=== PATIENT | male | born 1965 | race Two or more races ===

== ENCOUNTER 2016-10-15 10:09 | Inpatient (IN) | payer OTHER ==
[2016-10-15 10:44] VITALS: BMI 21.4
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
[2016-10-15] MEDS ORDERED: MENTHOL/PHENOL 1 EACH UD MM PRN (12:30)
[2016-10-15] MEDS ORDERED: chlordiazePOXIDE HCL 25 MG CAPSULE PO PRN (12:30)
[2016-10-15] MEDS ORDERED: guaiFENesin/D-METHORPHAN HB 10 ML UNIT-DOSE CUPS PO PRN (12:30)
[2016-10-15] MEDS ORDERED: IBUPROFEN 400 MG TABLET (FP) PO PRN (12:30)
[2016-10-15] MEDS ORDERED: hydrOXYzine PAMOATE 25 MG CAPSULE (FP) PO PRN (12:30)
[2016-10-15] MEDS ORDERED: NICOTINE POLACRILEX 2 MG GUM BUC PRN (12:30)
[2016-10-15] MEDS ORDERED: diphenhydrAMINE HCL 50 MG CAPSULE PO PRN (12:30)
[2016-10-15] MEDS ORDERED: ACETAMINOPHEN 325 MG TABLET (FP) PO PRN (12:30)
[2016-10-15] MEDS ORDERED: LOPERAMIDE HCL 2 MG CAPSULE PO PRN (12:30)
[2016-10-15] MEDS ORDERED: P-EPHED 60MG/TRIPROLIDI 2.5MG TABLET PO PRN (12:30)
[2016-10-15] MEDS ORDERED: MAG HYDROX/AL HYDROX/SIMETH 30 ML UNIT-DOSE CUP PO PRN (12:30)
[2016-10-15] MEDS ORDERED: MAGNESIUM HYDROX 2400MG/30ML ORAL SUSPENSION 30 ML CUP PO PRN (12:30)
[2016-10-15] MEDS ORDERED: MAGNESIUM CITRATE 300 ML BOTTLE PO PRN (12:30)
[2016-10-15] MEDS ORDERED: ALBUTEROL SO4 6.7 GM HFA INHALER IH PRN (12:32)
[2016-10-15] MEDS ORDERED: ONDANSETRON *ODT* 4 MG TABLET SL PRN (12:35)
[2016-10-15] MEDS ORDERED: ACLIDINIUM BROMIDE 400 MCG/INH AERO.POWD IH SCH (12:45)
[2016-10-15] MEDS ORDERED: ALBUTEROL SO4 2.5/IPRATROPIUM 0.5 INH SOL 3 ML VIAL.NEB. NEB SCH (14:00)
[2016-10-15] MEDS ORDERED: chlordiazePOXIDE HCL 25 MG CAPSULE PO ONE (14:07)
[2016-10-15] MEDS: BACITRACIN 0.9 GM PACKET TP SCH ×2 (14:22→22:28)
[2016-10-15] MEDS: PHENYTOIN NA EXTENDED 100 MG CAPSULE (FP) PO SCH ×2 (14:22→22:29)
[2016-10-15] MEDS: NICOTINE 14 MG/24 HOURS TOPICAL PATCH TD SCH (14:23)
[2016-10-15] MEDS ORDERED: METHADONE HCL 40 MG DISPERSABLE TABLET PO ONE (15:08)
[2016-10-15] MEDS: chlordiazePOXIDE HCL 25 MG CAPSULE PO SCH ×2 (17:51→22:29)
[2016-10-15] MEDS: ALBUTEROL SO4 0.083% IH SOL 2.5 MG/3 ML VIAL.NEB. NEB SCH ×2 (18:32→22:32)
[2016-10-15 20:20] LABS: URINE APPEARANCE CLEAR; URINE BILIRUBIN NEGATIVE (NEGATIVE); URINE BLOOD NEGATIVE (NEGATIVE); URINE COLOR AMBER; URINE GLUCOSE (UA) NEGATIVE (NEGATIVE); URINE KETONE TRACE (NEGATIVE); URINE LEUK ESTERASE NEGATIVE (NEGATIVE); URINE NITRITE NEGATIVE (NEGATIVE); URINE UROBILINOGEN NEGATIVE E.U./dl (0.2-1.0)
[2016-10-15 20:23] LABS: URINE PROTEIN 1+ (NEGATIVE)
[2016-10-15 20:24] LABS: URINE BACTERIA RARE /hpf (NONE SEEN); URINE MUCUS MANY; URINE RBC 1 /hpf (0-3); URINE WBC 1 /hpf (3-5)
[2016-10-15] MEDS: THIAMINE HCL 100 MG TABLET (FP) PO SCH (22:28)
[2016-10-15] MEDS: ACLIDINIUM BROMIDE 400 MCG/INH AERO.POWD IH SCH (22:32)
[2016-10-16] MEDS: chlordiazePOXIDE HCL 25 MG CAPSULE PO SCH ×4 (05:48→22:08)
[2016-10-16] MEDS: METHADONE HCL 40 MG DISPERSABLE TABLET PO SCH (05:48)
[2016-10-16 10:37] LABS: ALBUMIN 3.8 g/dl (3.4-5.0); ANION GAP 9 (8-16); CALCIUM 8.8 mg/dL (8.5-10.1); CO2 30 mmol/L (21-32); CREATININE 0.8 mg/dL (0.7-1.3); GLUCOSE,RANDOM 101 mg/dL (74-106); SGOT/AST 25 U/L (15-37); SGPT/ALT 18 U/L (12-78)
[2016-10-16 10:39] LABS: ALK PHOS 132 U/L (45-117); BILIRUBIN,TOTAL 1.2 mg/dL (0.2-1.0); TOT PROT 7.5 g/dl (6.4-8.2)
[2016-10-16 10:40] LABS: MCH 35.2 pg (25.7-33.7); MCHC 33.1 g/dl (32.0-35.9); MEAN CELL VOLUME 106.5 fl (80-96); MEAN PLT VOLUME 8.1 fl (7.5-11.1); PLATELET COUNT 222 K/MM3 (134-434); RDW 15.1 % (11.9-15.9); WHITE BLOOD COUNT 13.2 K/mm3 (4.0-10.0)
[2016-10-16] MEDS: PHENYTOIN NA EXTENDED 100 MG CAPSULE (FP) PO SCH ×2 (10:48→22:06)
[2016-10-16] MEDS: NICOTINE 14 MG/24 HOURS TOPICAL PATCH TD SCH (10:48)
[2016-10-16] MEDS: BACITRACIN 0.9 GM PACKET TP SCH ×2 (10:48→22:06)
[2016-10-16] MEDS: PRENATAL VITAMINS W/ FOLIC ACID TABLET (FP) PO SCH (10:48)
[2016-10-16] MEDS: ACLIDINIUM BROMIDE 400 MCG/INH AERO.POWD IH SCH ×2 (10:50→22:08)
[2016-10-16] MEDS: ALBUTEROL SO4 0.083% IH SOL 2.5 MG/3 ML VIAL.NEB. NEB SCH ×3 (10:50→18:20)
--- NOTE | 2016-10-16 12:31 | EKG ---
Test Reason : Blood Pressure : / mmHG Vent. Rate : 071 BPM Atrial Rate : 071 BPM P-R Int : 122 ms QRS Dur : 074 ms QT Int : 448 ms P-R-T Axes : 076 029 -18 degrees QTc Int : 486 ms NORMAL SINUS RHYTHM NONSPECIFIC ST ABNORMALITY PROLONGED QT ABNORMAL ECG NO PREVIOUS ECGS AVAILABLE Confirmed by ALINE DOE MD ([id number]) on 10/16/2016 12:30:42 PM Referred By: Confirmed By:ALINE DOE MD
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
--- NOTE | 2016-10-16 15:21 | PN ---
BHS COWS - Scale Resting Pulse: 1= [place] 81-100 Sweatin= Chills/Flushing Restless Observation: 1= Difficult to Sit Still Pupil Size: 1= Pupils >than Normal Bone or Joint Aches: 1= Mild Discomfort Runny Nose/ Eye Tearin= Nasal Congestion GI Upset > 30mins: 1= Stomach Cramp Tremor Observation of Outstretched Hands: 0= None Yawning Observation: 4= Several Times/Minute Anxiety or Irritability: 1=Feels Anxious/Irritable Goose Flesh Skin: 0=Smooth Skin COWS Score: 12 S Progress Note (SOAP) Subjective: interrupted sleep, now sedated Objective: 10/16/16 15:19 Vital Signs Temperature 96.3 F L 10/16/16 14:09 Pulse Rate 82 10/16/16 14:09 Respiratory Rate 16 10/16/16 14:09 Blood Pressure 110/67 10/16/16 14:09 O2 Sat by Pulse Oximetry (%) Laboratory Tests 10/15/16 10/16/16 10/16/16 14:00 06:00 06:00 WBC 13.2 H D RBC 3.56 L Hgb 12.5 D Hct 37.9 MCV 106.5 H MCHC 33.1 RDW 15.1 Plt Count 222 MPV 8.1 Macrocytosis 2+ Sodium 138 Potassium 4.0 Chloride 99 Carbon Dioxide 30 Anion Gap 9 BUN 8 D Creatinine 0.8 Creat Clearance w eGFR > 60 Random Glucose 101 D Calcium 8.8 Total Bilirubin 1.2 H D AST 25 ALT 18 D Alkaline Phosphatase 132 H Total Protein 7.5 Albumin 3.8 Urine Color Dorie Urine Appearance Clear Urine pH 6.0 Ur Specific [place] 1.031 Urine Protein 1+ H Urine Glucose (UA) Negative Urine Ketones Trace H Urine Blood Negative Urine Nitrite Negative Urine Bilirubin Negative Urine Urobilinogen Negative Ur Leukocyte Esterase Negative Urine RBC 1 Urine WBC 1 Ur Epithelial Cells Rare Urine Bacteria Rare Urine Mucus Many Phenytoin RPR Titer 10/16/16 10/16/16 06:00 09:10 WBC RBC Hgb Hct MCV MCHC RDW Plt Count MPV Macrocytosis Sodium Potassium Chloride Carbon Dioxide Anion Gap BUN Creatinine Creat Clearance w eGFR Random Glucose Calcium Total Bilirubin AST ALT Alkaline Phosphatase Total Protein Albumin Urine Color Urine Appearance Urine pH Ur Specific [place] Urine Protein Urine Glucose (UA) Urine Ketones Urine Blood Urine Nitrite Urine Bilirubin Urine Urobilinogen Ur Leukocyte Esterase Urine RBC Urine WBC Ur Epithelial Cells Urine Bacteria Urine Mucus Phenytoin < 2.5 L D RPR Titer Nonreactive pt ambulating but when he stops walking he becomess sedated Assessment: 10/16/16 15:20 withdrawql sx' sedation 2nd to ?etiology Plan: cnt. detox hold meds if sedated fluids repat cbc
[2016-10-16] MEDS: THIAMINE HCL 100 MG TABLET (FP) PO SCH (22:06)
[2016-10-17] MEDS: METHADONE HCL 40 MG DISPERSABLE TABLET PO SCH (05:47)
[2016-10-17] MEDS: chlordiazePOXIDE HCL 25 MG CAPSULE PO SCH ×2 (05:47→10:30)
[2016-10-17 10:00] LABS: MCH 36.2 pg (25.7-33.7); MCHC 33.9 g/dl (32.0-35.9); MEAN CELL VOLUME 106.5 fl (80-96); MEAN PLT VOLUME 8.1 fl (7.5-11.1); PLATELET COUNT 222 K/MM3 (134-434); RDW 14.6 % (11.9-15.9); WHITE BLOOD COUNT 10.7 K/mm3 (4.0-10.0)
[2016-10-17] MEDS: CITALOPRAM HYDROBROMIDE 20 MG TABLET (FP) PO SCH (10:30)
[2016-10-17] MEDS: PHENYTOIN NA EXTENDED 100 MG CAPSULE (FP) PO SCH ×2 (10:30→22:19)
[2016-10-17] MEDS: PRENATAL VITAMINS W/ FOLIC ACID TABLET (FP) PO SCH (10:30)
[2016-10-17] MEDS: BACITRACIN 0.9 GM PACKET TP SCH ×2 (10:30→22:18)
[2016-10-17] MEDS: ACLIDINIUM BROMIDE 400 MCG/INH AERO.POWD IH SCH ×2 (10:33→22:19)
[2016-10-17] MEDS: NICOTINE 14 MG/24 HOURS TOPICAL PATCH TD SCH (10:33)
--- NOTE | 2016-10-17 12:29 | PN ---
BHS COWS - Scale Resting Pulse: 1= [place] 81-100 Sweatin=Flushed/Facial Moisture Restless Observation: 1= Difficult to Sit Still Pupil Size: 0= Normal to Room Light Bone or Joint Aches: 2= Severe Diffuse Aches Runny Nose/ Eye Tearin= None GI Upset > 30mins: 0= None Tremor Observation of Outstretched Hands: 2= Slight Tremor Visible Yawning Observation: 2= >3x During Session Anxiety or Irritability: 2=Irritable/Anxious Goose Flesh Skin: 0=Smooth Skin COWS Score: 12 S Progress Note (SOAP) Subjective: agitation little shakes sweats interrupted sleep Objective: 10/17/16 12:28 Vital Signs Temperature 97.2 F L 10/17/16 09:48 Pulse Rate 85 10/17/16 09:48 Respiratory Rate 16 10/17/16 09:48 Blood Pressure 122/76 10/17/16 09:48 O2 Sat by Pulse Oximetry (%) Laboratory Tests 10/15/16 10/16/16 10/16/16 14:00 06:00 06:00 WBC 13.2 H D RBC 3.56 L Hgb 12.5 D Hct 37.9 MCV 106.5 H MCHC 33.1 RDW 15.1 Plt Count 222 MPV 8.1 Macrocytosis 2+ Sodium 138 Potassium 4.0 Chloride 99 Carbon Dioxide 30 Anion Gap 9 BUN 8 D Creatinine 0.8 Creat Clearance w eGFR > 60 Random Glucose 101 D Calcium 8.8 Total Bilirubin 1.2 H D AST 25 ALT 18 D Alkaline Phosphatase 132 H Total Protein 7.5 Albumin 3.8 Urine Color Dorie Urine Appearance Clear Urine pH 6.0 Ur Specific [place] 1.031 Urine Protein 1+ H Urine Glucose (UA) Negative Urine Ketones Trace H Urine Blood Negative Urine Nitrite Negative Urine Bilirubin Negative Urine Urobilinogen Negative Ur Leukocyte Esterase Negative Urine RBC 1 Urine WBC 1 Ur Epithelial Cells Rare Urine Bacteria Rare Urine Mucus Many Phenytoin RPR Titer 10/16/16 10/16/16 10/17/16 06:00 09:10 07:00 WBC 10.7 H RBC 3.41 L Hgb 12.3 Hct 36.3 MCV 106.5 H MCHC 33.9 RDW 14.6 Plt Count 222 MPV 8.1 Macrocytosis Sodium Potassium Chloride Carbon Dioxide Anion Gap BUN Creatinine Creat Clearance w eGFR Random Glucose Calcium Total Bilirubin AST ALT Alkaline Phosphatase Total Protein Albumin Urine Color Urine Appearance Urine pH Ur Specific [place] Urine Protein Urine Glucose (UA) Urine Ketones Urine Blood Urine Nitrite Urine Bilirubin Urine Urobilinogen Ur Leukocyte Esterase Urine RBC Urine WBC Ur Epithelial Cells Urine Bacteria Urine Mucus Phenytoin < 2.5 L D RPR Titer Nonreactive awake/alert ambulating no acute distress Assessment: 10/17/16 12:28 withdrawal sx Plan: continue detox increase fluids
[2016-10-17] MEDS: chlordiazePOXIDE 5 MG CAPSULE PO SCH ×2 (18:06→22:19)
[2016-10-17] MEDS: THIAMINE HCL 100 MG TABLET (FP) PO SCH (22:19)
[2016-10-17] MEDS: ALBUTEROL SO4 0.083% IH SOL 2.5 MG/3 ML VIAL.NEB. NEB SCH (22:20)
[2016-10-18] MEDS: chlordiazePOXIDE 5 MG CAPSULE PO SCH ×2 (06:10→10:42)
[2016-10-18] MEDS: METHADONE HCL 40 MG DISPERSABLE TABLET PO SCH (06:10)
[2016-10-18] MEDS: PRENATAL VITAMINS W/ FOLIC ACID TABLET (FP) PO SCH (10:41)
[2016-10-18] MEDS: BACITRACIN 0.9 GM PACKET TP SCH ×2 (10:41→22:26)
[2016-10-18] MEDS: PHENYTOIN NA EXTENDED 100 MG CAPSULE (FP) PO SCH ×2 (10:41→22:27)
[2016-10-18] MEDS: CITALOPRAM HYDROBROMIDE 20 MG TABLET (FP) PO SCH (10:41)
[2016-10-18] MEDS: ALBUTEROL SO4 0.083% IH SOL 2.5 MG/3 ML VIAL.NEB. NEB SCH ×3 (10:42→22:27)
[2016-10-18] MEDS: ACLIDINIUM BROMIDE 400 MCG/INH AERO.POWD IH SCH ×2 (10:42→22:27)
[2016-10-18] MEDS: NICOTINE 14 MG/24 HOURS TOPICAL PATCH TD SCH (10:42)
--- NOTE | 2016-10-18 10:49 | PN ---
BHS Progress Note (SOAP) Subjective: poor sleep, shaky, anxious, diarrhea Objective: 10/18/16 10:48 Vital Signs - 24 hr 10/17/16 10/17/16 10/17/16 15:03 17:55 22:19 Temperature 96.3 F L 97.7 F 97.5 F L Pulse Rate 70 78 83 Respiratory 16 18 18 Rate Blood Pressure 118/71 119/78 123/88 10/18/16 10/18/16 10/18/16 00:30 03:30 06:48 Temperature 96.6 F L Pulse Rate 83 Respiratory 18 18 18 Rate Blood Pressure 151/80 10/18/16 09:46 Temperature 97.5 F L Pulse Rate 84 Respiratory 18 Rate Blood Pressure 115/56 Laboratory Tests 10/15/16 10/16/16 10/16/16 14:00 06:00 06:00 WBC 13.2 H D RBC 3.56 L Hgb 12.5 D Hct 37.9 MCV 106.5 H MCHC 33.1 RDW 15.1 Plt Count 222 MPV 8.1 Macrocytosis 2+ Sodium 138 Potassium 4.0 Chloride 99 Carbon Dioxide 30 Anion Gap 9 BUN 8 D Creatinine 0.8 Creat Clearance w eGFR > 60 Random Glucose 101 D Calcium 8.8 Total Bilirubin 1.2 H D AST 25 ALT 18 D Alkaline Phosphatase 132 H Total Protein 7.5 Albumin 3.8 Urine Color Dorie Urine Appearance Clear Urine pH 6.0 Ur Specific [place] 1.031 Urine Protein 1+ H Urine Glucose (UA) Negative Urine Ketones Trace H Urine Blood Negative Urine Nitrite Negative Urine Bilirubin Negative Urine Urobilinogen Negative Ur Leukocyte Esterase Negative Urine RBC 1 Urine WBC 1 Ur Epithelial Cells Rare Urine Bacteria Rare Urine Mucus Many Phenytoin RPR Titer 10/16/16 10/16/16 10/17/16 06:00 09:10 07:00 WBC 10.7 H RBC 3.41 L Hgb 12.3 Hct 36.3 MCV 106.5 H MCHC 33.9 RDW 14.6 Plt Count 222 MPV 8.1 Macrocytosis Sodium Potassium Chloride Carbon Dioxide Anion Gap BUN Creatinine Creat Clearance w eGFR Random Glucose Calcium Total Bilirubin AST ALT Alkaline Phosphatase Total Protein Albumin Urine Color Urine Appearance Urine pH Ur Specific [place] Urine Protein Urine Glucose (UA) Urine Ketones Urine Blood Urine Nitrite Urine Bilirubin Urine Urobilinogen Ur Leukocyte Esterase Urine RBC Urine WBC Ur Epithelial Cells Urine Bacteria Urine Mucus Phenytoin < 2.5 L D RPR Titer Nonreactive Assessment: 10/18/16 10:49 ongoing withdrawal Plan: continue detox protocol
[2016-10-18] MEDS: chlordiazePOXIDE HCL 10 MG CAPSULE PO SCH ×2 (17:42→22:27)
[2016-10-18] MEDS: THIAMINE HCL 100 MG TABLET (FP) PO SCH (22:26)
[2016-10-19] MEDS: METHADONE HCL 40 MG DISPERSABLE TABLET PO SCH (05:35)
[2016-10-19] MEDS: chlordiazePOXIDE HCL 10 MG CAPSULE PO SCH (05:35)
--- NOTE | 2016-10-19 09:19 | PN ---
BHS Progress Note (SOAP) Subjective: no complaints Objective: 10/19/16 09:16 Vital Signs 10/19/16 10/19/16 03:28 06:00 Temperature 97.5 F L Pulse Rate 87 Respiratory 18 16 Rate Blood Pressure 138/87 Laboratory Tests 10/15/16 10/16/16 10/16/16 14:00 06:00 06:00 WBC 13.2 H D RBC 3.56 L Hgb 12.5 D Hct 37.9 MCV 106.5 H MCHC 33.1 RDW 15.1 Plt Count 222 MPV 8.1 Macrocytosis 2+ Sodium 138 Potassium 4.0 Chloride 99 Carbon Dioxide 30 Anion Gap 9 BUN 8 D Creatinine 0.8 Creat Clearance w eGFR > 60 Random Glucose 101 D Calcium 8.8 Total Bilirubin 1.2 H D AST 25 ALT 18 D Alkaline Phosphatase 132 H Total Protein 7.5 Albumin 3.8 Urine Color Dorie Urine Appearance Clear Urine pH 6.0 Ur Specific [place] 1.031 Urine Protein 1+ H Urine Glucose (UA) Negative Urine Ketones Trace H Urine Blood Negative Urine Nitrite Negative Urine Bilirubin Negative Urine Urobilinogen Negative Ur Leukocyte Esterase Negative Urine RBC 1 Urine WBC 1 Ur Epithelial Cells Rare Urine Bacteria Rare Urine Mucus Many Phenytoin RPR Titer 10/16/16 10/16/16 10/17/16 06:00 09:10 07:00 WBC 10.7 H RBC 3.41 L Hgb 12.3 Hct 36.3 MCV 106.5 H MCHC 33.9 RDW 14.6 Plt Count 222 MPV 8.1 Macrocytosis Sodium Potassium Chloride Carbon Dioxide Anion Gap BUN Creatinine Creat Clearance w eGFR Random Glucose Calcium Total Bilirubin AST ALT Alkaline Phosphatase Total Protein Albumin Urine Color Urine Appearance Urine pH Ur Specific [place] Urine Protein Urine Glucose (UA) Urine Ketones Urine Blood Urine Nitrite Urine Bilirubin Urine Urobilinogen Ur Leukocyte Esterase Urine RBC Urine WBC Ur Epithelial Cells Urine Bacteria Urine Mucus Phenytoin < 2.5 L D RPR Titer Nonreactive subtherapeuic phenytoin level Assessment: 10/19/16 09:18 completed detox, medically stable, seizure most likely on admission 2/2 subtherapeutic phenytoin level w h/o sieuzres, unlikely to be overdose Plan: d/c today, f/u PCP for uncontrolled seizure do
--- NOTE | 2016-10-19 09:21 | DS ---
[facility] Detox Discharge Summary Admission Date: 10/15/16 Discharge Date: 10/19/16 - History Present History: Alcohol Dependence, Opioid Dependence Pertinent Past History: PTSD, anxiety, depression and insomnia, asthma, seizure disorder, COPD, nicotien dependence with withdrwal sx - Physical Exam Results Vital Signs: Vital Signs Temperature 97.5 F L 10/19/16 06:00 Pulse Rate 87 10/19/16 06:00 Respiratory Rate 16 10/19/16 06:00 Blood Pressure 138/87 10/19/16 06:00 O2 Sat by Pulse Oximetry (%) Pertinent Admission Physical Exam Findings: withdrawal syndrome, seizure of OD in admitting on admission , sent to ED where he was cleared for detox, - Medication Discharge Medications: Ambulatory Orders Citalopram Hydrobromide [Celexa -] 40 mg PO DAILY #30 tablet 05/02/16 Albuterol Sulfate Inhaler - [Ventolin HFA Inhaler -] 2 puff IH Q6H PRN #1 inhaler 09/17/16 Phenytoin Na Extended [Dilantin -] 200 mg PO BID #60 capsule 09/17/16 Aclidinium [place] [Tudorza Pressair] 1 mcg IH DAILY 10/15/16 Quetiapine Fumarate [Seroquel -] 100 mg PO HS 10/15/16 Citalopram Hydrobromide [Celexa -] 40 mg PO DAILY #30 tablet 10/16/16 - Diagnosis (1) Alcohol dependence with uncomplicated withdrawal Current Visit: Yes Status: Acute (2) Opioid dependence on agonist therapy Current Visit: Yes Status: Acute (3) PTSD (post-traumatic stress disorder) Current Visit: Yes Status: Acute (4) Asthma Current Visit: Yes Status: Chronic Qualifiers: Asthma severity: mild persistent Asthma complication type: uncomplicated Qualified Code(s): J45.30 - Mild persistent asthma, uncomplicated (5) COPD (chronic obstructive pulmonary disease) Current Visit: Yes Status: Chronic Qualifiers: COPD type: emphysema Emphysema type: panlobular Qualified Code(s ): J43.1 - Panlobular emphysema (6) Methadone maintenance therapy patient Current Visit: Yes Status: Chronic (7) Nicotine dependence Current Visit: Yes Status: Chronic Qualifiers: Nicotine product type: cigarettes Substance use status: uncomplicated Qualified Code(s): F17.210 - Nicotine dependence, cigarettes, uncomplicated (8) Seizure disorder Current Visit: Yes Status: Chronic (9) Cannabis abuse Current Visit: No Status: Acute (10) MDD (major depressive disorder), recurrent severe, without psychosis Current Visit: No Status: Acute (11) Otitis externa Current Visit: No Status: Acute Qualifiers: Otitis externa type: other infective Laterality: bilateral Chronicity: acute Qualified Code(s): H60.393 - Other infective otitis externa, bilateral (12) Alcohol dependence Current Visit: No Status: Chronic (13) Depression (emotion) Current Visit: No Status: Chronic Qualifiers: Depression Type: dysthymia Qualified Code(s): F34.1 - Dysthymic disorder (14) MDD (major depressive disorder), recurrent episode Current Visit: No Status: Chronic Qualifiers: Major depression episode severity: moderate Qualified Code(s): F33.1 - Major depressive disorder, recurrent, moderate - AMA Did Patient Leave Against Medical Advice: No
[2016-10-19] MEDS: ACLIDINIUM BROMIDE 400 MCG/INH AERO.POWD IH SCH (09:27)
[2016-10-19] MEDS: CITALOPRAM HYDROBROMIDE 20 MG TABLET (FP) PO SCH (09:29)
[2016-10-19] MEDS: PHENYTOIN NA EXTENDED 100 MG CAPSULE (FP) PO SCH (09:29)
[2016-10-19] MEDS: BACITRACIN 0.9 GM PACKET TP SCH (09:29)
[2016-10-19] MEDS: PRENATAL VITAMINS W/ FOLIC ACID TABLET (FP) PO SCH (09:30)
[2016-10-19 10:19] VITALS: BP 144/97; PULSE 82; TEMP 98.5
== END 2016-10-19 09:33 | disposition home or self-care (01) | DRG 773 ==
LOC: YASAS 10:09 → Y6N 13:11
PROVIDERS: ADMIT Internal Medicine Addiction Medicine; ATTEND Internal Medicine Addiction Medicine
PROC: HZ2ZZZZ Detoxification Services for Substance Abuse Treatment (ICD-10-PCS; principal; 2016-10-15)
DX: F10.230 Alcohol dependence with withdrawal, uncomplicated (principal); F11.20 Opioid dependence, uncomplicated; F12.10 Cannabis abuse, uncomplicated; F17.210 Nicotine dependence, cigarettes, uncomplicated; F33.2 Major depressive disorder, recurrent severe without psychotic features; F43.10 Post-traumatic stress disorder, unspecified; H60.393 Other infective otitis externa, bilateral; J43.1 Panlobular emphysema; G40.909 Epilepsy, unspecified, not intractable, without status epilepticus; T50.905A Adverse effect of unspecified drugs, medicaments and biological substances, initial encounter; Z91.5 Personal history of self-harm
CPT/HCPCS: 36415; 71020-TC; 80053; 80185; 81003; 81015; 85027; 86593; 93005; 93010

== ENCOUNTER 2016-11-11 19:38 | Inpatient (IN) | payer OTHER ==
--- NOTE | 2016-11-11 21:20 | HP ---
CIWA Score - CIWA Score Nausea/Vomitin Muscle Tremors: 3 Anxiety: 3 Agitation: 3 Paroxysmal Sweats: 1-Minimal Palms Moist Orientation: 0-Oriented Tacttile Disturbances: 2-Mild Itch/Numbness/Burn Auditory Disturbances: 2-Mild Harshness/Frighten Visual Disturbances: 2-Mild Sensitivity Headache: 2-Mild CIWA-Ar Total Score: 21 Admission ROS [facility] - HPI Chief Complaint: I NEED HELP TO STOP DRINKING ALCOHOL Allergies/Adverse Reactions: Allergies Allergy/AdvReac Type Severity Reaction Status Date / Time No Known Allergies Allergy Verified 11/11/16 21:38 History of Present Illness: THIS 51 YEARS OLD MALE WITH ALCOHOL AND CANNABIS DEPENDENCE,WITHDRAWAL SYMPTOM, LAST DETOX [facility] 10/15/16 TO 10/19/16 SYNCOPE ALCOHOL RELATED SEIZURE LAST 09/06 ANXIETY AND DEPRESSION NICOTINE DEPENDENCE MMTP 120 MGS/DAY,LAST MEDICATED 11/10/16? HISTORY OF SURGERY OF BACK MULTIPLE ADMISSIONS IN DETOX NO SIGNIFICANT PERIOD OF SOBRIETY Exam Limitations: No Limitations - Ebola screening Have you traveled outside of the country in the last 21 days: No (N) Have you had contact with anyone from an Ebola affected area: No Do you have a fever: No - Review of Systems Constitutional: Loss of Appetite, Malaise, Night Sweats, Changes in sleep, Weakness, Unintentional Wgt. Loss EENT: reports: Nose Congestion Respiratory: reports: Other (ASTHMA HISTORY) Cardiac: reports: Palpitations GI: reports: Nausea, Vomiting, Abdominal cramping : reports: No Symptoms Reported, Burning Musculoskeletal: reports: Back Pain, Muscle Pain Integumentary: reports: Dryness Neuro: reports: Tremors Endocrine: reports: No Symptoms Reported Hematology: reports: No Symptoms Reported Psychiatric: reports: Anxious, Depressed Patient History - Patient Medical History Hx Anemia: No Hx Asthma: Yes (ON MDI) Hx Chronic Obstructive Pulmonary Disease (COPD): No Hx Cancer: No Hx Cardiac Disorders: No Hx Congestive Heart Failure: No Hx Hypertension: No Hx Hypercholesterolemia: No Hx Pacemaker: No HX Cerebrovascular Accident: No Hx Seizures: Yes (seizure disorder on dilantin last seizure 1 yr ago) Hx Dementia: No Hx Diabetes: No Hx Gastrointestinal Disorders: No Hx Liver Disease: No Hx Genitourinary Disorders: No Hx Sexually Transmitted Disorders: No Hx Renal Disease (ESRD): No Hx Thyroid Disease: No Hx Human Immunodeficiency Virus (HIV): No (NEGATIVE HX) Hx Hepatitis C: No Hx Depression: Yes Hx Suicide Attempt: Yes (Tried to hang himself in retirement more than 20 yrs ago; DENIES TODAY.) Hx Bipolar Disorder: No Hx Schizophrenia: No Other Medical History: NO SUICIDAL,NO HOMICIDAL - Patient Surgical History Past Surgical History: No Hx Neurologic Surgery: No Hx Cataract Extraction: No Hx Cardiac Surgery: No Hx Lung Surgery: No Hx Breast Surgery: No Hx Breast Biopsy: No Hx Abdominal Surgery: No Hx Appendectomy: No Hx Cholecystectomy: No Hx Genitourinary Surgery: No Hx Section: No (NA) Hx Orthopedic Surgery: No Anesthesia Reaction: No - PPD History Previous Implant?: Yes Documented Results: Negative w/proof Date: 05/03/16 Results: 0 mm PPD to be Administered?: No - Smoking Cessation Smoking history: Current every day smoker Have you smoked in the past 12 months: Yes Aproximately how many cigarettes per day: 12 Cigars Per Day: 0 Hx Chewing Tobacco Use: No Initiated information on smoking cessation: Yes 'Breaking Loose' booklet given: 11/11/16 - Substance & Tx. History Hx Alcohol Use: Yes Hx Substance Use: Yes Substance Use Type: Marijuana Hx Substance Use Treatment: Yes ([facility] 10/15/16 TO 10/19/16) - Substances Abused Alcohol Route: Oral Frequency: Daily Amount used: 4PINTS OF LIQUOR/ Age of first use: 34 Date of Last Use: 11/11/16 Family Disease History - Family Disease History Family Disease History: Other: Father (), Mother () Admission Physical Exam S - Vital Signs Vital Signs: Vital Signs Temperature 96.3 F L 11/11/16 21:27 Pulse Rate 83 11/11/16 21:27 Respiratory Rate 20 11/11/16 21:27 Blood Pressure 96/59 11/11/16 21:27 O2 Sat by Pulse Oximetry (%) - Physical General Appearance: Yes: Moderate Distress, Tremorous, Irritable, Sweating, Anxious HEENTM: Yes: Nasal Congestion Respiratory: Yes: Lungs Clear Neck: Yes: Within Normal Limits, Other (LIPOMA OF RIGHT NECK POSTERIOR 1X1 CM) Breast: Yes: Within Normal Limits Cardiology: Yes: Within Normal Limits, Regular Rhythm, Regular Rate, S1, S2 Abdominal: Yes: Normal Bowel Sounds, Non Tender, Flat, Soft Genitourinary: Yes: Within Normal Limits Back: Yes: Muscle Spasm Musculoskeletal: Yes: Back pain, Muscle Pain Extremities: Yes: Tremors Neurological: Yes: injection specialist II-XII NML intact, Fully Oriented, Alert, Motor Strength 5/5 Integumentary: Yes: Dry Lymphatic: Yes: Within Normal Limits - Diagnostic (1) Alcohol dependence with uncomplicated withdrawal Current Visit: No Status: Acute (2) Cannabis abuse Current Visit: No Status: Acute (3) MDD (major depressive disorder), recurrent severe, without psychosis Current Visit: No Status: Acute (4) Opioid dependence on agonist therapy Current Visit: No Status: Acute (5) PTSD (post-traumatic stress disorder) Current Visit: No Status: Acute (6) Asthma Current Visit: No Status: Chronic Qualifiers: Asthma severity: mild persistent Asthma complication type: uncomplicated Qualified Code(s): J45.30 - Mild persistent asthma, uncomplicated (7) Nicotine dependence Current Visit: No Status: Chronic Qualifiers: Nicotine product type: cigarettes Substance use status: uncomplicated Qualified Code(s): F17.210 - Nicotine dependence, cigarettes, uncomplicated (8) Seizure disorder Current Visit: No Status: Chronic Comment: On dilantin (9) Low back pain Current Visit: Yes Status: Acute (10) Weight loss Current Visit: Yes Status: Acute Cleared for Admission [facility] - Detox or Rehab S Level of Care: Medically Managed Detox Regimen/Protocol: Librium S Breath Alcohol Content Breath Alcohol Content: 0
[2016-11-11 21:35] VITALS: BMI 21.6
[2016-11-11] MEDS ORDERED: MAGNESIUM CITRATE 300 ML BOTTLE PO PRN (22:06)
[2016-11-11] MEDS ORDERED: chlordiazePOXIDE HCL 25 MG CAPSULE PO ONE (22:06)
[2016-11-11] MEDS ORDERED: P-EPHED 60MG/TRIPROLIDI 2.5MG TABLET PO PRN (22:06)
[2016-11-11] MEDS ORDERED: MAG HYDROX/AL HYDROX/SIMETH 30 ML UNIT-DOSE CUP PO PRN (22:06)
[2016-11-11] MEDS ORDERED: diphenhydrAMINE HCL 50 MG CAPSULE PO PRN (22:06)
[2016-11-11] MEDS ORDERED: MAGNESIUM HYDROX 2400MG/30ML ORAL SUSPENSION 30 ML CUP PO PRN (22:06)
[2016-11-11] MEDS ORDERED: MENTHOL/PHENOL 1 EACH UD MM PRN (22:06)
[2016-11-11] MEDS ORDERED: IBUPROFEN 400 MG TABLET (FP) PO PRN (22:06)
[2016-11-11] MEDS ORDERED: chlordiazePOXIDE HCL 25 MG CAPSULE PO PRN (22:06)
[2016-11-11] MEDS ORDERED: guaiFENesin/D-METHORPHAN HB 10 ML UNIT-DOSE CUPS PO PRN (22:06)
[2016-11-11] MEDS ORDERED: hydrOXYzine PAMOATE 25 MG CAPSULE (FP) PO PRN (22:06)
[2016-11-11] MEDS ORDERED: ACETAMINOPHEN 325 MG TABLET (FP) PO PRN (22:06)
[2016-11-11] MEDS ORDERED: LOPERAMIDE HCL 2 MG CAPSULE PO PRN (22:06)
[2016-11-11] MEDS ORDERED: ALBUTEROL SO4 6.7 GM HFA INHALER IH PRN (22:08)
[2016-11-11] MEDS: chlordiazePOXIDE HCL 25 MG CAPSULE PO SCH (23:51)
[2016-11-12] MEDS: chlordiazePOXIDE HCL 25 MG CAPSULE PO SCH ×4 (05:41→22:08)
[2016-11-12] MEDS ORDERED: METHADONE HCL 40 MG DISPERSABLE TABLET PO ONE (07:41)
[2016-11-12] MEDS: PRENATAL VITAMINS W/ FOLIC ACID TABLET (FP) PO SCH (10:07)
[2016-11-12] MEDS: PHENYTOIN NA EXTENDED 100 MG CAPSULE (FP) PO SCH ×2 (10:07→22:08)
[2016-11-12 10:20] LABS: MCH 36.5 pg (25.7-33.7); MEAN CELL VOLUME 107.6 fl (80-96); MEAN PLT VOLUME 7.7 fl (7.5-11.1); PLATELET COUNT 253 K/MM3 (134-434); RDW 15.9 % (11.9-15.9); WHITE BLOOD COUNT 6.3 K/mm3 (4.0-10.0)
[2016-11-12 10:37] LABS: ALBUMIN 2.9 g/dl (3.4-5.0); ALK PHOS 116 U/L (45-117); ANION GAP 11 (8-16); BILIRUBIN,TOTAL 0.2 mg/dL (0.2-1.0); CALCIUM 8.3 mg/dL (8.5-10.1); CO2 30 mmol/L (21-32); CREATININE 0.9 mg/dL (0.7-1.3); GLUCOSE,RANDOM 80 mg/dL (74-106); SGOT/AST 14 U/L (15-37); SGPT/ALT 12 U/L (12-78); TOT PROT 6.3 g/dl (6.4-8.2)
[2016-11-12] MEDS: ACLIDINIUM BROMIDE 400 MCG/INH AERO.POWD IH SCH (11:09)
--- NOTE | 2016-11-12 12:26 | CONSULT ---
[facility] Psychiatric Consult - Data Date of interview: 11/12/16 Admission source: [facility] Identifying data: Readmission to [facility] for this 51 y/o male seeking detox treatment on for alcohol and cannabis dependence.Patient is ,a father of two,homeless,unemployed and supported on food stamps. Substance Abuse History: - Smoking Cessation. Smoking history: Current every day smoker. Have you smoked in the past 12 months: Yes. Aproximately how many cigarettes per day: 12. Cigars Per Day: 0. Hx Chewing Tobacco Use: No. Initiated information on smoking cessation: Yes. 'Breaking Loose' booklet given : 11/11/16. - Substance & Tx. History. Hx Alcohol Use: Yes. Hx Substance Use : Yes. Substance Use Type: Marijuana. Hx Substance Use Treatment: Yes ([facility] TO 10/19/16). - Substances Abused. Alcohol. Route: Oral. Frequency : Daily. Amount used: 4PINTS OF LIQUOR/. Age of first use: 34. Date of Last Use: 11/11/16. Confirmed by patient in this interview. Medical History: Bronchial asthma,low back pain,COPD and seizure disorder. Psychiatric History: No reported history of psychiatric hospitalizations.Patient states that he sees a psychiatrist,on a monthly basis at a clinic in the [place].Except for seroquel,he has no recollection of his regimen of medications." This is something for depression." Mr López is a vague, unreliable and indifferent historian.Review of records shows scripts for seroquel 100 mg/hs + celexa 40 mg/day (10/18/16) from Dr Khan,a clinician at [facility].Patient has a history of suicide attempt via hanging during one of his incarcerations. Physical/Sexual Abuse/Trauma History: Patient declines to discuss this topic. Mental Status Exam - Mental Status Exam Alert and Oriented to: Time, Place, Person Cognitive Function: Grossly Intact Patient Appearance: Unkempt, Disheveled Mood: Withdrawn, Anxious, Irritable Affect: Mood Congruent Patient Behavior: Passive, Fatigued, Appropriate, Cooperative Speech Pattern: Clear Voice Loudness: Normal Thought Process: Goal Oriented Thought Disorder: Not Present Hallucinations: Denies Suicidal Ideation: Denies Homicidal Ideation: Denies Insight/Judgement: Poor Sleep: Poorly, Difficulty falling asleep Appetite: Good Muscle strength/Tone: Normal Gait/Station: Normal Psychiatric Findings - Problem List ([place] 1, 2,3) (1) Alcohol dependence with uncomplicated withdrawal Current Visit: Yes Status: Acute (2) Cannabis abuse Current Visit: Yes Status: Acute (3) Opioid dependence on agonist therapy Current Visit: Yes Status: Acute (4) Nicotine dependence Current Visit: Yes Status: Acute Qualifiers: Nicotine product type: cigarettes Substance use status: uncomplicated Qualified Code(s): F17.210 - Nicotine dependence, cigarettes, uncomplicated (5) PTSD (post-traumatic stress disorder) Current Visit: Yes Status: Chronic (6) Substance induced mood disorder Current Visit: Yes Status: Acute (7) Low back pain Current Visit: Yes Status: Chronic (8) Otitis externa Current Visit: Yes Status: Chronic Qualifiers: Otitis externa type: other infective Laterality: bilateral Chronicity: acute Qualified Code(s): H60.393 - Other infective otitis externa, bilateral (9) Asthma Current Visit: Yes Status: Chronic Qualifiers: Asthma severity: mild persistent Asthma complication type: uncomplicated Qualified Code(s): J45.30 - Mild persistent asthma, uncomplicated (10) COPD (chronic obstructive pulmonary disease) Current Visit: Yes Status: Chronic Qualifiers: COPD type: emphysema Emphysema type: panlobular Qualified Code(s ): J43.1 - Panlobular emphysema (11) Seizure disorder Current Visit: Yes Status: Chronic Comment: On dilantin - Initial Treatment Plan Initial Treatment Plan: Psychoeducation.Detoxification.Medications : seroquel 50 mg po hs + citalopram 20 mg po daily.Side effects/benefits discussed with the patient.He agrees this plan of care.Observation.
--- NOTE | 2016-11-12 15:19 | PN ---
[facility] CIWA - CIWA Score Nausea/Vomitin-Mild Nausea/No Vomiting Muscle Tremors: 4-Moderate,w/Arms Extend Anxiety: 4-Mod. Anxious/Guarded Agitation: 4-Moderately Restless Paroxysmal Sweats: 3 Orientation: 0-Oriented Tacttile Disturbances: 0-None Auditory Disturbances: 0-None Visual Disturbances: 0-None Headache: 0-None Present CIWA-Ar Total Score: 16 BHS Progress Note (SOAP) Subjective: Sweating,anxiety,tremors,interrupted sleep,restless Objective: 11/12/16 15:18 Vital Signs - 8 hr 11/12/16 10:09 Temperature 97.3 F L Pulse Rate 79 Respiratory 18 Rate Blood Pressure 126/86 Laboratory Last Values WBC 6.3 K/mm3 (4.0-10.0) D 11/12/16 08:00 RBC 3.44 M/mm3 (4.00-5.60) L 11/12/16 08:00 Hgb 12.6 GM/dL (11.7-16.9) 11/12/16 08:00 Hct 37.0 % (35.4-49) 11/12/16 08:00 MCV 107.6 fl (80-96) H 11/12/16 08:00 MCHC 34.0 g/dl (32.0-35.9) 11/12/16 08:00 RDW 15.9 % (11.9-15.9) 11/12/16 08:00 Plt Count 253 K/MM3 (134-434) 11/12/16 08:00 MPV 7.7 fl (7.5-11.1) 11/12/16 08:00 Sodium 146 mmol/L (136-145) H 11/12/16 08:00 Potassium 3.4 mmol/L (3.5-5.1) L 11/12/16 08:00 Chloride 105 mmol/L (98-107) 11/12/16 08:00 Carbon Dioxide 30 mmol/L (21-32) 11/12/16 08:00 Anion Gap 11 (8-16) 11/12/16 08:00 BUN 11 mg/dL (7-18) D 11/12/16 08:00 Creatinine 0.9 mg/dL (0.7-1.3) 11/12/16 08:00 Creat Clearance w eGFR > 60 (>60) 11/12/16 08:00 Random Glucose 80 mg/dL (74-106) D 11/12/16 08:00 Calcium 8.3 mg/dL (8.5-10.1) L 11/12/16 08:00 Total Bilirubin 0.2 mg/dL (0.2-1.0) D 11/12/16 08:00 AST 14 U/L (15-37) L D 11/12/16 08:00 ALT 12 U/L (12-78) D 11/12/16 08:00 Alkaline Phosphatase 116 U/L (45-117) 11/12/16 08:00 Total Protein 6.3 g/dl (6.4-8.2) L 11/12/16 08:00 Albumin 2.9 g/dl (3.4-5.0) L D 11/12/16 08:00 Phenytoin < 2.5 ug/ml (10.0-20.0) L 11/12/16 08:00 RPR Titer Nonreactive (NONREACTIVE) 11/12/16 08:00 labs noted Assessment: 11/12/16 15:18 withdrawal sx. Plan: continue detox
[2016-11-12 16:52] LABS: URINE APPEARANCE CLEAR; URINE BILIRUBIN NEGATIVE (NEGATIVE); URINE BLOOD NEGATIVE (NEGATIVE); URINE COLOR AMBER; URINE GLUCOSE (UA) NEGATIVE (NEGATIVE); URINE KETONE TRACE (NEGATIVE); URINE LEUK ESTERASE NEGATIVE (NEGATIVE); URINE NITRITE NEGATIVE (NEGATIVE); URINE PROTEIN NEGATIVE (NEGATIVE); URINE UROBILINOGEN 2.0 E.U/dl E.U./dl (0.2-1.0)
--- NOTE | 2016-11-12 20:56 | PN ---
[facility] Progress Note Note: RECEIVED NURSE CALL k+ 3.4 K-DUO 20 MEQ X 2 DOSES REPEAT CMP 11/14/16 CONTINUE DETOX
--- NOTE | 2016-11-12 21:34 | EKG ---
Test Reason : Blood Pressure : / mmHG Vent. Rate : 057 BPM Atrial Rate : 057 BPM P-R Int : 126 ms QRS Dur : 088 ms QT Int : 488 ms P-R-T Axes : 079 056 037 degrees QTc Int : 474 ms SINUS BRADYCARDIA OTHERWISE NORMAL ECG WHEN COMPARED WITH ECG OF 15-OCT-2016 13:55, VENT. RATE HAS DECREASED Confirmed by DIAZ CUENCA MD ([id number]) on 11/12/2016 9:34:29 PM Referred By: Confirmed By:DIAZ CUENCA MD
[2016-11-12] MEDS: THIAMINE HCL 100 MG TABLET (FP) PO SCH (22:08)
[2016-11-12] MEDS: POTASSIUM CHLORIDE TABS 20 MEQ TABLET.ER (FP) PO SCH (22:09)
[2016-11-12] MEDS: QUEtiapine FUMARATE 50 MG TABLET PO SCH (22:09)
[2016-11-13] MEDS: chlordiazePOXIDE HCL 25 MG CAPSULE PO SCH ×3 (05:50→17:16)
[2016-11-13] MEDS: METHADONE HCL 40 MG DISPERSABLE TABLET PO SCH (07:33)
[2016-11-13] MEDS: ACLIDINIUM BROMIDE 400 MCG/INH AERO.POWD IH SCH (10:41)
[2016-11-13] MEDS: PHENYTOIN NA EXTENDED 100 MG CAPSULE (FP) PO SCH ×2 (10:41→22:13)
[2016-11-13] MEDS: POTASSIUM CHLORIDE TABS 20 MEQ TABLET.ER (FP) PO SCH (10:42)
[2016-11-13] MEDS: CITALOPRAM HYDROBROMIDE 20 MG TABLET (FP) PO SCH (10:42)
[2016-11-13] MEDS: PRENATAL VITAMINS W/ FOLIC ACID TABLET (FP) PO SCH (10:42)
--- NOTE | 2016-11-13 17:22 | PN ---
S CIWA - CIWA Score Nausea/Vomitin-No Nausea/No Vomiting Muscle Tremors: 3 Anxiety: 4-Mod. Anxious/Guarded Agitation: 3 Paroxysmal Sweats: 3 Orientation: 0-Oriented Tacttile Disturbances: 0-None Auditory Disturbances: 0-None Visual Disturbances: 0-None Headache: 0-None Present CIWA-Ar Total Score: 13 BHS Progress Note (SOAP) Subjective: Sweating,interrupted sleep,restless,tremors,anxiety Objective: 11/13/16 17:20 Vital Signs - 8 hr 11/13/16 11/13/16 13:28 16:59 Temperature 96.8 F L 96.1 F L Pulse Rate 57 L 60 Respiratory 18 16 Rate Blood Pressure 129/84 134/81 Laboratory Tests 11/12/16 11/12/16 11/12/16 08:00 08:00 08:00 WBC 6.3 D RBC 3.44 L Hgb 12.6 Hct 37.0 MCV 107.6 H MCHC 34.0 RDW 15.9 Plt Count 253 MPV 7.7 Sodium 146 H Potassium 3.4 L Chloride 105 Carbon Dioxide 30 Anion Gap 11 BUN 11 D Creatinine 0.9 Creat Clearance w eGFR > 60 Random Glucose 80 D Calcium 8.3 L Total Bilirubin 0.2 D AST 14 L D ALT 12 D Alkaline Phosphatase 116 Total Protein 6.3 L Albumin 2.9 L D Urine Color Urine Appearance Urine pH Ur Specific [place] Urine Protein Urine Glucose (UA) Urine Ketones Urine Blood Urine Nitrite Urine Bilirubin Urine Urobilinogen Ur Leukocyte Esterase Phenytoin RPR Titer Nonreactive 11/12/16 11/12/16 08:00 13:00 WBC RBC Hgb Hct MCV MCHC RDW Plt Count MPV Sodium Potassium Chloride Carbon Dioxide Anion Gap BUN Creatinine Creat Clearance w eGFR Random Glucose Calcium Total Bilirubin AST ALT Alkaline Phosphatase Total Protein Albumin Urine Color Dorie Urine Appearance Clear Urine pH 5.0 Ur Specific [place] 1.032 Urine Protein Negative Urine Glucose (UA) Negative Urine Ketones Trace H Urine Blood Negative Urine Nitrite Negative Urine Bilirubin Negative Urine Urobilinogen 2.0 e.u/dl Ur Leukocyte Esterase Negative Phenytoin < 2.5 L RPR Titer labs noted, on k-dur Assessment: 11/13/16 17:22 Withdrawal sx. Plan: Continue detox
[2016-11-13] MEDS ORDERED: POTASSIUM CHLORIDE TABS 10 MEQ TABLET.ER (FP) PO SCH (17:45)
[2016-11-13] MEDS: chlordiazePOXIDE 5 MG CAPSULE PO SCH (22:12)
[2016-11-13] MEDS: THIAMINE HCL 100 MG TABLET (FP) PO SCH (22:13)
[2016-11-13] MEDS: QUEtiapine FUMARATE 50 MG TABLET PO SCH (22:13)
[2016-11-14] MEDS: METHADONE HCL 40 MG DISPERSABLE TABLET PO SCH (05:52)
[2016-11-14] MEDS: chlordiazePOXIDE 5 MG CAPSULE PO SCH ×3 (06:06→17:14)
[2016-11-14] MEDS: POTASSIUM CHLORIDE ORAL LIQUID 20 MEQ/15 ML PO SCH (10:07)
[2016-11-14] MEDS: ACLIDINIUM BROMIDE 400 MCG/INH AERO.POWD IH SCH (10:08)
[2016-11-14] MEDS: PRENATAL VITAMINS W/ FOLIC ACID TABLET (FP) PO SCH (10:08)
[2016-11-14] MEDS: CITALOPRAM HYDROBROMIDE 20 MG TABLET (FP) PO SCH (10:09)
[2016-11-14] MEDS: PHENYTOIN NA EXTENDED 100 MG CAPSULE (FP) PO SCH ×2 (10:09→22:08)
--- NOTE | 2016-11-14 10:10 | PN ---
[facility] Progress Note (SOAP) Subjective: Sweating,interrupted sleep,restless Objective: 11/14/16 10:08 Vital Signs - 8 hr 11/14/16 11/14/16 11/14/16 03:44 06:38 09:37 Temperature 97.4 F L 96.4 F L Pulse Rate 66 66 Respiratory 18 18 18 Rate Blood Pressure 123/90 145/96 Laboratory Last Values WBC 6.3 K/mm3 (4.0-10.0) D 11/12/16 08:00 RBC 3.44 M/mm3 (4.00-5.60) L 11/12/16 08:00 Hgb 12.6 GM/dL (11.7-16.9) 11/12/16 08:00 Hct 37.0 % (35.4-49) 11/12/16 08:00 MCV 107.6 fl (80-96) H 11/12/16 08:00 MCHC 34.0 g/dl (32.0-35.9) 11/12/16 08:00 RDW 15.9 % (11.9-15.9) 11/12/16 08:00 Plt Count 253 K/MM3 (134-434) 11/12/16 08:00 MPV 7.7 fl (7.5-11.1) 11/12/16 08:00 Sodium 146 mmol/L (136-145) H 11/12/16 08:00 Potassium 3.4 mmol/L (3.5-5.1) L 11/12/16 08:00 Chloride 105 mmol/L (98-107) 11/12/16 08:00 Carbon Dioxide 30 mmol/L (21-32) 11/12/16 08:00 Anion Gap 11 (8-16) 11/12/16 08:00 BUN 11 mg/dL (7-18) D 11/12/16 08:00 Creatinine 0.9 mg/dL (0.7-1.3) 11/12/16 08:00 Creat Clearance w eGFR > 60 (>60) 11/12/16 08:00 Random Glucose 80 mg/dL (74-106) D 11/12/16 08:00 Calcium 8.3 mg/dL (8.5-10.1) L 11/12/16 08:00 Total Bilirubin 0.2 mg/dL (0.2-1.0) D 11/12/16 08:00 AST 14 U/L (15-37) L D 11/12/16 08:00 ALT 12 U/L (12-78) D 11/12/16 08:00 Alkaline Phosphatase 116 U/L (45-117) 11/12/16 08:00 Total Protein 6.3 g/dl (6.4-8.2) L 11/12/16 08:00 Albumin 2.9 g/dl (3.4-5.0) L D 11/12/16 08:00 Urine Color Dorie 11/12/16 13:00 Urine Appearance Clear 11/12/16 13:00 Urine pH 5.0 (5.0-8.0) 11/12/16 13:00 Ur Specific [place] 1.032 (1.001-1.035) 11/12/16 13:00 Urine Protein Negative (NEGATIVE) 11/12/16 13:00 Urine Glucose (UA) Negative (NEGATIVE) 11/12/16 13:00 Urine Ketones Trace (NEGATIVE) H 11/12/16 13:00 Urine Blood Negative (NEGATIVE) 11/12/16 13:00 Urine Nitrite Negative (NEGATIVE) 11/12/16 13:00 Urine Bilirubin Negative (NEGATIVE) 11/12/16 13:00 Urine Urobilinogen 2.0 e.u/dl E.U./dl (0.2-1.0) 11/12/16 13:00 Ur Leukocyte Esterase Negative (NEGATIVE) 11/12/16 13:00 Phenytoin < 2.5 ug/ml (10.0-20.0) L 11/12/16 08:00 RPR Titer Nonreactive (NONREACTIVE) 11/12/16 08:00 labs noted K+ replacement given Assessment: 11/14/16 10:09 Withdrawal sx. Plan: Continue detox
[2016-11-14 10:34] LABS: ALBUMIN 2.8 g/dl (3.4-5.0); ALK PHOS 102 U/L (45-117); ANION GAP 9 (8-16); BILIRUBIN,TOTAL 0.2 mg/dL (0.2-1.0); CALCIUM 8.7 mg/dL (8.5-10.1); CO2 30 mmol/L (21-32); CREATININE 0.8 mg/dL (0.7-1.3); GLUCOSE,RANDOM 93 mg/dL (74-106); SGOT/AST 13 U/L (15-37); SGPT/ALT 10 U/L (12-78); TOT PROT 6.1 g/dl (6.4-8.2)
[2016-11-14] MEDS: chlordiazePOXIDE HCL 10 MG CAPSULE PO SCH (22:08)
[2016-11-14] MEDS: QUEtiapine FUMARATE 50 MG TABLET PO SCH (22:08)
[2016-11-14] MEDS: THIAMINE HCL 100 MG TABLET (FP) PO SCH (22:08)
[2016-11-15] MEDS: chlordiazePOXIDE HCL 10 MG CAPSULE PO SCH (05:30)
[2016-11-15] MEDS: METHADONE HCL 40 MG DISPERSABLE TABLET PO SCH (05:30)
[2016-11-15] MEDS: POTASSIUM CHLORIDE ORAL LIQUID 20 MEQ/15 ML PO SCH (09:52)
[2016-11-15] MEDS: PRENATAL VITAMINS W/ FOLIC ACID TABLET (FP) PO SCH (09:52)
[2016-11-15] MEDS: CITALOPRAM HYDROBROMIDE 20 MG TABLET (FP) PO SCH (09:52)
[2016-11-15] MEDS: ACLIDINIUM BROMIDE 400 MCG/INH AERO.POWD IH SCH (09:52)
[2016-11-15] MEDS: PHENYTOIN NA EXTENDED 100 MG CAPSULE (FP) PO SCH (09:52)
--- NOTE | 2016-11-15 10:16 | DS ---
[facility] Detox Discharge Summary Admission Date: 11/11/16 Discharge Date: 11/15/16 - History Present History: Alcohol Dependence, Cannabis Dependence, MMTP Pertinent Past History: Asthma - Physical Exam Results Vital Signs: Vital Signs Temperature 98 F 11/15/16 06:27 Pulse Rate 94 H 11/15/16 06:27 Respiratory Rate 18 11/15/16 06:27 Blood Pressure 136/98 11/15/16 06:27 O2 Sat by Pulse Oximetry (%) Pertinent Admission Physical Exam Findings: Withdrawal sx. Laboratory Last Values WBC 6.3 K/mm3 (4.0-10.0) D 11/12/16 08:00 RBC 3.44 M/mm3 (4.00-5.60) L 11/12/16 08:00 Hgb 12.6 GM/dL (11.7-16.9) 11/12/16 08:00 Hct 37.0 % (35.4-49) 11/12/16 08:00 MCV 107.6 fl (80-96) H 11/12/16 08:00 MCHC 34.0 g/dl (32.0-35.9) 11/12/16 08:00 RDW 15.9 % (11.9-15.9) 11/12/16 08:00 Plt Count 253 K/MM3 (134-434) 11/12/16 08:00 MPV 7.7 fl (7.5-11.1) 11/12/16 08:00 Sodium 141 mmol/L (136-145) 11/14/16 07:20 Potassium 4.6 mmol/L (3.5-5.1) D 11/14/16 07:20 Chloride 102 mmol/L (98-107) 11/14/16 07:20 Carbon Dioxide 30 mmol/L (21-32) 11/14/16 07:20 Anion Gap 9 (8-16) 11/14/16 07:20 BUN 9 mg/dL (7-18) 11/14/16 07:20 Creatinine 0.8 mg/dL (0.7-1.3) 11/14/16 07:20 Creat Clearance w eGFR > 60 (>60) 11/14/16 07:20 Random Glucose 93 mg/dL (74-106) 11/14/16 07:20 Calcium 8.7 mg/dL (8.5-10.1) 11/14/16 07:20 Total Bilirubin 0.2 mg/dL (0.2-1.0) 11/14/16 07:20 AST 13 U/L (15-37) L 11/14/16 07:20 ALT 10 U/L (12-78) L 11/14/16 07:20 Alkaline Phosphatase 102 U/L (45-117) 11/14/16 07:20 Total Protein 6.1 g/dl (6.4-8.2) L 11/14/16 07:20 Albumin 2.8 g/dl (3.4-5.0) L 11/14/16 07:20 Urine Color Dorie 11/12/16 13:00 Urine Appearance Clear 11/12/16 13:00 Urine pH 5.0 (5.0-8.0) 11/12/16 13:00 Ur Specific [place] 1.032 (1.001-1.035) 11/12/16 13:00 Urine Protein Negative (NEGATIVE) 11/12/16 13:00 Urine Glucose (UA) Negative (NEGATIVE) 11/12/16 13:00 Urine Ketones Trace (NEGATIVE) H 11/12/16 13:00 Urine Blood Negative (NEGATIVE) 11/12/16 13:00 Urine Nitrite Negative (NEGATIVE) 11/12/16 13:00 Urine Bilirubin Negative (NEGATIVE) 11/12/16 13:00 Urine Urobilinogen 2.0 e.u/dl E.U./dl (0.2-1.0) 11/12/16 13:00 Ur Leukocyte Esterase Negative (NEGATIVE) 11/12/16 13:00 Phenytoin < 2.5 ug/ml (10.0-20.0) L 11/12/16 08:00 RPR Titer Nonreactive (NONREACTIVE) 11/12/16 08:00 labs noted - Treatment Hospital Course: Detox Protocol Followed, Detoxed Safely, Responded well, Discharged Condition Good, Rehab Referral Accepted - Medication Discharge Medications: Ambulatory Orders Citalopram Hydrobromide [Celexa -] 40 mg PO DAILY #30 tablet 05/02/16 Albuterol Sulfate Inhaler - [Ventolin HFA Inhaler -] 2 puff IH Q6H PRN #1 inhaler 09/17/16 Phenytoin Na Extended [Dilantin -] 200 mg PO BID #60 capsule 09/17/16 Aclidinium Josephine [Tudorza Pressair] 1 mcg IH DAILY 10/15/16 Quetiapine Fumarate [Seroquel -] 100 mg PO HS 10/15/16 Citalopram Hydrobromide [Celexa -] 20 mg PO DAILY #30 tablet 11/13/16 Quetiapine Fumarate [Seroquel -] 50 mg PO HS #30 tablet 11/13/16 - Diagnosis (1) Alcohol dependence with uncomplicated withdrawal Current Visit: Yes Status: Acute (2) Cannabis abuse Current Visit: Yes Status: Acute (3) Nicotine dependence Current Visit: Yes Status: Acute Qualifiers: Nicotine product type: cigarettes Substance use status: uncomplicated Qualified Code(s): F17.210 - Nicotine dependence, cigarettes, uncomplicated (4) Opioid dependence on agonist therapy Current Visit: Yes Status: Acute (5) Asthma Current Visit: Yes Status: Chronic Qualifiers: Asthma severity: mild persistent Asthma complication type: uncomplicated Qualified Code(s): J45.30 - Mild persistent asthma, uncomplicated (6) COPD (chronic obstructive pulmonary disease) Current Visit: Yes Status: Chronic Qualifiers: COPD type: emphysema Emphysema type: panlobular Qualified Code(s ): J43.1 - Panlobular emphysema (7) PTSD (post-traumatic stress disorder) Current Visit: Yes Status: Chronic (8) Seizure disorder Current Visit: Yes Status: Chronic (9) Substance induced mood disorder Current Visit: Yes Status: Acute - AMA Did Patient Leave Against Medical Advice: No
[2016-11-15 10:29] VITALS: BP 128/91; PULSE 82; TEMP 98.1
== END 2016-11-15 10:11 | disposition home or self-care (01) | DRG 773 ==
LOC: YASAS 19:38 → Y3N 22:06
PROVIDERS: ADMIT Internal Medicine; ATTEND Internal Medicine
PROC: HZ2ZZZZ Detoxification Services for Substance Abuse Treatment (ICD-10-PCS; principal; 2016-11-15)
DX: F11.20 Opioid dependence, uncomplicated (principal); F10.230 Alcohol dependence with withdrawal, uncomplicated; F17.210 Nicotine dependence, cigarettes, uncomplicated; F12.10 Cannabis abuse, uncomplicated; F19.24 Other psychoactive substance dependence with psychoactive substance-induced mood disorder; F43.10 Post-traumatic stress disorder, unspecified; J43.1 Panlobular emphysema; J45.30 Mild persistent asthma, uncomplicated; G40.909 Epilepsy, unspecified, not intractable, without status epilepticus; H60.393 Other infective otitis externa, bilateral; M54.5 Low back pain
CPT/HCPCS: 36415; 71020-TC; 80053; 80185; 81003; 85027; 86593; 93005; 93010

== ENCOUNTER 2017-08-14 08:34 | Inpatient (IN) | payer OTHER ==
[2017-08-14 09:01] VITALS: BMI 21.7
--- NOTE | 2017-08-14 10:53 | HP ---
CIWA Score - CIWA Score Nausea/Vomitin Muscle Tremors: 3 Anxiety: 3 Agitation: 3 Paroxysmal Sweats: 2 Orientation: 0-Oriented Tacttile Disturbances: 2-Mild Itch/Numbness/Burn Auditory Disturbances: 2-Mild Harshness/Frighten Visual Disturbances: 2-Mild Sensitivity Headache: 2-Mild CIWA-Ar Total Score: 22 Admission ROS BHS - HPI Chief Complaint: I NEED HELP TO STOP DRINKING ALCOHOL Allergies/Adverse Reactions: Allergies Allergy/AdvReac Type Severity Reaction Status Date / Time No Known Allergies Allergy Verified 11/11/16 21:38 History of Present Illness: THIS 51 YEARS OLD MALE WITH ALCOHOL DEPENDENCE,SEEKING DETOX,LAST TREATMENT [facility] 05[place]08 LAST SEIZURE 2 MONTHS ADMITTED IN [place] LAST SEEN IN [place] LAST NIGHT ASTHMA NICOTINE DEPENDENCE MMTP 80 MGS/DAY,HAS BOTTLE TO TAKE HOME FOR 08/04/17 AND TOMORROW LONGEST PERIOD OF SOBRIETY 2 MONTHS - Ebola screening Have you traveled outside of the country in the last 21 days: No (N) Have you had contact with anyone from an Ebola affected area: No Have you been sick,other than usual withdrawal symptoms: No Do you have a fever: No - Review of Systems Constitutional: Chills, Loss of Appetite, Malaise, Night Sweats, Changes in sleep, Unintentional Wgt. Loss EENT: reports: Tearing, Nose Congestion Respiratory: reports: No Symptoms reported, Other (ASTHMA) Cardiac: reports: No Symptoms Reported GI: reports: Diarrhea, Nausea, Abdominal cramping : reports: No Symptoms Reported Musculoskeletal: reports: Back Pain, Muscle Pain Integumentary: reports: Dryness Neuro: reports: Headache, Tremors Endocrine: reports: No Symptoms Reported Hematology: reports: No Symptoms Reported Psychiatric: reports: No Sypmtoms Reported, Judgement Intact, Mood/Affect Appropiate, Anxious, Depressed, other (INSOMNIA) Other Systems: Reviewed and Negative Patient History - Patient Medical History Hx Anemia: No Hx Asthma: Yes Hx Chronic Obstructive Pulmonary Disease (COPD): No Hx Cancer: No Hx Cardiac Disorders: No Hx Congestive Heart Failure: No Hx Hypertension: No Hx Hypercholesterolemia: No Hx Pacemaker: No HX Cerebrovascular Accident: No Hx Seizures: Yes (2 MONTHS AGO)) Hx Dementia: No Hx Diabetes: No Hx Gastrointestinal Disorders: No Hx Liver Disease: No Hx Genitourinary Disorders: No Hx Sexually Transmitted Disorders: No Hx Renal Disease (ESRD): No Hx Thyroid Disease: No Hx Human Immunodeficiency Virus (HIV): No (NEGATIVE HX LAST 07/08 NEGATIVE) Hx Hepatitis C: No Hx Depression: Yes Hx Suicide Attempt: Yes (ATTEMPTING TO HANG HIMSELF AT AGE 21) Hx Bipolar Disorder: No Hx Schizophrenia: No Other Medical History: NO SUICIDAL,NO HOMICIDAL - Patient Surgical History Past Surgical History: No Hx Neurologic Surgery: No Hx Cataract Extraction: No Hx Cardiac Surgery: No Hx Lung Surgery: No Hx Breast Surgery: No Hx Breast Biopsy: No Hx Abdominal Surgery: No Hx Appendectomy: No Hx Cholecystectomy: No Hx Genitourinary Surgery: No Hx Section: No (NA) Hx Orthopedic Surgery: No Anesthesia Reaction: No - PPD History Previous Implant?: Yes Documented Results: Negative w/proof Implanted On Prior [facility] Admission?: Yes Date: 05/03/16 Results: 0 mm PPD to be Administered?: Yes - Smoking Cessation Smoking history: Current every day smoker Have you smoked in the past 12 months: Yes Aproximately how many cigarettes per day: 10 Cigars Per Day: 0 Hx Chewing Tobacco Use: No Initiated information on smoking cessation: Yes 'Breaking Loose' booklet given: 08/14/17 - Substance & Tx. History Hx Alcohol Use: Yes Hx Substance Use: No Substance Use Type: Alcohol Hx Substance Use Treatment: Yes ([facility] 05/08) - Substances Abused Alcohol Route: Oral Frequency: Daily Amount used: 99 bananas(1-2 pints) Age of first use: 34 Date of Last Use: 08/14/17 Family Disease History - Family Disease History Family Disease History: Other: Father (), Mother () Admission Physical Exam S - Vital Signs Vital Signs: Vital Signs - 24 hr 08/14/17 08:58 Temperature 96.1 F L Pulse Rate 94 H Respiratory 18 Rate Blood Pressure 107/77 - Physical General Appearance: Yes: Moderate Distress, Tremorous, Irritable, Sweating, Anxious HEENTM: Yes: Normal ENT Inspection, ROBERTO, Pharynx Normal Respiratory: Yes: Lungs Clear, Normal Breath Sounds, No Respiratory Distress, Wheezing Neck: Yes: Within Normal Limits, Supple, Trachea in good position Breast: Yes: Within Normal Limits Cardiology: Yes: Within Normal Limits, Regular Rhythm, Regular Rate, S1, S2 Abdominal: Yes: Within Normal Limits, Normal Bowel Sounds, Flat, Soft Genitourinary: Yes: Within Normal Limits Back: Yes: Muscle Spasm Extremities: Yes: Within Normal Limits, Normal Range of Motion, Tremors Neurological: Yes: medical library assistant II-XII NML intact, Alert, Motor Strength 5/5 Integumentary: Yes: Dry Lymphatic: Yes: Within Normal Limits - Diagnostic (1) Alcohol dependence with uncomplicated withdrawal Current Visit: No Status: Acute (2) Opioid dependence on agonist therapy Current Visit: No Status: Acute (3) Nicotine dependence Current Visit: No Status: Acute Qualifiers: Nicotine product type: cigarettes Substance use status: uncomplicated Qualified Code(s): F17.210 - Nicotine dependence, cigarettes, uncomplicated (4) Weight loss Current Visit: No Status: Acute (5) Low back pain Current Visit: No Status: Chronic (6) PTSD (post-traumatic stress disorder) Current Visit: No Status: Chronic (7) Seizure disorder Current Visit: No Status: Chronic Comment: On dilantin (8) Anxiety and depression Current Visit: Yes Status: Acute (9) Seizure Current Visit: Yes Status: Acute Cleared for Admission [facility] - Detox or Rehab [facility] Level of Care: Medically Managed Detox Regimen/Protocol: Librium [facility] Breath Alcohol Content Breath Alcohol Content: 0.250 Urine Drug Screen - Results Drug Screen Negative: No Urine Drug Screen Results: MTD-Methadone
[2017-08-14] MEDS ORDERED: IBUPROFEN 400 MG TABLET (FP) PO PRN (11:04)
[2017-08-14] MEDS ORDERED: ACETAMINOPHEN 325 MG TABLET (FP) PO PRN (11:04)
[2017-08-14] MEDS ORDERED: NICOTINE POLACRILEX 2 MG GUM BUC PRN (11:04)
[2017-08-14] MEDS ORDERED: MAGNESIUM HYDROX 2400MG/30ML ORAL SUSPENSION 30 ML CUP PO PRN (11:04)
[2017-08-14] MEDS ORDERED: LOPERAMIDE HCL 2 MG CAPSULE PO PRN (11:04)
[2017-08-14] MEDS ORDERED: P-EPHED 60MG/TRIPROLIDI 2.5MG TABLET PO PRN (11:04)
[2017-08-14] MEDS ORDERED: guaiFENesin/D-METHORPHAN HB 10 ML UNIT-DOSE CUPS PO PRN (11:04)
[2017-08-14] MEDS ORDERED: MENTHOL/PHENOL 1 EACH UD MM PRN (11:04)
[2017-08-14] MEDS ORDERED: hydrOXYzine PAMOATE 25 MG CAPSULE (FP) PO PRN (11:04)
[2017-08-14] MEDS ORDERED: MAG HYDROX/AL HYDROX/SIMETH 30 ML UNIT-DOSE CUP PO PRN (11:04)
[2017-08-14] MEDS ORDERED: chlordiazePOXIDE HCL 25 MG CAPSULE PO PRN (11:04)
[2017-08-14] MEDS ORDERED: MAGNESIUM CITRATE 300 ML BOTTLE PO PRN (11:04)
[2017-08-14] MEDS ORDERED: ALBUTEROL SO4 18 GM HFA INHALER IH PRN (11:09)
[2017-08-14] MEDS ORDERED: ALBUTEROL SO4 2.5/IPRATROPIUM 0.5 INH SOL 3 ML VIAL.NEB. NEB PRN (11:14)
[2017-08-14] MEDS: predniSONE 20 MG TABLET (UD) PO SCH ×2 (12:06→22:16)
[2017-08-14] MEDS: NICOTINE 21 MG/24 HOURS TOPICAL PATCH TD SCH (12:07)
[2017-08-14] MEDS: DOXYCYCLINE HYCLATE 100 MG CAPSULE PO SCH ×2 (14:37→17:40)
[2017-08-14 17:10] LABS: URINE APPEARANCE CLEAR; URINE BILIRUBIN NEGATIVE (NEGATIVE); URINE BLOOD NEGATIVE (NEGATIVE); URINE COLOR YELLOW; URINE GLUCOSE (UA) 1+ (NEGATIVE); URINE KETONE TRACE (NEGATIVE); URINE NITRITE NEGATIVE (NEGATIVE); URINE UROBILINOGEN NEGATIVE mg/dL (0.2-1.0)
[2017-08-14 17:19] LABS: URINE PROTEIN 1+ (NEGATIVE)
[2017-08-14] MEDS: chlordiazePOXIDE HCL 25 MG CAPSULE PO SCH ×2 (17:40→22:15)
[2017-08-14 17:43] LABS: URINE MUCUS RARE; URINE WBC <1 /hpf (3-5)
[2017-08-14 22:03] LABS: URINE LEUK ESTERASE Negative (NEGATIVE)
[2017-08-14] MEDS: PHENYTOIN NA EXTENDED 100 MG CAPSULE (FP) PO SCH (22:15)
[2017-08-14] MEDS: THIAMINE HCL 100 MG TABLET (FP) PO SCH (22:15)
[2017-08-14] MEDS: QUEtiapine FUMARATE 50 MG TABLET PO SCH (22:16)
--- NOTE | 2017-08-14 22:40 | EKG ---
Test Reason : Blood Pressure : / mmHG Vent. Rate : 076 BPM Atrial Rate : 076 BPM P-R Int : 138 ms QRS Dur : 088 ms QT Int : 432 ms P-R-T Axes : 084 039 045 degrees QTc Int : 486 ms NORMAL SINUS RHYTHM BORDERLINE PROLONGED QT ABNORMAL ECG WHEN COMPARED WITH ECG OF 11-NOV-2016 23:54, NO SIGNIFICANT CHANGE WAS FOUND Confirmed by NOEL OWEN MD ([id number]) on 08/14/2017 10:39:33 PM Referred By: Confirmed By:NOEL OWEN MD
[2017-08-15] MEDS: chlordiazePOXIDE HCL 25 MG CAPSULE PO SCH ×4 (05:10→22:02)
[2017-08-15] MEDS ORDERED: METHADONE HCL 10 MG TABLET PO ONE (06:00)
--- NOTE | 2017-08-15 09:37 | PN ---
S CIWA - CIWA Score Nausea/Vomitin-No Nausea/No Vomiting Muscle Tremors: 4-Moderate,w/Arms Extend Anxiety: 3 Agitation: 3 Paroxysmal Sweats: 3 Orientation: 0-Oriented Tacttile Disturbances: 0-None Auditory Disturbances: 0-None Visual Disturbances: 0-None Headache: 0-None Present CIWA-Ar Total Score: 13 S Progress Note (SOAP) Subjective: sweats shakes interrupted sleep agitation productive cough irritable Objective: 08/15/17 09:35 Vital Signs Temperature 96.8 F L 08/15/17 06:18 Pulse Rate 57 L 08/15/17 06:18 Respiratory Rate 18 08/15/17 06:18 Blood Pressure 150/90 08/15/17 06:18 O2 Sat by Pulse Oximetry (%) Laboratory Tests 08/14/17 12:00 Urine Color Yellow Urine Appearance Clear Urine pH 5.0 Ur Specific Jones 1.032 Urine Protein 1+ H Urine Glucose (UA) 1+ H Urine Ketones Trace H Urine Blood Negative Urine Nitrite Negative Urine Bilirubin Negative Urine Urobilinogen Negative Ur Leukocyte Esterase Negative Ur Epithelial Cells Rare Urine Mucus Rare labs pending [id number] ambulating no acute distress Assessment: 08/15/17 09:36 withdrawal sx Plan: continue detox increase fluids continue abx as ordered neb tx prn labs pending
[2017-08-15] MEDS ORDERED: CITALOPRAM HYDROBROMIDE 20 MG TABLET (FP) PO SCH (10:00)
[2017-08-15 10:20] LABS: MCH 33.4 pg (25.7-33.7); MCHC 32.8 g/dl (32.0-35.9); MEAN CELL VOLUME 101.8 fl (80-96); MEAN PLT VOLUME 7.7 fl (7.5-11.1); PLATELET COUNT 196 K/MM3 (134-434); RDW 13.4 % (11.9-15.9); WHITE BLOOD COUNT 11.8 K/mm3 (4.0-10.0)
[2017-08-15] MEDS: PRENATAL VITAMINS W/ FOLIC ACID TABLET (FP) PO SCH (10:22)
[2017-08-15] MEDS: DOXYCYCLINE HYCLATE 100 MG CAPSULE PO SCH (10:23)
[2017-08-15] MEDS: predniSONE 20 MG TABLET (UD) PO SCH ×2 (10:23→22:02)
[2017-08-15] MEDS: NICOTINE 21 MG/24 HOURS TOPICAL PATCH TD SCH (10:23)
[2017-08-15] MEDS: PHENYTOIN NA EXTENDED 100 MG CAPSULE (FP) PO SCH ×2 (10:23→22:02)
[2017-08-15 10:32] LABS: ALBUMIN 3.1 g/dl (3.4-5.0); ANION GAP 5 (8-16); CALCIUM 8.7 mg/dL (8.5-10.1); CO2 29 mmol/L (21-32); GLUCOSE,RANDOM 119 mg/dL (74-106)
[2017-08-15 10:35] LABS: ALK PHOS 120 U/L (45-117); BILIRUBIN,TOTAL 0.6 mg/dL (0.2-1.0); CREATININE 0.8 mg/dL (0.7-1.3); SGOT/AST 54 U/L (15-37); SGPT/ALT 21 U/L (12-78)
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
[2017-08-15 12:07] LABS: HIV 1 & 2 AB NEGATIVE; HIV 1 AGp24 NEGATIVE
[2017-08-15] MEDS: DOXYCYCLINE HYCLATE 100 MG TABLET PO SCH (17:29)
[2017-08-15] MEDS ORDERED: QUEtiapine FUMARATE 50 MG TABLET PO SCH (22:00)
[2017-08-15] MEDS: QUEtiapine FUMARATE 50 MG TABLET PO SCH (22:03)
[2017-08-15] MEDS: THIAMINE HCL 100 MG TABLET (FP) PO SCH (22:03)
[2017-08-16] MEDS: chlordiazePOXIDE HCL 25 MG CAPSULE PO SCH ×2 (05:12→10:13)
[2017-08-16] MEDS: PHENYTOIN NA EXTENDED 100 MG CAPSULE (FP) PO SCH ×2 (10:13→22:03)
[2017-08-16] MEDS: DOXYCYCLINE HYCLATE 100 MG TABLET PO SCH ×2 (10:13→17:21)
[2017-08-16] MEDS: CITALOPRAM HYDROBROMIDE 10 MG TABLET (FP) PO SCH (10:13)
[2017-08-16] MEDS: predniSONE 20 MG TABLET (UD) PO SCH ×2 (10:13→22:03)
[2017-08-16] MEDS: PRENATAL VITAMINS W/ FOLIC ACID TABLET (FP) PO SCH (10:13)
[2017-08-16] MEDS: NICOTINE 21 MG/24 HOURS TOPICAL PATCH TD SCH (10:15)
[2017-08-16] MEDS ORDERED: METHADONE HCL 10 MG TABLET (FOR DETOX USE ONLY) PO ONE (12:21)
--- NOTE | 2017-08-16 12:31 | PN ---
S CIWA - CIWA Score Nausea/Vomitin Muscle Tremors: 3 Anxiety: 3 Agitation: 3 Paroxysmal Sweats: No Perspiration Orientation: 0-Oriented Tacttile Disturbances: 1-Very Mild Itch/Numbness Auditory Disturbances: 1-Very Mild Visual Disturbances: 0-None Headache: 2-Mild CIWA-Ar Total Score: 16 S Progress Note (SOAP) Subjective: alert,irritable,anxious,interrupted sleep,tremor,pain in the body Objective: 08/16/17 12:27 Vital Signs Temperature 97.2 F L 08/16/17 11:23 Pulse Rate 79 08/16/17 11:23 Respiratory Rate 16 08/16/17 11:23 Blood Pressure 137/103 08/16/17 11:23 O2 Sat by Pulse Oximetry (%) ekg nsr,porlong qt no chest pain,no sob,no dizziness Laboratory Last Values WBC 11.8 K/mm3 (4.0-10.0) H D 08/15/17 07:30 RBC 4.13 M/mm3 (4.00-5.60) D 08/15/17 07:30 Hgb 13.8 GM/dL (11.7-16.9) 08/15/17 07:30 Hct 42.1 % (35.4-49) 08/15/17 07:30 MCV 101.8 fl (80-96) H 08/15/17 07:30 MCH 33.4 pg (25.7-33.7) 08/15/17 07:30 MCHC 32.8 g/dl (32.0-35.9) 08/15/17 07:30 RDW 13.4 % (11.9-15.9) D 08/15/17 07:30 Plt Count 196 K/MM3 (134-434) D 08/15/17 07:30 MPV 7.7 fl (7.5-11.1) 08/15/17 07:30 Sodium 139 mmol/L (136-145) 08/15/17 07:30 Potassium 4.6 mmol/L (3.5-5.1) 08/15/17 07:30 Chloride 105 mmol/L (98-107) 08/15/17 07:30 Carbon Dioxide 29 mmol/L (21-32) 08/15/17 07:30 Anion Gap 5 (8-16) L 08/15/17 07:30 BUN 14 mg/dL (7-18) D 08/15/17 07:30 Creatinine 0.8 mg/dL (0.7-1.3) 08/15/17 07:30 Creat Clearance w eGFR > 60 (>60) 08/15/17 07:30 Random Glucose 119 mg/dL (74-106) H D 08/15/17 07:30 Calcium 8.7 mg/dL (8.5-10.1) 08/15/17 07:30 Total Bilirubin 0.6 mg/dL (0.2-1.0) D 08/15/17 07:30 AST 54 U/L (15-37) H D 08/15/17 07:30 ALT 21 U/L (12-78) D 08/15/17 07:30 Alkaline Phosphatase 120 U/L (45-117) H 08/15/17 07:30 Total Protein 7.0 g/dl (6.4-8.2) 08/15/17 07:30 Albumin 3.1 g/dl (3.4-5.0) L 08/15/17 07:30 Urine Color Yellow 08/14/17 12:00 Urine Appearance Clear 08/14/17 12:00 Urine pH 5.0 (5.0-8.0) 08/14/17 12:00 Ur Specific [place] 1.032 (1.001-1.035) 08/14/17 12:00 Urine Protein 1+ (NEGATIVE) H 08/14/17 12:00 Urine Glucose (UA) 1+ (NEGATIVE) H 08/14/17 12:00 Urine Ketones Trace (NEGATIVE) H 08/14/17 12:00 Urine Blood Negative (NEGATIVE) 08/14/17 12:00 Urine Nitrite Negative (NEGATIVE) 08/14/17 12:00 Urine Bilirubin Negative (NEGATIVE) 08/14/17 12:00 Urine Urobilinogen Negative mg/dL (0.2-1.0) 08/14/17 12:00 Ur Leukocyte Esterase Negative (NEGATIVE) 08/14/17 12:00 Ur Epithelial Cells Rare /HPF (FEW) 08/14/17 12:00 Urine Mucus Rare 08/14/17 12:00 Phenytoin 2.9 ug/ml (10.0-20.0) L D 08/15/17 07:30 RPR Titer Nonreactive (NONREACTIVE) 08/15/17 07:30 HIV 1&2 Antibody Screen Negative 08/15/17 07:30 HIV P24 Antigen Negative 08/15/17 07:30 Assessment: 08/16/17 12:29 withdrawal symptom Plan: continue detox,wbc 11,800,glucose 119.dilantin level 2.9,dilantin 300 mgs po now ,then 200 mgs po bid repeat dilantin level in am,bgm monitoring
[2017-08-16] MEDS ORDERED: METHADONE HCL 40 MG DISPERSABLE TABLET PO ONE (14:00)
[2017-08-16] MEDS ORDERED: PHENYTOIN NA EXTENDED 100 MG CAPSULE (FP) PO ONE (14:00)
[2017-08-16] MEDS: chlordiazePOXIDE 5 MG CAPSULE PO SCH ×2 (17:20→22:03)
[2017-08-16] MEDS: THIAMINE HCL 100 MG TABLET (FP) PO SCH (22:03)
[2017-08-16] MEDS: QUEtiapine FUMARATE 50 MG TABLET PO SCH (22:04)
[2017-08-17] MEDS: chlordiazePOXIDE 5 MG CAPSULE PO SCH ×2 (05:21→10:13)
[2017-08-17] MEDS ORDERED: METHADONE HCL 10 MG TABLET (FOR DETOX USE ONLY) PO SCH (10:00)
[2017-08-17] MEDS: DOXYCYCLINE HYCLATE 100 MG TABLET PO SCH ×2 (10:12→17:46)
[2017-08-17] MEDS: predniSONE 20 MG TABLET (UD) PO SCH ×2 (10:13→22:08)
[2017-08-17] MEDS: PRENATAL VITAMINS W/ FOLIC ACID TABLET (FP) PO SCH (10:13)
[2017-08-17] MEDS: CITALOPRAM HYDROBROMIDE 10 MG TABLET (FP) PO SCH (10:13)
[2017-08-17] MEDS: PHENYTOIN NA EXTENDED 100 MG CAPSULE (FP) PO SCH ×2 (10:13→22:07)
[2017-08-17] MEDS: METHADONE HCL 40 MG DISPERSABLE TABLET PO SCH (10:13)
[2017-08-17] MEDS: NICOTINE 21 MG/24 HOURS TOPICAL PATCH TD SCH (10:19)
--- NOTE | 2017-08-17 10:26 | PN ---
S Progress Note (SOAP) Subjective: alert,irritable,interrupted sleep Objective: 08/17/17 10:22 Vital Signs Temperature 97 F L 08/17/17 09:41 Pulse Rate 91 H 08/17/17 09:41 Respiratory Rate 18 08/17/17 09:41 Blood Pressure 129/95 08/17/17 09:41 O2 Sat by Pulse Oximetry (%) Assessment: 08/17/17 10:23 withdrawal symptom Plan: continue detox,dilantin level pending,discharge in am
[2017-08-17] MEDS: chlordiazePOXIDE HCL 10 MG CAPSULE PO SCH ×2 (17:46→22:08)
[2017-08-17] MEDS: THIAMINE HCL 100 MG TABLET (FP) PO SCH (22:07)
[2017-08-17] MEDS: QUEtiapine FUMARATE 50 MG TABLET PO SCH (22:08)
[2017-08-18] MEDS: chlordiazePOXIDE HCL 10 MG CAPSULE PO SCH (05:24)
--- NOTE | 2017-08-18 08:27 | DS ---
[facility] Detox Discharge Summary Admission Date: 08/14/17 Discharge Date: 08/18/17 - History Present History: Alcohol Dependence, MMTP - Physical Exam Results Vital Signs: Vital Signs Temperature 97.1 F L 08/18/17 06:13 Pulse Rate 77 08/18/17 06:13 Respiratory Rate 18 08/18/17 06:13 Blood Pressure 142/70 08/18/17 06:13 O2 Sat by Pulse Oximetry (%) - Treatment Hospital Course: Detox Protocol Followed, Detoxed Safely, Responded well, Discharged Condition Good, Rehab Referral Accepted - Medication Discharge Medications: Ambulatory Orders Albuterol Sulfate Inhaler - [Ventolin HFA Inhaler -] 2 puff IH Q6H PRN #1 inhaler 09/17/16 Phenytoin Na Extended [Dilantin -] 200 mg PO BID #60 capsule 09/17/16 Aclidinium [place] [Tudorza Pressair] 1 mcg IH DAILY 10/15/16 Citalopram Hydrobromide [Celexa -] 20 mg PO DAILY #30 tablet 11/13/16 Quetiapine Fumarate [Seroquel -] 50 mg PO HS #30 tablet 11/13/16 - Diagnosis (1) Anxiety and depression Current Visit: Yes Status: Acute (2) Seizure Current Visit: Yes Status: Chronic (3) Alcohol dependence with uncomplicated withdrawal Current Visit: Yes Status: Chronic (4) Cannabis abuse Current Visit: Yes Status: Chronic (5) MDD (major depressive disorder), recurrent severe, without psychosis Current Visit: No Status: Acute (6) Nicotine dependence Current Visit: Yes Status: Acute Qualifiers: Nicotine product type: cigarettes Substance use status: uncomplicated Qualified Code(s): F17.210 - Nicotine dependence, cigarettes, uncomplicated (7) Opioid dependence on agonist therapy Current Visit: Yes Status: Acute (8) Substance induced mood disorder Current Visit: Yes Status: Acute (9) Weight loss Current Visit: No Status: Acute (10) Asthma Current Visit: No Status: Chronic Qualifiers: Asthma severity: mild persistent Asthma complication type: uncomplicated Qualified Code(s): J45.30 - Mild persistent asthma, uncomplicated (11) COPD (chronic obstructive pulmonary disease) Current Visit: No Status: Chronic Qualifiers: COPD type: emphysema Emphysema type: panlobular Qualified Code(s): J43.1 - Panlobular emphysema (12) Depression (emotion) Current Visit: No Status: Chronic Qualifiers: Depression Type: dysthymia Qualified Code(s): F34.1 - Dysthymic disorder (13) Low back pain Current Visit: No Status: Chronic (14) MDD (major depressive disorder), recurrent episode Current Visit: No Status: Chronic Qualifiers: Major depression episode severity: moderate Qualified Code(s): F33.1 - Major depressive disorder, recurrent, moderate (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
[2017-08-18] MEDS: METHADONE HCL 40 MG DISPERSABLE TABLET PO SCH (09:30)
[2017-08-18] MEDS: PHENYTOIN NA EXTENDED 100 MG CAPSULE (FP) PO SCH (09:31)
[2017-08-18] MEDS: predniSONE 20 MG TABLET (UD) PO SCH (09:31)
[2017-08-18] MEDS: CITALOPRAM HYDROBROMIDE 10 MG TABLET (FP) PO SCH (09:31)
[2017-08-18] MEDS: DOXYCYCLINE HYCLATE 100 MG TABLET PO SCH (09:31)
[2017-08-18] MEDS: NICOTINE 21 MG/24 HOURS TOPICAL PATCH TD SCH (09:32)
[2017-08-18] MEDS: PRENATAL VITAMINS W/ FOLIC ACID TABLET (FP) PO SCH (09:32)
[2017-08-18 09:34] VITALS: BP 127/98; PULSE 106; TEMP 95.2
== END 2017-08-18 09:38 | disposition home or self-care (01) | DRG 773 ==
LOC: YASAS 08:34 → Y6N 11:05
PROVIDERS: ADMIT Internal Medicine; ATTEND Internal Medicine
PROC: HZ2ZZZZ Detoxification Services for Substance Abuse Treatment (ICD-10-PCS; principal; 2017-08-14)
DX: F10.230 Alcohol dependence with withdrawal, uncomplicated (principal); F11.20 Opioid dependence, uncomplicated; F12.10 Cannabis abuse, uncomplicated; F17.210 Nicotine dependence, cigarettes, uncomplicated; F43.10 Post-traumatic stress disorder, unspecified; F41.8 Other specified anxiety disorders; F33.2 Major depressive disorder, recurrent severe without psychotic features; F19.24 Other psychoactive substance dependence with psychoactive substance-induced mood disorder; J45.30 Mild persistent asthma, uncomplicated; J43.1 Panlobular emphysema; M54.5 Low back pain; G89.29 Other chronic pain; H60.393 Other infective otitis externa, bilateral; G40.909 Epilepsy, unspecified, not intractable, without status epilepticus; Z87.898 Personal history of other specified conditions; Z91.5 Personal history of self-harm
CPT/HCPCS: 36415; 80053; 80185; 81003; 81015; 85027; 86593; 87389; 93005; 93010

== ENCOUNTER 2017-10-27 14:26 | Inpatient (IN) | payer OTHER ==
[2017-10-27 16:25] VITALS: BMI 22.2
--- NOTE | 2017-10-27 17:00 | HP ---
CIWA Score - CIWA Score Nausea/Vomitin-No Nausea/No Vomiting Muscle Tremors: 4-Moderate,w/Arms Extend Anxiety: 4-Mod. Anxious/Guarded Agitation: 4-Moderately Restless Paroxysmal Sweats: 1-Minimal Palms Moist Orientation: 0-Oriented Tacttile Disturbances: 3-Moderate Itch/Numb/Burn Auditory Disturbances: 0-None Visual Disturbances: 0-None Headache: 0-None Present CIWA-Ar Total Score: 16 Admission ROS S - HPI Chief Complaint: WITHDRAWAL SX FROM ALCOHOL. "MY BIRTHDAY IS IN TWO DAYS, I DON'T WANNA KEEP DRINKING". Allergies/Adverse Reactions: Allergies Allergy/AdvReac Type Severity Reaction Status Date / Time No Known Allergies Allergy Verified 10/27/17 16:42 History of Present Illness: 51 Y/O H/MALE WITH A HX OF ALCOHOL AND MARIJUANA DEPENDENCE SEEKING DETOX TX. PT IS IN [facility]. Exam Limitations: No Limitations - Ebola screening Have you traveled outside of the country in the last 21 days: No Have you had contact with anyone from an Ebola affected area: No Have you been sick,other than usual withdrawal symptoms: No Do you have a fever: No - Review of Systems Constitutional: Chills, Loss of Appetite, Night Sweats, Changes in sleep EENT: reports: Blurred Vision, Tearing, Tinnitus (SOMETIMES), Nose Congestion, Dental Problems (MISSING TOP TEETH) Respiratory: reports: Shortness of Breath (HX ASTHMA-ALBUTEROL INHALER), Wheezing GI: reports: Constipated, Diarrhea, Nausea, Poor Appetite, Poor Fluid Intake, Vomiting : reports: No Symptoms Reported Musculoskeletal: reports: Back Pain, Joint Pain, Muscle Pain Integumentary: reports: No Symptoms Reported Neuro: reports: Headache, Numbness, Seizure, Tingling, Tremors, Unsteady Gait, Dizziness Endocrine: reports: No Symptoms Reported Hematology: reports: No Symptoms Reported Psychiatric: reports: Orientated x3, Anxious, Depressed Other Systems: Reviewed and Negative Patient History - Patient Medical History Hx Anemia: No Hx Asthma: Yes (MDI) Hx Chronic Obstructive Pulmonary Disease (COPD): Yes (MDI) Hx Cancer: No Hx Cardiac Disorders: No Hx Congestive Heart Failure: No Hx Hypertension: No (BP 150/89 TODAY) Hx Hypercholesterolemia: No Hx Pacemaker: No HX Cerebrovascular Accident: No Hx Seizures: Yes ((2 MONTHS AGO-JULY 2017)) Hx Dementia: No Hx Diabetes: No Hx Gastrointestinal Disorders: No Hx Liver Disease: No Hx Genitourinary Disorders: No Hx Sexually Transmitted Disorders: No Hx Renal Disease (ESRD): No Hx Thyroid Disease: No Hx Human Immunodeficiency Virus (HIV): No (NEGATIVE HX ) Hx Hepatitis C: No Hx Depression: Yes Hx Suicide Attempt: Yes (ATTEMPTING TO HANG HIMSELF AT AGE 21;DENIES CURENT S/H/ I) Hx Bipolar Disorder: No Hx Schizophrenia: No - Patient Surgical History Past Surgical History: No Hx Neurologic Surgery: No Hx Cataract Extraction: No Hx Cardiac Surgery: No Hx Lung Surgery: No Hx Breast Surgery: No Hx Breast Biopsy: No Hx Abdominal Surgery: No Hx Appendectomy: No Hx Cholecystectomy: No Hx Genitourinary Surgery: No Hx Orthopedic Surgery: No Anesthesia Reaction: No - PPD History Previous Implant?: Yes Documented Results: Negative w/proof Date: 08/16/17 Results: 0 mm PPD to be Administered?: No - Reproductive History Patient is a Female of Child Bearing Age (11 -55 yrs old): No (MALE) - Smoking Cessation Smoking history: Current every day smoker Have you smoked in the past 12 months: Yes Aproximately how many cigarettes per day: 10 Cigars Per Day: 0 Hx Chewing Tobacco Use: No Initiated information on smoking cessation: Yes 'Breaking Loose' booklet given: 10/27/17 - Substance & Tx. History Hx Alcohol Use: Yes (LIQOUR) Hx Substance Use: Yes (MARIJUANA) Substance Use Type: Alcohol, Marijuana Hx Substance Use Treatment: Yes (CURRENTLY IN [facility]. LAST DETOX AT [facility]) - Substances Abused Alcohol Route: Oral Frequency: Daily Amount used: LIQUOR- 4 PINTS Age of first use: 33 Date of Last Use: 10/27/17 Marijuana/Hashish Route: Smoking Frequency: 1-2 times per week Amount used: 1 BLUNT Age of first use: 33 Date of Last Use: 10/26/17 Family Disease History - Family Disease History Family Disease History: Other: Father (), Mother () Admission Physical Exam BHS - Vital Signs Vital Signs: Vital Signs - 24 hr 10/27/17 16:23 Temperature 97.1 F L Pulse Rate 79 Respiratory 18 Rate Blood Pressure 150/89 - Physical General Appearance: Yes: Moderate Distress, Alcohol on Breath, Intoxicated, Irritable, Anxious HEENTM: Yes: EOMI, Normocephalic, ROBERTO, Pharynx Normal Respiratory: Yes: Chest Non-Tender, Lungs Clear, Normal Breath Sounds, No Respiratory Distress Neck: Yes: No masses,lesions,Nodules, Supple, Trachea in good position Breast: Yes: Breast Exam Deferred Cardiology: Yes: Regular Rhythm, Regular Rate, S1, S2 Abdominal: Yes: Normal Bowel Sounds, Non Tender, Flat, Soft Genitourinary: Yes: Other (N/C) Back: Yes: Within Normal Limits Musculoskeletal: Yes: full range of Motion, Gait Steady Extremities: Yes: Normal Range of Motion, Non-Tender Neurological: Yes: service attendant II-XII NML intact, Fully Oriented, Alert, Motor Strength 5/5 Integumentary: Yes: Dry, Warm Lymphatic: Yes: Within Normal Limits - Diagnostic (1) Methadone maintenance therapy patient Current Visit: Yes Status: Chronic Comment: last dose 10/13/16 120mg pending verification (2) Nicotine dependence Current Visit: Yes Status: Acute Qualifiers: Nicotine product type: cigarettes Substance use status: in withdrawal Qualified Code(s): F17.213 - Nicotine dependence, cigarettes, with withdrawal (3) Asthma Current Visit: Yes Status: Chronic Qualifiers: Asthma severity: mild Asthma complication type: uncomplicated (4) Alcohol dependence with uncomplicated withdrawal Current Visit: Yes Status: Chronic (5) COPD (chronic obstructive pulmonary disease) Current Visit: Yes Status: Chronic Qualifiers: COPD type: emphysema Emphysema type: panlobular Qualified Code(s): J43.1 - Panlobular emphysema (6) Low back pain Current Visit: Yes Status: Chronic Qualifiers: Chronicity: unspecified (7) Weight loss Current Visit: Yes Status: Acute (8) Seizure Current Visit: Yes Status: Chronic Cleared for Admission [facility] - Detox or Rehab [facility] Level of Care: Medically Managed Detox Regimen/Protocol: Librium [facility] Breath Alcohol Content Breath Alcohol Content: 0.253 Urine Drug Screen - Results Drug Screen Negative: No Urine Drug Screen Results: THC-Marijuana, BZO-Benzodiazepines, MTD-Methadone
[2017-10-27] MEDS ORDERED: P-EPHED 60MG/TRIPROLIDI 2.5MG TABLET PO PRN (17:28)
[2017-10-27] MEDS ORDERED: LOPERAMIDE HCL 2 MG CAPSULE PO PRN (17:28)
[2017-10-27] MEDS ORDERED: guaiFENesin/D-METHORPHAN HB 10 ML UNIT-DOSE CUPS PO PRN (17:28)
[2017-10-27] MEDS ORDERED: IBUPROFEN 400 MG TABLET (FP) PO PRN (17:28)
[2017-10-27] MEDS ORDERED: chlordiazePOXIDE HCL 25 MG CAPSULE PO PRN (17:28)
[2017-10-27] MEDS ORDERED: MAGNESIUM CITRATE 300 ML BOTTLE PO PRN (17:28)
[2017-10-27] MEDS ORDERED: MAGNESIUM HYDROX 2400MG/30ML ORAL SUSPENSION 30 ML CUP PO PRN (17:28)
[2017-10-27] MEDS ORDERED: MAG HYDROX/AL HYDROX/SIMETH 30 ML UNIT-DOSE CUP PO PRN (17:28)
[2017-10-27] MEDS ORDERED: MENTHOL/PHENOL 1 EACH UD MM PRN (17:28)
[2017-10-27] MEDS ORDERED: ACETAMINOPHEN 325 MG TABLET (FP) PO PRN (17:28)
[2017-10-27] MEDS ORDERED: NICOTINE POLACRILEX 2 MG GUM BUC PRN (17:28)
[2017-10-27] MEDS ORDERED: chlordiazePOXIDE HCL 25 MG CAPSULE PO ONE (18:45)
[2017-10-27] MEDS: NICOTINE 14 MG/24 HOURS TOPICAL PATCH TD SCH (19:28)
[2017-10-27] MEDS: chlordiazePOXIDE HCL 25 MG CAPSULE PO SCH (22:43)
[2017-10-27] MEDS: THIAMINE HCL 100 MG TABLET (FP) PO SCH (22:45)
[2017-10-27 23:28] LABS: URINE APPEARANCE TURBID; URINE BILIRUBIN NEGATIVE (NEGATIVE); URINE BLOOD NEGATIVE (NEGATIVE); URINE COLOR YELLOW; URINE GLUCOSE (UA) NEGATIVE (NEGATIVE); URINE KETONE NEGATIVE (NEGATIVE); URINE LEUK ESTERASE NEGATIVE (NEGATIVE); URINE NITRITE NEGATIVE (NEGATIVE)
[2017-10-27 23:35] LABS: URINE PROTEIN 1+ (NEGATIVE)
[2017-10-27 23:38] LABS: URINE BACTERIA FEW /hpf (NONE SEEN); URINE MUCUS RARE
[2017-10-28] MEDS: chlordiazePOXIDE HCL 25 MG CAPSULE PO SCH ×4 (06:15→22:08)
[2017-10-28] MEDS: METHADONE HCL 40 MG DISPERSABLE TABLET PO SCH (09:08)
[2017-10-28 10:22] LABS: HEMATOCRIT 42.4 % (35.4-49); HEMOGLOBIN 13.7 GM/dL (11.7-16.9); MCH 34.4 pg (25.7-33.7); MCHC 32.4 g/dl (32.0-35.9); MEAN CELL VOLUME 106.2 fl (80-96); MEAN PLT VOLUME 7.9 fl (7.5-11.1); PLATELET COUNT 188 K/MM3 (134-434); RBC 3.99 M/mm3 (4.00-5.60); RDW 17.2 % (11.9-15.9); WHITE BLOOD COUNT 5.5 K/mm3 (4.0-10.0)
[2017-10-28 10:26] LABS: CHLORIDE 100 mmol/L (98-107); POTASSIUM 3.8 mmol/L (3.5-5.1); SODIUM 140 mmol/L (136-145)
[2017-10-28 10:35] LABS: ALBUMIN 3.3 g/dl (3.4-5.0); ALK PHOS 124 U/L (45-117); ANION GAP 6 (8-16); BILIRUBIN,TOTAL 0.7 mg/dL (0.2-1.0); BLOOD UREA NITROGEN 7 mg/dL (7-18); CALCIUM 8.1 mg/dL (8.5-10.1); CO2 34 mmol/L (21-32); CREATININE 0.9 mg/dL (0.7-1.3); GLUCOSE,RANDOM 111 mg/dL (74-106); SGOT/AST 36 U/L (15-37); SGPT/ALT 17 U/L (12-78); TOT PROT 6.6 g/dl (6.4-8.2)
[2017-10-28] MEDS: PRENATAL VITAMINS W/ FOLIC ACID TABLET (FP) PO SCH (10:41)
[2017-10-28] MEDS: NICOTINE 14 MG/24 HOURS TOPICAL PATCH TD SCH (10:41)
--- NOTE | 2017-10-28 10:48 | EKG ---
Test Reason : Blood Pressure : / mmHG Vent. Rate : 060 BPM Atrial Rate : 060 BPM P-R Int : 128 ms QRS Dur : 094 ms QT Int : 506 ms P-R-T Axes : 078 047 001 degrees QTc Int : 506 ms NORMAL SINUS RHYTHM PROLONGED QT ABNORMAL ECG WHEN COMPARED WITH ECG OF 27-OCT-2017 19:37, NONSPECIFIC T WAVE ABNORMALITY NOW EVIDENT IN INFERIOR LEADS Confirmed by Cuauhtemoc Tejeda ([id number]) on 10/28/2017 10:47:46 AM Referred By: Confirmed By:Cuauhtemoc Tejeda
--- NOTE | 2017-10-28 13:08 | PN ---
[facility] CIWA - CIWA Score Nausea/Vomitin-No Nausea/No Vomiting Muscle Tremors: 3 Anxiety: 4-Mod. Anxious/Guarded Agitation: 2 Paroxysmal Sweats: 3 Orientation: 0-Oriented Tacttile Disturbances: 0-None Auditory Disturbances: 2-Mild Harshness/Frighten Visual Disturbances: 2-Mild Sensitivity Headache: 0-None Present CIWA-Ar Total Score: 16 S Progress Note (SOAP) Subjective: Stomach Cramping, Fatigue, Sweating, Interrupted Sleep, Tremors. Objective: PT. A & O X 3, OBSERVED AMBULATING ON UNIT. NO ACUTE DISTRESS. 10/28/17 13:06 Vital Signs Temperature 96.3 F L 10/28/17 09:14 Pulse Rate 62 10/28/17 09:14 Respiratory Rate 18 10/28/17 09:14 Blood Pressure 154/93 10/28/17 09:14 O2 Sat by Pulse Oximetry (%) Laboratory Tests 10/27/17 10/28/17 10/28/17 23:05 07:00 07:00 WBC 5.5 D RBC 3.99 L Hgb 13.7 Hct 42.4 MCV 106.2 H MCH 34.4 H MCHC 32.4 RDW 17.2 H D Plt Count 188 MPV 7.9 Sodium 140 Potassium 3.8 Chloride 100 Carbon Dioxide 34 H Anion Gap 6 L BUN 7 D Creatinine 0.9 Creat Clearance w eGFR > 60 Random Glucose 111 H Calcium 8.1 L Total Bilirubin 0.7 AST 36 D ALT 17 Alkaline Phosphatase 124 H Total Protein 6.6 Albumin 3.3 L Urine Color Yellow Urine Appearance Turbid Urine pH 6.0 Ur Specific [place] 1.026 Urine Protein 1+ H Urine Glucose (UA) Negative Urine Ketones Negative Urine Blood Negative Urine Nitrite Negative Urine Bilirubin Negative Urine Urobilinogen 2.0 Ur Leukocyte Esterase Negative Urine WBC (Auto) 49 Urine RBC (Auto) 6 Urine Bacteria Few Urine Mucus Rare RPR Titer 10/28/17 07:00 WBC RBC Hgb Hct MCV MCH MCHC RDW Plt Count MPV Sodium Potassium Chloride Carbon Dioxide Anion Gap BUN Creatinine Creat Clearance w eGFR Random Glucose Calcium Total Bilirubin AST ALT Alkaline Phosphatase Total Protein Albumin Urine Color Urine Appearance Urine pH Ur Specific [place] Urine Protein Urine Glucose (UA) Urine Ketones Urine Blood Urine Nitrite Urine Bilirubin Urine Urobilinogen Ur Leukocyte Esterase Urine WBC (Auto) Urine RBC (Auto) Urine Bacteria Urine Mucus RPR Titer Nonreactive LABS NOTED. Assessment: 10/28/17 13:06 WITHDRAWAL SYMPTOMS. Plan: CONTINUE DETOX. INCREASE DAILY PO FLUID INTAKE.
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
[2017-10-28] MEDS: QUEtiapine FUMARATE 50 MG TABLET PO SCH (22:08)
[2017-10-28] MEDS: THIAMINE HCL 100 MG TABLET (FP) PO SCH (22:08)
[2017-10-29] MEDS: METHADONE HCL 40 MG DISPERSABLE TABLET PO SCH (05:20)
[2017-10-29] MEDS: chlordiazePOXIDE HCL 25 MG CAPSULE PO SCH ×3 (05:20→17:21)
[2017-10-29] MEDS: PRENATAL VITAMINS W/ FOLIC ACID TABLET (FP) PO SCH (10:45)
[2017-10-29] MEDS: CITALOPRAM HYDROBROMIDE 10 MG TABLET (FP) PO SCH (10:45)
[2017-10-29] MEDS: NICOTINE 14 MG/24 HOURS TOPICAL PATCH TD SCH (10:45)
[2017-10-29] MEDS ORDERED: cloNIDine HCL 0.1 MG TABLET PO ONE (10:50)
--- NOTE | 2017-10-29 10:54 | EKG ---
Test Reason : Blood Pressure : / mmHG Vent. Rate : 065 BPM Atrial Rate : 065 BPM P-R Int : 132 ms QRS Dur : 084 ms QT Int : 468 ms P-R-T Axes : 075 055 041 degrees QTc Int : 486 ms NORMAL SINUS RHYTHM PROLONGED QT ABNORMAL ECG WHEN COMPARED WITH ECG OF 14-AUG-2017 11:58, NO SIGNIFICANT CHANGE WAS FOUND Confirmed by ALINE DOE MD ([id number]) on 10/29/2017 10:54:20 AM Referred By: Confirmed By:ALINE DOE MD
--- NOTE | 2017-10-29 10:56 | PN ---
[facility] CIWA - CIWA Score Nausea/Vomitin-No Nausea/No Vomiting Muscle Tremors: 3 Anxiety: 5 Agitation: 4-Moderately Restless Paroxysmal Sweats: No Perspiration Orientation: 0-Oriented Tacttile Disturbances: 2-Mild Itch/Numbness/Burn Auditory Disturbances: 0-None Visual Disturbances: 2-Mild Sensitivity Headache: 0-None Present CIWA-Ar Total Score: 16 BHS Progress Note (SOAP) Subjective: Body Aches, Tremors, Stomach Cramping, Fatigue, Diarrhea. Objective: PT. A & O X 3, OBSERVED AMBULATING ON UNIT. NO ACUTE DISTRESS. 10/29/17 10:52 Vital Signs Temperature 95.7 F L 10/29/17 09:00 Pulse Rate 58 L 10/29/17 09:00 Respiratory Rate 18 10/29/17 09:00 Blood Pressure 158/100 10/29/17 09:00 O2 Sat by Pulse Oximetry (%) Laboratory Tests 10/27/17 10/28/17 10/28/17 23:05 07:00 07:00 WBC 5.5 D RBC 3.99 L Hgb 13.7 Hct 42.4 MCV 106.2 H MCH 34.4 H MCHC 32.4 RDW 17.2 H D Plt Count 188 MPV 7.9 Sodium 140 Potassium 3.8 Chloride 100 Carbon Dioxide 34 H Anion Gap 6 L BUN 7 D Creatinine 0.9 Creat Clearance w eGFR > 60 Random Glucose 111 H Calcium 8.1 L Total Bilirubin 0.7 AST 36 D ALT 17 Alkaline Phosphatase 124 H Total Protein 6.6 Albumin 3.3 L Urine Color Yellow Urine Appearance Turbid Urine pH 6.0 Ur Specific [place] 1.026 Urine Protein 1+ H Urine Glucose (UA) Negative Urine Ketones Negative Urine Blood Negative Urine Nitrite Negative Urine Bilirubin Negative Urine Urobilinogen 2.0 Ur Leukocyte Esterase Negative Urine WBC (Auto) 49 Urine RBC (Auto) 6 Urine Bacteria Few Urine Mucus Rare RPR Titer 10/28/17 07:00 WBC RBC Hgb Hct MCV MCH MCHC RDW Plt Count MPV Sodium Potassium Chloride Carbon Dioxide Anion Gap BUN Creatinine Creat Clearance w eGFR Random Glucose Calcium Total Bilirubin AST ALT Alkaline Phosphatase Total Protein Albumin Urine Color Urine Appearance Urine pH Ur Specific [place] Urine Protein Urine Glucose (UA) Urine Ketones Urine Blood Urine Nitrite Urine Bilirubin Urine Urobilinogen Ur Leukocyte Esterase Urine WBC (Auto) Urine RBC (Auto) Urine Bacteria Urine Mucus RPR Titer Nonreactive LABS NOTED. Assessment: 10/29/17 10:53 WITHDRAWAL SYMPTOMS. Plan: CONTINUE DETOX. REPEAT UA FOR ADMISSION ELEVATED URINE ABC LEVEL. CLONIDINE, 0.2 MG PO X 1 FOR ELEVATED BP AND FOR DETO0X SYMPTOMS. INCREASE DAILY PO FLUID INTAKE.
[2017-10-29] MEDS ORDERED: ALBUTEROL SO4 18 GM HFA INHALER IH PRN (13:33)
[2017-10-29] MEDS ORDERED: PHENYTOIN NA EXTENDED 100 MG CAPSULE (FP) PO ONE (13:42)
[2017-10-29] MEDS ORDERED: PHENYTOIN NA EXTENDED 100 MG CAPSULE (FP) PO SCH ×2 (13:45→22:00)
[2017-10-29] MEDS: THIAMINE HCL 100 MG TABLET (FP) PO SCH (22:06)
[2017-10-29] MEDS: chlordiazePOXIDE 5 MG CAPSULE PO SCH (22:06)
[2017-10-29] MEDS: PHENYTOIN NA EXTENDED 100 MG CAPSULE (FP) PO SCH (22:06)
[2017-10-29] MEDS: QUEtiapine FUMARATE 50 MG TABLET PO SCH (22:06)
[2017-10-30] MEDS: chlordiazePOXIDE 5 MG CAPSULE PO SCH ×3 (05:13→17:48)
[2017-10-30] MEDS: METHADONE HCL 40 MG DISPERSABLE TABLET PO SCH (05:13)
[2017-10-30] MEDS: PHENYTOIN NA EXTENDED 100 MG CAPSULE (FP) PO SCH ×2 (10:57→22:11)
[2017-10-30] MEDS: PRENATAL VITAMINS W/ FOLIC ACID TABLET (FP) PO SCH (10:57)
[2017-10-30] MEDS: NICOTINE 14 MG/24 HOURS TOPICAL PATCH TD SCH (10:57)
[2017-10-30] MEDS: CITALOPRAM HYDROBROMIDE 10 MG TABLET (FP) PO SCH (10:58)
--- NOTE | 2017-10-30 15:12 | PN ---
BHS Progress Note (SOAP) Subjective: Stomach Cramping, Anxious, Tremors, Fatigue, Diarrhea. Objective: PT. A & O X 2 (UNCERTAIN ABOUT CURRENT DAY / DATE). PT. OBSERVED AMBULATING ON UNIT. NO ACUTE DISTRESS. 10/30/17 15:10 Vital Signs Temperature 96.2 F L 10/30/17 13:53 Pulse Rate 63 10/30/17 13:53 Respiratory Rate 18 10/30/17 13:53 Blood Pressure 113/74 10/30/17 13:53 O2 Sat by Pulse Oximetry (%) Laboratory Tests 10/27/17 10/28/17 10/28/17 23:05 07:00 07:00 WBC 5.5 D RBC 3.99 L Hgb 13.7 Hct 42.4 MCV 106.2 H MCH 34.4 H MCHC 32.4 RDW 17.2 H D Plt Count 188 MPV 7.9 Sodium 140 Potassium 3.8 Chloride 100 Carbon Dioxide 34 H Anion Gap 6 L BUN 7 D Creatinine 0.9 Creat Clearance w eGFR > 60 Random Glucose 111 H Calcium 8.1 L Total Bilirubin 0.7 AST 36 D ALT 17 Alkaline Phosphatase 124 H Total Protein 6.6 Albumin 3.3 L Urine Color Yellow Urine Appearance Turbid Urine pH 6.0 Ur Specific [place] 1.026 Urine Protein 1+ H Urine Glucose (UA) Negative Urine Ketones Negative Urine Blood Negative Urine Nitrite Negative Urine Bilirubin Negative Urine Urobilinogen 2.0 Ur Leukocyte Esterase Negative Urine WBC (Auto) 49 Urine RBC (Auto) 6 Urine Bacteria Few Urine Mucus Rare RPR Titer 10/28/17 07:00 WBC RBC Hgb Hct MCV MCH MCHC RDW Plt Count MPV Sodium Potassium Chloride Carbon Dioxide Anion Gap BUN Creatinine Creat Clearance w eGFR Random Glucose Calcium Total Bilirubin AST ALT Alkaline Phosphatase Total Protein Albumin Urine Color Urine Appearance Urine pH Ur Specific [place] Urine Protein Urine Glucose (UA) Urine Ketones Urine Blood Urine Nitrite Urine Bilirubin Urine Urobilinogen Ur Leukocyte Esterase Urine WBC (Auto) Urine RBC (Auto) Urine Bacteria Urine Mucus RPR Titer Nonreactive LABS NOTED. Assessment: 10/30/17 15:10 WITHDRAWAL SYMPTOMS. Plan: CONTINUE DETOX.
[2017-10-30] MEDS: THIAMINE HCL 100 MG TABLET (FP) PO SCH (22:11)
[2017-10-30] MEDS: QUEtiapine FUMARATE 50 MG TABLET PO SCH (22:12)
[2017-10-30] MEDS: chlordiazePOXIDE HCL 10 MG CAPSULE PO SCH (23:18)
[2017-10-31] MEDS: chlordiazePOXIDE HCL 10 MG CAPSULE PO SCH (05:32)
[2017-10-31] MEDS: METHADONE HCL 40 MG DISPERSABLE TABLET PO SCH (05:32)
[2017-10-31 06:18] VITALS: BP 125/82; PULSE 60; TEMP 97.6
[2017-10-31] MEDS: PHENYTOIN NA EXTENDED 100 MG CAPSULE (FP) PO SCH (09:35)
[2017-10-31] MEDS: NICOTINE 14 MG/24 HOURS TOPICAL PATCH TD SCH (09:35)
[2017-10-31] MEDS: PRENATAL VITAMINS W/ FOLIC ACID TABLET (FP) PO SCH (09:36)
[2017-10-31] MEDS: CITALOPRAM HYDROBROMIDE 10 MG TABLET (FP) PO SCH (09:36)
--- NOTE | 2017-10-31 13:27 | DS ---
[facility] Detox Discharge Summary Admission Date: 10/27/17 Discharge Date: 10/31/17 - History Present History: Alcohol Dependence, Opioid Dependence, MMTP Additional Comments: PATIENT GOING HOME, WILL RETURN TO [facility] FOR AFTERCARE. PATIENT WAS DISCHARGED FROM DETOX UNIT IN STABLE MEDICAL CONDITION. Pertinent Past History: Asthma, COPD, History of Seizures, MMTP, Nicotine Dependence, Insomnia, PTSD, Low Back Pain. - Physical Exam Results Vital Signs: Vital Signs Temperature 97.6 F 10/31/17 06:16 Pulse Rate 60 10/31/17 06:16 Respiratory Rate 16 10/31/17 06:16 Blood Pressure 125/82 10/31/17 06:16 O2 Sat by Pulse Oximetry (%) Pertinent Admission Physical Exam Findings: WITHDRAWAL SYMPTOMS. Laboratory Tests 10/27/17 10/28/17 10/28/17 23:05 07:00 07:00 WBC 5.5 D RBC 3.99 L Hgb 13.7 Hct 42.4 MCV 106.2 H MCH 34.4 H MCHC 32.4 RDW 17.2 H D Plt Count 188 MPV 7.9 Sodium 140 Potassium 3.8 Chloride 100 Carbon Dioxide 34 H Anion Gap 6 L BUN 7 D Creatinine 0.9 Creat Clearance w eGFR > 60 Random Glucose 111 H Calcium 8.1 L Total Bilirubin 0.7 AST 36 D ALT 17 Alkaline Phosphatase 124 H Total Protein 6.6 Albumin 3.3 L Urine Color Yellow Urine Appearance Turbid Urine pH 6.0 Ur Specific [place] 1.026 Urine Protein 1+ H Urine Glucose (UA) Negative Urine Ketones Negative Urine Blood Negative Urine Nitrite Negative Urine Bilirubin Negative Urine Urobilinogen 2.0 Ur Leukocyte Esterase Negative Urine WBC (Auto) 49 Urine RBC (Auto) 6 Urine Bacteria Few Urine Mucus Rare RPR Titer 10/28/17 07:00 WBC RBC Hgb Hct MCV MCH MCHC RDW Plt Count MPV Sodium Potassium Chloride Carbon Dioxide Anion Gap BUN Creatinine Creat Clearance w eGFR Random Glucose Calcium Total Bilirubin AST ALT Alkaline Phosphatase Total Protein Albumin Urine Color Urine Appearance Urine pH Ur Specific [place] Urine Protein Urine Glucose (UA) Urine Ketones Urine Blood Urine Nitrite Urine Bilirubin Urine Urobilinogen Ur Leukocyte Esterase Urine WBC (Auto) Urine RBC (Auto) Urine Bacteria Urine Mucus RPR Titer Nonreactive LABS NOTED. - Treatment Hospital Course: Detox Protocol Followed, Detoxed Safely, Responded well, Discharged Condition Good Patient has Accepted a Rehab Referral to: PT. RETURNING TO [facility] FOR AFTERCARE. - Medication Discharge Medications: Ambulatory Orders Albuterol Sulfate Inhaler - [Ventolin HFA Inhaler -] 2 puff IH Q6H PRN #1 inhaler 09/17/16 Aclidinium [place] [Tudorza Pressair] 1 mcg IH DAILY 10/15/16 Citalopram Hydrobromide [Celexa -] 20 mg PO DAILY #30 tablet 11/13/16 Quetiapine Fumarate [Seroquel -] 50 mg PO HS #30 tablet 11/13/16 Phenytoin Na Extended [Dilantin -] 200 mg PO BID #60 capsule 10/31/17 - Diagnosis (1) Nicotine dependence Status: Acute Qualifiers: Nicotine product type: cigarettes Substance use status: in withdrawal Qualified Code(s): F17.213 - Nicotine dependence, cigarettes, with withdrawal (2) Weight loss Status: Acute (3) Alcohol dependence with uncomplicated withdrawal Status: Acute (4) Asthma Status: Chronic Qualifiers: Asthma severity: mild Asthma persistence: unspecified Asthma complication type: uncomplicated Qualified Code(s): J45.909 - Unspecified asthma, uncomplicated (5) Methadone maintenance therapy patient Status: Chronic (6) Seizure Status: Chronic (7) COPD (chronic obstructive pulmonary disease) Status: Chronic Qualifiers: COPD type: emphysema Emphysema type: panlobular Qualified Code(s): J43.1 - Panlobular emphysema (8) Low back pain Status: Chronic Qualifiers: Chronicity: unspecified Back pain laterality: unspecified Sciatica presence: unspecified whether sciatica present Qualified Code(s): M54.5 - Low back pain (9) Insomnia Status: Acute Qualifiers: Insomnia type: unspecified Qualified Code(s): G47.00 - Insomnia, unspecified (10) Substance induced mood disorder Status: Acute (11) PTSD (post-traumatic stress disorder) Status: Chronic - AMA Did Patient Leave Against Medical Advice: No
== END 2017-10-31 09:37 | disposition home or self-care (01) | DRG 773 ==
LOC: YASAS 14:26 → Y3N 18:42
PROVIDERS: ADMIT Internal Medicine; ATTEND Internal Medicine
PROC: HZ2ZZZZ Detoxification Services for Substance Abuse Treatment (ICD-10-PCS; principal; 2017-10-27)
DX: F10.230 Alcohol dependence with withdrawal, uncomplicated (principal); F11.20 Opioid dependence, uncomplicated; F12.20 Cannabis dependence, uncomplicated; F17.213 Nicotine dependence, cigarettes, with withdrawal; F19.24 Other psychoactive substance dependence with psychoactive substance-induced mood disorder; F43.10 Post-traumatic stress disorder, unspecified; J45.909 Unspecified asthma, uncomplicated; G47.00 Insomnia, unspecified; G40.909 Epilepsy, unspecified, not intractable, without status epilepticus; J43.1 Panlobular emphysema; M54.5 Low back pain; Z87.898 Personal history of other specified conditions; Z91.5 Personal history of self-harm
CPT/HCPCS: 36415; 80053; 81003; 81015; 85027; 86593; 93005; 93010; J0735

== ENCOUNTER 2018-01-01 12:03 | Inpatient (IN) | payer OTHER ==
[2018-01-01 14:37] VITALS: BMI 22.3
--- NOTE | 2018-01-01 18:13 | HP ---
CIWA Score - CIWA Score Nausea/Vomitin-No Nausea/No Vomiting Muscle Tremors: 4-Moderate,w/Arms Extend Anxiety: 4-Mod. Anxious/Guarded Agitation: 4-Moderately Restless Paroxysmal Sweats: 3 Orientation: 0-Oriented Tacttile Disturbances: 0-None Auditory Disturbances: 0-None Visual Disturbances: 0-None Headache: 1-Very Mild CIWA-Ar Total Score: 16 Admission ROS BHS - HPI Chief Complaint: I need to stop drinking alcohol and an here for detox. Allergies/Adverse Reactions: Allergies Allergy/AdvReac Type Severity Reaction Status Date / Time No Known Allergies Allergy Verified 01/01/18 16:34 History of Present Illness: Pt is a 52yr old male with a history of alcohol dependence seeking detox for treatment. pt is on [facility] program last dose of 80mg received today. Exam Limitations: No Limitations - Ebola screening Have you traveled outside of the country in the last 21 days: No (N) Have you had contact with anyone from an Ebola affected area: No Have you been sick,other than usual withdrawal symptoms: No Do you have a fever: No - Review of Systems Constitutional: Chills, Diaphoresis, Loss of Appetite EENT: reports: No Symptoms Reported Respiratory: reports: No Symptoms reported Cardiac: reports: Syncope GI: reports: Constipated, Diarrhea, Poor Appetite, Poor Fluid Intake : reports: No Symptoms Reported Musculoskeletal: reports: Back Pain Integumentary: reports: Flushing, Sweating Neuro: reports: Headache, Seizure, Tingling, Tremors Endocrine: reports: Excessive Sweating, Flushing, Intolerance to Cold, Intolerance to Heat Hematology: reports: No Symptoms Reported Psychiatric: reports: Judgement Intact, Mood/Affect Appropiate, Orientated x3, Agitated, Anxious Other Systems: Reviewed and Negative Patient History - Patient Medical History Hx Anemia: No Hx Asthma: Yes (MDI) Hx Chronic Obstructive Pulmonary Disease (COPD): Yes (MDI) Hx Cancer: No Hx Cardiac Disorders: No Hx Congestive Heart Failure: No Hx Hypertension: No (BP 150/89 TODAY) Hx Hypercholesterolemia: No Hx Pacemaker: No HX Cerebrovascular Accident: No Hx Seizures: Yes ((2 MONTHS AGO-JULY 2017)) Hx Dementia: No Hx Diabetes: No Hx Gastrointestinal Disorders: No Hx Liver Disease: No Hx Genitourinary Disorders: No Hx Sexually Transmitted Disorders: No Hx Renal Disease (ESRD): No Hx Thyroid Disease: No Hx Human Immunodeficiency Virus (HIV): No (NEGATIVE HX ) Hx Hepatitis C: No Hx Depression: Yes Hx Suicide Attempt: Yes (ATTEMPTING TO HANG HIMSELF AT AGE 21;DENIES CURENT S/H/ I) Hx Bipolar Disorder: No Hx Schizophrenia: No - Patient Surgical History Past Surgical History: No Hx Neurologic Surgery: No Hx Cataract Extraction: No Hx Cardiac Surgery: No Hx Lung Surgery: No Hx Breast Surgery: No Hx Breast Biopsy: No Hx Abdominal Surgery: No Hx Appendectomy: No Hx Cholecystectomy: No Hx Genitourinary Surgery: No Hx Section: No (NA) Hx Orthopedic Surgery: No Anesthesia Reaction: No - PPD History Previous Implant?: Yes Documented Results: Negative w/proof Date: 08/16/17 Results: 0 mm PPD to be Administered?: No - Reproductive History Patient is a Female of Child Bearing Age (11 -55 yrs old): No - Smoking Cessation Smoking history: Current every day smoker Have you smoked in the past 12 months: Yes Aproximately how many cigarettes per day: 10 Cigars Per Day: 0 Hx Chewing Tobacco Use: No Initiated information on smoking cessation: Yes 'Breaking Loose' booklet given: 01/01/18 - Substance & Tx. History Hx Alcohol Use: Yes Hx Substance Use: Yes Substance Use Type: Alcohol Hx Substance Use Treatment: Yes (last detox [facility] [place] 2 months ago) - Substances Abused Alcohol Route: Oral Frequency: Daily Amount used: LIQUOR- 3 PINTS Age of first use: 33 Date of Last Use: 01/01/18 Family Disease History - Family Disease History Family Disease History: Other: Father (), Mother () Admission Physical Exam [facility] - Vital Signs Vital Signs: Vital Signs - 24 hr 01/01/18 14:26 Temperature 97.3 F L Pulse Rate 96 H Respiratory 20 Rate Blood Pressure 142/99 - Physical General Appearance: Yes: Appropriately Dressed, Moderate Distress, Thin, Tremorous, Irritable, Sweating, Anxious HEENTM: Yes: Hearing grossly Normal, Normal Voice, Nasal Congestion, Rhinorrhea Respiratory: Yes: Lungs Clear, Normal Breath Sounds, No Respiratory Distress Neck: Yes: No masses,lesions,Nodules Breast: Yes: Within Normal Limits Cardiology: Yes: Regular Rhythm, Regular Rate, S1, S2 Abdominal: Yes: Normal Bowel Sounds, Non Tender, Soft Genitourinary: Yes: Within Normal Limits Back: Yes: Normal Inspection Musculoskeletal: Yes: full range of Motion, Back pain Extremities: Yes: Normal Capillary Refill, Normal Inspection, Non-Tender, Tremors Neurological: Yes: Fully Oriented, Alert, Normal Response Integumentary: Yes: Normal Color, Diaphoresis Lymphatic: Yes: Within Normal Limits - Diagnostic (1) Alcohol dependence with uncomplicated withdrawal Current Visit: Yes Status: Chronic (2) Marijuana dependence Current Visit: Yes Status: Chronic (3) Nicotine dependence Current Visit: Yes Status: Chronic Qualifiers: Nicotine product type: cigarettes Substance use status: uncomplicated Qualified Code(s): F17.210 - Nicotine dependence, cigarettes, uncomplicated (4) Asthma Current Visit: Yes Status: Chronic Qualifiers: Asthma severity: mild (5) COPD (chronic obstructive pulmonary disease) Current Visit: Yes Status: Chronic Qualifiers: (6) Methadone maintenance therapy patient Current Visit: Yes Status: Chronic Comment: last dose 10/13/16 120mg pending verification Cleared for Admission [facility] - Detox or Rehab [facility] Level of Care: Medically Managed Detox Regimen/Protocol: Librium [facility] Breath Alcohol Content Breath Alcohol Content: 0.267 Urine Drug Screen - Results Drug Screen Negative: No Urine Drug Screen Results: PCP-Phencyclidine, MTD-Methadone
[2018-01-01] MEDS ORDERED: hydrOXYzine PAMOATE 50 MG CAPSULE (FP) PO PRN (18:15)
[2018-01-01] MEDS ORDERED: LOPERAMIDE HCL 2 MG CAPSULE PO PRN (18:15)
[2018-01-01] MEDS ORDERED: ACETAMINOPHEN 325 MG TABLET (FP) PO PRN (18:15)
[2018-01-01] MEDS ORDERED: MAGNESIUM HYDROX 2400MG/30ML ORAL SUSPENSION 30 ML CUP PO PRN (18:15)
[2018-01-01] MEDS ORDERED: P-EPHED 60MG/TRIPROLIDI 2.5MG TABLET PO PRN (18:15)
[2018-01-01] MEDS ORDERED: MENTHOL/PHENOL 1 EACH UD MM PRN (18:15)
[2018-01-01] MEDS ORDERED: MAG HYDROX/AL HYDROX/SIMETH 30 ML UNIT-DOSE CUP PO PRN (18:15)
[2018-01-01] MEDS ORDERED: NICOTINE POLACRILEX 4 MG GUM BC PRN (18:15)
[2018-01-01] MEDS ORDERED: chlordiazePOXIDE HCL 25 MG CAPSULE PO ONE (18:15)
[2018-01-01] MEDS ORDERED: chlordiazePOXIDE HCL 25 MG CAPSULE PO PRN (18:15)
[2018-01-01] MEDS ORDERED: MAGNESIUM CITRATE 300 ML BOTTLE PO PRN (18:15)
[2018-01-01] MEDS ORDERED: guaiFENesin/D-METHORPHAN HB 10 ML UNIT-DOSE CUPS PO PRN (18:15)
[2018-01-01] MEDS ORDERED: IBUPROFEN 400 MG TABLET (FP) PO PRN (18:15)
[2018-01-01] MEDS ORDERED: diphenhydrAMINE HCL 25 MG CAPSULE (FP) PO PRN (18:22)
[2018-01-01] MEDS ORDERED: MELATONIN 5 MG TABLETS PO PRN (22:00)
[2018-01-01] MEDS: chlordiazePOXIDE HCL 25 MG CAPSULE PO SCH (22:09)
[2018-01-01] MEDS: PHENYTOIN NA EXTENDED 100 MG CAPSULE (FP) PO SCH (22:09)
[2018-01-01] MEDS: THIAMINE HCL 100 MG TABLET (FP) PO SCH (22:10)
[2018-01-02 02:17] LABS: URINE APPEARANCE TURBID; URINE BILIRUBIN NEGATIVE (<2.0 mg/dL); URINE BLOOD NEGATIVE (NEGATIVE); URINE COLOR YELLOW; URINE GLUCOSE (UA) NEGATIVE (NEGATIVE); URINE KETONE NEGATIVE (NEGATIVE); URINE LEUK ESTERASE NEGATIVE (NEGATIVE); URINE NITRITE NEGATIVE (NEGATIVE); URINE UROBILINOGEN NEGATIVE mg/dL (0.2-1.0)
[2018-01-02 02:23] LABS: URINE PROTEIN 1+ (NEGATIVE)
[2018-01-02 02:35] LABS: URINE BACTERIA MODERATE /hpf (NONE SEEN); URINE MUCUS RARE; YEAST FEW
[2018-01-02] MEDS: chlordiazePOXIDE HCL 25 MG CAPSULE PO SCH ×4 (05:39→22:24)
[2018-01-02] MEDS ORDERED: ALBUTEROL SO4 18 GM HFA INHALER IH PRN (08:48)
--- NOTE | 2018-01-02 09:33 | PN ---
S CIWA - CIWA Score Nausea/Vomitin Muscle Tremors: 3 Anxiety: 3 Agitation: 3 Paroxysmal Sweats: 3 Orientation: 0-Oriented Tacttile Disturbances: 0-None Auditory Disturbances: 0-None Visual Disturbances: 0-None Headache: 0-None Present CIWA-Ar Total Score: 15 BHS Progress Note (SOAP) Subjective: nausea, swetas, interrutped sleep, anxiety, trmeors Objective: 01/02/18 09:32 Vital Signs - 24 hr 01/01/18 01/01/18 01/01/18 14:26 18:33 18:37 Temperature 97.3 F L 97.9 F Pulse Rate 96 H 88 88 Respiratory 20 18 18 Rate Blood Pressure 142/99 135/85 01/01/18 01/01/18 01/01/18 19:00 19:30 20:00 Temperature Pulse Rate 86 86 85 Respiratory 18 18 18 Rate Blood Pressure 01/01/18 01/01/18 01/01/18 20:30 21:00 21:30 Temperature Pulse Rate 89 91 H 87 Respiratory 18 18 18 Rate Blood Pressure 01/01/18 01/01/18 01/01/18 21:55 22:00 23:00 Temperature 97.5 F L Pulse Rate 89 85 93 H Respiratory 18 18 18 Rate Blood Pressure 122/77 01/01/18 01/02/18 01/02/18 23:30 00:30 01:00 Temperature Pulse Rate 92 H 79 76 Respiratory 18 18 18 Rate Blood Pressure 01/02/18 01/02/18 01/02/18 01:30 01:50 02:00 Temperature 98.1 F Pulse Rate 74 74 74 Respiratory 18 18 18 Rate Blood Pressure 146/94 01/02/18 01/02/18 01/02/18 02:30 03:00 03:30 Temperature Pulse Rate 76 74 72 Respiratory 18 18 18 Rate Blood Pressure 01/02/18 01/02/18 01/02/18 04:00 04:30 05:00 Temperature Pulse Rate 70 73 74 Respiratory 18 18 18 Rate Blood Pressure 01/02/18 01/02/18 01/02/18 05:30 06:00 06:30 Temperature 97.7 F Pulse Rate 72 72 75 Respiratory 18 18 18 Rate Blood Pressure 145/93 01/02/18 01/02/18 01/02/18 07:00 07:30 08:00 Temperature Pulse Rate 73 74 73 Respiratory 18 18 18 Rate Blood Pressure 01/02/18 08:30 Temperature Pulse Rate 90 Respiratory 18 Rate Blood Pressure Laboratory Tests 01/02/18 00:05 Urine Color Yellow Urine Appearance Turbid Urine pH 5.0 Ur Specific [place] 1.030 Urine Protein 1+ H Urine Glucose (UA) Negative Urine Ketones Negative Urine Blood Negative Urine Nitrite Negative Urine Bilirubin Negative Urine Urobilinogen Negative Ur Leukocyte Esterase Negative Urine WBC (Auto) 37 Urine RBC (Auto) 3 Urine Bacteria Moderate Urine Mucus Rare Urine Yeast Few labs still pending Assessment: 01/02/18 09:32 withdrawal sx, cont detox, fluids, encourage ambualtion
--- NOTE | 2018-01-02 09:36 | EKG ---
Test Reason : Blood Pressure : / mmHG Vent. Rate : 085 BPM Atrial Rate : 085 BPM P-R Int : 130 ms QRS Dur : 086 ms QT Int : 406 ms P-R-T Axes : 078 043 060 degrees QTc Int : 483 ms NORMAL SINUS RHYTHM PROLONGED QT ABNORMAL ECG WHEN COMPARED WITH ECG OF 28-OCT-2017 09:54, NONSPECIFIC T WAVE ABNORMALITY NO LONGER EVIDENT IN INFERIOR LEADS Confirmed by DOC ARAUJO MD ([id number]) on 01/02/2018 9:36:13 AM Referred By: Confirmed By:DOC ARAUJO MD
[2018-01-02 10:02] LABS: HEMATOCRIT 42.9 % (35.4-49); HEMOGLOBIN 14.5 GM/dL (11.7-16.9); MCH 35.1 pg (25.7-33.7); MCHC 33.7 g/dl (32.0-35.9); MEAN PLT VOLUME 8.6 fl (7.5-11.1); PLATELET COUNT 201 K/MM3 (134-434); RBC 4.12 M/mm3 (4.00-5.60); RDW 14.5 % (11.9-15.9); WHITE BLOOD COUNT 5.9 K/mm3 (4.0-10.0)
[2018-01-02 10:03] LABS: CHLORIDE 101 mmol/L (98-107); POTASSIUM 4.2 mmol/L (3.5-5.1); SODIUM 139 mmol/L (136-145)
--- NOTE | 2018-01-02 10:27 | CONSULT ---
[facility] Psychiatric Consult - Data Date of interview: 01/02/18 Admission source: [facility] Identifying data: Pt. is a 52 year old male, , father of two, unemployed , receiving food stamps and currently stays at his neice's home. This is one of multiple admissions for patient. Pt. admitted to for alcohol dependence. Substance Abuse History: Following information confirmed with Mr. López: Smoking Cessation. Smoking history: Current every day smoker. Have you smoked in the past 12 months: Yes. Aproximately how many cigarettes per day: 10. Cigars Per Day: 0. Hx Chewing Tobacco Use: No. Initiated information on smoking cessation: Yes. 'Breaking Loose' booklet given: 01/01/18. - Substance & Tx. History. Hx Alcohol Use: Yes. Hx Substance Use: Yes. Substance Use Type : Alcohol. Hx Substance Use Treatment: Yes ([facility] - Substances Abused. Alcohol. Route: Oral. Frequency: Daily. Amount used: LIQUOR- 3 PINTS. Age of first use: 33. Date of Last Use: 12/21 Medical History: Asthma, COPD, Hypertension, Seziures (most recently in 2016) Psychiatric History: Pt. reports one psychiatric hospitalization at the age of 7 after witnessing the of his brother ( accidentally fell out of a window) . Patient has a diagnosis of MDD and depression. Pt. with a history of accepting Celexa 20mg and Seroquel 50mg qhs. Pt. is nonadherent to medications and outpatient treatment. Pt. reports one suicide attempt via hanging while incarcerated from . Pt. denies h/o suicide attempt. Pt currently denies suicidal and homicidal ideation. Physical/Sexual Abuse/Trauma History: Denies. Mental Status Exam - Mental Status Exam Alert and Oriented to: Time, Place, Person Cognitive Function: Good Patient Appearance: Well Groomed Mood: Euthymic Affect: Appropriate, Mood Congruent Patient Behavior: Cooperative Speech Pattern: Appropriate Voice Loudness: Normal Thought Process: Goal Oriented Thought Disorder: Not Present Hallucinations: Denies Suicidal Ideation: Denies Homicidal Ideation: Denies Insight/Judgement: Poor Sleep: Poorly Appetite: Fair Muscle strength/Tone: Normal Gait/Station: Normal Psychiatric Findings - Problem List (Lee 1, 2,3) (1) Alcohol dependence with uncomplicated withdrawal Current Visit: Yes Status: Acute (2) Methadone maintenance therapy patient Current Visit: Yes Status: Chronic Comment: last dose 10/13/16 120mg pending verification (3) Nicotine dependence Current Visit: Yes Status: Chronic Qualifiers: Nicotine product type: cigarettes Substance use status: uncomplicated Qualified Code(s): F17.210 - Nicotine dependence, cigarettes, uncomplicated (4) PCP dependence Current Visit: Yes Status: Acute (5) Substance induced mood disorder Current Visit: Yes Status: Acute (6) Insomnia Current Visit: Yes Status: Acute Qualifiers: Insomnia type: unspecified Qualified Code(s): G47.00 - Insomnia, unspecified - Initial Treatment Plan Initial Treatment Plan: Psychoeducation provided. Detoxification observation. Seroquel 50mg qhs ordered. Benefits and side effects discussed. Verbal consent give. Will continue to monitor.
[2018-01-02 10:29] LABS: ALBUMIN 3.8 g/dl (3.4-5.0); ALK PHOS 110 U/L (45-117); ANION GAP 8 (8-16); BLOOD UREA NITROGEN 12 mg/dL (7-18); CO2 30 mmol/L (21-32); CREATININE 0.8 mg/dL (0.7-1.3); GLUCOSE,RANDOM 83 mg/dL (74-106); SGOT/AST 81 U/L (15-37); SGPT/ALT 32 U/L (12-78); TOT PROT 7.2 g/dl (6.4-8.2)
[2018-01-02] MEDS: METHADONE HCL 40 MG DISPERSABLE TABLET PO SCH (10:39)
[2018-01-02] MEDS: PHENYTOIN NA EXTENDED 100 MG CAPSULE (FP) PO SCH ×2 (10:40→22:24)
[2018-01-02] MEDS: PRENATAL VITAMINS W/ FOLIC ACID TABLET (FP) PO SCH (10:40)
[2018-01-02] MEDS: NICOTINE 21 MG/24 HOURS TOPICAL PATCH TD SCH (10:42)
[2018-01-02] MEDS ORDERED: chlordiazePOXIDE HCL 25 MG CAPSULE PO ONE (12:06)
--- NOTE | 2018-01-02 12:08 | PN ---
S Progress Note Note: paeint with persistenetly elevated bp after recieving methadone and libirium for alcoho withdrawwl sx. will give libirum 50mg x1 dose now and start him on chrlorthalidone 25mg daiy for essential htn
[2018-01-02] MEDS: TIOTROPIUM BROMIDE 18 MCG CAPSULES IH SCH (12:17)
[2018-01-02] MEDS: LIDOCAINE 5% TOPICAL PATCH TP SCH (12:20)
[2018-01-02] MEDS: CHLORTHALIDONE 25 MG TABLET PO SCH (15:30)
[2018-01-02] MEDS: THIAMINE HCL 100 MG TABLET (FP) PO SCH (22:24)
[2018-01-02] MEDS: QUEtiapine FUMARATE 50 MG TABLET PO SCH (22:24)
[2018-01-02] MEDS: LIDOCAINE PATCH REMOVAL MC SCH (22:57)
[2018-01-03] MEDS: chlordiazePOXIDE HCL 25 MG CAPSULE PO SCH ×3 (06:05→18:03)
[2018-01-03] MEDS: TIOTROPIUM BROMIDE 18 MCG CAPSULES IH SCH (10:18)
[2018-01-03] MEDS: METHADONE HCL 40 MG DISPERSABLE TABLET PO SCH (10:19)
[2018-01-03] MEDS: CHLORTHALIDONE 25 MG TABLET PO SCH (10:19)
[2018-01-03] MEDS: PRENATAL VITAMINS W/ FOLIC ACID TABLET (FP) PO SCH (10:19)
[2018-01-03] MEDS: LIDOCAINE 5% TOPICAL PATCH TP SCH (10:19)
[2018-01-03] MEDS: PHENYTOIN NA EXTENDED 100 MG CAPSULE (FP) PO SCH ×2 (10:19→22:28)
[2018-01-03] MEDS: NICOTINE 21 MG/24 HOURS TOPICAL PATCH TD SCH (10:20)
--- NOTE | 2018-01-03 14:45 | PN ---
S CIWA - CIWA Score Nausea/Vomitin Muscle Tremors: 3 Anxiety: 3 Agitation: 2 Paroxysmal Sweats: 1-Minimal Palms Moist Orientation: 0-Oriented Tacttile Disturbances: 1-Very Mild Itch/Numbness Auditory Disturbances: 1-Very Mild Visual Disturbances: 0-None Headache: 2-Mild CIWA-Ar Total Score: 16 BHS Progress Note (SOAP) Subjective: ALERT,IRRITABLE,CONFUSED AT TIME,INTERRUPTED SLEEP,PAIN IN THE BODY Objective: 01/03/18 14:42 Vital Signs Temperature 97.9 F 01/03/18 10:53 Pulse Rate 102 H 01/03/18 10:53 Respiratory Rate 18 01/03/18 10:53 Blood Pressure 141/95 01/03/18 10:53 O2 Sat by Pulse Oximetry (%) 01/03/18 14:43 Laboratory Last Values WBC 5.9 K/mm3 (4.0-10.0) 01/02/18 08:00 RBC 4.12 M/mm3 (4.00-5.60) 01/02/18 08:00 Hgb 14.5 GM/dL (11.7-16.9) 01/02/18 08:00 Hct 42.9 % (35.4-49) 01/02/18 08:00 MCV 104.0 fl (80-96) H 01/02/18 08:00 MCH 35.1 pg (25.7-33.7) H 01/02/18 08:00 MCHC 33.7 g/dl (32.0-35.9) 01/02/18 08:00 RDW 14.5 % (11.9-15.9) D 01/02/18 08:00 Plt Count 201 K/MM3 (134-434) 01/02/18 08:00 MPV 8.6 fl (7.5-11.1) 01/02/18 08:00 Sodium 139 mmol/L (136-145) 01/02/18 08:00 Potassium 4.2 mmol/L (3.5-5.1) 01/02/18 08:00 Chloride 101 mmol/L (98-107) 01/02/18 08:00 Carbon Dioxide 30 mmol/L (21-32) 01/02/18 08:00 Anion Gap 8 (8-16) 01/02/18 08:00 BUN 12 mg/dL (7-18) D 01/02/18 08:00 Creatinine 0.8 mg/dL (0.7-1.3) 01/02/18 08:00 Creat Clearance w eGFR > 60 (>60) 01/02/18 08:00 Random Glucose 83 mg/dL (74-106) D 01/02/18 08:00 Calcium 9.0 mg/dL (8.5-10.1) 01/02/18 08:00 Total Bilirubin 1.0 mg/dL (0.2-1.0) D 01/02/18 08:00 AST 81 U/L (15-37) H D 01/02/18 08:00 ALT 32 U/L (12-78) D 01/02/18 08:00 Alkaline Phosphatase 110 U/L (45-117) 01/02/18 08:00 Ammonia 44.72 umol/L (11-32) H 01/03/18 09:30 Total Protein 7.2 g/dl (6.4-8.2) 01/02/18 08:00 Albumin 3.8 g/dl (3.4-5.0) 01/02/18 08:00 Urine Color Yellow 01/02/18 00:05 Urine Appearance Turbid 01/02/18 00:05 Urine pH 5.0 (5.0-8.0) 01/02/18 00:05 Ur Specific [place] 1.030 (1.001-1.035) 01/02/18 00:05 Urine Protein 1+ (NEGATIVE) H 01/02/18 00:05 Urine Glucose (UA) Negative (NEGATIVE) 01/02/18 00:05 Urine Ketones Negative (NEGATIVE) 01/02/18 00:05 Urine Blood Negative (NEGATIVE) 01/02/18 00:05 Urine Nitrite Negative (NEGATIVE) 01/02/18 00:05 Urine Bilirubin Negative (<2.0 mg/dL) 01/02/18 00:05 Urine Urobilinogen Negative mg/dL (0.2-1.0) 01/02/18 00:05 Ur Leukocyte Esterase Negative (NEGATIVE) 01/02/18 00:05 Urine WBC (Auto) 37 /hpf (3-5) 01/02/18 00:05 Urine RBC (Auto) 3 /hpf (0-3) 01/02/18 00:05 Urine Bacteria Moderate /hpf (NONE SEEN) 01/02/18 00:05 Urine Mucus Rare 01/02/18 00:05 Urine Yeast Few 01/02/18 00:05 RPR Titer Nonreactive (NONREACTIVE) 01/02/18 08:00 Assessment: 01/03/18 14:44 WITHDRAWAL SYMPTOM Plan: CONTINUE DETOX,REPEAT UA,LACTULOSE 20 GRAM PO TID FOR HIGH AMMONIA LEVEL
[2018-01-03] MEDS: LACTULOSE 20 GM/30 ML UDC (FOR ORAL USE ONLY) PO SCH ×2 (15:14→22:25)
[2018-01-03] MEDS: QUEtiapine FUMARATE 50 MG TABLET PO SCH (22:25)
[2018-01-03] MEDS: chlordiazePOXIDE 5 MG CAPSULE PO SCH (22:25)
[2018-01-03] MEDS: THIAMINE HCL 100 MG TABLET (FP) PO SCH (22:26)
[2018-01-03] MEDS: LIDOCAINE PATCH REMOVAL MC SCH (22:26)
[2018-01-04] MEDS: LACTULOSE 20 GM/30 ML UDC (FOR ORAL USE ONLY) PO SCH ×3 (07:00→22:10)
[2018-01-04] MEDS: chlordiazePOXIDE 5 MG CAPSULE PO SCH ×3 (07:25→17:44)
[2018-01-04] MEDS: METHADONE HCL 40 MG DISPERSABLE TABLET PO SCH (08:46)
[2018-01-04] MEDS: PRENATAL VITAMINS W/ FOLIC ACID TABLET (FP) PO SCH (10:19)
[2018-01-04] MEDS: PHENYTOIN NA EXTENDED 100 MG CAPSULE (FP) PO SCH ×2 (10:19→22:10)
[2018-01-04] MEDS: TIOTROPIUM BROMIDE 18 MCG CAPSULES IH SCH (10:20)
[2018-01-04] MEDS: CHLORTHALIDONE 25 MG TABLET PO SCH (10:21)
[2018-01-04] MEDS: LIDOCAINE 5% TOPICAL PATCH TP SCH (10:26)
[2018-01-04] MEDS: NICOTINE 21 MG/24 HOURS TOPICAL PATCH TD SCH (10:26)
--- NOTE | 2018-01-04 14:21 | PN ---
BHS Progress Note (SOAP) Subjective: felling better less sweat no tremor Objective: 01/04/18 14:22 Vital Signs Temperature 97.3 F L 01/04/18 12:08 Pulse Rate 108 H 01/04/18 12:08 Respiratory Rate 20 01/04/18 12:08 Blood Pressure 128/96 01/04/18 12:08 O2 Sat by Pulse Oximetry (%) Laboratory Last Values WBC 5.9 K/mm3 (4.0-10.0) 01/02/18 08:00 RBC 4.12 M/mm3 (4.00-5.60) 01/02/18 08:00 Hgb 14.5 GM/dL (11.7-16.9) 01/02/18 08:00 Hct 42.9 % (35.4-49) 01/02/18 08:00 MCV 104.0 fl (80-96) H 01/02/18 08:00 MCH 35.1 pg (25.7-33.7) H 01/02/18 08:00 MCHC 33.7 g/dl (32.0-35.9) 01/02/18 08:00 RDW 14.5 % (11.9-15.9) D 01/02/18 08:00 Plt Count 201 K/MM3 (134-434) 01/02/18 08:00 MPV 8.6 fl (7.5-11.1) 01/02/18 08:00 Sodium 139 mmol/L (136-145) 01/02/18 08:00 Potassium 4.2 mmol/L (3.5-5.1) 01/02/18 08:00 Chloride 101 mmol/L (98-107) 01/02/18 08:00 Carbon Dioxide 30 mmol/L (21-32) 01/02/18 08:00 Anion Gap 8 (8-16) 01/02/18 08:00 BUN 12 mg/dL (7-18) D 01/02/18 08:00 Creatinine 0.8 mg/dL (0.7-1.3) 01/02/18 08:00 Creat Clearance w eGFR > 60 (>60) 01/02/18 08:00 Random Glucose 83 mg/dL (74-106) D 01/02/18 08:00 Calcium 9.0 mg/dL (8.5-10.1) 01/02/18 08:00 Total Bilirubin 1.0 mg/dL (0.2-1.0) D 01/02/18 08:00 AST 81 U/L (15-37) H D 01/02/18 08:00 ALT 32 U/L (12-78) D 01/02/18 08:00 Alkaline Phosphatase 110 U/L (45-117) 01/02/18 08:00 Ammonia 44.72 umol/L (11-32) H 01/03/18 09:30 Total Protein 7.2 g/dl (6.4-8.2) 01/02/18 08:00 Albumin 3.8 g/dl (3.4-5.0) 01/02/18 08:00 Urine Color Yellow 01/02/18 00:05 Urine Appearance Turbid 01/02/18 00:05 Urine pH 5.0 (5.0-8.0) 01/02/18 00:05 Ur Specific [place] 1.030 (1.001-1.035) 01/02/18 00:05 Urine Protein 1+ (NEGATIVE) H 01/02/18 00:05 Urine Glucose (UA) Negative (NEGATIVE) 01/02/18 00:05 Urine Ketones Negative (NEGATIVE) 01/02/18 00:05 Urine Blood Negative (NEGATIVE) 01/02/18 00:05 Urine Nitrite Negative (NEGATIVE) 01/02/18 00:05 Urine Bilirubin Negative (<2.0 mg/dL) 01/02/18 00:05 Urine Urobilinogen Negative mg/dL (0.2-1.0) 01/02/18 00:05 Ur Leukocyte Esterase Negative (NEGATIVE) 01/02/18 00:05 Urine WBC (Auto) 37 /hpf (3-5) 01/02/18 00:05 Urine RBC (Auto) 3 /hpf (0-3) 01/02/18 00:05 Urine Bacteria Moderate /hpf (NONE SEEN) 01/02/18 00:05 Urine Mucus Rare 01/02/18 00:05 Urine Yeast Few 01/02/18 00:05 RPR Titer Nonreactive (NONREACTIVE) 01/02/18 08:00 lab noted Assessment: 01/04/18 14:23 mild withdrawal sx Plan: medically supervised detox
[2018-01-04] MEDS: chlordiazePOXIDE HCL 10 MG CAPSULE PO SCH (22:10)
[2018-01-04] MEDS: THIAMINE HCL 100 MG TABLET (FP) PO SCH (22:10)
[2018-01-04] MEDS: QUEtiapine FUMARATE 50 MG TABLET PO SCH (22:10)
[2018-01-04] MEDS: LIDOCAINE PATCH REMOVAL MC SCH (22:45)
[2018-01-05] MEDS: METHADONE HCL 40 MG DISPERSABLE TABLET PO SCH (05:07)
[2018-01-05] MEDS: chlordiazePOXIDE HCL 10 MG CAPSULE PO SCH ×2 (05:07→10:07)
[2018-01-05] MEDS: LACTULOSE 20 GM/30 ML UDC (FOR ORAL USE ONLY) PO SCH (07:09)
[2018-01-05] MEDS: TIOTROPIUM BROMIDE 18 MCG CAPSULES IH SCH (10:07)
[2018-01-05] MEDS: PRENATAL VITAMINS W/ FOLIC ACID TABLET (FP) PO SCH (10:07)
[2018-01-05] MEDS: NICOTINE 21 MG/24 HOURS TOPICAL PATCH TD SCH (10:08)
[2018-01-05] MEDS: PHENYTOIN NA EXTENDED 100 MG CAPSULE (FP) PO SCH (10:08)
[2018-01-05] MEDS: LIDOCAINE 5% TOPICAL PATCH TP SCH (10:08)
[2018-01-05] MEDS: CHLORTHALIDONE 25 MG TABLET PO SCH (10:08)
[2018-01-05 10:16] VITALS: BP 120/83; PULSE 94; TEMP 98.2
--- NOTE | 2018-01-05 10:24 | PN ---
S Progress Note (SOAP) Subjective: denies any complaints Objective: 01/05/18 10:22 A & O x 3 Gait steady, well appearing Vital Signs Temperature 98.2 F 01/05/18 10:16 Pulse Rate 94 H 01/05/18 10:16 Respiratory Rate 18 01/05/18 10:16 Blood Pressure 120/83 01/05/18 10:16 O2 Sat by Pulse Oximetry (%) Assessment: 01/05/18 10:23 detox successfully completed Plan: for d/c
--- NOTE | 2018-01-05 10:47 | DS ---
[facility] Detox Discharge Summary Admission Date: 01/01/18 Discharge Date: 01/05/18 - History Additional Comments: Pt A & O x 3, in no distress, up and doing on unit and well appearing Pt stated he will go back to his program at [facility] where he will do AA meetings. Prescription lactulose given, to be picked up at hospital for behavioral medicine pharmacy which had been confirmed with Pharmacist there. Verbalized understanding Ventolin inhaler given to pt on d/c - Physical Exam Results Vital Signs: Vital Signs Temperature 98.2 F 01/05/18 10:16 Pulse Rate 94 H 01/05/18 10:16 Respiratory Rate 18 01/05/18 10:16 Blood Pressure 120/83 01/05/18 10:16 O2 Sat by Pulse Oximetry (%) Pertinent Admission Physical Exam Findings: withdrawal sx - Treatment Hospital Course: Detox Protocol Followed, Detoxed Safely, Responded well, Discharged Condition Good, Rehab Referral Accepted Patient has Accepted a Rehab Referral to: O/P at [facility] - Medication Discharge Medications: Ambulatory Orders Aclidinium [place] [Tudorza Pressair] 1 mcg IH DAILY 10/15/16 Citalopram Hydrobromide [Celexa -] 20 mg PO DAILY #30 tablet 11/13/16 Quetiapine Fumarate [Seroquel -] 50 mg PO HS #30 tablet 11/13/16 Albuterol Sulfate Inhaler - [Ventolin HFA Inhaler -] 2 puff IH Q6H PRN #1 inhaler 01/04/18 Phenytoin Na Extended [Dilantin -] 200 mg PO BID #60 capsule 01/04/18 Lactulose (Oral Use) [Cephulac -] 20 gm PO TID 5 Days #1 bottle 01/05/18 - Diagnosis (1) Alcohol dependence with uncomplicated withdrawal Current Visit: Yes Status: Acute (2) Cannabis dependence Current Visit: Yes Status: Acute (3) Increased ammonia level Current Visit: Yes Status: Acute (4) Insomnia Current Visit: Yes Status: Acute Qualifiers: Insomnia type: unspecified Qualified Code(s): G47.00 - Insomnia, unspecified (5) PCP dependence Current Visit: Yes Status: Acute (6) Substance induced mood disorder Current Visit: Yes Status: Acute (7) Asthma Current Visit: Yes Status: Chronic Qualifiers: Asthma severity: mild (8) COPD (chronic obstructive pulmonary disease) Current Visit: Yes Status: Chronic Qualifiers: (9) Marijuana dependence Current Visit: Yes Status: Chronic (10) Methadone maintenance therapy patient Current Visit: Yes Status: Chronic (11) Nicotine dependence Current Visit: Yes Status: Chronic Qualifiers: Nicotine product type: cigarettes Substance use status: uncomplicated Qualified Code(s): F17.210 - Nicotine dependence, cigarettes, uncomplicated (12) Anxiety and depression Current Visit: No Status: Acute - AMA Did Patient Leave Against Medical Advice: No
--- NOTE | 2018-01-05 12:45 | EKG ---
Test Reason : Blood Pressure : / mmHG Vent. Rate : 065 BPM Atrial Rate : 065 BPM P-R Int : 128 ms QRS Dur : 086 ms QT Int : 458 ms P-R-T Axes : 083 022 010 degrees QTc Int : 476 ms NORMAL SINUS RHYTHM NORMAL ECG WHEN COMPARED WITH ECG OF 01-JAN-2018 19:09, NO SIGNIFICANT CHANGE WAS FOUND Confirmed by ANITA WHITE MD ([id number]) on 01/05/2018 12:45:22 PM Referred By: Confirmed By:ANITA WHITE MD
== END 2018-01-05 10:42 | disposition home or self-care (01) | DRG 773 ==
LOC: YASAS 12:03 → Y6N 17:21
PROVIDERS: ADMIT Internal Medicine; ATTEND Internal Medicine
PROC: HZ2ZZZZ Detoxification Services for Substance Abuse Treatment (ICD-10-PCS; principal; 2018-01-01)
DX: F11.20 Opioid dependence, uncomplicated (principal); F10.230 Alcohol dependence with withdrawal, uncomplicated; F12.20 Cannabis dependence, uncomplicated; F16.20 Hallucinogen dependence, uncomplicated; F17.210 Nicotine dependence, cigarettes, uncomplicated; F41.9 Anxiety disorder, unspecified; F32.9 Major depressive disorder, single episode, unspecified; F19.24 Other psychoactive substance dependence with psychoactive substance-induced mood disorder; J44.9 Chronic obstructive pulmonary disease, unspecified; G47.00 Insomnia, unspecified; R79.89 Other specified abnormal findings of blood chemistry
CPT/HCPCS: 36415; 80053; 81003; 81015; 82140; 85027; 86593; 93005; 93010

== ENCOUNTER 2018-03-24 19:16 | Inpatient (IN) | payer OTHER ==
[2018-03-24] MEDS ORDERED: MELATONIN 5 MG TABLETS PO PRN (22:00)
[2018-03-24 23:08] VITALS: BMI 21.6
--- NOTE | 2018-03-24 23:31 | HP ---
CIWA Score - CIWA Score Nausea/Vomitin Muscle Tremors: 2 Anxiety: 3 Agitation: 3 Paroxysmal Sweats: 2 Orientation: 0-Oriented Tacttile Disturbances: 2-Mild Itch/Numbness/Burn (both arms and and legs) Auditory Disturbances: 0-None Visual Disturbances: 0-None Headache: 2-Mild CIWA-Ar Total Score: 17 Admission ROS S - [facility] Chief Complaint: alcohol withdrawal sx Allergies/Adverse Reactions: Allergies Allergy/AdvReac Type Severity Reaction Status Date / Time No Known Allergies Allergy Verified 01/01/18 16:34 History of Present Illness: 52 yo male nicotine and alcohol dependence is here seeking detox. [facility] on 80 mg, last medicated today, dose pending verification. PMHX: asthma, seizures ( last episode ) on week ago, depression, anxiety, insomnia. Denies suicidal / homicidal ideation, but reports has suicidal thoughts in the past reports of brother one week ago. No significant period of sobriety. Exam Limitations: No Limitations - Ebola screening Have you traveled outside of the country in the last 21 days: No (N) Have you had contact with anyone from an Ebola affected area: No Have you been sick,other than usual withdrawal symptoms: No Do you have a fever: No - Review of Systems Constitutional: Chills, Diaphoresis, Loss of Appetite, Changes in sleep, Unintentional Wgt. Loss EENT: reports: Dental Problems (missing teeth) Respiratory: reports: No Symptoms reported Cardiac: reports: No Symptoms Reported GI: reports: Diarrhea, Nausea, Poor Appetite, Poor Fluid Intake, Abdominal cramping : reports: No Symptoms Reported Musculoskeletal: reports: Back Pain Integumentary: reports: No Symptoms Reported Neuro: reports: Numbness (hands and feet) Endocrine: reports: Increased Thirst Hematology: reports: No Symptoms Reported Psychiatric: reports: Orientated x3, Anxious Other Systems: Reviewed and Negative Patient History - Patient Medical History Hx Anemia: No Hx Asthma: Yes (MDI) Hx Chronic Obstructive Pulmonary Disease (COPD): Yes (MDI) Hx Cancer: No Hx Cardiac Disorders: No Hx Congestive Heart Failure: No Hx Hypertension: No (BP 150/89 TODAY) Hx Hypercholesterolemia: No Hx Pacemaker: No HX Cerebrovascular Accident: No Hx Seizures: Yes ((2 MONTHS AGO-JULY 2017)) Hx Dementia: No Hx Diabetes: No Hx Gastrointestinal Disorders: No Hx Liver Disease: No Hx Genitourinary Disorders: No Hx Sexually Transmitted Disorders: No Hx Renal Disease (ESRD): No Hx Thyroid Disease: No Hx Human Immunodeficiency Virus (HIV): No (NEGATIVE HX ) Hx Hepatitis C: No Hx Depression: Yes Hx Suicide Attempt: Yes (ATTEMPTING TO HANG HIMSELF AT AGE 21;DENIES CURENT S/H/ I) Hx Bipolar Disorder: No Hx Schizophrenia: No - Patient Surgical History Past Surgical History: No Hx Neurologic Surgery: No Hx Cataract Extraction: No Hx Cardiac Surgery: No Hx Lung Surgery: No Hx Breast Surgery: No Hx Breast Biopsy: No Hx Abdominal Surgery: No Hx Appendectomy: No Hx Cholecystectomy: No Hx Genitourinary Surgery: No Hx Section: No (NA) Hx Orthopedic Surgery: No Anesthesia Reaction: No - PPD History Documented Results: Negative w/proof Date: 01/03/18 Results: 0 mm PPD to be Administered?: No - Smoking Cessation Smoking history: Current every day smoker Have you smoked in the past 12 months: Yes Aproximately how many cigarettes per day: 10 Cigars Per Day: 0 Hx Chewing Tobacco Use: No Initiated information on smoking cessation: Yes 'Breaking Loose' booklet given: 03/24/18 - Substance & Tx. History Hx Alcohol Use: Yes Hx Substance Use: Yes Substance Use Type: Alcohol Hx Substance Use Treatment: Yes - Substances Abused Alcohol Route: Oral Frequency: Daily Amount used: 3 pints of 99 bananas Age of first use: 33 Date of Last Use: 03/24/18 Family Disease History - Family Disease History Family Disease History: Other: Father (), Mother () Admission Physical Exam [facility] - Vital Signs Vital Signs: Vital Signs - 24 hr 03/24/18 23:04 Temperature 97.9 F Pulse Rate 84 Respiratory 18 Rate Blood Pressure 104/68 - Physical General Appearance: Yes: Disheveled, Mild Distress, Irritable, Anxious HEENTM: Yes: EOMI, Hearing grossly Normal, Normal ENT Inspection, Normocephalic , Normal Voice, ROBERTO, Pharynx Normal, Tm's normal, Other (poor dentition) Respiratory: Yes: Chest Non-Tender, Lungs Clear, Normal Breath Sounds, No Respiratory Distress, No Accessory Muscle Use Neck: Yes: No masses,lesions,Nodules, Trachea in good position Breast: Yes: Breast Exam Deferred Cardiology: Yes: Regular Rhythm, Regular Rate Abdominal: Yes: Normal Bowel Sounds, Non Tender, Flat, Soft Genitourinary: Yes: Within Normal Limits Back: Yes: Normal Inspection Musculoskeletal: Yes: full range of Motion, Gait Steady, Pelvis Stable Extremities: Yes: Normal Capillary Refill, Normal Inspection, Normal Range of Motion, Non-Tender Neurological: Yes: surveillance system monitor II-XII NML intact, Fully Oriented, Alert, Motor Strength 5/5, Depressed Affect Integumentary: Yes: Normal Color, Warm, Diaphoresis Lymphatic: Yes: Within Normal Limits - Diagnostic (1) Alcohol dependence with uncomplicated withdrawal Current Visit: Yes Status: Acute (2) Opioid dependence on agonist therapy Current Visit: Yes Status: Acute Comment: Dustin Tarango MMTP on 80 mg , dose pending verification (3) Weight loss Current Visit: No Status: Acute (4) Asthma Current Visit: Yes Status: Chronic Qualifiers: Asthma severity: mild (5) Depression (emotion) Current Visit: Yes Status: Chronic Qualifiers: Depression Type: dysthymia Qualified Code(s): F34.1 - Dysthymic disorder (6) Low back pain Current Visit: Yes Status: Chronic Qualifiers: Chronicity: unspecified Back pain laterality: unspecified Sciatica presence: unspecified whether sciatica present Qualified Code(s): M54.5 - Low back pain (7) Nicotine dependence Current Visit: Yes Status: Chronic Qualifiers: Nicotine product type: cigarettes Substance use status: uncomplicated Qualified Code(s): F17.210 - Nicotine dependence, cigarettes, uncomplicated (8) Seizure Current Visit: Yes Status: Chronic Cleared for Admission [facility] - Detox or Rehab [facility] Level of Care: Medically Managed Detox Regimen/Protocol: Librium [facility] Breath Alcohol Content Breath Alcohol Content: 0.112 Urine Drug Screen - Results Drug Screen Negative: No Urine Drug Screen Results: DALTON-Cocaine, BZO-Benzodiazepines, MTD-Methadone
[2018-03-24] MEDS ORDERED: ALBUTEROL SO4 8 GM HFA INHALER IH PRN (23:36)
[2018-03-24] MEDS ORDERED: ACETAMINOPHEN 325 MG TABLET (FP) PO PRN (23:42)
[2018-03-24] MEDS ORDERED: P-EPHED 60MG/TRIPROLIDI 2.5MG TABLET PO PRN (23:42)
[2018-03-24] MEDS ORDERED: MAGNESIUM CITRATE 300 ML BOTTLE PO PRN (23:42)
[2018-03-24] MEDS ORDERED: NICOTINE POLACRILEX 2 MG GUM BC PRN (23:42)
[2018-03-24] MEDS ORDERED: chlordiazePOXIDE HCL 25 MG CAPSULE PO ONE (23:42)
[2018-03-24] MEDS ORDERED: MAG HYDROX/AL HYDROX/SIMETH 30 ML UNIT-DOSE CUP PO PRN (23:42)
[2018-03-24] MEDS ORDERED: guaiFENesin/D-METHORPHAN HB 10 ML UNIT-DOSE CUPS PO PRN (23:42)
[2018-03-24] MEDS ORDERED: IBUPROFEN 400 MG TABLET (FP) PO PRN (23:42)
[2018-03-24] MEDS ORDERED: chlordiazePOXIDE HCL 25 MG CAPSULE PO PRN (23:42)
[2018-03-24] MEDS ORDERED: LOPERAMIDE HCL 2 MG CAPSULE PO PRN (23:42)
[2018-03-24] MEDS ORDERED: MENTHOL/PHENOL 1 EACH UD MM PRN (23:42)
[2018-03-24] MEDS ORDERED: hydrOXYzine PAMOATE 50 MG CAPSULE (FP) PO PRN (23:42)
[2018-03-24] MEDS ORDERED: MAGNESIUM HYDROX 2400MG/30ML ORAL SUSPENSION 30 ML CUP PO PRN (23:42)
[2018-03-25] MEDS ORDERED: chlordiazePOXIDE HCL 25 MG CAPSULE PO ONE (04:08)
[2018-03-25] MEDS ORDERED: chlordiazePOXIDE HCL 25 MG CAPSULE PO PRN (04:08)
[2018-03-25] MEDS ORDERED: chlordiazePOXIDE HCL 25 MG CAPSULE PO SCH (05:00)
[2018-03-25] MEDS: chlordiazePOXIDE HCL 25 MG CAPSULE PO SCH ×6 (05:30→22:14)
[2018-03-25 09:34] LABS: HEMATOCRIT 40.4 % (35.4-49); HEMOGLOBIN 13.5 GM/dL (11.7-16.9); MCH 35.2 pg (25.7-33.7); MCHC 33.5 g/dl (32.0-35.9); MEAN CELL VOLUME 105.2 fl (80-96); MEAN PLT VOLUME 8.5 fl (7.5-11.1); PLATELET COUNT 133 K/MM3 (134-434); RBC 3.84 M/mm3 (4.00-5.60); RDW 15.4 % (11.9-15.9); WHITE BLOOD COUNT 4.6 K/mm3 (4.0-10.0)
[2018-03-25] MEDS ORDERED: PT OWN MED DRAWER 7, Y5N ONE ×2 (09:38→11:15)
[2018-03-25 09:54] LABS: CHLORIDE 95 mmol/L (98-107); POTASSIUM 3.4 mmol/L (3.5-5.1); SODIUM 138 mmol/L (136-145)
[2018-03-25] MEDS ORDERED: POTASSIUM CHLORIDE TABS 20 MEQ TABLET.ER (FP) PO ONE (10:04)
[2018-03-25] MEDS ORDERED: METHADONE HCL 10 MG TABLET PO ONE (10:05)
[2018-03-25 10:21] LABS: ALBUMIN 3.6 g/dl (3.4-5.0); ALK PHOS 104 U/L (45-117); ANION GAP 13 (8-16); BILIRUBIN,TOTAL 0.5 mg/dL (0.2-1.0); BLOOD UREA NITROGEN 42 mg/dL (7-18); CALCIUM 8.7 mg/dL (8.5-10.1); CO2 30 mmol/L (21-32); CREATININE 4.4 mg/dL (0.7-1.3); GLUCOSE,RANDOM 84 mg/dL (74-106); SGOT/AST 69 U/L (15-37); SGPT/ALT 40 U/L (12-78); TOT PROT 7.2 g/dl (6.4-8.2)
[2018-03-25] MEDS: NICOTINE 14 MG/24 HOURS TOPICAL PATCH TD SCH (10:37)
[2018-03-25] MEDS: PRENATAL VITAMINS W/ FOLIC ACID TABLET (FP) PO SCH (10:38)
[2018-03-25 12:40] LABS: URINE APPEARANCE CLEAR; URINE BILIRUBIN NEGATIVE (<2.0 mg/dL); URINE COLOR YELLOW; URINE GLUCOSE (UA) NEGATIVE (NEGATIVE); URINE KETONE NEGATIVE (NEGATIVE); URINE LEUK ESTERASE NEGATIVE (NEGATIVE); URINE NITRITE NEGATIVE (NEGATIVE)
[2018-03-25 12:43] LABS: URINE PROTEIN 1+ (NEGATIVE)
[2018-03-25 12:44] LABS: EPI CELLS RARE /HPF (FEW); URINE HYALINE CAST 10 /lpf; URINE MUCUS RARE
--- NOTE | 2018-03-25 13:22 | CONSULT ---
[facility] Psychiatric Consult - Data Date of interview: 03/25/18 Admission source: [facility] Identifying data: Patient is a 52 year old male, , domiciled and currently unemployed. This is one of multiple admissions for patient. Patient admitted to for alcohol, cocaine, and benzodiazepine dependence. Substance Abuse History: Smoking Cessation. Smoking history: Current every day smoker. Have you smoked in the past 12 months: Yes. Aproximately how many cigarettes per day: 10. Cigars Per Day: 0. Hx Chewing Tobacco Use: No. Initiated information on smoking cessation: Yes. 'Breaking Loose' booklet given : 03/24/18. - Substance & Tx. History. Hx Alcohol Use: Yes. Hx Substance Use : Yes. Substance Use Type: Alcohol. Hx Substance Use Treatment: Yes. - Substances Abused. Alcohol. Route: Oral. Frequency: Daily. Amount used: 3 pints of 99 bananas. Age of first use: 33. Date of Last Use: 03/24/18 Medical History: Asthma, Seizures ( 2 months ago) Psychiatric History: Pt. reports one psychiatric hospitalization at the age of 7 after witnessing the of his brother ( accidentally fell out of a window) . Patient has a diagnosis of MDD and depression. Pt. with a history of accepting Celexa 20mg and Seroquel 50mg qhs. Pt. is nonadherent to medications and outpatient treatment. Most recent OPD was provided last year in the [place]. Pt. reports one suicide attempt via hanging while incarcerated from 1987-. Pt. denies h/o suicide attempt. Pt currently denies suicidal and homicidal ideation. Pt. requesting to restart celexa and seroquel. Physical/Sexual Abuse/Trauma History: Denies. Mental Status Exam - Mental Status Exam Alert and Oriented to: Time, Place, Person Cognitive Function: Good Patient Appearance: Well Groomed Mood: Euthymic Affect: Mood Congruent Patient Behavior: Cooperative Speech Pattern: Appropriate Voice Loudness: Normal Thought Process: Intact, Goal Oriented Thought Disorder: Not Present Hallucinations: Denies Suicidal Ideation: Denies Homicidal Ideation: Denies Insight/Judgement: Poor Sleep: Fair Appetite: Fair Muscle strength/Tone: Normal Gait/Station: Normal Psychiatric Findings - Problem List ([place] 1, 2,3) (1) Cocaine dependence Current Visit: Yes Status: Acute (2) Sedative hypnotic or anxiolytic dependence Current Visit: Yes Status: Acute (3) Alcohol dependence with uncomplicated withdrawal Current Visit: Yes Status: Acute (4) Substance induced mood disorder Current Visit: Yes Status: Acute (5) Opioid dependence on agonist therapy Current Visit: Yes Status: Acute Comment: Dustin Tarango MMTP on 80 mg , dose pending verification (6) Nicotine dependence Current Visit: Yes Status: Chronic Qualifiers: Nicotine product type: cigarettes Substance use status: uncomplicated Qualified Code(s): F17.210 - Nicotine dependence, cigarettes, uncomplicated - Initial Treatment Plan Initial Treatment Plan: Psychoeducation provided. Detoxification in progress. Celexa 20mg daily + Seroquel 50mg qhs. Benefits and side effects discussed. Verbal consent given.
[2018-03-25] MEDS: POTASSIUM CHLORIDE TABS 20 MEQ TABLET.ER (FP) PO SCH (17:49)
--- NOTE | 2018-03-25 17:49 | PN ---
[facility] CIWA - CIWA Score Nausea/Vomitin-No Nausea/No Vomiting Muscle Tremors: 4-Moderate,w/Arms Extend Anxiety: 4-Mod. Anxious/Guarded Agitation: 0-Normal Activity Paroxysmal Sweats: No Perspiration Orientation: 0-Oriented Tacttile Disturbances: 3-Moderate Itch/Numb/Burn Auditory Disturbances: 0-None Visual Disturbances: 3-Moderate Sensitivity Headache: 0-None Present CIWA-Ar Total Score: 14 S Progress Note (SOAP) Subjective: Stomach Cramping, Fatigue, Body Aches, Tremors. Objective: PATIENT A & O X 3. NO ACUTE DISTRESS. 03/25/18 17:47 Vital Signs Temperature 97.4 F L 03/25/18 13:20 Pulse Rate 66 03/25/18 13:20 Respiratory Rate 18 03/25/18 13:20 Blood Pressure 104/69 03/25/18 13:20 O2 Sat by Pulse Oximetry (%) Laboratory Tests 03/25/18 03/25/18 03/25/18 08:00 08:00 08:00 WBC 4.6 RBC 3.84 L Hgb 13.5 Hct 40.4 MCV 105.2 H MCH 35.2 H MCHC 33.5 RDW 15.4 Plt Count 133 L MPV 8.5 Sodium 138 Potassium 3.4 L Chloride 95 L Carbon Dioxide 30 Anion Gap 13 BUN 42 H D Creatinine 4.4 H Creat Clearance w eGFR 14.09 Random Glucose 84 D Calcium 8.7 Total Bilirubin 0.5 AST 69 H ALT 40 Alkaline Phosphatase 104 D Total Protein 7.2 Albumin 3.6 Urine Color Urine Appearance Urine pH Ur Specific [place] Urine Protein Urine Glucose (UA) Urine Ketones Urine Blood Urine Nitrite Urine Bilirubin Urine Urobilinogen Ur Leukocyte Esterase Urine WBC (Auto) Urine RBC (Auto) Ur Epithelial Cells Hyaline Casts Urine Mucus Phenytoin < 2.5 L D RPR Titer 03/25/18 03/25/18 08:00 10:30 WBC RBC Hgb Hct MCV MCH MCHC RDW Plt Count MPV Sodium Potassium Chloride Carbon Dioxide Anion Gap BUN Creatinine Creat Clearance w eGFR Random Glucose Calcium Total Bilirubin AST ALT Alkaline Phosphatase Total Protein Albumin Urine Color Yellow Urine Appearance Clear Urine pH 5.0 Ur Specific [place] 1.021 Urine Protein 1+ H Urine Glucose (UA) Negative Urine Ketones Negative Urine Blood Negative Urine Nitrite Negative Urine Bilirubin Negative Urine Urobilinogen 2.0 Ur Leukocyte Esterase Negative Urine WBC (Auto) 5 Urine RBC (Auto) 2 Ur Epithelial Cells Rare Hyaline Casts 10 Urine Mucus Rare Phenytoin RPR Titer Nonreactive LABS NOTED. Assessment: 03/25/18 17:47 WITHDRAWAL SYMPTOMS. HYPOKALEMIA. 03/25/18 18:04 Plan: CONTINUE DETOX. K-DUR, 20 MEQ PO BID. START PHENYTOIN, 200 MG PO BID; STAT DOSE OF 100 MG X 1 ORDERED NOW (ADMISSION PHENYTOIN LEVEL LOW). D/C IBUPROFEN AND MAGNESIUM-CONTAINING MEDS. BASIC METABOLIC PANEL ORDERED FOR 03/27/2018. PATIENT HAS HISTORY OF MMTP. HOWEVER, PATIENT MMTP CLINIC UNALBE TO BE CONTACTED [facility] TELEPHONE TODAY FOR VERIFICATION AND PATIENT DID NOT BRING BOTTLE FROM CLINIC GIVEN TO HIM YESTERDAY WITH HIM AT TIME OF ADMISSION. X1 DOSE OF METHADONE 20 MG ORDERED. VERIFICATION WITH MMTP CLINIC WILL BE ATTEMPTED AGAIN TOMORROW AM.
[2018-03-25] MEDS: PHENYTOIN NA EXTENDED 100 MG CAPSULE (FP) PO ONE ×2 (18:30→22:13)
[2018-03-25] MEDS: THIAMINE HCL 100 MG TABLET (FP) PO SCH (22:13)
[2018-03-25] MEDS: QUEtiapine FUMARATE 50 MG TABLET PO SCH (22:13)
[2018-03-25] MEDS: PHENYTOIN NA EXTENDED 100 MG CAPSULE (FP) PO SCH (22:13)
[2018-03-26] MEDS ORDERED: chlordiazePOXIDE 5 MG CAPSULE PO SCH (05:00)
[2018-03-26] MEDS: chlordiazePOXIDE HCL 25 MG CAPSULE PO SCH ×4 (05:49→22:25)
[2018-03-26] MEDS ORDERED: METHADONE HCL 40 MG DISPERSABLE TABLET PO ONE (09:45)
[2018-03-26] MEDS: CITALOPRAM HYDROBROMIDE 20 MG TABLET (FP) PO SCH (10:36)
[2018-03-26] MEDS: PHENYTOIN NA EXTENDED 100 MG CAPSULE (FP) PO SCH ×2 (10:36→22:26)
[2018-03-26] MEDS: POTASSIUM CHLORIDE TABS 20 MEQ TABLET.ER (FP) PO SCH ×2 (10:36→17:17)
[2018-03-26] MEDS: PRENATAL VITAMINS W/ FOLIC ACID TABLET (FP) PO SCH (10:36)
[2018-03-26] MEDS: NICOTINE 14 MG/24 HOURS TOPICAL PATCH TD SCH (10:40)
--- NOTE | 2018-03-26 11:12 | PN ---
[facility] CIWA - CIWA Score Nausea/Vomitin-No Nausea/No Vomiting (WATERY STOOL/STOMACH CRAMPS) Muscle Tremors: 4-Moderate,w/Arms Extend Anxiety: 4-Mod. Anxious/Guarded Agitation: 4-Moderately Restless Paroxysmal Sweats: 1-Minimal Palms Moist Orientation: 0-Oriented Tacttile Disturbances: 0-None Auditory Disturbances: 0-None Visual Disturbances: 0-None Headache: 0-None Present CIWA-Ar Total Score: 13 S Progress Note (SOAP) Subjective: PT C/O ANXIETY,HOT/COLD CHILLS, WATERY STOOL, STOMACH CRAMPS. Objective: 03/26/18 11:09 Vital Signs 03/26/18 03/26/18 03/26/18 03:30 06:16 09:16 Temperature 97 F L 96.5 F L Pulse Rate 55 L 61 Respiratory 18 16 18 Rate Blood Pressure 111/68 132/81 Laboratory Last Values WBC 4.6 K/mm3 (4.0-10.0) 03/25/18 08:00 RBC 3.84 M/mm3 (4.00-5.60) L 03/25/18 08:00 Hgb 13.5 GM/dL (11.7-16.9) 03/25/18 08:00 Hct 40.4 % (35.4-49) 03/25/18 08:00 MCV 105.2 fl (80-96) H 03/25/18 08:00 MCH 35.2 pg (25.7-33.7) H 03/25/18 08:00 MCHC 33.5 g/dl (32.0-35.9) 03/25/18 08:00 RDW 15.4 % (11.9-15.9) 03/25/18 08:00 Plt Count 133 K/MM3 (134-434) L 03/25/18 08:00 MPV 8.5 fl (7.5-11.1) 03/25/18 08:00 Sodium 138 mmol/L (136-145) 03/25/18 08:00 Potassium 3.4 mmol/L (3.5-5.1) L 03/25/18 08:00 Chloride 95 mmol/L (98-107) L 03/25/18 08:00 Carbon Dioxide 30 mmol/L (21-32) 03/25/18 08:00 Anion Gap 13 (8-16) 03/25/18 08:00 BUN 42 mg/dL (7-18) H D 03/25/18 08:00 Creatinine 4.4 mg/dL (0.7-1.3) H 03/25/18 08:00 Creat Clearance w eGFR 14.09 (>60) 03/25/18 08:00 Random Glucose 84 mg/dL (74-106) D 03/25/18 08:00 Calcium 8.7 mg/dL (8.5-10.1) 03/25/18 08:00 Total Bilirubin 0.5 mg/dL (0.2-1.0) 03/25/18 08:00 AST 69 U/L (15-37) H 03/25/18 08:00 ALT 40 U/L (12-78) 03/25/18 08:00 Alkaline Phosphatase 104 U/L (45-117) D 03/25/18 08:00 Total Protein 7.2 g/dl (6.4-8.2) 03/25/18 08:00 Albumin 3.6 g/dl (3.4-5.0) 03/25/18 08:00 Urine Color Yellow 03/25/18 10:30 Urine Appearance Clear 03/25/18 10:30 Urine pH 5.0 (5.0-8.0) 03/25/18 10:30 Ur Specific [place] 1.021 (1.001-1.035) 03/25/18 10:30 Urine Protein 1+ (NEGATIVE) H 03/25/18 10:30 Urine Glucose (UA) Negative (NEGATIVE) 03/25/18 10:30 Urine Ketones Negative (NEGATIVE) 03/25/18 10:30 Urine Blood Negative (NEGATIVE) 03/25/18 10:30 Urine Nitrite Negative (NEGATIVE) 03/25/18 10:30 Urine Bilirubin Negative (<2.0 mg/dL) 03/25/18 10:30 Urine Urobilinogen 2.0 mg/dL (0.2-1.0) 03/25/18 10:30 Ur Leukocyte Esterase Negative (NEGATIVE) 03/25/18 10:30 Urine WBC (Auto) 5 /hpf (3-5) 03/25/18 10:30 Urine RBC (Auto) 2 /hpf (0-3) 03/25/18 10:30 Ur Epithelial Cells Rare /HPF (FEW) 03/25/18 10:30 Hyaline Casts 10 /lpf 03/25/18 10:30 Urine Mucus Rare 03/25/18 10:30 Phenytoin < 2.5 ug/ml (10.0-20.0) L D 03/25/18 08:00 RPR Titer Nonreactive (NONREACTIVE) 03/25/18 08:00 K+=3.4 ELEVATED BUN/CR Assessment: 03/26/18 11:09 WITHDRAWAL SX Plan: CONTINUE DETOX REPEAT CMP AND CBC IN AM
--- NOTE | 2018-03-26 18:59 | PN ---
[facility] Progress Note Note: Pt with increased ammonia levels: will give lactulose stat and TID Pt with h/o COPD, added symbicort 160mg, 2puffs BID
[2018-03-26] MEDS ORDERED: LACTULOSE 20 GM/30 ML UDC (FOR ORAL USE ONLY) PO ONE (19:15)
[2018-03-26] MEDS ORDERED: LACTULOSE 20 GM/30 ML UDC (FOR ORAL USE ONLY) PO PRN (20:00)
[2018-03-26] MEDS: QUEtiapine FUMARATE 50 MG TABLET PO SCH (22:25)
[2018-03-26] MEDS: LACTULOSE 20 GM/30 ML UDC (FOR ORAL USE ONLY) PO SCH (22:25)
[2018-03-26] MEDS: THIAMINE HCL 100 MG TABLET (FP) PO SCH (22:25)
[2018-03-26] MEDS: BUDESONIDE/FORMETEROL FUMARATE 160/4.5 mcg INHALER IH SCH (23:10)
[2018-03-27] MEDS ORDERED: chlordiazePOXIDE HCL 10 MG CAPSULE PO SCH (05:00)
[2018-03-27] MEDS: chlordiazePOXIDE 5 MG CAPSULE PO SCH ×4 (05:39→22:02)
[2018-03-27] MEDS: METHADONE HCL 40 MG DISPERSABLE TABLET PO SCH (05:39)
[2018-03-27] MEDS: LACTULOSE 20 GM/30 ML UDC (FOR ORAL USE ONLY) PO SCH ×3 (05:42→22:02)
[2018-03-27] MEDS: POTASSIUM CHLORIDE TABS 20 MEQ TABLET.ER (FP) PO SCH ×2 (10:18→17:02)
[2018-03-27] MEDS: PHENYTOIN NA EXTENDED 100 MG CAPSULE (FP) PO SCH ×2 (10:18→22:02)
[2018-03-27] MEDS: PRENATAL VITAMINS W/ FOLIC ACID TABLET (FP) PO SCH (10:18)
[2018-03-27] MEDS: CITALOPRAM HYDROBROMIDE 20 MG TABLET (FP) PO SCH (10:18)
[2018-03-27] MEDS: BUDESONIDE/FORMETEROL FUMARATE 160/4.5 mcg INHALER IH SCH ×2 (10:19→22:02)
[2018-03-27] MEDS: NICOTINE 14 MG/24 HOURS TOPICAL PATCH TD SCH (10:19)
[2018-03-27 10:56] LABS: HEMATOCRIT 41.5 % (35.4-49); HEMOGLOBIN 13.9 GM/dL (11.7-16.9); MCH 35.6 pg (25.7-33.7); MCHC 33.4 g/dl (32.0-35.9); MEAN CELL VOLUME 106.3 fl (80-96); MEAN PLT VOLUME 8.9 fl (7.5-11.1); PLATELET COUNT 152 K/MM3 (134-434); RDW 15.2 % (11.9-15.9)
[2018-03-27 11:24] LABS: CHLORIDE 104 mmol/L (98-107); POTASSIUM 4.7 mmol/L (3.5-5.1); SODIUM 140 mmol/L (136-145)
[2018-03-27 12:03] LABS: ALBUMIN 3.2 g/dl (3.4-5.0); ALK PHOS 85 U/L (45-117); ANION GAP 7 (8-16); BILIRUBIN,TOTAL 0.2 mg/dL (0.2-1.0); BLOOD UREA NITROGEN 26 mg/dL (7-18); CALCIUM 8.9 mg/dL (8.5-10.1); CO2 29 mmol/L (21-32); GLUCOSE,RANDOM 96 mg/dL (74-106); SGOT/AST 27 U/L (15-37); SGPT/ALT 26 U/L (12-78); TOT PROT 6.1 g/dl (6.4-8.2)
--- NOTE | 2018-03-27 12:07 | PN ---
[facility] Progress Note (SOAP) Subjective: ANXIETY, SWEATS, LOOSE STOOL- PT ON LACTULOSE DUE TO ELEVATED AMMONIA LEVEL. Objective: 03/27/18 12:06 Vital Signs 03/27/18 03/27/18 06:39 09:19 Temperature 97.9 F 96.7 F L Pulse Rate 65 55 L Respiratory 18 18 Rate Blood Pressure 101/65 150/87 Laboratory Tests 03/25/18 03/25/18 03/25/18 08:00 08:00 08:00 WBC 4.6 RBC 3.84 L Hgb 13.5 Hct 40.4 MCV 105.2 H MCH 35.2 H MCHC 33.5 RDW 15.4 Plt Count 133 L MPV 8.5 Sodium 138 Potassium 3.4 L Chloride 95 L Carbon Dioxide 30 Anion Gap 13 BUN 42 H D Creatinine 4.4 H Creat Clearance w eGFR 14.09 Random Glucose 84 D Calcium 8.7 Total Bilirubin 0.5 AST 69 H ALT 40 Alkaline Phosphatase 104 D Ammonia Total Protein 7.2 Albumin 3.6 Urine Color Urine Appearance Urine pH Ur Specific [place] Urine Protein Urine Glucose (UA) Urine Ketones Urine Blood Urine Nitrite Urine Bilirubin Urine Urobilinogen Ur Leukocyte Esterase Urine WBC (Auto) Urine RBC (Auto) Ur Epithelial Cells Hyaline Casts Urine Mucus Phenytoin < 2.5 L D RPR Titer 03/25/18 03/25/18 03/26/18 08:00 10:30 08:00 WBC RBC Hgb Hct MCV MCH MCHC RDW Plt Count MPV Sodium Potassium Chloride Carbon Dioxide Anion Gap BUN Creatinine Creat Clearance w eGFR Random Glucose Calcium Total Bilirubin AST ALT Alkaline Phosphatase Ammonia 134.29 H Total Protein Albumin Urine Color Yellow Urine Appearance Clear Urine pH 5.0 Ur Specific [place] 1.021 Urine Protein 1+ H Urine Glucose (UA) Negative Urine Ketones Negative Urine Blood Negative Urine Nitrite Negative Urine Bilirubin Negative Urine Urobilinogen 2.0 Ur Leukocyte Esterase Negative Urine WBC (Auto) 5 Urine RBC (Auto) 2 Ur Epithelial Cells Rare Hyaline Casts 10 Urine Mucus Rare Phenytoin RPR Titer Nonreactive 03/27/18 03/27/18 07:40 07:40 WBC 4.0 RBC 3.90 L Hgb 13.9 Hct 41.5 MCV 106.3 H MCH 35.6 H MCHC 33.4 RDW 15.2 Plt Count 152 MPV 8.9 Sodium 140 Potassium 4.7 D Chloride 104 Carbon Dioxide 29 Anion Gap 7 L BUN 26 H Creatinine 1.0 Creat Clearance w eGFR > 60 Random Glucose 96 Calcium 8.9 Total Bilirubin 0.2 AST 27 D ALT 26 D Alkaline Phosphatase 85 D Ammonia Total Protein 6.1 L Albumin 3.2 L Urine Color Urine Appearance Urine pH Ur Specific [place] Urine Protein Urine Glucose (UA) Urine Ketones Urine Blood Urine Nitrite Urine Bilirubin Urine Urobilinogen Ur Leukocyte Esterase Urine WBC (Auto) Urine RBC (Auto) Ur Epithelial Cells Hyaline Casts Urine Mucus Phenytoin RPR Titer Assessment: 03/27/18 12:06 WITHDRAWAL SX Plan: CONTINUE DETOX REPEAT AMONIA LEVEL IN AM FOLLOW UP WITH PMD FOR MEDICAL MANAGEMENT OF COMORBID CONDITIONS.
[2018-03-27] MEDS: THIAMINE HCL 100 MG TABLET (FP) PO SCH (22:01)
[2018-03-27] MEDS: QUEtiapine FUMARATE 50 MG TABLET PO SCH (22:02)
[2018-03-27 22:28] VITALS: PULSE 66
[2018-03-28] MEDS ORDERED: chlordiazePOXIDE HCL 10 MG CAPSULE PO SCH (05:00)
[2018-03-28] MEDS: LACTULOSE 20 GM/30 ML UDC (FOR ORAL USE ONLY) PO SCH (05:50)
[2018-03-28] MEDS: METHADONE HCL 40 MG DISPERSABLE TABLET PO SCH (05:50)
[2018-03-28 06:25] VITALS: BP 143/83; TEMP 97
--- NOTE | 2018-03-28 18:07 | PN ---
[facility] Progress Note (SOAP) Subjective: Patient denies current Detox symptoms and reports that he feels well overall. Objective: PATIENT A & O X 3, OBSERVED AMBULATING ON UNIT. NO ACUTE DISTRESS. 03/28/18 18:06 Vital Signs Temperature 97 F L 03/28/18 06:25 Pulse Rate 66 03/28/18 06:25 Respiratory Rate 18 03/28/18 06:25 Blood Pressure 143/83 03/28/18 06:25 O2 Sat by Pulse Oximetry (%) Laboratory Tests 03/25/18 03/25/18 03/25/18 08:00 08:00 08:00 WBC 4.6 RBC 3.84 L Hgb 13.5 Hct 40.4 MCV 105.2 H MCH 35.2 H MCHC 33.5 RDW 15.4 Plt Count 133 L MPV 8.5 Sodium 138 Potassium 3.4 L Chloride 95 L Carbon Dioxide 30 Anion Gap 13 BUN 42 H D Creatinine 4.4 H Creat Clearance w eGFR 14.09 Random Glucose 84 D Calcium 8.7 Total Bilirubin 0.5 AST 69 H ALT 40 Alkaline Phosphatase 104 D Ammonia Total Protein 7.2 Albumin 3.6 Urine Color Urine Appearance Urine pH Ur Specific [place] Urine Protein Urine Glucose (UA) Urine Ketones Urine Blood Urine Nitrite Urine Bilirubin Urine Urobilinogen Ur Leukocyte Esterase Urine WBC (Auto) Urine RBC (Auto) Ur Epithelial Cells Hyaline Casts Urine Mucus Phenytoin < 2.5 L D RPR Titer 03/25/18 03/25/18 03/26/18 08:00 10:30 08:00 WBC RBC Hgb Hct MCV MCH MCHC RDW Plt Count MPV Sodium Potassium Chloride Carbon Dioxide Anion Gap BUN Creatinine Creat Clearance w eGFR Random Glucose Calcium Total Bilirubin AST ALT Alkaline Phosphatase Ammonia 134.29 H Total Protein Albumin Urine Color Yellow Urine Appearance Clear Urine pH 5.0 Ur Specific [place] 1.021 Urine Protein 1+ H Urine Glucose (UA) Negative Urine Ketones Negative Urine Blood Negative Urine Nitrite Negative Urine Bilirubin Negative Urine Urobilinogen 2.0 Ur Leukocyte Esterase Negative Urine WBC (Auto) 5 Urine RBC (Auto) 2 Ur Epithelial Cells Rare Hyaline Casts 10 Urine Mucus Rare Phenytoin RPR Titer Nonreactive 03/27/18 03/27/18 03/28/18 07:40 07:40 07:45 WBC 4.0 RBC 3.90 L Hgb 13.9 Hct 41.5 MCV 106.3 H MCH 35.6 H MCHC 33.4 RDW 15.2 Plt Count 152 MPV 8.9 Sodium 140 Potassium 4.7 D Chloride 104 Carbon Dioxide 29 Anion Gap 7 L BUN 26 H Creatinine 1.0 Creat Clearance w eGFR > 60 Random Glucose 96 Calcium 8.9 Total Bilirubin 0.2 AST 27 D ALT 26 D Alkaline Phosphatase 85 D Ammonia 121.70 H Total Protein 6.1 L Albumin 3.2 L Urine Color Urine Appearance Urine pH Ur Specific [place] Urine Protein Urine Glucose (UA) Urine Ketones Urine Blood Urine Nitrite Urine Bilirubin Urine Urobilinogen Ur Leukocyte Esterase Urine WBC (Auto) Urine RBC (Auto) Ur Epithelial Cells Hyaline Casts Urine Mucus Phenytoin RPR Titer LABS NOTED. Assessment: 03/28/18 18:07 COMPLETION OF DETOX REGIMEN. Plan: PATIENT SCHEDULED FOR DISCHARGE FORM DETOX UNIT TODAY.
--- NOTE | 2018-03-28 18:16 | DS ---
[facility] Detox Discharge Summary Admission Date: 03/24/18 Discharge Date: 03/28/18 - History Present History: Alcohol Dependence, Opioid Dependence, Sedative Dependence, MMTP Additional Comments: [facility]. PATIENT ALSO ADVISED TO CONSIDER LOCAL 12-STEP / NA OUTPATIENT SUPPORT GROUPS FOR AFTERCARE. PATIENT ADVISED TO FOLLOW-UP WITH SENIOR LABORATORY TECHNICIAN (PATIENT UNABLE TO RECALL NAME OF SENIOR LABORATORY TECHNICIAN AT THIS TIME ) AT [facility] ([place], [place] AFTER DISCHARGE FROM DETOX FOR MEDICAL ASSESSMENT AND FOR HISTORY OF SEIZURES AND FOR HYPERAMMONEMIA NOTED WHILE ADMITTED FOR DETOX. COPIES OF RESULTS OF ALL LABS DRAWN WHILE ADMITTED FOR DETOX GIVEN TO PATIENT AT TIME OF DISCHARGE. PRESCRIPTIONS FOR DISCHARGE MEDICATIONS FOR FOLLOW-UP CARE SENT TO PATIENT'S PHARMACY ( [facility] [place], [place] PATIENT WAS DISCHARGED FROM DETOX UNIT IN STABLE MEDICAL CONDITION. Pertinent Past History: MMTP, HTN, History of Seizures, Asthma, Low Back Pain, Hypoklaemia, C.O.P.D., Hyperammonemia, Nicotine Dependence, Depression. - Physical Exam Results Vital Signs: Vital Signs Temperature 97 F L 03/28/18 06:25 Pulse Rate 66 03/28/18 06:25 Respiratory Rate 18 03/28/18 06:25 Blood Pressure 143/83 03/28/18 06:25 O2 Sat by Pulse Oximetry (%) Pertinent Admission Physical Exam Findings: WITHDRAWAL SYMPTOMS. Laboratory Tests 03/25/18 03/25/18 03/25/18 08:00 08:00 08:00 WBC 4.6 RBC 3.84 L Hgb 13.5 Hct 40.4 MCV 105.2 H MCH 35.2 H MCHC 33.5 RDW 15.4 Plt Count 133 L MPV 8.5 Sodium 138 Potassium 3.4 L Chloride 95 L Carbon Dioxide 30 Anion Gap 13 BUN 42 H D Creatinine 4.4 H Creat Clearance w eGFR 14.09 Random Glucose 84 D Calcium 8.7 Total Bilirubin 0.5 AST 69 H ALT 40 Alkaline Phosphatase 104 D Ammonia Total Protein 7.2 Albumin 3.6 Urine Color Urine Appearance Urine pH Ur Specific [place] Urine Protein Urine Glucose (UA) Urine Ketones Urine Blood Urine Nitrite Urine Bilirubin Urine Urobilinogen Ur Leukocyte Esterase Urine WBC (Auto) Urine RBC (Auto) Ur Epithelial Cells Hyaline Casts Urine Mucus Phenytoin < 2.5 L D RPR Titer 03/25/18 03/25/18 03/26/18 08:00 10:30 08:00 WBC RBC Hgb Hct MCV MCH MCHC RDW Plt Count MPV Sodium Potassium Chloride Carbon Dioxide Anion Gap BUN Creatinine Creat Clearance w eGFR Random Glucose Calcium Total Bilirubin AST ALT Alkaline Phosphatase Ammonia 134.29 H Total Protein Albumin Urine Color Yellow Urine Appearance Clear Urine pH 5.0 Ur Specific [place] 1.021 Urine Protein 1+ H Urine Glucose (UA) Negative Urine Ketones Negative Urine Blood Negative Urine Nitrite Negative Urine Bilirubin Negative Urine Urobilinogen 2.0 Ur Leukocyte Esterase Negative Urine WBC (Auto) 5 Urine RBC (Auto) 2 Ur Epithelial Cells Rare Hyaline Casts 10 Urine Mucus Rare Phenytoin RPR Titer Nonreactive 03/27/18 03/27/18 03/28/18 07:40 07:40 07:45 WBC 4.0 RBC 3.90 L Hgb 13.9 Hct 41.5 MCV 106.3 H MCH 35.6 H MCHC 33.4 RDW 15.2 Plt Count 152 MPV 8.9 Sodium 140 Potassium 4.7 D Chloride 104 Carbon Dioxide 29 Anion Gap 7 L BUN 26 H Creatinine 1.0 Creat Clearance w eGFR > 60 Random Glucose 96 Calcium 8.9 Total Bilirubin 0.2 AST 27 D ALT 26 D Alkaline Phosphatase 85 D Ammonia 121.70 H Total Protein 6.1 L Albumin 3.2 L Urine Color Urine Appearance Urine pH Ur Specific [place] Urine Protein Urine Glucose (UA) Urine Ketones Urine Blood Urine Nitrite Urine Bilirubin Urine Urobilinogen Ur Leukocyte Esterase Urine WBC (Auto) Urine RBC (Auto) Ur Epithelial Cells Hyaline Casts Urine Mucus Phenytoin RPR Titer LABS NOTED. - Treatment Hospital Course: Detox Protocol Followed, Detoxed Safely, Responded well, Discharged Condition Good Patient has Accepted a Rehab Referral to: PT. ADVISED TO CONSIDER LOCAL 12-STEP/ NA OUTPATIENT SUPPORT GROUPS. - Medication Discharge Medications: Ambulatory Orders Aclidinium Lostant [Tudorza Pressair] 1 mcg IH DAILY 10/15/16 Citalopram Hydrobromide [Celexa -] 20 mg PO DAILY #30 tablet 11/13/16 Quetiapine Fumarate [Seroquel -] 50 mg PO HS #30 tablet 11/13/16 Albuterol Sulfate Inhaler - [Ventolin HFA Inhaler -] 2 puff IH Q6H PRN #1 inhaler 01/04/18 Albuterol 2.5/Ipratropium 0.5 [Duoneb -] 1 amp NEB Q4H PRN amp 03/20/18 Magnesium Oxide [Mag-Ox -] 400 mg PO BID tablet 03/20/18 Magnesium Oxide [Mag-Oxide] 400 mg PO BID #90 tablet 03/20/18 Phenytoin Na Extended [Dilantin -] 200 mg PO BID #60 capsule 03/20/18 Potassium Chloride 40 meq PO DAILY #60 tablet.er 03/20/18 Potassium Chloride [K-Dur -] 40 meq PO DAILY tablet.er 03/20/18 Lactulose (Oral Use) [Cephulac -] 20 gm PO DAILY 7 Days #7 bottle 03/28/18 Phenytoin Na Extended [Dilantin -] 200 mg PO BID 30 Days #60 capsule 03/28/18 - Diagnosis (1) Alcohol dependence with uncomplicated withdrawal Status: Acute (2) Opioid dependence on agonist therapy Status: Chronic (3) Asthma Status: Chronic Qualifiers: Asthma severity: mild Asthma persistence: intermittent Asthma complication type: uncomplicated Qualified Code(s): J45.20 - Mild intermittent asthma, uncomplicated (4) Low back pain Status: Chronic Qualifiers: Chronicity: unspecified Back pain laterality: unspecified Sciatica presence: unspecified whether sciatica present Qualified Code(s): M54.5 - Low back pain (5) Nicotine dependence Status: Acute Qualifiers: Nicotine product type: cigarettes Substance use status: in withdrawal Qualified Code(s): F17.213 - Nicotine dependence, cigarettes, with withdrawal (6) Seizure Status: Chronic (7) Depression (emotion) Status: Chronic Qualifiers: Depression Type: dysthymia Qualified Code(s): F34.1 - Dysthymic disorder (8) Weight loss Status: Acute (9) Hypokalemia Status: Acute (10) Substance induced mood disorder Status: Acute (11) Hyperammonemia Status: Acute - AMA Did Patient Leave Against Medical Advice: No
--- NOTE | 2018-05-08 11:17 | EKG ---
Test Reason : Blood Pressure : / mmHG Vent. Rate : 069 BPM Atrial Rate : 069 BPM P-R Int : 146 ms QRS Dur : 098 ms QT Int : 440 ms P-R-T Axes : 078 059 006 degrees QTc Int : 471 ms NORMAL SINUS RHYTHM NORMAL ECG WHEN COMPARED WITH ECG OF 02-JAN-2018 09:11, NO SIGNIFICANT CHANGE WAS FOUND Confirmed by ALINE DOE MD ([id number]) on 03/25/2018 9:01:24 AM Also confirmed by ALINE DOE MD ([id number]), news copy editor FLY NUNES ([id number]) on 05/08/2018 11:17:42 AM Referred By: Confirmed By:ALINE DOE MD
== END 2018-03-28 09:40 | disposition home or self-care (01) | DRG 773 ==
LOC: YASAS 19:16 → Y3N 23:40
PROVIDERS: ADMIT Surgery; ATTEND Surgery
PROC: HZ2ZZZZ Detoxification Services for Substance Abuse Treatment (ICD-10-PCS; principal; 2018-03-24)
DX: F11.20 Opioid dependence, uncomplicated (principal); F13.230 Sedative, hypnotic or anxiolytic dependence with withdrawal, uncomplicated; F10.230 Alcohol dependence with withdrawal, uncomplicated; F14.20 Cocaine dependence, uncomplicated; F17.213 Nicotine dependence, cigarettes, with withdrawal; F34.1 Dysthymic disorder; F19.24 Other psychoactive substance dependence with psychoactive substance-induced mood disorder; M54.5 Low back pain; J45.20 Mild intermittent asthma, uncomplicated; J44.9 Chronic obstructive pulmonary disease, unspecified; E87.6 Hypokalemia; G40.909 Epilepsy, unspecified, not intractable, without status epilepticus; E72.20 Disorder of urea cycle metabolism, unspecified; R63.4 Abnormal weight loss; Z68.21 Body mass index [BMI] 21.0-21.9, adult; Z91.5 Personal history of self-harm
CPT/HCPCS: 36415; 80048; 80053; 80185; 81003; 81015; 82140; 85027; 86593; 93005; 93010

== ENCOUNTER 2018-05-14 15:53 | Inpatient (IN) | payer OTHER ==
[2018-05-14 16:19] VITALS: BMI 22.3
[2018-05-14] MEDS ORDERED: ACETAMINOPHEN 325 MG TABLET (FP) PO PRN (19:05)
[2018-05-14] MEDS ORDERED: MAG HYDROX/AL HYDROX/SIMETH 30 ML UNIT-DOSE CUP PO PRN (19:05)
[2018-05-14] MEDS ORDERED: MENTHOL/PHENOL 1 EACH UD MM PRN (19:05)
[2018-05-14] MEDS ORDERED: guaiFENesin/D-METHORPHAN HB 10 ML UNIT-DOSE CUPS PO PRN (19:05)
[2018-05-14] MEDS ORDERED: NICOTINE POLACRILEX 4 MG GUM BC PRN (19:05)
[2018-05-14] MEDS ORDERED: LOPERAMIDE HCL 2 MG CAPSULE PO PRN (19:05)
[2018-05-14] MEDS ORDERED: MAGNESIUM CITRATE 300 ML BOTTLE PO PRN (19:05)
[2018-05-14] MEDS ORDERED: P-EPHED 60MG/TRIPROLIDI 2.5MG TABLET PO PRN (19:05)
[2018-05-14] MEDS ORDERED: hydrOXYzine PAMOATE 50 MG CAPSULE (FP) PO PRN (19:05)
[2018-05-14] MEDS ORDERED: IBUPROFEN 400 MG TABLET (FP) PO PRN (19:05)
[2018-05-14] MEDS ORDERED: MAGNESIUM HYDROX 2400MG/30ML ORAL SUSPENSION 30 ML CUP PO PRN (19:05)
[2018-05-14] MEDS ORDERED: chlordiazePOXIDE HCL 25 MG CAPSULE PO PRN (19:05)
--- NOTE | 2018-05-14 19:05 | HP ---
CIWA Score - CIWA Score Nausea/Vomitin-No Nausea/No Vomiting Muscle Tremors: 4-Moderate,w/Arms Extend Anxiety: 4-Mod. Anxious/Guarded Agitation: 4-Moderately Restless Paroxysmal Sweats: 3 Orientation: 0-Oriented Tacttile Disturbances: 0-None Auditory Disturbances: 0-None Visual Disturbances: 0-None Headache: 1-Very Mild CIWA-Ar Total Score: 16 Admission ROS BHS - HPI Chief Complaint: I need help to stop drinking. Allergies/Adverse Reactions: Allergies Allergy/AdvReac Type Severity Reaction Status Date / Time No Known Allergies Allergy Verified 05/14/18 17:07 History of Present Illness: Pt is a 52yr old male with a history of alcohol dependence seeking detox for treatment. Pt is also on MMTP program last medicated today. pending verification. Exam Limitations: No Limitations - Ebola screening Have you traveled outside of the country in the last 21 days: No (N) Have you had contact with anyone from an Ebola affected area: No Have you been sick,other than usual withdrawal symptoms: No Do you have a fever: No - Review of Systems Constitutional: Chills, Loss of Appetite, Changes in sleep, Unintentional Wgt. Loss EENT: reports: Tearing, Nose Congestion Respiratory: reports: No Symptoms reported Cardiac: reports: No Symptoms Reported GI: reports: Poor Appetite, Poor Fluid Intake : reports: No Symptoms Reported Musculoskeletal: reports: Back Pain Integumentary: reports: Flushing, Sweating Neuro: reports: Tingling, Tremors Endocrine: reports: Excessive Sweating, Flushing, Intolerance to Cold, Intolerance to Heat Hematology: reports: No Symptoms Reported Psychiatric: reports: Judgement Intact, Mood/Affect Appropiate, Orientated x3, Agitated, Anxious Other Systems: Reviewed and Negative Patient History - Patient Medical History Hx Anemia: No Hx Asthma: Yes Hx Chronic Obstructive Pulmonary Disease (COPD): No Hx Cancer: No Hx Cardiac Disorders: No Hx Congestive Heart Failure: No Hx Hypertension: Yes (not on meds.) Hx Hypercholesterolemia: No Hx Pacemaker: No HX Cerebrovascular Accident: No Hx Seizures: Yes (etoh related last 3 months ago) Hx Dementia: No Hx Diabetes: No Hx Gastrointestinal Disorders: No Hx Liver Disease: No Hx Genitourinary Disorders: No Hx Sexually Transmitted Disorders: No Hx Renal Disease (ESRD): No Hx Thyroid Disease: No Hx Human Immunodeficiency Virus (HIV): No (NEGATIVE HX ) Hx Hepatitis C: No Hx Depression: Yes Hx Suicide Attempt: No Hx Bipolar Disorder: No Hx Schizophrenia: No - Patient Surgical History Past Surgical History: No Hx Neurologic Surgery: No Hx Cataract Extraction: No Hx Cardiac Surgery: No Hx Lung Surgery: No Hx Breast Surgery: No Hx Breast Biopsy: No Hx Abdominal Surgery: No Hx Appendectomy: No Hx Cholecystectomy: No Hx Genitourinary Surgery: No Hx Section: No (NA) Hx Orthopedic Surgery: No Anesthesia Reaction: No - PPD History Previous Implant?: Yes Documented Results: Negative w/proof Implanted On Prior [facility] Admission?: Yes Date: 01/03/18 Results: 0 mm PPD to be Administered?: No - Reproductive History Patient is a Female of Child Bearing Age (11 -55 yrs old): No - Smoking Cessation Smoking history: Current every day smoker Have you smoked in the past 12 months: Yes Aproximately how many cigarettes per day: 10 Cigars Per Day: 0 Hx Chewing Tobacco Use: No Initiated information on smoking cessation: Yes 'Breaking Loose' booklet given: 05/14/18 - Substance & Tx. History Hx Alcohol Use: Yes Hx Substance Use: No Substance Use Type: Alcohol Hx Substance Use Treatment: Yes ([facility] 2018) - Substances Abused Alcohol Route: Oral Frequency: Daily Amount used: 3 pints banana liquor Age of first use: 33 Date of Last Use: 05/14/18 Family Disease History - Family Disease History Family Disease History: Other: Father (), Mother () Admission Physical Exam BHS - Vital Signs Vital Signs: Vital Signs - 24 hr 05/14/18 16:18 Temperature 97.2 F L Pulse Rate 79 Respiratory 18 Rate Blood Pressure 135/89 - Physical General Appearance: Yes: Appropriately Dressed, Moderate Distress, Irritable, Sweating, Anxious HEENTM: Yes: Normal Voice, Nasal Congestion, Rhinorrhea Respiratory: Yes: Lungs Clear, Normal Breath Sounds, No Respiratory Distress Neck: Yes: No masses,lesions,Nodules Breast: Yes: Within Normal Limits Cardiology: Yes: Regular Rhythm, Regular Rate, S1, S2 Abdominal: Yes: Normal Bowel Sounds, Non Tender, Soft Genitourinary: Yes: Within Normal Limits Back: Yes: Normal Inspection Musculoskeletal: Yes: Back pain Extremities: Yes: Normal Capillary Refill, Normal Inspection, Non-Tender, Tremors Neurological: Yes: Fully Oriented, Alert, Normal Response Integumentary: Yes: Diaphoresis Lymphatic: Yes: Within Normal Limits - Diagnostic (1) Alcohol dependence with uncomplicated withdrawal Current Visit: Yes Status: Chronic (2) Methadone maintenance therapy patient Current Visit: Yes Status: Chronic Comment: last dose 10/13/16 120mg pending verification (3) Asthma Current Visit: No Status: Chronic Qualifiers: Asthma severity: mild Asthma persistence: intermittent Asthma complication type: uncomplicated Qualified Code(s): J45.20 - Mild intermittent asthma, uncomplicated (4) COPD (chronic obstructive pulmonary disease) Current Visit: Yes Status: Chronic Qualifiers: COPD type: unspecified COPD Qualified Code(s): J44.9 - Chronic obstructive pulmonary disease, unspecified (5) Depression (emotion) Current Visit: No Status: Chronic Qualifiers: Depression Type: dysthymia Qualified Code(s): F34.1 - Dysthymic disorder Cleared for Admission [facility] - Detox or Rehab [facility] Level of Care: Medically Managed Detox Regimen/Protocol: Librium [facility] Breath Alcohol Content Breath Alcohol Content: 0.254 Urine Drug Screen - Results Drug Screen Negative: No Urine Drug Screen Results: BZO-Benzodiazepines, MTD-Methadone
[2018-05-14] MEDS ORDERED: ALBUTEROL SO4 8 GM HFA INHALER IH PRN (19:06)
[2018-05-14] MEDS ORDERED: chlordiazePOXIDE HCL 25 MG CAPSULE PO ONE (19:15)
[2018-05-14] MEDS: THIAMINE HCL 100 MG TABLET (FP) PO SCH (22:30)
[2018-05-14] MEDS: PHENYTOIN NA EXTENDED 100 MG CAPSULE (FP) PO SCH (22:31)
[2018-05-14] MEDS: chlordiazePOXIDE HCL 25 MG CAPSULE PO SCH (22:31)
[2018-05-15] MEDS: chlordiazePOXIDE HCL 25 MG CAPSULE PO SCH ×4 (05:19→22:25)
[2018-05-15] MEDS: METHADONE HCL 40 MG DISPERSABLE TABLET PO SCH (08:39)
[2018-05-15 10:12] LABS: HEMOGLOBIN 13.5 GM/dL (11.7-16.9); MCH 35.6 pg (25.7-33.7); MCHC 33.7 g/dl (32.0-35.9); MEAN CELL VOLUME 105.4 fl (80-96); MEAN PLT VOLUME 7.7 fl (7.5-11.1); PLATELET COUNT 186 K/MM3 (134-434); RBC 3.79 M/mm3 (4.00-5.60); RDW 14.8 % (11.9-15.9); WHITE BLOOD COUNT 3.6 K/mm3 (4.0-10.0)
[2018-05-15] MEDS: PRENATAL VITAMINS W/ FOLIC ACID TABLET (FP) PO SCH (10:20)
[2018-05-15] MEDS: NICOTINE 21 MG/24 HOURS TOPICAL PATCH TD SCH (10:21)
[2018-05-15] MEDS: PHENYTOIN NA EXTENDED 100 MG CAPSULE (FP) PO SCH ×2 (10:21→22:25)
[2018-05-15 11:24] LABS: URINE APPEARANCE TURBID; URINE BILIRUBIN NEGATIVE (<2.0 mg/dL); URINE COLOR YELLOW; URINE GLUCOSE (UA) NEGATIVE (NEGATIVE); URINE KETONE NEGATIVE (NEGATIVE); URINE LEUK ESTERASE NEGATIVE (NEGATIVE); URINE NITRITE NEGATIVE (NEGATIVE); URINE PROTEIN NEGATIVE (NEGATIVE); URINE UROBILINOGEN NEGATIVE mg/dL (0.2-1.0)
--- NOTE | 2018-05-15 11:30 | PN ---
[facility] CIWA - CIWA Score Nausea/Vomitin-No Nausea/No Vomiting Muscle Tremors: 4-Moderate,w/Arms Extend Anxiety: 4-Mod. Anxious/Guarded Agitation: 3 Paroxysmal Sweats: 1-Minimal Palms Moist Orientation: 0-Oriented Tacttile Disturbances: 0-None Auditory Disturbances: 0-None Visual Disturbances: 0-None Headache: 0-None Present CIWA-Ar Total Score: 12 S COWS - Scale Resting Pulse: 0= SD 80 or Below Sweatin= Chills/Flushing Restless Observation: 3= Extraneous Movement Pupil Size: 0= Normal to Room Light Bone or Joint Aches: 4=Acute Joint/Muscle Pain Runny Nose/ Eye Tearin= Nasal Congestion GI Upset > 30mins: 1= Stomach Cramp Tremor Observation of Outstretched Hands: 2= Slight Tremor Visible [facility] Progress Note (SOAP) Subjective: ANXIETY,SWEATS,INTERMITTENT SLEEP. Objective: 05/15/18 11:30 Vital Signs 05/15/18 05/15/18 06:16 09:10 Temperature 97.1 F L 96.8 F L Pulse Rate 75 73 Respiratory 18 18 Rate Blood Pressure 128/82 148/100 Laboratory Tests 05/14/18 05/15/18 23:30 07:00 WBC 3.6 L RBC 3.79 L Hgb 13.5 Hct 40.0 MCV 105.4 H MCH 35.6 H MCHC 33.7 RDW 14.8 Plt Count 186 D MPV 7.7 D Urine Color Yellow Urine Appearance Turbid Urine pH 5.0 Ur Specific [place] 1.019 Urine Protein Negative Urine Glucose (UA) Negative Urine Ketones Negative Urine Blood Negative Urine Nitrite Negative Urine Bilirubin Negative Urine Urobilinogen Negative Ur Leukocyte Esterase Negative OTHER LABS PENDING Assessment: 05/15/18 11:32 WITHDRAWAL SX Plan: CONTINUE DETOX
--- NOTE | 2018-05-15 12:09 | EKG ---
Test Reason : Blood Pressure : / mmHG Vent. Rate : 059 BPM Atrial Rate : 059 BPM P-R Int : 138 ms QRS Dur : 096 ms QT Int : 484 ms P-R-T Axes : 088 047 030 degrees QTc Int : 479 ms SINUS BRADYCARDIA LOW VOLTAGE QRS BORDERLINE ECG WHEN COMPARED WITH ECG OF 25-MAR-2018 02:20, NO SIGNIFICANT CHANGE WAS FOUND Confirmed by ANITA WHITE MD ([id number]) on 05/15/2018 12:09:13 PM Referred By: Confirmed By:ANITA WHITE MD
[2018-05-15 12:11] LABS: ALBUMIN 3.2 g/dl (3.4-5.0); ALK PHOS 90 U/L (45-117); ANION GAP 9 MMOL/L (8-16); BILIRUBIN,TOTAL 0.3 mg/dL (0.2-1.0); BLOOD UREA NITROGEN 8 mg/dL (7-18); CALCIUM 8.2 mg/dL (8.5-10.1); CHLORIDE 103 mmol/L (98-107); CO2 34 mmol/L (21-32); CREATININE 0.7 mg/dL (0.7-1.3); GLUCOSE,RANDOM 59 mg/dL (74-106); POTASSIUM 3.6 mmol/L (3.5-5.1); SGOT/AST 38 U/L (15-37); SGPT/ALT 23 U/L (12-78); SODIUM 146 mmol/L (136-145); TOT PROT 6.3 g/dl (6.4-8.2)
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
[2018-05-15] MEDS ORDERED: QUEtiapine FUMARATE 50 MG TABLET PO SCH (22:00)
[2018-05-15] MEDS: THIAMINE HCL 100 MG TABLET (FP) PO SCH (22:25)
[2018-05-15] MEDS: QUEtiapine FUMARATE 50 MG TABLET PO SCH (22:25)
[2018-05-15] MEDS: MELATONIN 5 MG TABLETS PO PRN (22:26)
[2018-05-16] MEDS: chlordiazePOXIDE HCL 25 MG CAPSULE PO SCH ×3 (05:35→17:44)
[2018-05-16] MEDS: METHADONE HCL 40 MG DISPERSABLE TABLET PO SCH (07:34)
[2018-05-16] MEDS: PHENYTOIN NA EXTENDED 100 MG CAPSULE (FP) PO SCH ×2 (10:13→22:14)
[2018-05-16] MEDS: PRENATAL VITAMINS W/ FOLIC ACID TABLET (FP) PO SCH (10:13)
[2018-05-16] MEDS: NICOTINE 21 MG/24 HOURS TOPICAL PATCH TD SCH (10:13)
--- NOTE | 2018-05-16 15:51 | PN ---
[facility] CIWA - CIWA Score Nausea/Vomitin-No Nausea/No Vomiting Muscle Tremors: None Anxiety: 3 Agitation: 2 Paroxysmal Sweats: 3 Orientation: 2-Disoriented Date<2 days Tacttile Disturbances: 0-None Auditory Disturbances: 0-None Visual Disturbances: 2-Mild Sensitivity Headache: 0-None Present CIWA-Ar Total Score: 12 S Progress Note (SOAP) Subjective: Sweating, Body Aches, Interrupted Sleep. Objective: PATIENT A & O X 2 (UNCERTAIN ABOUT CURRENT DAY / DATE). PATIENT OBSERVED AMBULATING ON UNIT. NO ACUTE DISTRESS. 05/16/18 15:48 Vital Signs Temperature 97.2 F L 05/16/18 14:16 Pulse Rate 65 05/16/18 14:16 Respiratory Rate 18 05/16/18 14:16 Blood Pressure 146/96 05/16/18 14:16 O2 Sat by Pulse Oximetry (%) Laboratory Tests 05/14/18 05/15/18 05/15/18 23:30 07:00 07:00 WBC 3.6 L RBC 3.79 L Hgb 13.5 Hct 40.0 MCV 105.4 H MCH 35.6 H MCHC 33.7 RDW 14.8 Plt Count 186 D MPV 7.7 D Sodium 146 H Potassium 3.6 D Chloride 103 Carbon Dioxide 34 H Anion Gap 9 BUN 8 Creatinine 0.7 Creat Clearance w eGFR > 60 Random Glucose 59 L D Calcium 8.2 L Total Bilirubin 0.3 AST 38 H D ALT 23 Alkaline Phosphatase 90 Total Protein 6.3 L Albumin 3.2 L Urine Color Yellow Urine Appearance Turbid Urine pH 5.0 Ur Specific [place] 1.019 Urine Protein Negative Urine Glucose (UA) Negative Urine Ketones Negative Urine Blood Negative Urine Nitrite Negative Urine Bilirubin Negative Urine Urobilinogen Negative Ur Leukocyte Esterase Negative Phenytoin RPR Titer 05/15/18 05/15/18 07:00 07:00 WBC RBC Hgb Hct MCV MCH MCHC RDW Plt Count MPV Sodium Potassium Chloride Carbon Dioxide Anion Gap BUN Creatinine Creat Clearance w eGFR Random Glucose Calcium Total Bilirubin AST ALT Alkaline Phosphatase Total Protein Albumin Urine Color Urine Appearance Urine pH Ur Specific [place] Urine Protein Urine Glucose (UA) Urine Ketones Urine Blood Urine Nitrite Urine Bilirubin Urine Urobilinogen Ur Leukocyte Esterase Phenytoin 2.8 L D RPR Titer Nonreactive LABS NOTED. Assessment: 05/16/18 15:49 WITHDRAWAL SYMPTOMS. Plan: CONTINUE DETOX.
[2018-05-16] MEDS: THIAMINE HCL 100 MG TABLET (FP) PO SCH (22:14)
[2018-05-16] MEDS: MELATONIN 5 MG TABLETS PO PRN (22:14)
[2018-05-16] MEDS: chlordiazePOXIDE 5 MG CAPSULE PO SCH (22:14)
[2018-05-16] MEDS: QUEtiapine FUMARATE 50 MG TABLET PO SCH (22:14)
[2018-05-17] MEDS: METHADONE HCL 40 MG DISPERSABLE TABLET PO SCH (05:41)
[2018-05-17] MEDS: chlordiazePOXIDE 5 MG CAPSULE PO SCH ×3 (05:42→17:34)
[2018-05-17] MEDS: PRENATAL VITAMINS W/ FOLIC ACID TABLET (FP) PO SCH (10:13)
[2018-05-17] MEDS: PHENYTOIN NA EXTENDED 100 MG CAPSULE (FP) PO SCH ×2 (10:13→22:15)
[2018-05-17] MEDS: NICOTINE 21 MG/24 HOURS TOPICAL PATCH TD SCH (10:15)
--- NOTE | 2018-05-17 13:23 | PN ---
BHS Progress Note (SOAP) Subjective: Back pain, stomach ache Objective: 05/17/18 13:22 Last Vital Signs Temp Pulse Resp BP Pulse Ox 96.7 F L 68 18 157/96 05/17/18 09:27 05/17/18 09:27 05/17/18 09:27 05/17/18 09:27 B/P elevated; patient with h/o HTN as per chart Laboratory Tests 05/14/18 05/15/18 05/15/18 23:30 07:00 07:00 WBC 3.6 L RBC 3.79 L Hgb 13.5 Hct 40.0 MCV 105.4 H MCH 35.6 H MCHC 33.7 RDW 14.8 Plt Count 186 D MPV 7.7 D Sodium 146 H Potassium 3.6 D Chloride 103 Carbon Dioxide 34 H Anion Gap 9 BUN 8 Creatinine 0.7 Creat Clearance w eGFR > 60 Random Glucose 59 L D Calcium 8.2 L Total Bilirubin 0.3 AST 38 H D ALT 23 Alkaline Phosphatase 90 Total Protein 6.3 L Albumin 3.2 L Urine Color Yellow Urine Appearance Turbid Urine pH 5.0 Ur Specific [place] 1.019 Urine Protein Negative Urine Glucose (UA) Negative Urine Ketones Negative Urine Blood Negative Urine Nitrite Negative Urine Bilirubin Negative Urine Urobilinogen Negative Ur Leukocyte Esterase Negative Phenytoin RPR Titer 05/15/18 05/15/18 07:00 07:00 WBC RBC Hgb Hct MCV MCH MCHC RDW Plt Count MPV Sodium Potassium Chloride Carbon Dioxide Anion Gap BUN Creatinine Creat Clearance w eGFR Random Glucose Calcium Total Bilirubin AST ALT Alkaline Phosphatase Total Protein Albumin Urine Color Urine Appearance Urine pH Ur Specific [place] Urine Protein Urine Glucose (UA) Urine Ketones Urine Blood Urine Nitrite Urine Bilirubin Urine Urobilinogen Ur Leukocyte Esterase Phenytoin 2.8 L D RPR Titer Nonreactive Labs reviewed 05/17/18 13:26 Assessment: 05/17/18 13:22 Withdrawal symptoms Noted with HTN, uncontrolled (not on medication) Plan: Continue detox Encouraged PO water intake for hydration HTN: start norvasc 5mg PO daily, first dose today
[2018-05-17] MEDS ORDERED: amLODIPine BESYLATE 5 MG TABLET (FP) PO ONE (13:30)
[2018-05-17] MEDS: QUEtiapine FUMARATE 50 MG TABLET PO SCH (22:15)
[2018-05-17] MEDS: THIAMINE HCL 100 MG TABLET (FP) PO SCH (22:15)
[2018-05-17] MEDS: chlordiazePOXIDE HCL 10 MG CAPSULE PO SCH (22:15)
[2018-05-18] MEDS: chlordiazePOXIDE HCL 10 MG CAPSULE PO SCH (05:12)
[2018-05-18] MEDS: METHADONE HCL 40 MG DISPERSABLE TABLET PO SCH (05:12)
[2018-05-18 10:00] VITALS: BP 154/105; PULSE 102; TEMP 96.8
[2018-05-18] MEDS ORDERED: amLODIPine BESYLATE 5 MG TABLET (FP) PO SCH (10:00)
--- NOTE | 2018-05-18 10:52 | PN ---
BHS Progress Note (SOAP) Subjective: Offers no complaints Objective: 05/18/18 10:50 A & O x 3, gait steady, no acute distress Vital Signs 05/18/18 05/18/18 05/18/18 03:30 06:01 09:59 Temperature 98.3 F 96.8 F L Pulse Rate 91 H 102 H Respiratory 18 18 18 Rate Blood Pressure 129/93 154/105 Laboratory Tests 05/14/18 05/15/18 05/15/18 23:30 07:00 07:00 WBC 3.6 L RBC 3.79 L Hgb 13.5 Hct 40.0 MCV 105.4 H MCH 35.6 H MCHC 33.7 RDW 14.8 Plt Count 186 D MPV 7.7 D Sodium 146 H Potassium 3.6 D Chloride 103 Carbon Dioxide 34 H Anion Gap 9 BUN 8 Creatinine 0.7 Creat Clearance w eGFR > 60 Random Glucose 59 L D Calcium 8.2 L Total Bilirubin 0.3 AST 38 H D ALT 23 Alkaline Phosphatase 90 Total Protein 6.3 L Albumin 3.2 L Urine Color Yellow Urine Appearance Turbid Urine pH 5.0 Ur Specific [place] 1.019 Urine Protein Negative Urine Glucose (UA) Negative Urine Ketones Negative Urine Blood Negative Urine Nitrite Negative Urine Bilirubin Negative Urine Urobilinogen Negative Ur Leukocyte Esterase Negative Phenytoin RPR Titer 05/15/18 05/15/18 07:00 07:00 WBC RBC Hgb Hct MCV MCH MCHC RDW Plt Count MPV Sodium Potassium Chloride Carbon Dioxide Anion Gap BUN Creatinine Creat Clearance w eGFR Random Glucose Calcium Total Bilirubin AST ALT Alkaline Phosphatase Total Protein Albumin Urine Color Urine Appearance Urine pH Ur Specific [place] Urine Protein Urine Glucose (UA) Urine Ketones Urine Blood Urine Nitrite Urine Bilirubin Urine Urobilinogen Ur Leukocyte Esterase Phenytoin 2.8 L D RPR Titer Nonreactive Assessment: 05/18/18 11:04 Detox successfully completed Plan: For discharge home To continue phenytoin
--- NOTE | 2018-05-18 11:11 | DS ---
[facility] Detox Discharge Summary Admission Date: 05/14/18 Discharge Date: 05/18/18 - History Additional Comments: Pt being discharged home Pertinent Past History: Asthma Seizure HTN - Physical Exam Results Vital Signs: Vital Signs Temperature 96.8 F L 05/18/18 09:59 Pulse Rate 102 H 05/18/18 09:59 Respiratory Rate 18 05/18/18 09:59 Blood Pressure 154/105 05/18/18 09:59 O2 Sat by Pulse Oximetry (%) Pertinent Admission Physical Exam Findings: withdrawal sx - Treatment Hospital Course: Detox Protocol Followed, Detoxed Safely, Responded well, Discharged Condition Good Patient has Accepted a Rehab Referral to: Outpatient Meetings - Medication Discharge Medications: Ambulatory Orders Citalopram Hydrobromide [Celexa -] 20 mg PO DAILY #30 tablet 11/13/16 Quetiapine Fumarate [Seroquel -] 50 mg PO HS #30 tablet 11/13/16 Phenytoin Na Extended [Dilantin -] 200 mg PO BID 30 Days #60 capsule 03/28/18 Albuterol Sulfate Inhaler - [Ventolin HFA Inhaler -] 2 puff IH Q6H PRN #1 inhaler 05/18/18 Amlodipine Besylate [Norvasc -] 5 mg PO DAILY #30 tablet 05/18/18 Phenytoin Na Extended [Dilantin -] 100 mg PO BID 15 Days #30 capsule 05/18/18 - Diagnosis (1) Alcohol dependence with uncomplicated withdrawal Current Visit: Yes Status: Acute (2) Opioid dependence on agonist therapy Current Visit: Yes Status: Acute (3) Weight loss Current Visit: No Status: Acute (4) Asthma Current Visit: Yes Status: Chronic Qualifiers: Asthma severity: mild Asthma persistence: intermittent Asthma complication type: uncomplicated Qualified Code(s): J45.20 - Mild intermittent asthma, uncomplicated (5) Hypertension Current Visit: Yes Status: Chronic (6) Marijuana dependence Current Visit: Yes Status: Chronic (7) Nicotine dependence Current Visit: Yes Status: Chronic Qualifiers: Nicotine product type: cigarettes Substance use status: in withdrawal Qualified Code(s): F17.213 - Nicotine dependence, cigarettes, with withdrawal (8) Seizure Current Visit: Yes Status: Chronic (9) Depressive disorder Current Visit: No Status: Suspected - AMA Did Patient Leave Against Medical Advice: No
== END 2018-05-18 09:38 | disposition home or self-care (01) | DRG 773 ==
LOC: YASAS 15:53 → Y3N 18:04
PROVIDERS: ADMIT Surgery; ATTEND Surgery
PROC: HZ2ZZZZ Detoxification Services for Substance Abuse Treatment (ICD-10-PCS; principal; 2018-05-14)
DX: F10.230 Alcohol dependence with withdrawal, uncomplicated (principal); F11.20 Opioid dependence, uncomplicated; F12.20 Cannabis dependence, uncomplicated; F17.213 Nicotine dependence, cigarettes, with withdrawal; F34.1 Dysthymic disorder; F39 Unspecified mood [affective] disorder; F19.24 Other psychoactive substance dependence with psychoactive substance-induced mood disorder; G47.00 Insomnia, unspecified; I10 Essential (primary) hypertension; J45.20 Mild intermittent asthma, uncomplicated; J44.9 Chronic obstructive pulmonary disease, unspecified; R63.4 Abnormal weight loss; Z68.22 Body mass index [BMI] 22.0-22.9, adult
CPT/HCPCS: 36415; 80053; 80185; 81003; 85027; 86593; 93005; 93010

== ENCOUNTER 2018-07-27 16:26 | Inpatient (IN) | payer OTHER ==
[2018-07-27 18:43] VITALS: BMI 22.1
--- NOTE | 2018-07-27 19:55 | HP ---
CIWA Score - CIWA Score Nausea/Vomitin-No Nausea/No Vomiting Muscle Tremors: 2 Anxiety: 3 Agitation: 3 Paroxysmal Sweats: 2 Orientation: 0-Oriented Tacttile Disturbances: 2-Mild Itch/Numbness/Burn Auditory Disturbances: 0-None Visual Disturbances: 0-None Headache: 2-Mild CIWA-Ar Total Score: 14 Admission ROS S - HPI Chief Complaint: alcohol withdrawal symptoms Allergies/Adverse Reactions: Allergies Allergy/AdvReac Type Severity Reaction Status Date / Time No Known Allergies Allergy Verified 07/27/18 18:18 History of Present Illness: Patient 52 yo male with hx of nicotine and alcohol dependence is here [facility] , last medicated today, dose pending verification. Last detox [facility] 45 days ago. PMHX: seizure d/o ( last seizure on month) , asthma, HTN, insomnia and depression. Denies suicidal / homicidal ideation. Longest period of sobriety six months. Exam Limitations: No Limitations - Ebola screening Have you traveled outside of the country in the last 21 days: No Have you had contact with anyone from an Ebola affected area: No Do you have a fever: No - Review of Systems Constitutional: Loss of Appetite, Changes in sleep, Unintentional Wgt. Loss (10 lbs), Other (fatigue) EENT: reports: No Symptoms Reported Respiratory: reports: No Symptoms reported Cardiac: reports: No Symptoms Reported GI: reports: Diarrhea, Poor Appetite, Poor Fluid Intake, Abdominal cramping : reports: No Symptoms Reported Musculoskeletal: reports: No Symptoms Reported Integumentary: reports: No Symptoms Reported Neuro: reports: Headache, Numbness (b/l lower extremities) Endocrine: reports: No Symptoms Reported Hematology: reports: No Symptoms Reported Psychiatric: reports: Orientated x3, Anxious Other Systems: Reviewed and Negative Patient History - Patient Medical History Hx Anemia: No Hx Asthma: Yes Hx Chronic Obstructive Pulmonary Disease (COPD): No Hx Cancer: No Hx Cardiac Disorders: No Hx Congestive Heart Failure: No Hx Hypertension: Yes (not on meds.) Hx Hypercholesterolemia: No Hx Pacemaker: No HX Cerebrovascular Accident: No Hx Seizures: Yes (one month ago ) Hx Dementia: No Hx Diabetes: No Hx Gastrointestinal Disorders: No Hx Liver Disease: No Hx Genitourinary Disorders: No Hx Sexually Transmitted Disorders: No Hx Renal Disease (ESRD): No Hx Thyroid Disease: No Hx Human Immunodeficiency Virus (HIV): No (NEGATIVE HX ) Hx Hepatitis C: No Hx Depression: Yes Hx Suicide Attempt: No Hx Bipolar Disorder: No Hx Schizophrenia: No - Patient Surgical History Past Surgical History: No Hx Neurologic Surgery: No Hx Cataract Extraction: No Hx Cardiac Surgery: No Hx Lung Surgery: No Hx Breast Surgery: No Hx Breast Biopsy: No Hx Abdominal Surgery: No Hx Appendectomy: No Hx Cholecystectomy: No Hx Genitourinary Surgery: No Hx Section: No (NA) Hx Orthopedic Surgery: No Anesthesia Reaction: No - PPD History Previous Implant?: Yes Documented Results: Negative w/proof Date: 01/03/18 Results: 0 mm PPD to be Administered?: No - Smoking Cessation Smoking history: Current every day smoker Have you smoked in the past 12 months: Yes Aproximately how many cigarettes per day: 10 Cigars Per Day: 0 Hx Chewing Tobacco Use: No Initiated information on smoking cessation: Yes 'Breaking Loose' booklet given: 07/27/18 - Substance & Tx. History Hx Alcohol Use: Yes Hx Substance Use: Yes Substance Use Type: Alcohol Hx Substance Use Treatment: Yes ([facility] 45 days ago.) - Substances Abused Alcohol Route: Oral Frequency: Daily Amount used: LIQUOR- 3 PINTS Age of first use: 33 Date of Last Use: 07/27/18 Family Disease History - Family Disease History Family Disease History: Other: Father (), Mother () Admission Physical Exam BHS - Vital Signs Vital Signs: Vital Signs - 24 hr 07/27/18 18:23 Temperature 96.7 F L Pulse Rate 82 Respiratory 18 Rate Blood Pressure 138/84 - Physical General Appearance: Yes: Disheveled, Mild Distress, Thin, Anxious HEENTM: Yes: EOMI, Hearing grossly Normal, Normal ENT Inspection, Normocephalic , Normal Voice, Pharynx Normal, Tm's normal Respiratory: Yes: Chest Non-Tender, Lungs Clear, Normal Breath Sounds, No Respiratory Distress, No Accessory Muscle Use Neck: Yes: No masses,lesions,Nodules, Trachea in good position Breast: Yes: Breast Exam Deferred Cardiology: Yes: Regular Rhythm, Regular Rate Abdominal: Yes: Normal Bowel Sounds, Non Tender, Flat, Soft Genitourinary: Yes: Within Normal Limits Back: Yes: Normal Inspection Musculoskeletal: Yes: full range of Motion, Gait Steady, Pelvis Stable Extremities: Yes: Normal Capillary Refill, Normal Range of Motion, Non-Tender Neurological: Yes: test manager II-XII NML intact, Fully Oriented, Alert, Motor Strength 5/5, Depressed Affect Integumentary: Yes: Normal Color, Warm, Diaphoresis Lymphatic: Yes: Within Normal Limits - Diagnostic (1) Alcohol dependence with uncomplicated withdrawal Current Visit: Yes Status: Acute (2) Cocaine dependence Current Visit: Yes Status: Acute Qualifiers: Substance use status: uncomplicated Qualified Code(s): F14.20 - Cocaine dependence, uncomplicated (3) Opioid dependence on agonist therapy Current Visit: Yes Status: Chronic Comment: Dustin Tarango MMTP on 80 mg , dose pending verification (4) Weight loss Current Visit: Yes Status: Acute (5) Asthma Current Visit: Yes Status: Chronic Qualifiers: Asthma severity: mild Asthma persistence: intermittent Asthma complication type: uncomplicated Qualified Code(s): J45.20 - Mild intermittent asthma, uncomplicated (6) Hypertension Current Visit: Yes Status: Chronic Qualifiers: Hypertension type: essential hypertension Qualified Code(s): I10 - Essential (primary) hypertension (7) Nicotine dependence Current Visit: Yes Status: Chronic Qualifiers: Nicotine product type: cigarettes Substance use status: in withdrawal Qualified Code(s): F17.213 - Nicotine dependence, cigarettes, with withdrawal (8) Seizure Current Visit: Yes Status: Chronic Cleared for Admission S - Detox or Rehab [facility] Level of Care: Medically Managed Detox Regimen/Protocol: Librium [facility] Breath Alcohol Content Breath Alcohol Content: 0.254 Urine Drug Screen - Results Drug Screen Negative: No Urine Drug Screen Results: BZO-Benzodiazepines, MTD-Methadone
[2018-07-27] MEDS ORDERED: ALBUTEROL SO4 8 GM HFA INHALER IH PRN (20:01)
[2018-07-27] MEDS ORDERED: hydrOXYzine PAMOATE 50 MG CAPSULE (FP) PO PRN (20:32)
[2018-07-27] MEDS ORDERED: LOPERAMIDE HCL 2 MG CAPSULE PO PRN (20:32)
[2018-07-27] MEDS ORDERED: NICOTINE POLACRILEX 2 MG GUM BC PRN (20:32)
[2018-07-27] MEDS ORDERED: guaiFENesin/D-METHORPHAN HB 10 ML UNIT-DOSE CUPS PO PRN (20:32)
[2018-07-27] MEDS ORDERED: MENTHOL/PHENOL 1 EACH UD MM PRN (20:32)
[2018-07-27] MEDS ORDERED: MAGNESIUM HYDROX 2400MG/30ML ORAL SUSPENSION 30 ML CUP PO PRN (20:32)
[2018-07-27] MEDS ORDERED: MAG HYDROX/AL HYDROX/SIMETH 30 ML UNIT-DOSE CUP PO PRN (20:32)
[2018-07-27] MEDS ORDERED: MAGNESIUM CITRATE 300 ML BOTTLE PO PRN (20:32)
[2018-07-27] MEDS ORDERED: P-EPHED 60MG/TRIPROLIDI 2.5MG TABLET PO PRN (20:32)
[2018-07-27] MEDS ORDERED: chlordiazePOXIDE HCL 25 MG CAPSULE PO PRN (20:32)
[2018-07-27] MEDS ORDERED: ACETAMINOPHEN 325 MG TABLET (FP) PO PRN (20:32)
[2018-07-27] MEDS: PHENYTOIN NA EXTENDED 100 MG CAPSULE (FP) PO SCH (21:03)
[2018-07-27] MEDS: THIAMINE HCL 100 MG TABLET (FP) PO SCH (21:03)
[2018-07-27] MEDS ORDERED: MELATONIN 5 MG TABLETS PO PRN (22:00)
[2018-07-27] MEDS: chlordiazePOXIDE HCL 25 MG CAPSULE PO SCH (22:39)
[2018-07-28 01:45] LABS: URINE APPEARANCE CLEAR; URINE BILIRUBIN NEGATIVE (<2.0 mg/dL); URINE COLOR YELLOW; URINE GLUCOSE (UA) NEGATIVE (NEGATIVE); URINE KETONE NEGATIVE (NEGATIVE); URINE LEUK ESTERASE NEGATIVE (NEGATIVE); URINE NITRITE NEGATIVE (NEGATIVE); URINE PROTEIN NEGATIVE (NEGATIVE); URINE UROBILINOGEN NEGATIVE mg/dL (0.2-1.0)
[2018-07-28] MEDS: chlordiazePOXIDE HCL 25 MG CAPSULE PO SCH ×4 (06:06→22:13)
[2018-07-28] MEDS ORDERED: amLODIPine BESYLATE 5 MG TABLET (FP) PO SCH (10:00)
[2018-07-28] MEDS ORDERED: METHADONE HCL 40 MG DISPERSABLE TABLET PO ONE (10:40)
[2018-07-28] MEDS: NICOTINE 14 MG/24 HOURS TOPICAL PATCH TD SCH (11:02)
[2018-07-28] MEDS: PHENYTOIN NA EXTENDED 100 MG CAPSULE (FP) PO SCH ×2 (11:02→22:13)
[2018-07-28] MEDS: PRENATAL VITAMINS W/ FOLIC ACID TABLET (FP) PO SCH (11:02)
[2018-07-28 11:24] LABS: HEMATOCRIT 40.9 % (35.4-49); HEMOGLOBIN 13.6 GM/dL (11.7-16.9); MCH 35.3 pg (25.7-33.7); MCHC 33.2 g/dl (32.0-35.9); MEAN CELL VOLUME 106.3 fl (80-96); MEAN PLT VOLUME 8.3 fl (7.5-11.1); PLATELET COUNT 186 K/MM3 (134-434); RBC 3.85 M/mm3 (4.00-5.60); RDW 15.2 % (11.9-15.9); WHITE BLOOD COUNT 5.3 K/mm3 (4.0-10.0)
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
[2018-07-28 11:42] LABS: ALBUMIN 3.4 g/dl (3.4-5.0); ALK PHOS 107 U/L (45-117); ANION GAP 8 MMOL/L (8-16); BILIRUBIN,TOTAL 0.8 mg/dL (0.2-1); BLOOD UREA NITROGEN 8 mg/dL (7-18); CALCIUM 8.3 mg/dL (8.5-10.1); CHLORIDE 99 mmol/L (98-107); CO2 33 mmol/L (21-32); CREATININE 0.8 mg/dL (0.55-1.3); GLUCOSE,RANDOM 80 mg/dL (74-106); POTASSIUM 3.1 mmol/L (3.5-5.1); SGOT/AST 28 U/L (15-37); SGPT/ALT 18 U/L (13-61); SODIUM 141 mmol/L (136-145); TOT PROT 6.4 g/dl (6.4-8.2)
--- NOTE | 2018-07-28 12:04 | PN ---
S CIWA - CIWA Score Nausea/Vomitin-Mild Nausea/No Vomiting Muscle Tremors: 3 Anxiety: 3 Agitation: 2 Paroxysmal Sweats: 1-Minimal Palms Moist Orientation: 0-Oriented Tacttile Disturbances: 1-Very Mild Itch/Numbness Auditory Disturbances: 0-None Visual Disturbances: 0-None Headache: 1-Very Mild CIWA-Ar Total Score: 12 BHS Progress Note (SOAP) Subjective: sweat tremor restlessness Objective: 07/28/18 12:18 Vital Signs Temperature 97.9 F 07/28/18 09:42 Pulse Rate 68 07/28/18 09:42 Respiratory Rate 148 H 07/28/18 09:42 Blood Pressure 150/93 07/28/18 09:42 O2 Sat by Pulse Oximetry (%) Laboratory Last Values WBC 5.3 K/mm3 (4.0-10.0) 07/28/18 07:00 RBC 3.85 M/mm3 (4.00-5.60) L 07/28/18 07:00 Hgb 13.6 GM/dL (11.7-16.9) 07/28/18 07:00 Hct 40.9 % (35.4-49) 07/28/18 07:00 MCV 106.3 fl (80-96) H 07/28/18 07:00 MCH 35.3 pg (25.7-33.7) H 07/28/18 07:00 MCHC 33.2 g/dl (32.0-35.9) 07/28/18 07:00 RDW 15.2 % (11.9-15.9) 07/28/18 07:00 Plt Count 186 K/MM3 (134-434) 07/28/18 07:00 MPV 8.3 fl (7.5-11.1) 07/28/18 07:00 Sodium 141 mmol/L (136-145) 07/28/18 07:00 Potassium 3.1 mmol/L (3.5-5.1) L 07/28/18 07:00 Chloride 99 mmol/L (98-107) 07/28/18 07:00 Carbon Dioxide 33 mmol/L (21-32) H 07/28/18 07:00 Anion Gap 8 MMOL/L (8-16) 07/28/18 07:00 BUN 8 mg/dL (7-18) 07/28/18 07:00 Creatinine 0.8 mg/dL (0.55-1.3) 07/28/18 07:00 Creat Clearance w eGFR > 60 (>60) 07/28/18 07:00 Random Glucose 80 mg/dL (74-106) 07/28/18 07:00 Calcium 8.3 mg/dL (8.5-10.1) L 07/28/18 07:00 Total Bilirubin 0.8 mg/dL (0.2-1) 07/28/18 07:00 AST 28 U/L (15-37) 07/28/18 07:00 ALT 18 U/L (13-61) 07/28/18 07:00 Alkaline Phosphatase 107 U/L (45-117) 07/28/18 07:00 Total Protein 6.4 g/dl (6.4-8.2) 07/28/18 07:00 Albumin 3.4 g/dl (3.4-5.0) 07/28/18 07:00 Urine Color Yellow 07/28/18 00:01 Urine Appearance Clear 07/28/18 00:01 Urine pH 6.0 (5.0-8.0) 07/28/18 00:01 Ur Specific [place] 1.012 (1.010-1.035) 07/28/18 00:01 Urine Protein Negative (NEGATIVE) 07/28/18 00:01 Urine Glucose (UA) Negative (NEGATIVE) 07/28/18 00:01 Urine Ketones Negative (NEGATIVE) 07/28/18 00:01 Urine Blood Negative (NEGATIVE) 07/28/18 00:01 Urine Nitrite Negative (NEGATIVE) 07/28/18 00:01 Urine Bilirubin Negative (<2.0 mg/dL) 07/28/18 00:01 Urine Urobilinogen Negative mg/dL (0.2-1.0) 07/28/18 00:01 Ur Leukocyte Esterase Negative (NEGATIVE) 07/28/18 00:01 lab noted low K+ Assessment: 07/28/18 12:21 withdrawal sx Plan: continue detox
[2018-07-28] MEDS ORDERED: ALBUTEROL SO4 0.083% IH SOL 2.5 MG/3 ML VIAL.NEB. NEB PRN (12:20)
[2018-07-28] MEDS: POTASSIUM CHLORIDE TABS 20 MEQ TABLET.ER (FP) PO SCH ×2 (14:55→22:13)
[2018-07-28] MEDS: IBUPROFEN 400 MG TABLET (FP) PO PRN (20:14)
[2018-07-28] MEDS: THIAMINE HCL 100 MG TABLET (FP) PO SCH (22:13)
[2018-07-28] MEDS: amLODIPine BESYLATE 5 MG TABLET (FP) PO SCH (22:13)
[2018-07-28] MEDS: QUEtiapine FUMARATE 50 MG TABLET PO SCH (22:13)
[2018-07-29] MEDS: METHADONE HCL 40 MG DISPERSABLE TABLET PO SCH (05:36)
[2018-07-29] MEDS: chlordiazePOXIDE HCL 25 MG CAPSULE PO SCH ×3 (05:36→17:17)
[2018-07-29] MEDS: PHENYTOIN NA EXTENDED 100 MG CAPSULE (FP) PO SCH ×2 (10:13→22:19)
[2018-07-29] MEDS: amLODIPine BESYLATE 5 MG TABLET (FP) PO SCH ×2 (10:13→22:20)
[2018-07-29] MEDS: POTASSIUM CHLORIDE TABS 20 MEQ TABLET.ER (FP) PO SCH ×2 (10:13→22:19)
[2018-07-29] MEDS: PRENATAL VITAMINS W/ FOLIC ACID TABLET (FP) PO SCH (10:13)
[2018-07-29] MEDS: NICOTINE 14 MG/24 HOURS TOPICAL PATCH TD SCH (10:14)
[2018-07-29] MEDS ORDERED: LACTULOSE 20 GM/30 ML UDC (FOR ORAL USE ONLY) PO PRN (12:43)
--- NOTE | 2018-07-29 12:49 | PN ---
[facility] CIWA - CIWA Score Nausea/Vomitin-No Nausea/No Vomiting Muscle Tremors: 3 Anxiety: 2 Agitation: 1-Slight > Activity Paroxysmal Sweats: 1-Minimal Palms Moist Orientation: 1-Uncertain about Date Tacttile Disturbances: 1-Very Mild Itch/Numbness Auditory Disturbances: 0-None Visual Disturbances: 0-None Headache: 1-Very Mild CIWA-Ar Total Score: 10 S Progress Note (SOAP) Subjective: sweat anxiety restlessness tremor low K+ high ammonia continue K+ supplement continue lactulose Objective: 07/29/18 12:48 Vital Signs Temperature 98.3 F 07/29/18 09:46 Pulse Rate 92 H 07/29/18 09:46 Respiratory Rate 18 07/29/18 09:46 Blood Pressure 113/79 07/29/18 09:46 O2 Sat by Pulse Oximetry (%) Laboratory Last Values WBC 5.3 K/mm3 (4.0-10.0) 07/28/18 07:00 RBC 3.85 M/mm3 (4.00-5.60) L 07/28/18 07:00 Hgb 13.6 GM/dL (11.7-16.9) 07/28/18 07:00 Hct 40.9 % (35.4-49) 07/28/18 07:00 MCV 106.3 fl (80-96) H 07/28/18 07:00 MCH 35.3 pg (25.7-33.7) H 07/28/18 07:00 MCHC 33.2 g/dl (32.0-35.9) 07/28/18 07:00 RDW 15.2 % (11.9-15.9) 07/28/18 07:00 Plt Count 186 K/MM3 (134-434) 07/28/18 07:00 MPV 8.3 fl (7.5-11.1) 07/28/18 07:00 Sodium 141 mmol/L (136-145) 07/28/18 07:00 Potassium 3.1 mmol/L (3.5-5.1) L 07/28/18 07:00 Chloride 99 mmol/L (98-107) 07/28/18 07:00 Carbon Dioxide 33 mmol/L (21-32) H 07/28/18 07:00 Anion Gap 8 MMOL/L (8-16) 07/28/18 07:00 BUN 8 mg/dL (7-18) 07/28/18 07:00 Creatinine 0.8 mg/dL (0.55-1.3) 07/28/18 07:00 Creat Clearance w eGFR > 60 (>60) 07/28/18 07:00 Random Glucose 80 mg/dL (74-106) 07/28/18 07:00 Calcium 8.3 mg/dL (8.5-10.1) L 07/28/18 07:00 Total Bilirubin 0.8 mg/dL (0.2-1) 07/28/18 07:00 AST 28 U/L (15-37) 07/28/18 07:00 ALT 18 U/L (13-61) 07/28/18 07:00 Alkaline Phosphatase 107 U/L (45-117) 07/28/18 07:00 Ammonia 41.30 umol/L (11-32) H 07/28/18 10:00 Total Protein 6.4 g/dl (6.4-8.2) 07/28/18 07:00 Albumin 3.4 g/dl (3.4-5.0) 07/28/18 07:00 Urine Color Yellow 07/28/18 00:01 Urine Appearance Clear 07/28/18 00:01 Urine pH 6.0 (5.0-8.0) 07/28/18 00:01 Ur Specific [place] 1.012 (1.010-1.035) 07/28/18 00:01 Urine Protein Negative (NEGATIVE) 07/28/18 00:01 Urine Glucose (UA) Negative (NEGATIVE) 07/28/18 00:01 Urine Ketones Negative (NEGATIVE) 07/28/18 00:01 Urine Blood Negative (NEGATIVE) 07/28/18 00:01 Urine Nitrite Negative (NEGATIVE) 07/28/18 00:01 Urine Bilirubin Negative (<2.0 mg/dL) 07/28/18 00:01 Urine Urobilinogen Negative mg/dL (0.2-1.0) 07/28/18 00:01 Ur Leukocyte Esterase Negative (NEGATIVE) 07/28/18 00:01 Phenytoin 2.0 ug/ml (10.0-20.0) L 07/28/18 10:00 RPR Titer Nonreactive (NONREACTIVE) 07/28/18 07:00 HIV 1&2 Antibody Screen Negative 07/28/18 07:00 HIV P24 Antigen Negative 07/28/18 07:00 lab noted repat K+ repeat ammonia Assessment: 07/29/18 12:49 withdraal sx Plan: continue detox
[2018-07-29] MEDS: IBUPROFEN 400 MG TABLET (FP) PO PRN (17:17)
[2018-07-29] MEDS: chlordiazePOXIDE 5 MG CAPSULE PO SCH (22:19)
[2018-07-29] MEDS: THIAMINE HCL 100 MG TABLET (FP) PO SCH (22:20)
[2018-07-29] MEDS: QUEtiapine FUMARATE 50 MG TABLET PO SCH (22:20)
[2018-07-30] MEDS: chlordiazePOXIDE 5 MG CAPSULE PO SCH ×3 (05:49→17:19)
[2018-07-30] MEDS: METHADONE HCL 40 MG DISPERSABLE TABLET PO SCH (05:49)
[2018-07-30] MEDS: amLODIPine BESYLATE 5 MG TABLET (FP) PO SCH ×2 (10:40→22:09)
[2018-07-30] MEDS: POTASSIUM CHLORIDE TABS 20 MEQ TABLET.ER (FP) PO SCH (10:40)
[2018-07-30] MEDS: PHENYTOIN NA EXTENDED 100 MG CAPSULE (FP) PO SCH ×2 (10:40→22:09)
[2018-07-30] MEDS: PRENATAL VITAMINS W/ FOLIC ACID TABLET (FP) PO SCH (10:40)
[2018-07-30] MEDS: NICOTINE 14 MG/24 HOURS TOPICAL PATCH TD SCH (10:41)
--- NOTE | 2018-07-30 12:24 | PN ---
[facility] Progress Note (SOAP) Subjective: patient has history of seizure unknown cause low level of dilantin at 2.0 last seizure "month" ago patient admitted none compliance with seizure medication 300 mg loading dose x 1 strong recommend return to neurologist for dilantin monitoring Objective: 07/30/18 13:27 Vital Signs Temperature 97.7 F 07/30/18 09:32 Pulse Rate 61 11 09:32 Respiratory Rate 18 07/30/18 09:32 Blood Pressure 136/85 07/30/18 09:32 O2 Sat by Pulse Oximetry (%) Laboratory Last Values WBC 5.3 K/mm3 (4.0-10.0) 07/28/18 07:00 RBC 3.85 M/mm3 (4.00-5.60) L 07/28/18 07:00 Hgb 13.6 GM/dL (11.7-16.9) 07/28/18 07:00 Hct 40.9 % (35.4-49) 07/28/18 07:00 MCV 106.3 fl (80-96) H 07/28/18 07:00 MCH 35.3 pg (25.7-33.7) H 07/28/18 07:00 MCHC 33.2 g/dl (32.0-35.9) 07/28/18 07:00 RDW 15.2 % (11.9-15.9) 07/28/18 07:00 Plt Count 186 K/MM3 (134-434) 07/28/18 07:00 MPV 8.3 fl (7.5-11.1) 07/28/18 07:00 Sodium 141 mmol/L (136-145) 07/28/18 07:00 Potassium 4.2 mmol/L (3.5-5.1) 07/30/18 07:00 Chloride 99 mmol/L (98-107) 07/28/18 07:00 Carbon Dioxide 33 mmol/L (21-32) H 07/28/18 07:00 Anion Gap 8 MMOL/L (8-16) 07/28/18 07:00 BUN 8 mg/dL (7-18) 07/28/18 07:00 Creatinine 0.8 mg/dL (0.55-1.3) 07/28/18 07:00 Creat Clearance w eGFR > 60 (>60) 07/28/18 07:00 Random Glucose 80 mg/dL (74-106) 07/28/18 07:00 Calcium 8.3 mg/dL (8.5-10.1) L 07/28/18 07:00 Total Bilirubin 0.8 mg/dL (0.2-1) 07/28/18 07:00 AST 28 U/L (15-37) 07/28/18 07:00 ALT 18 U/L (13-61) 07/28/18 07:00 Alkaline Phosphatase 107 U/L (45-117) 07/28/18 07:00 Ammonia 85.94 umol/L (11-32) H 07/30/18 07:00 Total Protein 6.4 g/dl (6.4-8.2) 07/28/18 07:00 Albumin 3.4 g/dl (3.4-5.0) 07/28/18 07:00 Urine Color Yellow 07/28/18 00:01 Urine Appearance Clear 07/28/18 00:01 Urine pH 6.0 (5.0-8.0) 07/28/18 00:01 Ur Specific [place] 1.012 (1.010-1.035) 07/28/18 00:01 Urine Protein Negative (NEGATIVE) 07/28/18 00:01 Urine Glucose (UA) Negative (NEGATIVE) 07/28/18 00:01 Urine Ketones Negative (NEGATIVE) 07/28/18 00:01 Urine Blood Negative (NEGATIVE) 07/28/18 00:01 Urine Nitrite Negative (NEGATIVE) 07/28/18 00:01 Urine Bilirubin Negative (<2.0 mg/dL) 07/28/18 00:01 Urine Urobilinogen Negative mg/dL (0.2-1.0) 07/28/18 00:01 Ur Leukocyte Esterase Negative (NEGATIVE) 07/28/18 00:01 Phenytoin 2.0 ug/ml (10.0-20.0) L 07/28/18 10:00 RPR Titer Nonreactive (NONREACTIVE) 07/28/18 07:00 HIV 1&2 Antibody Screen Negative 07/28/18 07:00 HIV P24 Antigen Negative 07/28/18 07:00 Assessment: 07/30/18 13:27mild withdrawal sx Plan: medically supervised detox continue dilantin level
[2018-07-30] MEDS ORDERED: PHENYTOIN NA EXTENDED 100 MG CAPSULE (FP) PO ONE (12:50)
[2018-07-30] MEDS: chlordiazePOXIDE HCL 10 MG CAPSULE PO SCH (22:09)
[2018-07-30] MEDS: QUEtiapine FUMARATE 50 MG TABLET PO SCH (22:09)
[2018-07-30] MEDS: THIAMINE HCL 100 MG TABLET (FP) PO SCH (22:09)
[2018-07-31] MEDS: chlordiazePOXIDE HCL 10 MG CAPSULE PO SCH (05:29)
[2018-07-31] MEDS: METHADONE HCL 40 MG DISPERSABLE TABLET PO SCH (05:30)
--- NOTE | 2018-07-31 08:44 | DS ---
[facility] Detox Discharge Summary Admission Date: 07/27/18 Discharge Date: 07/31/18 - History Present History: Alcohol Dependence, Cannabis Dependence, Cocaine Dependence, Sedative Dependence, Pcp Dependence, MMTP - Physical Exam Results Vital Signs: Vital Signs Temperature 97.9 F 07/31/18 06:00 Pulse Rate 71 07/31/18 06:00 Respiratory Rate 16 07/31/18 06:00 Blood Pressure 126/90 07/31/18 06:00 O2 Sat by Pulse Oximetry (%) - Treatment Hospital Course: Detox Protocol Followed, Detoxed Safely, Responded well, Discharged Condition Good, Rehab Referral Accepted - Medication Discharge Medications: Ambulatory Orders Citalopram Hydrobromide [Celexa -] 20 mg PO DAILY #30 tablet 11/13/16 Quetiapine Fumarate [Seroquel -] 50 mg PO HS #30 tablet 11/13/16 Albuterol Sulfate Inhaler - [Ventolin HFA Inhaler -] 2 puff IH Q6H PRN #1 inhaler 07/30/18 Amlodipine Besylate [Norvasc -] 5 mg PO DAILY #30 tablet 07/30/18 Phenytoin Na Extended [Dilantin -] 100 mg PO BID 15 Days #30 capsule 07/30/18 - Diagnosis (1) Alcohol dependence with uncomplicated withdrawal Current Visit: Yes Status: Chronic (2) Cannabis dependence Current Visit: Yes Status: Chronic (3) Cocaine dependence Current Visit: Yes Status: Chronic Qualifiers: Substance use status: uncomplicated Qualified Code(s): F14.20 - Cocaine dependence, uncomplicated (4) Substance-induced sleep disorder Current Visit: Yes Status: Acute (5) Weight loss Current Visit: Yes Status: Acute (6) Asthma Current Visit: Yes Status: Chronic Qualifiers: Asthma severity: mild Asthma persistence: intermittent Asthma complication type: uncomplicated Qualified Code(s): J45.20 - Mild intermittent asthma, uncomplicated (7) Hypertension Current Visit: Yes Status: Chronic Qualifiers: Hypertension type: essential hypertension Qualified Code(s): I10 - Essential (primary) hypertension (8) Nicotine dependence Current Visit: Yes Status: Chronic Qualifiers: Nicotine product type: cigarettes Substance use status: in withdrawal Qualified Code(s): F17.213 - Nicotine dependence, cigarettes, with withdrawal (9) Opioid dependence on agonist therapy Current Visit: Yes Status: Chronic (10) Seizure Current Visit: Yes Status: Chronic (11) Acute alcoholic intoxication Current Visit: No Status: Acute Qualifiers: Complication of substance-induced condition: uncomplicated Qualified Code(s ): F10.929 - Alcohol use, unspecified with intoxication, unspecified (12) Alcohol intoxication Current Visit: No Status: Acute Qualifiers: Complication of substance-induced condition: uncomplicated Qualified Code(s ): F10.920 - Alcohol use, unspecified with intoxication, uncomplicated (13) Anxiety and depression Current Visit: No Status: Acute (14) Hyperammonemia Current Visit: No Status: Acute (15) Hypokalemia Current Visit: No Status: Acute (16) Increased ammonia level Current Visit: No Status: Acute (17) Insomnia Current Visit: No Status: Acute Qualifiers: Insomnia type: unspecified Qualified Code(s): G47.00 - Insomnia, unspecified (18) Insomnia Current Visit: No Status: Acute (19) MDD (major depressive disorder), recurrent severe, without psychosis Current Visit: No Status: Acute (20) Opioid dependence on agonist therapy Current Visit: No Status: Acute (21) PCP dependence Current Visit: Yes Status: Acute (22) Sedative hypnotic or anxiolytic dependence Current Visit: No Status: Acute (23) Substance induced mood disorder Current Visit: No Status: Acute (24) Substance induced mood disorder Current Visit: No Status: Acute (25) COPD (chronic obstructive pulmonary disease) Current Visit: No Status: Chronic Qualifiers: COPD type: unspecified COPD Qualified Code(s): J44.9 - Chronic obstructive pulmonary disease, unspecified (26) Cannabis abuse Current Visit: No Status: Chronic (27) Depression (emotion) Current Visit: No Status: Chronic Qualifiers: Depression Type: dysthymia Qualified Code(s): F34.1 - Dysthymic disorder (28) Low back pain Current Visit: No Status: Chronic Qualifiers: Chronicity: unspecified Back pain laterality: unspecified Sciatica presence: unspecified whether sciatica present Qualified Code(s): M54.5 - Low back pain (29) MDD (major depressive disorder), recurrent episode Current Visit: No Status: Chronic Qualifiers: Major depression episode severity: moderate Qualified Code(s): F33.1 - Major depressive disorder, recurrent, moderate (30) Marijuana dependence Current Visit: No Status: Chronic (31) Otitis externa Current Visit: No Status: Chronic Qualifiers: Otitis externa type: other infective Chronicity: acute Laterality: bilateral Qualified Code(s): H60.393 - Other infective otitis externa, bilateral (32) PTSD (post-traumatic stress disorder) Current Visit: No Status: Chronic (33) Depressive disorder Current Visit: No Status: Suspected - AMA Did Patient Leave Against Medical Advice: No (referred back to mmtp program)
[2018-07-31 09:30] VITALS: BP 126/82; PULSE 116; TEMP 98.4
[2018-07-31] MEDS: PRENATAL VITAMINS W/ FOLIC ACID TABLET (FP) PO SCH (09:56)
[2018-07-31] MEDS: PHENYTOIN NA EXTENDED 100 MG CAPSULE (FP) PO SCH (09:56)
[2018-07-31] MEDS: amLODIPine BESYLATE 5 MG TABLET (FP) PO SCH (09:56)
== END 2018-07-31 09:57 | disposition home or self-care (01) | DRG 773 ==
LOC: YASAS 16:26 → Y6N 18:20
PROC: HZ2ZZZZ Detoxification Services for Substance Abuse Treatment (ICD-10-PCS; principal; 2018-07-27)
DX: F10.230 Alcohol dependence with withdrawal, uncomplicated (principal); F13.230 Sedative, hypnotic or anxiolytic dependence with withdrawal, uncomplicated; F14.20 Cocaine dependence, uncomplicated; F16.20 Hallucinogen dependence, uncomplicated; F12.20 Cannabis dependence, uncomplicated; F11.20 Opioid dependence, uncomplicated; F19.24 Other psychoactive substance dependence with psychoactive substance-induced mood disorder; F19.282 Other psychoactive substance dependence with psychoactive substance-induced sleep disorder; F33.1 Major depressive disorder, recurrent, moderate; F43.10 Post-traumatic stress disorder, unspecified; F34.1 Dysthymic disorder; F41.8 Other specified anxiety disorders; G47.00 Insomnia, unspecified; I10 Essential (primary) hypertension; J45.20 Mild intermittent asthma, uncomplicated; E87.6 Hypokalemia; E72.20 Disorder of urea cycle metabolism, unspecified; R56.9 Unspecified convulsions; H60.393 Other infective otitis externa, bilateral; M54.5 Low back pain; Z68.23 Body mass index [BMI] 23.0-23.9, adult
CPT/HCPCS: 36415; 73030-TC-LT-FY; 80053; 80185; 81003; 82140; 84132; 85027; 86593; 87389

== ENCOUNTER 2018-09-17 16:55 | Inpatient (IN) | payer OTHER ==
[2018-09-17 17:17] VITALS: BMI 21.4
--- NOTE | 2018-09-17 19:55 | HP ---
CIWA Score Nausea/Vomitin Muscle Tremors: None Anxiety: 3 Agitation: 4-Moderately Restless Paroxysmal Sweats: 3 Orientation: 2-Disoriented Date<2 days Tacttile Disturbances: 0-None Auditory Disturbances: 0-None Visual Disturbances: 1-Very Mild Sensitivity Headache: 1-Very Mild CIWA-Ar Total Score: 17 - Admission Criteria OASAS Guidelines: Admission for Medically Managed Detox: Requires at least one of the followin. CIWA greater than 12 2. Seizures within the past 24 hours 3. Delirium tremens within the past 24 hours 4. Hallucinations within the past 24 hours 5. Acute intervention needed for co occurring medical disorder 6. Acute intervention needed for co occurring psychiatric disorder 7. Severe withdrawal that cannot be handled at a lower level of care (continued vomiting, continued diarrhea, abnormal vital signs) requiring intravenous medication and/or fluids 8. Patient presents the following: CIWA greater than 12, Acute intervention needed for co-occurring med or psych disorder Admission Criteria Met: Admission criteria met Admission ROS [facility] Chief Complaint: C/O WITHDRAWAL SX'S. SEEKING DETOX TO ASSIST Allergies/Adverse Reactions: Allergies Allergy/AdvReac Type Severity Reaction Status Date / Time No Known Allergies Allergy Verified 09/17/18 17:25 History of Present Illness: 52 Y.O. MALE WITH HX/O OPIOID, CANNABIS AND ALCOHOL DEPENDENCE HERE FOR DETOX. CLIENT IS SELF REFERRED. HERE 1 MONTH AGO. PRESENTS WITH C/O WITHDRAWAL SXS, CIWA 17 WITH REPORTED HX/O WITHDRAWAL SEIZURE. 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 DENIES ANY CLEAN TIME THIS PAST YEAR. REPORTS HX /O SI BUT PRESENTLY DENIES SI/HI, AVH. REPORTS HE IS HOMELESS, PUBLIC ASSISTANCE , , DENIES LEGALS. PMHX- ASTHMA, WITHDRAWAL SEIZURE PSYCH- DEPRESSION Exam Limitations: No Limitations - Ebola screening Have you traveled outside of the country in the last 21 days: No Have you had contact with anyone from an Ebola affected area: No Have you been sick,other than usual withdrawal symptoms: No Do you have a fever: No - Review of Systems Constitutional: Chills, Loss of Appetite, Malaise, Night Sweats, Changes in sleep EENT: reports: Dental Problems (MISSING TEETH/ TOP DENTURES) Respiratory: reports: Shortness of Breath, Productive cough (GREENISH/ WHITE) Cardiac: reports: No Symptoms Reported GI: reports: Diarrhea, Nausea, Poor Appetite, Poor Fluid Intake, Abdominal cramping : reports: Dysuria Musculoskeletal: reports: Back Pain Integumentary: reports: Sweating Neuro: reports: Seizure (R/T WITHDRAWAL SX'S) Endocrine: reports: No Symptoms Reported Hematology: reports: No Symptoms Reported Psychiatric: reports: Agitated, Anxious, Depressed Other Systems: Reviewed and Negative Patient History - Patient Medical History Hx Anemia: No Hx Asthma: Yes Hx Chronic Obstructive Pulmonary Disease (COPD): No Hx Cancer: No Hx Cardiac Disorders: No Hx Congestive Heart Failure: No Hx Hypertension: No Hx Hypercholesterolemia: No Hx Pacemaker: No HX Cerebrovascular Accident: No Hx Seizures: Yes (WITHDRAWAL SZ/ 4 MONTH AGO) Hx Dementia: No Hx Diabetes: No Hx Gastrointestinal Disorders: No Hx Liver Disease: No Hx Genitourinary Disorders: No Hx Sexually Transmitted Disorders: No Hx Renal Disease (ESRD): No Hx Thyroid Disease: No Hx Human Immunodeficiency Virus (HIV): No Hx Hepatitis C: No Hx Depression: Yes Hx Suicide Attempt: No Hx Bipolar Disorder: No Hx Schizophrenia: No Other Medical History: DENIES - Patient Surgical History Past Surgical History: No Hx Neurologic Surgery: No Hx Cataract Extraction: No Hx Cardiac Surgery: No Hx Lung Surgery: No Hx Breast Surgery: No Hx Breast Biopsy: No Hx Abdominal Surgery: No Hx Appendectomy: No Hx Cholecystectomy: No Hx Genitourinary Surgery: No Hx Section: No (NA) Hx Orthopedic Surgery: No Anesthesia Reaction: No - PPD History Previous Implant?: Yes Documented Results: Negative w/proof Implanted On Prior [facility] Admission?: Yes Date: 01/03/18 Results: 0 mm PPD to be Administered?: No - Smoking Cessation Smoking history: Current every day smoker Have you smoked in the past 12 months: Yes Aproximately how many cigarettes per day: 10 Cigars Per Day: 0 Hx Chewing Tobacco Use: No Initiated information on smoking cessation: Yes 'Breaking Loose' booklet given: 09/17/18 - Substance & Tx. History Hx Alcohol Use: Yes Hx Substance Use: Yes Substance Use Type: Alcohol, Marijuana, Prescribed (METHADONE ) Hx Substance Use Treatment: Yes ([facility]) - Substances Abused Alcohol Route: Oral Frequency: Daily Amount used: LIQUOR- 3 PINTS Age of first use: 33 Date of Last Use: 09/17/18 THC Route: Smoking Frequency: 1-3 times last 30 days Amount used: 1 JOINT Age of first use: 13 Date of Last Use: 09/10/18 Family Disease History - Family Disease History Family Disease History: Heart Disease: Mother (/ ASTHMA), Other: Father (/ ALCOHOLISM), Mother Admission Physical Exam [facility] - Vital Signs Vital Signs: Vital Signs - 24 hr 09/17/18 17:14 Temperature 97.7 F Pulse Rate 95 H Respiratory 18 Rate Blood Pressure 139/96 - Physical General Appearance: Yes: Appropriately Dressed, Mild Distress, Irritable, Anxious HEENTM: Yes: EOMI, Normocephalic, Normal Voice, ROBERTO, Pharynx Normal, Other ( POOR DENTITION/TOP DENTURES) Respiratory: Yes: Chest Non-Tender, No Respiratory Distress, No Accessory Muscle Use, Wheezing, Expiration Neck: Yes: Supple, Trachea in good position, Other (SOFT MOVABLE MASS TO BACK OF R SIDE OF NECK) Breast: Yes: Breast Exam Deferred Cardiology: Yes: Regular Rhythm, Regular Rate, S1, S2 Abdominal: Yes: Non Tender, Soft, Increased Bowel Sounds Genitourinary: Yes: Hesitency (C/O) Back: Yes: Normal Inspection Musculoskeletal: Yes: full range of Motion, Gait Steady, Back pain (C/O) Extremities: Yes: Normal Inspection, Normal Range of Motion, Non-Tender Neurological: Yes: Alert, Confused, Depressed Affect Integumentary: Yes: Dry, Warm, Other (FLUSHED) Lymphatic: Yes: Within Normal Limits - Diagnostic (1) At risk for dehydration due to poor fluid intake Current Visit: Yes Status: Acute (2) Opioid dependence on agonist therapy Current Visit: Yes Status: Chronic (3) Weight loss Current Visit: Yes Status: Acute (4) Alcohol dependence with uncomplicated withdrawal Current Visit: Yes Status: Acute (5) Asthma Current Visit: Yes Status: Chronic Qualifiers: Asthma severity: mild Asthma persistence: intermittent Asthma complication type: uncomplicated Qualified Code(s): J45.20 - Mild intermittent asthma, uncomplicated (6) Cannabis dependence Current Visit: Yes Status: Chronic (7) Low back pain Current Visit: Yes Status: Chronic Qualifiers: Chronicity: unspecified Back pain laterality: unspecified Sciatica presence: unspecified whether sciatica present Qualified Code(s): M54.5 - Low back pain (8) Marijuana dependence Current Visit: Yes Status: Chronic (9) Nicotine dependence Current Visit: Yes Status: Chronic Qualifiers: Nicotine product type: cigarettes Substance use status: in withdrawal Qualified Code(s): F17.213 - Nicotine dependence, cigarettes, with withdrawal (10) Opioid dependence on agonist therapy Current Visit: Yes Status: Chronic Cleared for Admission [facility] - Detox or Rehab [facility] Level of Care: Medically Managed Detox Regimen/Protocol: Librium Claeared for Rehab Admission: No S Breath Alcohol Content Breath Alcohol Content: 0 Urine Drug Screen - Results Drug Screen Negative: No Urine Drug Screen Results: THC-Marijuana, BZO-Benzodiazepines, MTD-Methadone
[2018-09-17] MEDS ORDERED: ALBUTEROL SO4 8 GM HFA INHALER IH PRN (20:01)
[2018-09-17] MEDS ORDERED: MAG HYDROX/AL HYDROX/SIMETH 30 ML UNIT-DOSE CUP PO PRN (20:02)
[2018-09-17] MEDS ORDERED: IBUPROFEN 400 MG TABLET (FP) PO PRN (20:02)
[2018-09-17] MEDS ORDERED: LOPERAMIDE HCL 2 MG CAPSULE PO PRN (20:02)
[2018-09-17] MEDS ORDERED: MAGNESIUM HYDROX 2400MG/30ML ORAL SUSPENSION 30 ML CUP PO PRN (20:02)
[2018-09-17] MEDS ORDERED: P-EPHED 60MG/TRIPROLIDI 2.5MG TABLET PO PRN (20:02)
[2018-09-17] MEDS ORDERED: MENTHOL/PHENOL 1 EACH UD MM PRN (20:02)
[2018-09-17] MEDS ORDERED: hydrOXYzine PAMOATE 50 MG CAPSULE (FP) PO PRN (20:02)
[2018-09-17] MEDS ORDERED: ACETAMINOPHEN 325 MG TABLET (FP) PO PRN (20:02)
[2018-09-17] MEDS ORDERED: chlordiazePOXIDE HCL 25 MG CAPSULE PO PRN (20:02)
[2018-09-17] MEDS ORDERED: MAGNESIUM CITRATE 300 ML BOTTLE PO PRN (20:02)
[2018-09-17] MEDS ORDERED: NICOTINE POLACRILEX 2 MG GUM BC PRN (20:02)
[2018-09-17] MEDS ORDERED: guaiFENesin/D-METHORPHAN HB 10 ML UNIT-DOSE CUPS PO PRN (20:02)
[2018-09-17] MEDS: chlordiazePOXIDE HCL 25 MG CAPSULE PO SCH (21:59)
[2018-09-17] MEDS: THIAMINE HCL 100 MG TABLET (FP) PO SCH (21:59)
[2018-09-17] MEDS ORDERED: MELATONIN 5 MG TABLETS PO PRN (22:00)
[2018-09-18] MEDS: chlordiazePOXIDE HCL 25 MG CAPSULE PO SCH ×4 (05:35→22:18)
[2018-09-18] MEDS: PRENATAL VITAMINS W/ FOLIC ACID TABLET (FP) PO SCH (09:25)
[2018-09-18] MEDS: METHADONE HCL 40 MG DISPERSABLE TABLET PO SCH (09:25)
[2018-09-18] MEDS: NICOTINE 14 MG/24 HOURS TOPICAL PATCH TD SCH (09:25)
[2018-09-18 10:49] LABS: ALBUMIN 3.5 g/dl (3.4-5.0); ALK PHOS 116 U/L (45-117); ANION GAP 8 MMOL/L (8-16); BILIRUBIN,TOTAL 0.9 mg/dL (0.2-1); BLOOD UREA NITROGEN 4 mg/dL (7-18); CHLORIDE 98 mmol/L (98-107); CO2 34 mmol/L (21-32); CREATININE 0.7 mg/dL (0.55-1.3); GLUCOSE,RANDOM 89 mg/dL (74-106); SGOT/AST 38 U/L (15-37); SGPT/ALT 18 U/L (13-61); SODIUM 139 mmol/L (136-145); TOT PROT 6.8 g/dl (6.4-8.2)
[2018-09-18 10:50] LABS: HEMATOCRIT 40.1 % (35.4-49); HEMOGLOBIN 13.2 GM/dL (11.7-16.9); MCH 35.3 pg (25.7-33.7); MCHC 32.8 g/dl (32.0-35.9); MEAN CELL VOLUME 107.5 fl (80-96); MEAN PLT VOLUME 9.5 fl (7.5-11.1); PLATELET COUNT 83 K/MM3 (134-434); RBC 3.73 M/mm3 (4.00-5.60); RDW 16.2 % (11.9-15.9); WHITE BLOOD COUNT 7.1 K/mm3 (4.0-10.0)
[2018-09-18 11:04] LABS: POTASSIUM 2.9 mmol/L (3.5-5.1)
--- NOTE | 2018-09-18 12:42 | PN ---
S CIWA - CIWA Score Nausea/Vomitin Muscle Tremors: 1-None Visible, but [place] Anxiety: 3 Agitation: 3 Paroxysmal Sweats: 2 Orientation: 0-Oriented Tacttile Disturbances: 0-None Auditory Disturbances: 0-None Visual Disturbances: 0-None Headache: 0-None Present CIWA-Ar Total Score: 12 [facility]HS Progress Note (SOAP) Subjective: PATIENT C/O SWEATING, NAUSEA AND DIARRHEA, ANXIETY AND CHILLS. Objective: 09/18/18 12:40 Vital Signs Temperature 98.4 F 09/18/18 09:13 Pulse Rate 84 09/18/18 10:30 Respiratory Rate 20 09/18/18 10:30 Blood Pressure 133/85 09/18/18 09:13 O2 Sat by Pulse Oximetry (%) Laboratory Tests 09/18/18 09/18/18 09/18/18 07:00 07:00 07:00 WBC 7.1 RBC 3.73 L Hgb 13.2 Hct 40.1 MCV 107.5 H MCH 35.3 H MCHC 32.8 RDW 16.2 H Plt Count 83 L D MPV 9.5 D Sodium 139 Potassium 2.9 L* Chloride 98 Carbon Dioxide 34 H Anion Gap 8 BUN 4 L Creatinine 0.7 Creat Clearance w eGFR > 60 Random Glucose 89 Calcium 8.0 L Total Bilirubin 0.9 AST 38 H ALT 18 Alkaline Phosphatase 116 Total Protein 6.8 Albumin 3.5 RPR Titer HIV 1&2 Antibody Screen Negative HIV P24 Antigen Negative 09/18/18 07:00 WBC RBC Hgb Hct MCV MCH MCHC RDW Plt Count MPV Sodium Potassium Chloride Carbon Dioxide Anion Gap BUN Creatinine Creat Clearance w eGFR Random Glucose Calcium Total Bilirubin AST ALT Alkaline Phosphatase Total Protein Albumin RPR Titer Nonreactive HIV 1&2 Antibody Screen HIV P24 Antigen PE: ALERT AND ORIENTED X 3 SKIN WARM, +FACIAL MOISTURE EXT FULL ROM, AMB AD STEVEN +ANXIETY/RESTLESSNESS Assessment: 09/18/18 12:42 WITHDRAWAL SX Plan: CONTINUE DETOX ENCOURAGE ORAL FLUIDS CONTINUE TO MONITOR
[2018-09-18] MEDS: POTASSIUM CHLORIDE TABS 20 MEQ TABLET.ER (FP) PO SCH ×2 (13:08→22:18)
[2018-09-18] MEDS: THIAMINE HCL 100 MG TABLET (FP) PO SCH (22:18)
[2018-09-19] MEDS: METHADONE HCL 40 MG DISPERSABLE TABLET PO SCH (05:08)
[2018-09-19] MEDS: chlordiazePOXIDE HCL 25 MG CAPSULE PO SCH ×3 (05:09→17:26)
[2018-09-19] MEDS: PRENATAL VITAMINS W/ FOLIC ACID TABLET (FP) PO SCH (10:02)
[2018-09-19] MEDS: POTASSIUM CHLORIDE TABS 20 MEQ TABLET.ER (FP) PO SCH ×2 (10:02→22:32)
[2018-09-19] MEDS: NICOTINE 14 MG/24 HOURS TOPICAL PATCH TD SCH (10:03)
--- NOTE | 2018-09-19 16:48 | PN ---
S CIWA - CIWA Score Nausea/Vomitin-No Nausea/No Vomiting Muscle Tremors: 3 Anxiety: 3 Agitation: 1-Slight > Activity Paroxysmal Sweats: No Perspiration Orientation: 0-Oriented Tacttile Disturbances: 2-Mild Itch/Numbness/Burn Auditory Disturbances: 0-None Visual Disturbances: 0-None Headache: 3-Moderate CIWA-Ar Total Score: 12 BHS Progress Note (SOAP) Subjective: Diarrhea, Interrupted Sleep, Fatigue, H/A, Body Aches. Objective: PATIENT A & O X 3. IN NO ACUTE DISTRESS. 09/19/18 16:46 Vital Signs Temperature 98.2 F 09/19/18 14:49 Pulse Rate 84 09/19/18 14:49 Respiratory Rate 18 09/19/18 14:49 Blood Pressure 117/78 09/19/18 14:49 O2 Sat by Pulse Oximetry (%) Laboratory Tests 09/18/18 09/18/18 09/18/18 07:00 07:00 07:00 WBC 7.1 RBC 3.73 L Hgb 13.2 Hct 40.1 MCV 107.5 H MCH 35.3 H MCHC 32.8 RDW 16.2 H Plt Count 83 L D MPV 9.5 D Sodium 139 Potassium 2.9 L* Chloride 98 Carbon Dioxide 34 H Anion Gap 8 BUN 4 L Creatinine 0.7 Creat Clearance w eGFR > 60 Random Glucose 89 Calcium 8.0 L Total Bilirubin 0.9 AST 38 H ALT 18 Alkaline Phosphatase 116 Ammonia Total Protein 6.8 Albumin 3.5 RPR Titer HIV 1&2 Antibody Screen Negative HIV P24 Antigen Negative 09/18/18 09/19/18 07:00 07:30 WBC RBC Hgb Hct MCV MCH MCHC RDW Plt Count MPV Sodium Potassium Chloride Carbon Dioxide Anion Gap BUN Creatinine Creat Clearance w eGFR Random Glucose Calcium Total Bilirubin AST ALT Alkaline Phosphatase Ammonia 123.70 H Total Protein Albumin RPR Titer Nonreactive HIV 1&2 Antibody Screen HIV P24 Antigen LABS NOTED. Assessment: 09/19/18 16:47 WITHDRAWAL SYMPTOMS. HYPOKALEMIA. THROMBOCYTOPENIA. HYPERAMMONEMIA. 09/19/18 16:49 Plan: CONTINUE DETOX. LACTULOSE QID. CONTINUE K-DUR.
[2018-09-19] MEDS: LACTULOSE 20 GM/30 ML UDC (FOR ORAL USE ONLY) PO SCH ×2 (17:26→22:32)
[2018-09-19] MEDS: chlordiazePOXIDE 5 MG CAPSULE PO SCH (22:32)
[2018-09-19] MEDS: THIAMINE HCL 100 MG TABLET (FP) PO SCH (22:32)
[2018-09-20] MEDS: chlordiazePOXIDE 5 MG CAPSULE PO SCH ×3 (05:26→17:17)
[2018-09-20] MEDS: METHADONE HCL 40 MG DISPERSABLE TABLET PO SCH (05:26)
[2018-09-20] MEDS: LACTULOSE 20 GM/30 ML UDC (FOR ORAL USE ONLY) PO SCH ×4 (10:15→22:33)
[2018-09-20] MEDS: PRENATAL VITAMINS W/ FOLIC ACID TABLET (FP) PO SCH (10:15)
[2018-09-20] MEDS: NICOTINE 14 MG/24 HOURS TOPICAL PATCH TD SCH (10:15)
[2018-09-20] MEDS: POTASSIUM CHLORIDE TABS 20 MEQ TABLET.ER (FP) PO SCH (10:15)
--- NOTE | 2018-09-20 15:23 | PN ---
BHS Progress Note (SOAP) Subjective: Back pain (x2 weeks), interrupted sleep, diarrhea, dysuria occasional Objective: 09/20/18 15:18 Last Vital Signs Temp Pulse Resp BP Pulse Ox 96.9 F L 84 18 127/85 09/20/18 13:11 09/20/18 13:11 09/20/18 13:11 09/20/18 13:11 PE: Back: right CVAT on palpation Skin: warm to touch, turgor fair Neuro: gait steady Laboratory Tests 09/18/18 09/18/18 09/18/18 07:00 07:00 07:00 WBC 7.1 RBC 3.73 L Hgb 13.2 Hct 40.1 MCV 107.5 H MCH 35.3 H MCHC 32.8 RDW 16.2 H Plt Count 83 L D MPV 9.5 D Sodium 139 Potassium 2.9 L* Chloride 98 Carbon Dioxide 34 H Anion Gap 8 BUN 4 L Creatinine 0.7 Creat Clearance w eGFR > 60 Random Glucose 89 Calcium 8.0 L Total Bilirubin 0.9 AST 38 H ALT 18 Alkaline Phosphatase 116 Ammonia Total Protein 6.8 Albumin 3.5 RPR Titer HIV 1&2 Antibody Screen Negative HIV P24 Antigen Negative 09/18/18 09/19/18 09/20/18 07:00 07:30 07:30 WBC RBC Hgb Hct MCV MCH MCHC RDW Plt Count MPV Sodium Potassium 3.4 L Chloride Carbon Dioxide Anion Gap BUN Creatinine Creat Clearance w eGFR Random Glucose Calcium Total Bilirubin AST ALT Alkaline Phosphatase Ammonia 123.70 H Total Protein Albumin RPR Titer Nonreactive HIV 1&2 Antibody Screen HIV P24 Antigen Labs reviewed: serum K level 3.4, plt 83, ammonia level 123.70 Assessment: 09/20/18 15:22 Withdrawal symptoms Noted with acute right pyelonephritis, mild hypokalemia, thrombocytopenia and hyperammonemia Plan: Continue detox Acute right pyelonephritis: encouraged PO water hydration, send UA, Urine C&S stat (before initiating antibiotic), start levaquin 500mg PO daily x 10 days, follow up with PCP post discharge Hypokalemia: K Dur 40 Meq PO x 1 dose, repeat BMP in AM Thrombocytopenia: most likely due to alcohol dependence, follow up with PCP for monitoring Hyperammonemia: continue lactulose, repeat ammonia level
[2018-09-20] MEDS ORDERED: POTASSIUM CHLORIDE TABS 20 MEQ TABLET.ER (FP) PO ONE ×2 (15:45→21:00)
[2018-09-20 19:35] LABS: URINE APPEARANCE CLEAR; URINE BILIRUBIN NEGATIVE (<2.0 mg/dL); URINE COLOR AMBER; URINE GLUCOSE (UA) NEGATIVE (NEGATIVE); URINE KETONE NEGATIVE (NEGATIVE); URINE LEUK ESTERASE TRACE (NEGATIVE); URINE NITRITE NEGATIVE (NEGATIVE); URINE PROTEIN 1+ (NEGATIVE)
[2018-09-20 19:37] LABS: EPI CELLS RARE /HPF (FEW); URINE MUCUS FEW
[2018-09-20] MEDS: THIAMINE HCL 100 MG TABLET (FP) PO SCH (22:34)
[2018-09-20] MEDS: chlordiazePOXIDE HCL 10 MG CAPSULE PO SCH (22:34)
[2018-09-21] MEDS: METHADONE HCL 40 MG DISPERSABLE TABLET PO SCH (05:19)
[2018-09-21] MEDS: chlordiazePOXIDE HCL 10 MG CAPSULE PO SCH (05:19)
[2018-09-21 06:09] VITALS: BP 119/85; PULSE 84; TEMP 97.1
[2018-09-21] MEDS: PRENATAL VITAMINS W/ FOLIC ACID TABLET (FP) PO SCH (09:40)
[2018-09-21] MEDS: LACTULOSE 20 GM/30 ML UDC (FOR ORAL USE ONLY) PO SCH (09:40)
[2018-09-21] MEDS: NICOTINE 14 MG/24 HOURS TOPICAL PATCH TD SCH (09:40)
[2018-09-21 10:48] LABS: ANION GAP 6 MMOL/L (8-16); BLOOD UREA NITROGEN 13 mg/dL (7-18); CALCIUM 8.7 mg/dL (8.5-10.1); CHLORIDE 103 mmol/L (98-107); CO2 27 mmol/L (21-32); CREATININE 0.8 mg/dL (0.55-1.3); GLUCOSE,RANDOM 104 mg/dL (74-106); POTASSIUM 4.9 mmol/L (3.5-5.1); SODIUM 136 mmol/L (136-145)
--- NOTE | 2018-09-21 15:07 | DS ---
[facility] Detox Discharge Summary Admission Date: 09/17/18 Discharge Date: 09/21/18 - History Present History: Alcohol Dependence Additional Comments: 52 years old male admitted on 09/17/18 for alcohol withdrawal stabilization completed alcohol detox regimen tolerated well [facility] Ex[facility] Results Vital Signs: Vital Signs Temperature 97.1 F L 09/21/18 06:08 Pulse Rate 84 09/21/18 06:08 Respiratory Rate 18 09/21/18 06:08 Blood Pressure 119/85 09/21/18 06:08 O2 Sat by Pulse Oximetry (%) Pertinent Admission Physical Exam Findings: alcohol withdrawal sx Laboratory Last Values WBC 7.1 K/mm3 (4.0-10.0) 09/18/18 07:00 RBC 3.73 M/mm3 (4.00-5.60) L 09/18/18 07:00 Hgb 13.2 GM/dL (11.7-16.9) 09/18/18 07:00 Hct 40.1 % (35.4-49) 09/18/18 07:00 MCV 107.5 fl (80-96) H 09/18/18 07:00 MCH 35.3 pg (25.7-33.7) H 09/18/18 07:00 MCHC 32.8 g/dl (32.0-35.9) 09/18/18 07:00 RDW 16.2 % (11.9-15.9) H 09/18/18 07:00 Plt Count 83 K/MM3 (134-434) L D 09/18/18 07:00 MPV 9.5 fl (7.5-11.1) D 09/18/18 07:00 Sodium 136 mmol/L (136-145) 09/21/18 07:30 Potassium 4.9 mmol/L (3.5-5.1) 09/21/18 07:30 Chloride 103 mmol/L (98-107) 09/21/18 07:30 Carbon Dioxide 27 mmol/L (21-32) 09/21/18 07:30 Anion Gap 6 MMOL/L (8-16) L 09/21/18 07:30 BUN 13 mg/dL (7-18) 09/21/18 07:30 Creatinine 0.8 mg/dL (0.55-1.3) 09/21/18 07:30 Creat Clearance w eGFR > 60 (>60) 09/21/18 07:30 Random Glucose 104 mg/dL (74-106) 09/21/18 07:30 Calcium 8.7 mg/dL (8.5-10.1) 09/21/18 07:30 Total Bilirubin 0.9 mg/dL (0.2-1) 09/18/18 07:00 AST 38 U/L (15-37) H 09/18/18 07:00 ALT 18 U/L (13-61) 09/18/18 07:00 Alkaline Phosphatase 116 U/L (45-117) 09/18/18 07:00 Ammonia 83.60 umol/L (11-32) H 09/21/18 07:30 Total Protein 6.8 g/dl (6.4-8.2) 09/18/18 07:00 Albumin 3.5 g/dl (3.4-5.0) 09/18/18 07:00 Urine Color Dorie 09/20/18 11:44 Urine Appearance Clear 09/20/18 11:44 Urine pH 6.0 (5.0-8.0) 09/20/18 11:44 Ur Specific [place] 1.023 (1.010-1.035) 09/20/18 11:44 Urine Protein 1+ (NEGATIVE) H 09/20/18 11:44 Urine Glucose (UA) Negative (NEGATIVE) 09/20/18 11:44 Urine Ketones Negative (NEGATIVE) 09/20/18 11:44 Urine Blood Negative (NEGATIVE) 09/20/18 11:44 Urine Nitrite Negative (NEGATIVE) 09/20/18 11:44 Urine Bilirubin Negative (<2.0 mg/dL) 09/20/18 11:44 Urine Urobilinogen 2.0 mg/dL (0.2-1.0) 09/20/18 11:44 Ur Leukocyte Esterase Trace (NEGATIVE) 09/20/18 11:44 Urine WBC (Auto) 2 /hpf (3-5) 09/20/18 11:44 Urine RBC (Auto) <1 /hpf (0-3) 09/20/18 11:44 Ur Epithelial Cells Rare /HPF (FEW) 09/20/18 11:44 Urine Mucus Few 09/20/18 11:44 RPR Titer Nonreactive (NONREACTIVE) 09/18/18 07:00 HIV 1&2 Antibody Screen Negative 09/18/18 07:00 HIV P24 Antigen Negative 09/18/18 07:00 lab noted continue lactulose - Treatment Hospital Course: Detox Protocol Followed, Detoxed Safely, Responded well, Discharged Condition Good, Rehab Referral Accepted Patient has Accepted a Rehab Referral to: [facility] - Medication Discharge Medications: Ambulatory Orders Citalopram Hydrobromide [Celexa -] 20 mg PO DAILY #30 tablet 11/13/16 Quetiapine Fumarate [Seroquel -] 50 mg PO HS #30 tablet 11/13/16 Albuterol Sulfate Inhaler - [Ventolin HFA Inhaler -] 2 puff IH Q6H PRN #1 inhaler 09/21/18 Amlodipine Besylate [Norvasc -] 5 mg PO DAILY #30 tablet 09/21/18 Lactulose (Oral Use) [Cephulac -] 20 gm PO QID #1 udc 09/21/18 Phenytoin Na Extended [Dilantin -] 100 mg PO BID 15 Days #30 capsule 09/21/18 levoFLOXacin [Levaquin -] 500 mg PO 1100 #7 tablet 09/21/18 - Diagnosis (1) Alcohol dependence with uncomplicated withdrawal Status: Acute (2) Hyperammonemia Status: Acute (3) Substance induced mood disorder Status: Suspected (4) Weight loss Status: Acute (5) Asthma Status: Chronic Qualifiers: Asthma severity: mild Asthma persistence: intermittent Asthma complication type: uncomplicated Qualified Code(s): J45.20 - Mild intermittent asthma, uncomplicated (6) Hypertension Status: Chronic Qualifiers: Hypertension type: essential hypertension Qualified Code(s): I10 - Essential (primary) hypertension (7) Nicotine dependence Status: Acute Qualifiers: Nicotine product type: cigarettes Substance use status: in withdrawal Qualified Code(s): F17.213 - Nicotine dependence, cigarettes, with withdrawal (8) Seizure Status: Chronic - AMA Did Patient Leave Against Medical Advice: No
== END 2018-09-21 09:09 | disposition home or self-care (01) | DRG 773 ==
LOC: YASAS 16:55 → Y3N 20:47
PROC: HZ2ZZZZ Detoxification Services for Substance Abuse Treatment (ICD-10-PCS; principal; 2018-09-17)
DX: F10.230 Alcohol dependence with withdrawal, uncomplicated (principal); F11.20 Opioid dependence, uncomplicated; F12.20 Cannabis dependence, uncomplicated; F17.213 Nicotine dependence, cigarettes, with withdrawal; F19.24 Other psychoactive substance dependence with psychoactive substance-induced mood disorder; I10 Essential (primary) hypertension; J45.20 Mild intermittent asthma, uncomplicated; E87.6 Hypokalemia; E72.20 Disorder of urea cycle metabolism, unspecified; J02.9 Acute pharyngitis, unspecified; D69.6 Thrombocytopenia, unspecified; M54.5 Low back pain; R63.8 Other symptoms and signs concerning food and fluid intake; Z86.69 Personal history of other diseases of the nervous system and sense organs; Z88.0 Allergy status to penicillin
CPT/HCPCS: 36415; 80048; 80053; 81003; 81015; 82140; 84132; 85027; 86593; 87086; 87389

== ENCOUNTER 2018-11-02 15:41 | Inpatient (IN) | payer OTHER ==
[2018-11-02 16:56] VITALS: BMI 21.6
--- NOTE | 2018-11-02 20:04 | HP ---
CIWA Score Nausea/Vomitin Muscle Tremors: 3 Anxiety: 2 Agitation: 2 Paroxysmal Sweats: 2 Orientation: 0-Oriented Tacttile Disturbances: 1-Very Mild Itch/Numbness Auditory Disturbances: 2-Mild Harshness/Frighten Visual Disturbances: 2-Mild Sensitivity Headache: 2-Mild CIWA-Ar Total Score: 18 - Admission Criteria OASAS Guidelines: Admission for Medically Managed Detox: Requires at least one of the followin. CIWA greater than 12 2. Seizures within the past 24 hours 3. Delirium tremens within the past 24 hours 4. Hallucinations within the past 24 hours 5. Acute intervention needed for co occurring medical disorder 6. Acute intervention needed for co occurring psychiatric disorder 7. Severe withdrawal that cannot be handled at a lower level of care (continued vomiting, continued diarrhea, abnormal vital signs) requiring intravenous medication and/or fluids 8. Admission ROS [facility] - HPI Chief Complaint: DEPENDENT ON ETOH ONLY ON 80 MGS. OF MMTP - LAST DOSE THIS AM Allergies/Adverse Reactions: Allergies Allergy/AdvReac Type Severity Reaction Status Date / Time No Known Allergies Allergy Verified 11/02/18 18:04 History of Present Illness: THE PT. IS REQUESTING ADMISSION TO THE DETOX UNIT AND CAME FOR H AND PE Exam Limitations: No Limitations - Ebola screening Have you traveled outside of the country in the last 21 days: No Have you had contact with anyone from an Ebola affected area: No Have you been sick,other than usual withdrawal symptoms: No Do you have a fever: No - Review of Systems Constitutional: See HPI, Loss of Appetite, Malaise, Weakness, Unintentional Wgt. Loss EENT: reports: See HPI Respiratory: reports: See HPI Cardiac: reports: See HPI GI: reports: See HPI, Nausea, Poor Appetite, Indigestion, Abdominal cramping : reports: See HPI Musculoskeletal: reports: See HPI, Muscle Pain, Muscle Weakness Integumentary: reports: See HPI, Sweating Neuro: reports: See HPI, Headache, Tremors, Weakness Endocrine: reports: See HPI Hematology: reports: See HPI Psychiatric: reports: Judgement Intact, Orientated x3, Anxious, Depressed Patient History - Patient Medical History Hx Anemia: No Hx Asthma: Yes Hx Chronic Obstructive Pulmonary Disease (COPD): No Hx Cancer: No Hx Cardiac Disorders: No Hx Congestive Heart Failure: No Hx Hypertension: No Hx Hypercholesterolemia: No Hx Pacemaker: No HX Cerebrovascular Accident: No Hx Seizures: Yes (WITHDRAWAL SZ/ 4 MONTH AGO) Hx Dementia: No Hx Diabetes: No Hx Gastrointestinal Disorders: No Hx Liver Disease: No Hx Genitourinary Disorders: No Hx Sexually Transmitted Disorders: No Hx Renal Disease (ESRD): No Hx Thyroid Disease: No Hx Human Immunodeficiency Virus (HIV): No Hx Hepatitis C: No Hx Depression: Yes (AND ANXIETY) Hx Suicide Attempt: No Hx Bipolar Disorder: No Hx Schizophrenia: No - Patient Surgical History Past Surgical History: No Hx Neurologic Surgery: No Hx Cataract Extraction: No Hx Cardiac Surgery: No Hx Lung Surgery: No Hx Breast Surgery: No Hx Breast Biopsy: No Hx Abdominal Surgery: No Hx Appendectomy: No Hx Cholecystectomy: No Hx Genitourinary Surgery: No Hx Section: No Hx Orthopedic Surgery: No Anesthesia Reaction: No - PPD History Previous Implant?: Yes Documented Results: Negative w/proof Date: 01/03/18 Results: 0 mm - Smoking Cessation Smoking history: Current every day smoker Have you smoked in the past 12 months: Yes Aproximately how many cigarettes per day: 10 Cigars Per Day: 0 Hx Chewing Tobacco Use: No Initiated information on smoking cessation: Yes 'Breaking Loose' booklet given: 11/02/18 - Substance & Tx. History Hx Alcohol Use: Yes Hx Substance Use: No Substance Use Type: Alcohol - Substances Abused Alcohol Route: Oral Frequency: Daily Amount used: LIQUOR- 3 PINTS Age of first use: 13 Date of Last Use: 11/02/18 Family Disease History - Family Disease History Family Disease History: Heart Disease: Mother (/ ASTHMA), Other: Father (/ ALCOHOLISM), Mother Admission Physical Exam S - Vital Signs Vital Signs: Vital Signs - 24 hr 11/02/18 16:55 Temperature 96.9 F L Pulse Rate 80 Respiratory 18 Rate Blood Pressure 121/73 - Physical General Appearance: Yes: No Apparent Distress, Appropriately Dressed, Thin, Tremorous, Sweating, Anxious HEENTM: Yes: Hearing grossly Normal, Normocephalic, Normal Voice, ROBERTO, Pharynx Normal Respiratory: Yes: Chest Non-Tender, Lungs Clear, Normal Breath Sounds, No Respiratory Distress, No Accessory Muscle Use Neck: Yes: No masses,lesions,Nodules, Supple, Trachea in good position Breast: Yes: Breast Exam Deferred, Axillae without masses Cardiology: Yes: Regular Rhythm, Regular Rate, S1, S2 Abdominal: Yes: Normal Bowel Sounds, Non Tender, Flat, Soft Back: Yes: Normal Inspection Musculoskeletal: Yes: full range of Motion, Gait Steady, Pelvis Stable, Muscle Pain, Muscle weakness Extremities: Yes: Normal Capillary Refill, Normal Range of Motion, Non-Tender, Tremors Neurological: Yes: Fully Oriented, Alert, Motor Strength 5/5, Normal Response, Depressed Affect Integumentary: Yes: Normal Color, Warm, Moist Lymphatic: Yes: Within Normal Limits - Diagnostic (1) Anxiety and depression Current Visit: Yes Status: Chronic (2) Alcohol dependence with uncomplicated withdrawal Current Visit: No Status: Chronic (3) Anxiety and depression Current Visit: No Status: Chronic (4) Nicotine dependence Current Visit: No Status: Acute Qualifiers: Nicotine product type: cigarettes Substance use status: in withdrawal Qualified Code(s): F17.213 - Nicotine dependence, cigarettes, with withdrawal (5) Asthma Current Visit: No Status: Chronic Qualifiers: Asthma severity: mild Asthma persistence: intermittent Asthma complication type: uncomplicated Qualified Code(s): J45.20 - Mild intermittent asthma, uncomplicated Cleared for Admission [facility] - Detox or Rehab [facility] Level of Care: Medically Supervised Detox Regimen/Protocol: Librium [facility] Breath Alcohol Content Breath Alcohol Content: 0.165 Urine Drug Screen - Results Drug Screen Negative: No Urine Drug Screen Results: THC-Marijuana, BZO-Benzodiazepines, MTD-Methadone Inpatient Rehab Admission - Rehab Decision to Admit Inpatient rehab admission?: No
[2018-11-02] MEDS ORDERED: IBUPROFEN 400 MG TABLET (FP) PO PRN (20:10)
[2018-11-02] MEDS ORDERED: chlordiazePOXIDE HCL 25 MG CAPSULE PO PRN (20:10)
[2018-11-02] MEDS ORDERED: LOPERAMIDE HCL 2 MG CAPSULE PO PRN (20:10)
[2018-11-02] MEDS ORDERED: P-EPHED 60MG/TRIPROLIDI 2.5MG TABLET PO PRN (20:10)
[2018-11-02] MEDS ORDERED: chlordiazePOXIDE HCL 25 MG CAPSULE PO ONE (20:10)
[2018-11-02] MEDS ORDERED: MAG HYDROX/AL HYDROX/SIMETH 30 ML UNIT-DOSE CUP PO PRN (20:10)
[2018-11-02] MEDS ORDERED: NICOTINE POLACRILEX 2 MG GUM BC PRN (20:10)
[2018-11-02] MEDS ORDERED: hydrOXYzine PAMOATE 50 MG CAPSULE (FP) PO PRN (20:10)
[2018-11-02] MEDS ORDERED: MAGNESIUM HYDROX 2400MG/30ML ORAL SUSPENSION 30 ML CUP PO PRN (20:10)
[2018-11-02] MEDS ORDERED: MENTHOL/PHENOL 1 EACH UD MM PRN (20:10)
[2018-11-02] MEDS ORDERED: guaiFENesin/D-METHORPHAN HB 10 ML UNIT-DOSE CUPS PO PRN (20:10)
[2018-11-02] MEDS ORDERED: ACETAMINOPHEN 325 MG TABLET (FP) PO PRN (20:10)
[2018-11-02] MEDS ORDERED: MAGNESIUM CITRATE 300 ML BOTTLE PO PRN (20:10)
[2018-11-02] MEDS ORDERED: ALBUTEROL SO4 2.5/IPRATROPIUM 0.5 INH SOL 3 ML VIAL.NEB. NEB PRN (20:14)
[2018-11-02] MEDS: THIAMINE HCL 100 MG TABLET (FP) PO SCH (21:59)
[2018-11-02] MEDS: chlordiazePOXIDE HCL 25 MG CAPSULE PO SCH (21:59)
[2018-11-02] MEDS ORDERED: MELATONIN 5 MG TABLETS PO PRN (22:00)
[2018-11-03] MEDS: chlordiazePOXIDE HCL 25 MG CAPSULE PO SCH ×4 (05:09→22:33)
[2018-11-03] MEDS: NICOTINE 14 MG/24 HOURS TOPICAL PATCH TD SCH (10:26)
[2018-11-03] MEDS: PRENATAL VITAMINS W/ FOLIC ACID TABLET (FP) PO SCH (10:26)
--- NOTE | 2018-11-03 10:44 | PN ---
S CIWA - CIWA Score Nausea/Vomitin-No Nausea/No Vomiting Muscle Tremors: 4-Moderate,w/Arms Extend Anxiety: 4-Mod. Anxious/Guarded Agitation: 4-Moderately Restless Paroxysmal Sweats: 3 Orientation: 0-Oriented Tacttile Disturbances: 0-None Auditory Disturbances: 0-None Visual Disturbances: 0-None Headache: 0-None Present CIWA-Ar Total Score: 15 BHS Progress Note (SOAP) Subjective: body aches sweats shakes interrupted sleep agitation Objective: 11/03/18 10:43 Vital Signs Temperature 98.1 F 11/03/18 09:53 Pulse Rate 58 L 11/03/18 09:53 Respiratory Rate 18 11/03/18 09:53 Blood Pressure 163/63 11/03/18 09:53 O2 Sat by Pulse Oximetry (%) labs pending aaox3 ambulating no acute distress Assessment: 11/03/18 10:44 withdrawal sx Plan: continue detox increase fluids
[2018-11-03 10:54] LABS: HEMATOCRIT 40.2 % (35.4-49); HEMOGLOBIN 13.8 GM/dL (11.7-16.9); MCH 36.5 pg (25.7-33.7); MCHC 34.2 g/dl (32.0-35.9); MEAN CELL VOLUME 106.8 fl (80-96); PLATELET COUNT 223 K/MM3 (134-434); RBC 3.77 M/mm3 (4.00-5.60); RDW 16.2 % (11.9-15.9); WHITE BLOOD COUNT 5.3 K/mm3 (4.0-10.0)
[2018-11-03 10:56] LABS: ALBUMIN 3.3 g/dl (3.4-5.0); ALK PHOS 90 U/L (45-117); ANION GAP 6 MMOL/L (8-16); BILIRUBIN,TOTAL 0.6 mg/dL (0.2-1); BLOOD UREA NITROGEN 10 mg/dL (7-18); CALCIUM 8.5 mg/dL (8.5-10.1); CHLORIDE 104 mmol/L (98-107); CO2 30 mmol/L (21-32); CREATININE 0.9 mg/dL (0.55-1.3); GLUCOSE,RANDOM 83 mg/dL (74-106); POTASSIUM 3.8 mmol/L (3.5-5.1); SGOT/AST 17 U/L (15-37); SGPT/ALT 16 U/L (13-61); SODIUM 140 mmol/L (136-145); TOT PROT 6.4 g/dl (6.4-8.2)
[2018-11-03] MEDS ORDERED: METHADONE HCL 40 MG DISPERSABLE TABLET PO ONE (11:30)
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
[2018-11-03] MEDS: THIAMINE HCL 100 MG TABLET (FP) PO SCH (22:34)
[2018-11-03] MEDS: QUEtiapine FUMARATE 50 MG TABLET PO SCH (22:34)
[2018-11-04] MEDS: chlordiazePOXIDE HCL 25 MG CAPSULE PO SCH ×3 (06:22→18:07)
[2018-11-04] MEDS: METHADONE HCL 40 MG DISPERSABLE TABLET PO SCH (06:22)
[2018-11-04] MEDS: PRENATAL VITAMINS W/ FOLIC ACID TABLET (FP) PO SCH (10:21)
[2018-11-04] MEDS: NICOTINE 14 MG/24 HOURS TOPICAL PATCH TD SCH (10:22)
[2018-11-04] MEDS: chlordiazePOXIDE 5 MG CAPSULE PO SCH (22:20)
[2018-11-04] MEDS: THIAMINE HCL 100 MG TABLET (FP) PO SCH (22:20)
[2018-11-04] MEDS: QUEtiapine FUMARATE 50 MG TABLET PO SCH (22:20)
[2018-11-05] MEDS: METHADONE HCL 40 MG DISPERSABLE TABLET PO SCH (05:39)
[2018-11-05] MEDS: chlordiazePOXIDE 5 MG CAPSULE PO SCH ×3 (05:40→17:02)
--- NOTE | 2018-11-05 09:13 | PN ---
S CIWA - CIWA Score Nausea/Vomitin-No Nausea/No Vomiting Muscle Tremors: 3 Anxiety: 2 Agitation: 2 Paroxysmal Sweats: 2 Orientation: 0-Oriented Tacttile Disturbances: 0-None Auditory Disturbances: 0-None Visual Disturbances: 0-None Headache: 0-None Present CIWA-Ar Total Score: 9 BHS Progress Note (SOAP) Subjective: interrupted sleep agitation Objective: 11/05/18 09:12 Vital Signs Temperature 97.7 F 11/05/18 07:03 Pulse Rate 67 11/05/18 07:03 Respiratory Rate 18 11/05/18 07:03 Blood Pressure 136/87 11/05/18 07:03 O2 Sat by Pulse Oximetry (%) aaox3 ambulating no acute distress Assessment: 11/05/18 09:12 mild withdrawal sx Plan: continue detox increase fluids melatonin/seroquel ordered d/c in am
[2018-11-05] MEDS: PRENATAL VITAMINS W/ FOLIC ACID TABLET (FP) PO SCH (10:54)
[2018-11-05] MEDS: NICOTINE 14 MG/24 HOURS TOPICAL PATCH TD SCH (10:54)
[2018-11-05] MEDS: QUEtiapine FUMARATE 50 MG TABLET PO SCH (22:25)
[2018-11-05] MEDS: THIAMINE HCL 100 MG TABLET (FP) PO SCH (22:25)
[2018-11-05] MEDS: chlordiazePOXIDE HCL 10 MG CAPSULE PO SCH (22:25)
[2018-11-06] MEDS: METHADONE HCL 40 MG DISPERSABLE TABLET PO SCH (05:14)
[2018-11-06] MEDS: chlordiazePOXIDE HCL 10 MG CAPSULE PO SCH ×2 (05:14→10:38)
[2018-11-06 09:22] VITALS: BP 132/97; PULSE 94; TEMP 98.2
--- NOTE | 2018-11-06 09:58 | DS ---
[facility] Detox Discharge Summary Admission Date: 11/02/18 Discharge Date: 11/06/18 - History Present History: Alcohol Dependence, Cannabis Dependence, Sedative Dependence, Pcp Dependence - Physical Exam Results Vital Signs: Vital Signs Temperature 98.2 F 11/06/18 09:21 Pulse Rate 94 H 11/06/18 09:21 Respiratory Rate 18 11/06/18 09:21 Blood Pressure 132/97 11/06/18 09:21 O2 Sat by Pulse Oximetry (%) - Treatment Hospital Course: Detox Protocol Followed, Detoxed Safely, Responded well, Discharged Condition Good, Rehab Referral Accepted - Medication Discharge Medications: Ambulatory Orders Citalopram Hydrobromide [Celexa -] 20 mg PO DAILY #30 tablet 11/13/16 Quetiapine Fumarate [Seroquel -] 50 mg PO HS #30 tablet 11/13/16 Albuterol Sulfate Inhaler - [Ventolin HFA Inhaler -] 2 puff IH Q6H PRN #1 inhaler 09/21/18 Amlodipine Besylate [Norvasc -] 5 mg PO DAILY #30 tablet 09/21/18 Lactulose (Oral Use) [Cephulac -] 20 gm PO QID #1 udc 09/21/18 Phenytoin Na Extended [Dilantin -] 100 mg PO BID 15 Days #30 capsule 09/21/18 Methadone [Dolophine -] 80 mg PO DAILY 11/02/18 - AMA Did Patient Leave Against Medical Advice: No (referred to [facility].)
[2018-11-06] MEDS: NICOTINE 14 MG/24 HOURS TOPICAL PATCH TD SCH (10:38)
[2018-11-06] MEDS: PRENATAL VITAMINS W/ FOLIC ACID TABLET (FP) PO SCH (10:38)
== END 2018-11-06 10:40 | disposition home or self-care (01) | DRG 775 ==
LOC: YASAS 15:41 → Y6N 20:13
PROVIDERS: ADMIT Surgery; ATTEND Surgery
PROC: HZ2ZZZZ Detoxification Services for Substance Abuse Treatment (ICD-10-PCS; principal; 2018-11-02)
DX: F10.230 Alcohol dependence with withdrawal, uncomplicated (principal); F13.230 Sedative, hypnotic or anxiolytic dependence with withdrawal, uncomplicated; F16.20 Hallucinogen dependence, uncomplicated; F17.210 Nicotine dependence, cigarettes, uncomplicated; F19.282 Other psychoactive substance dependence with psychoactive substance-induced sleep disorder; F19.24 Other psychoactive substance dependence with psychoactive substance-induced mood disorder; F41.8 Other specified anxiety disorders; F32.9 Major depressive disorder, single episode, unspecified; J45.20 Mild intermittent asthma, uncomplicated; Z86.69 Personal history of other diseases of the nervous system and sense organs
CPT/HCPCS: 36415; 80053; 85027; 86593

== ENCOUNTER 2018-12-23 16:29 | Inpatient (IN) | payer OTHER ==
--- NOTE | 2018-12-23 19:52 | HP ---
CIWA Score Nausea/Vomitin Muscle Tremors: 3 Anxiety: 2 Agitation: 2 Paroxysmal Sweats: 1-Minimal Palms Moist Orientation: 0-Oriented Tacttile Disturbances: 0-None Auditory Disturbances: 0-None Visual Disturbances: 0-None Headache: 2-Mild CIWA-Ar Total Score: 12 - Admission Criteria OASAS Guidelines: Admission for Medically Managed Detox: Requires at least one of the followin. CIWA greater than 12 2. Seizures within the past 24 hours 3. Delirium tremens within the past 24 hours 4. Hallucinations within the past 24 hours 5. Acute intervention needed for co occurring medical disorder 6. Acute intervention needed for co occurring psychiatric disorder 7. Severe withdrawal that cannot be handled at a lower level of care (continued vomiting, continued diarrhea, abnormal vital signs) requiring intravenous medication and/or fluids 8. Patient presents the following: CIWA greater than 12 Admission Criteria Met: Admission criteria met Admission ROS [facility] Chief Complaint: here for alcohol detox on MAT methadone 80mg Pt states he was hospitalized at [facility]- treated for pneumonia and then was told he had a spot in his lung and missed his f/u yesterday. alcohol- 3 pints/day of 99 bananas, last time used earlier today, no h/o seizures and DT's Utox- BZO- pt denies using, MTD pos Allergies/Adverse Reactions: Allergies Allergy/AdvReac Type Severity Reaction Status Date / Time No Known Allergies Allergy Verified 11/02/18 18:04 - Ebola screening Have you traveled outside of the country in the last 21 days: No (N) Have you had contact with anyone from an Ebola affected area: No Do you have a fever: No - Review of Systems Constitutional: No Symptoms Reported Patient History - Patient Medical History Hx Anemia: No Hx Asthma: Yes Hx Chronic Obstructive Pulmonary Disease (COPD): Yes (h/o pneumonia 10/2018, ? spot in lung) Hx Cancer: No Hx Cardiac Disorders: No Hx Congestive Heart Failure: No Hx Hypertension: No Hx Hypercholesterolemia: No Hx Pacemaker: No HX Cerebrovascular Accident: No Hx Seizures: Yes (WITHDRAWAL SZ/ 4 MONTH AGO) Hx Dementia: No Hx Diabetes: No Hx Gastrointestinal Disorders: No Hx Liver Disease: No Hx Genitourinary Disorders: No Hx Sexually Transmitted Disorders: No Hx Renal Disease (ESRD): No Hx Thyroid Disease: No Hx Human Immunodeficiency Virus (HIV): No Hx Hepatitis C: No Hx Depression: Yes (AND ANXIETY) Hx Suicide Attempt: No Hx Bipolar Disorder: No Hx Schizophrenia: No - Patient Surgical History Past Surgical History: No Hx Neurologic Surgery: No Hx Cataract Extraction: No Hx Cardiac Surgery: No Hx Lung Surgery: No Hx Breast Surgery: No Hx Breast Biopsy: No Hx Abdominal Surgery: No Hx Appendectomy: No Hx Cholecystectomy: No Hx Genitourinary Surgery: No Hx Section: No Hx Orthopedic Surgery: No Anesthesia Reaction: No - PPD History Date: 01/03/18 Results: 0 mm - Smoking Cessation Smoking history: Current every day smoker Have you smoked in the past 12 months: Yes Aproximately how many cigarettes per day: 10 Cigars Per Day: 0 Hx Chewing Tobacco Use: No Initiated information on smoking cessation: Yes 'Breaking Loose' booklet given: 12/23/18 - Substance & Tx. History Hx Alcohol Use: Yes Hx Substance Use: Yes Substance Use Type: Alcohol, Prescribed - Substances abused Alcohol Substance route: Oral Frequency: Daily Amount used: 3 pints Age of first use: 33 Date of last use: 12/23/18 Marijuana/Hashish Substance route: Smoking Frequency: 1-2 times per week Amount used: couple of it Age of first use: 11 Date of last use: 12/20/18 Family Disease History - Family Disease History Family Disease History: Heart Disease: Mother (/ ASTHMA), Other: Father (/ ALCOHOLISM), Mother Admission Physical Exam BHS - Vital Signs Vital Signs: Vital Signs - 24 hr 12/23/18 19:09 Temperature 98.0 F Pulse Rate 125 H Respiratory 16 Rate Blood Pressure 106/63 Breathalyzer - Breathalyzer Breathalyzer: 0.250 Urine Drug Screen - Test Device Lot number: [id number] Expiration date: 12/20/19 - Control Is test valid?: Yes - Results Drug screen NEGATIVE: No Urine drug screen results: MTD-Methadone, BZO-Benzodiazepines Inpatient Rehab Admission - Rehab Decision to Admit Inpatient rehab admission?: No
[2018-12-23] MEDS ORDERED: hydrOXYzine PAMOATE 25 MG CAPSULE (FP) PO PRN (19:53)
[2018-12-23] MEDS ORDERED: MAGNESIUM CITRATE 300 ML BOTTLE PO PRN (19:53)
[2018-12-23] MEDS ORDERED: MENTHOL/PHENOL 1 EACH UD MM PRN (19:53)
[2018-12-23] MEDS ORDERED: BISMUTH SUBSALICYLATE 524 MG/30 ML UD PO PRN (19:53)
[2018-12-23] MEDS ORDERED: MAGNESIUM HYDROX 2400MG/30ML ORAL SUSPENSION 30 ML CUP PO PRN (19:53)
[2018-12-23] MEDS ORDERED: IBUPROFEN 400 MG TABLET (FP) PO PRN (19:53)
[2018-12-23] MEDS ORDERED: METHOCARBAMOL 500 MG TABLET PO PRN (19:53)
[2018-12-23] MEDS ORDERED: MAG HYDROX/AL HYDROX/SIMETH 30 ML UNIT-DOSE CUP PO PRN (19:53)
[2018-12-23] MEDS ORDERED: ACETAMINOPHEN 325 MG TABLET (FP) PO PRN ×2 (19:53)
[2018-12-23] MEDS ORDERED: NICOTINE POLACRILEX 2 MG GUM BUC PRN (19:53)
[2018-12-23] MEDS ORDERED: chlordiazePOXIDE HCL 25 MG CAPSULE PO ONE (19:55)
[2018-12-23] MEDS ORDERED: chlordiazePOXIDE HCL 25 MG CAPSULE PO PRN (19:55)
[2018-12-23] MEDS: MELATONIN 5 MG TABLETS PO PRN (22:34)
[2018-12-23] MEDS: chlordiazePOXIDE HCL 25 MG CAPSULE PO SCH (22:34)
[2018-12-23] MEDS: THIAMINE HCL 100 MG TABLET (FP) PO SCH (22:40)
[2018-12-24 00:43] LABS: URINE APPEARANCE TURBID; URINE BILIRUBIN NEGATIVE (NEGATIVE); URINE COLOR YELLOW; URINE GLUCOSE (UA) NEGATIVE (NEGATIVE); URINE KETONE NEGATIVE (NEGATIVE); URINE LEUK ESTERASE NEGATIVE (NEGATIVE); URINE NITRITE NEGATIVE (NEGATIVE); URINE PROTEIN NEGATIVE (NEGATIVE); URINE UROBILINOGEN 0.2 mg/dL (0.2-1.0)
[2018-12-24] MEDS: chlordiazePOXIDE HCL 25 MG CAPSULE PO SCH ×4 (05:16→22:19)
[2018-12-24 10:19] LABS: HEMATOCRIT 38.7 % (35.4-49); HEMOGLOBIN 12.8 GM/dL (11.7-16.9); MCH 34.8 pg (25.7-33.7); MCHC 33.1 g/dl (32.0-35.9); MEAN CELL VOLUME 105.3 fl (80-96); MEAN PLT VOLUME 7.7 fl (7.5-11.1); PLATELET COUNT 299 K/MM3 (134-434); RBC 3.67 M/mm3 (4.00-5.60); RDW 14.8 % (11.9-15.9); WHITE BLOOD COUNT 4.5 K/mm3 (4.0-10.0)
[2018-12-24] MEDS: PRENATAL VITAMINS W/ FOLIC ACID TABLET (FP) PO SCH (10:19)
[2018-12-24] MEDS: METHADONE HCL 40 MG DISPERSABLE TABLET PO SCH (10:20)
[2018-12-24] MEDS: NICOTINE 21 MG/24 HOURS TOPICAL PATCH TD SCH (10:22)
[2018-12-24 10:30] LABS: ALBUMIN 3.2 g/dl (3.4-5.0); ALK PHOS 84 U/L (45-117); ANION GAP 8 MMOL/L (8-16); BILIRUBIN,TOTAL 0.4 mg/dL (0.2-1); BLOOD UREA NITROGEN 6 mg/dL (7-18); CALCIUM 8.9 mg/dL (8.5-10.1); CHLORIDE 104 mmol/L (98-107); CO2 31 mmol/L (21-32); CREATININE 0.8 mg/dL (0.55-1.3); GLUCOSE,RANDOM 75 mg/dL (74-106); SGOT/AST 23 U/L (15-37); SGPT/ALT 15 U/L (13-61); SODIUM 143 mmol/L (136-145); TOT PROT 6.4 g/dl (6.4-8.2)
[2018-12-24] MEDS ORDERED: ALBUTEROL SO4 8 GM HFA INHALER IH ONE (12:34)
[2018-12-24] MEDS: ALBUTEROL SO4 8 GM HFA INHALER IH PRN ×2 (12:45→18:34)
--- NOTE | 2018-12-24 17:01 | PN ---
[facility] CIWA - CIWA Score Nausea/Vomitin-No Nausea/No Vomiting Muscle Tremors: 3 Anxiety: 3 Agitation: 0-Normal Activity Paroxysmal Sweats: 3 Orientation: 0-Oriented Tacttile Disturbances: 2-Mild Itch/Numbness/Burn Auditory Disturbances: 2-Mild Harshness/Frighten Visual Disturbances: 0-None Headache: 0-None Present CIWA-Ar Total Score: 13 BHS Progress Note (SOAP) Subjective: Tremors, Sweating, Interrupted Sleep. Objective: PATIENT A & O X 3, OBSERVED AMBULATING ON UNIT. IN NO ACUTE DISTRESS. PATIENT REPORTS THAT HIS BP ONLY TENDS TO SOMETIMES BE ELEVATED AT TIMES IN WHICH HE IS IN WITHDRAWAL. 12/24/18 16:59 Vital Signs Temperature 97.6 F 12/24/18 13:49 Pulse Rate 68 12/24/18 13:49 Respiratory Rate 18 12/24/18 13:49 Blood Pressure 155/92 12/24/18 13:49 O2 Sat by Pulse Oximetry (%) Laboratory Tests 12/23/18 12/24/18 12/24/18 22:50 07:00 07:00 WBC 4.5 RBC 3.67 L Hgb 12.8 Hct 38.7 MCV 105.3 H MCH 34.8 H MCHC 33.1 RDW 14.8 Plt Count 299 D MPV 7.7 Sodium 143 Potassium 4.0 Chloride 104 Carbon Dioxide 31 Anion Gap 8 BUN 6 L Creatinine 0.8 Creat Clearance w eGFR 100.36 Random Glucose 75 Calcium 8.9 Total Bilirubin 0.4 AST 23 ALT 15 Alkaline Phosphatase 84 Total Protein 6.4 Albumin 3.2 L Urine Color Yellow Urine Appearance Turbid Urine pH 5.0 Ur Specific [place] 1.016 Urine Protein Negative Urine Glucose (UA) Negative Urine Ketones Negative Urine Blood Negative Urine Nitrite Negative Urine Bilirubin Negative Urine Urobilinogen 0.2 Ur Leukocyte Esterase Negative RPR Titer 12/24/18 07:00 WBC RBC Hgb Hct MCV MCH MCHC RDW Plt Count MPV Sodium Potassium Chloride Carbon Dioxide Anion Gap BUN Creatinine Creat Clearance w eGFR Random Glucose Calcium Total Bilirubin AST ALT Alkaline Phosphatase Total Protein Albumin Urine Color Urine Appearance Urine pH Ur Specific Paul Urine Protein Urine Glucose (UA) Urine Ketones Urine Blood Urine Nitrite Urine Bilirubin Urine Urobilinogen Ur Leukocyte Esterase RPR Titer Nonreactive LABS NOTED. 12/24/18 17:02 Assessment: 12/24/18 16:59 WITHDRAWAL SYMPTOMS. ELEVATED BLOOD PRESSURE. 12/24/18 17:01 Plan: CONTINUE DETOX. AMLODIPINE, 5 MG PO DAILY ORDERED (RECONCILED FROM HOME MEDICATION LIST).
[2018-12-24] MEDS: amLODIPine BESYLATE 5 MG TABLET (FP) PO SCH (18:10)
[2018-12-24] MEDS: THIAMINE HCL 100 MG TABLET (FP) PO SCH (22:19)
[2018-12-24] MEDS: MELATONIN 5 MG TABLETS PO PRN (22:19)
[2018-12-25] MEDS: METHADONE HCL 40 MG DISPERSABLE TABLET PO SCH (05:19)
[2018-12-25] MEDS: chlordiazePOXIDE HCL 25 MG CAPSULE PO SCH ×3 (05:20→17:43)
[2018-12-25] MEDS: amLODIPine BESYLATE 5 MG TABLET (FP) PO SCH (10:31)
[2018-12-25] MEDS: NICOTINE 21 MG/24 HOURS TOPICAL PATCH TD SCH (10:31)
[2018-12-25] MEDS: PRENATAL VITAMINS W/ FOLIC ACID TABLET (FP) PO SCH (10:31)
--- NOTE | 2018-12-25 12:55 | PN ---
S CIWA - CIWA Score Nausea/Vomitin Muscle Tremors: 2 Anxiety: 2 Agitation: 2 Paroxysmal Sweats: 2 Orientation: 0-Oriented Tacttile Disturbances: 1-Very Mild Itch/Numbness Auditory Disturbances: 1-Very Mild Visual Disturbances: 0-None Headache: 2-Mild CIWA-Ar Total Score: 14 S Progress Note (SOAP) Subjective: alert,irritable,anxious,interrupted sleep,pain in the boy,tremor Objective: 12/25/18 12:53 Vital Signs Temperature 97.4 F L 12/25/18 10:18 Pulse Rate 66 12/25/18 10:18 Respiratory Rate 16 12/25/18 10:18 Blood Pressure 137/86 12/25/18 10:18 O2 Sat by Pulse Oximetry (%) Laboratory Last Values WBC 4.5 K/mm3 (4.0-10.0) 12/24/18 07:00 RBC 3.67 M/mm3 (4.00-5.60) L 12/24/18 07:00 Hgb 12.8 GM/dL (11.7-16.9) 12/24/18 07:00 Hct 38.7 % (35.4-49) 12/24/18 07:00 MCV 105.3 fl (80-96) H 12/24/18 07:00 MCH 34.8 pg (25.7-33.7) H 12/24/18 07:00 MCHC 33.1 g/dl (32.0-35.9) 12/24/18 07:00 RDW 14.8 % (11.9-15.9) 12/24/18 07:00 Plt Count 299 K/MM3 (134-434) D 12/24/18 07:00 MPV 7.7 fl (7.5-11.1) 12/24/18 07:00 Sodium 143 mmol/L (136-145) 12/24/18 07:00 Potassium 4.0 mmol/L (3.5-5.1) 12/24/18 07:00 Chloride 104 mmol/L (98-107) 12/24/18 07:00 Carbon Dioxide 31 mmol/L (21-32) 12/24/18 07:00 Anion Gap 8 MMOL/L (8-16) 12/24/18 07:00 BUN 6 mg/dL (7-18) L 12/24/18 07:00 Creatinine 0.8 mg/dL (0.55-1.3) 12/24/18 07:00 Creat Clearance w eGFR 100.36 (>60) 12/24/18 07:00 Random Glucose 75 mg/dL (74-106) 12/24/18 07:00 Calcium 8.9 mg/dL (8.5-10.1) 12/24/18 07:00 Total Bilirubin 0.4 mg/dL (0.2-1) 12/24/18 07:00 AST 23 U/L (15-37) 12/24/18 07:00 ALT 15 U/L (13-61) 12/24/18 07:00 Alkaline Phosphatase 84 U/L (45-117) 12/24/18 07:00 Total Protein 6.4 g/dl (6.4-8.2) 12/24/18 07:00 Albumin 3.2 g/dl (3.4-5.0) L 12/24/18 07:00 Urine Color Yellow 12/23/18 22:50 Urine Appearance Turbid 12/23/18 22:50 Urine pH 5.0 (5.0-8.0) 12/23/18 22:50 Ur Specific [place] 1.016 (1.010-1.035) 12/23/18 22:50 Urine Protein Negative (NEGATIVE) 12/23/18 22:50 Urine Glucose (UA) Negative (NEGATIVE) 12/23/18 22:50 Urine Ketones Negative (NEGATIVE) 12/23/18 22:50 Urine Blood Negative (NEGATIVE) 12/23/18 22:50 Urine Nitrite Negative (NEGATIVE) 12/23/18 22:50 Urine Bilirubin Negative (NEGATIVE) 12/23/18 22:50 Urine Urobilinogen 0.2 mg/dL (0.2-1.0) 12/23/18 22:50 Ur Leukocyte Esterase Negative (NEGATIVE) 12/23/18 22:50 RPR Titer Nonreactive (NONREACTIVE) 12/24/18 07:00 Assessment: 12/25/18 12:54 withdrawal symptom Plan: continue detox
[2018-12-25] MEDS: THIAMINE HCL 100 MG TABLET (FP) PO SCH (22:26)
[2018-12-25] MEDS: chlordiazePOXIDE HCL 10 MG CAPSULE PO SCH (22:26)
[2018-12-25] MEDS ORDERED: chlordiazePOXIDE HCL 10 MG CAPSULE PO PRN (23:00)
[2018-12-26] MEDS: METHADONE HCL 40 MG DISPERSABLE TABLET PO SCH (05:41)
[2018-12-26] MEDS: chlordiazePOXIDE HCL 10 MG CAPSULE PO SCH ×4 (05:42→22:27)
[2018-12-26] MEDS: ALBUTEROL SO4 8 GM HFA INHALER IH PRN (08:54)
[2018-12-26] MEDS: PRENATAL VITAMINS W/ FOLIC ACID TABLET (FP) PO SCH (10:18)
[2018-12-26] MEDS: amLODIPine BESYLATE 5 MG TABLET (FP) PO SCH (10:18)
[2018-12-26] MEDS: NICOTINE 21 MG/24 HOURS TOPICAL PATCH TD SCH (10:19)
[2018-12-26] MEDS: BUDESONIDE/FORMETEROL FUMARATE 160/4.5 mcg INHALER IH SCH ×2 (11:18→22:27)
--- NOTE | 2018-12-26 14:04 | PN ---
BHS Progress Note (SOAP) Subjective: Anxious, Interrupted Sleep, Tremors. Objective: PATIENT A & O X 3, OBSERVED AMBULATING ON UNIT. IN NO ACUTE DISTRESS. 12/26/18 14:04 Vital Signs Temperature 97 F L 12/26/18 13:20 Pulse Rate 77 12/26/18 13:20 Respiratory Rate 18 12/26/18 13:20 Blood Pressure 131/83 12/26/18 13:20 O2 Sat by Pulse Oximetry (%) Laboratory Tests 12/23/18 12/24/18 12/24/18 22:50 07:00 07:00 WBC 4.5 RBC 3.67 L Hgb 12.8 Hct 38.7 MCV 105.3 H MCH 34.8 H MCHC 33.1 RDW 14.8 Plt Count 299 D MPV 7.7 Sodium 143 Potassium 4.0 Chloride 104 Carbon Dioxide 31 Anion Gap 8 BUN 6 L Creatinine 0.8 Creat Clearance w eGFR 100.36 Random Glucose 75 Calcium 8.9 Total Bilirubin 0.4 AST 23 ALT 15 Alkaline Phosphatase 84 Total Protein 6.4 Albumin 3.2 L Urine Color Yellow Urine Appearance Turbid Urine pH 5.0 Ur Specific [place] 1.016 Urine Protein Negative Urine Glucose (UA) Negative Urine Ketones Negative Urine Blood Negative Urine Nitrite Negative Urine Bilirubin Negative Urine Urobilinogen 0.2 Ur Leukocyte Esterase Negative RPR Titer 12/24/18 07:00 WBC RBC Hgb Hct MCV MCH MCHC RDW Plt Count MPV Sodium Potassium Chloride Carbon Dioxide Anion Gap BUN Creatinine Creat Clearance w eGFR Random Glucose Calcium Total Bilirubin AST ALT Alkaline Phosphatase Total Protein Albumin Urine Color Urine Appearance Urine pH Ur Specific [place] Urine Protein Urine Glucose (UA) Urine Ketones Urine Blood Urine Nitrite Urine Bilirubin Urine Urobilinogen Ur Leukocyte Esterase RPR Titer Nonreactive LABS NOTED. Assessment: 12/26/18 14:05 WITHDRAWAL SYMPTOMS. Plan: CONTINUE DETOX.
[2018-12-26] MEDS: THIAMINE HCL 100 MG TABLET (FP) PO SCH (22:27)
[2018-12-26] MEDS: MONTELUKAST NA 10 MG TABLET PO SCH (22:27)
[2018-12-27] MEDS: METHADONE HCL 40 MG DISPERSABLE TABLET PO SCH (05:34)
[2018-12-27] MEDS: amLODIPine BESYLATE 5 MG TABLET (FP) PO SCH (10:05)
[2018-12-27] MEDS: NICOTINE 21 MG/24 HOURS TOPICAL PATCH TD SCH (10:05)
[2018-12-27] MEDS: chlordiazePOXIDE HCL 10 MG CAPSULE PO SCH ×2 (10:05→22:13)
[2018-12-27] MEDS: BUDESONIDE/FORMETEROL FUMARATE 160/4.5 mcg INHALER IH SCH ×2 (10:05→22:15)
[2018-12-27] MEDS: PRENATAL VITAMINS W/ FOLIC ACID TABLET (FP) PO SCH (10:05)
--- NOTE | 2018-12-27 10:07 | DS ---
[facility] Detox Discharge Summary Admission Date: 12/23/18 Discharge Date: 12/27/18 - History Present History: Alcohol Dependence Additional Comments: 53 years old male admitted on 12/23/18 for alcohol withdrawal stabilization completed alcohol detox regimen aftercare return to methadone maintenance program Pertinent Past History: keep medication list in wallet bring in medication list and lab report to follow up appointment medication adherence patient received 30 days medications filled on 12/15/18 - Physical Exam Results Vital Signs: Vital Signs Temperature 96.4 F L 12/27/18 09:42 Pulse Rate 84 12/27/18 09:42 Respiratory Rate 18 12/27/18 09:42 Blood Pressure 108/72 12/27/18 09:42 O2 Sat by Pulse Oximetry (%) Pertinent Admission Physical Exam Findings: alcohol withdrawal sx Laboratory Last Values WBC 4.5 K/mm3 (4.0-10.0) 12/24/18 07:00 RBC 3.67 M/mm3 (4.00-5.60) L 12/24/18 07:00 Hgb 12.8 GM/dL (11.7-16.9) 12/24/18 07:00 Hct 38.7 % (35.4-49) 12/24/18 07:00 MCV 105.3 fl (80-96) H 12/24/18 07:00 MCH 34.8 pg (25.7-33.7) H 12/24/18 07:00 MCHC 33.1 g/dl (32.0-35.9) 12/24/18 07:00 RDW 14.8 % (11.9-15.9) 12/24/18 07:00 Plt Count 299 K/MM3 (134-434) D 12/24/18 07:00 MPV 7.7 fl (7.5-11.1) 12/24/18 07:00 Sodium 143 mmol/L (136-145) 12/24/18 07:00 Potassium 4.0 mmol/L (3.5-5.1) 12/24/18 07:00 Chloride 104 mmol/L (98-107) 12/24/18 07:00 Carbon Dioxide 31 mmol/L (21-32) 12/24/18 07:00 Anion Gap 8 MMOL/L (8-16) 12/24/18 07:00 BUN 6 mg/dL (7-18) L 12/24/18 07:00 Creatinine 0.8 mg/dL (0.55-1.3) 12/24/18 07:00 Creat Clearance w eGFR 100.36 (>60) 12/24/18 07:00 Random Glucose 75 mg/dL (74-106) 12/24/18 07:00 Calcium 8.9 mg/dL (8.5-10.1) 12/24/18 07:00 Total Bilirubin 0.4 mg/dL (0.2-1) 12/24/18 07:00 AST 23 U/L (15-37) 12/24/18 07:00 ALT 15 U/L (13-61) 12/24/18 07:00 Alkaline Phosphatase 84 U/L (45-117) 12/24/18 07:00 Total Protein 6.4 g/dl (6.4-8.2) 12/24/18 07:00 Albumin 3.2 g/dl (3.4-5.0) L 12/24/18 07:00 Urine Color Yellow 12/23/18 22:50 Urine Appearance Turbid 12/23/18 22:50 Urine pH 5.0 (5.0-8.0) 12/23/18 22:50 Ur Specific [place] 1.016 (1.010-1.035) 12/23/18 22:50 Urine Protein Negative (NEGATIVE) 12/23/18 22:50 Urine Glucose (UA) Negative (NEGATIVE) 12/23/18 22:50 Urine Ketones Negative (NEGATIVE) 12/23/18 22:50 Urine Blood Negative (NEGATIVE) 12/23/18 22:50 Urine Nitrite Negative (NEGATIVE) 12/23/18 22:50 Urine Bilirubin Negative (NEGATIVE) 12/23/18 22:50 Urine Urobilinogen 0.2 mg/dL (0.2-1.0) 12/23/18 22:50 Ur Leukocyte Esterase Negative (NEGATIVE) 12/23/18 22:50 RPR Titer Nonreactive (NONREACTIVE) 12/24/18 07:00 lab noted patient had ammonia elevation on 08/2018 treated with lactulose patient agrees to return to his methadone program for follow up - Treatment Hospital Course: Detox Protocol Followed, Detoxed Safely, Responded well, Discharged Condition Good, Rehab Referral Accepted Patient has Accepted a Rehab Referral to: methadone maintenance treatment program - Medication Discharge Medications: Ambulatory Orders Citalopram Hydrobromide [Celexa -] 20 mg PO DAILY #30 tablet 11/13/16 Quetiapine Fumarate [Seroquel -] 50 mg PO HS #30 tablet 11/13/16 Methadone [Dolophine -] 80 mg PO DAILY 11/02/18 Albuterol Sulfate Inhaler - [Ventolin HFA Inhaler -] 2 puff IH Q6H PRN #1 inhaler 12/27/18 Amlodipine Besylate [Norvasc -] 5 mg PO DAILY #30 tablet 12/27/18 Budesonide/Formeterol Fumarate [SYMBICORT 160/4.5mcg -] 2 puff IH BID #1 inhaler 12/27/18 Lactulose (Oral Use) [Cephulac -] 20 gm PO QID #1 udc 12/27/18 Montelukast Sodium [Singulair] 10 mg PO HS #30 tablet 12/27/18 Phenytoin Na Extended [Dilantin -] 100 mg PO BID 15 Days #30 capsule 12/27/18 - Diagnosis (1) Alcohol dependence with uncomplicated withdrawal Current Visit: Yes Status: Acute (2) Hyperammonemia Current Visit: Yes Status: Chronic (3) Nicotine dependence Current Visit: Yes Status: Acute Qualifiers: Nicotine product type: cigarettes Substance use status: in withdrawal Qualified Code(s): F17.213 - Nicotine dependence, cigarettes, with withdrawal (4) Weight loss Current Visit: Yes Status: Acute (5) Asthma Current Visit: Yes Status: Chronic Qualifiers: Asthma severity: mild Asthma persistence: intermittent Asthma complication type: uncomplicated Qualified Code(s): J45.20 - Mild intermittent asthma, uncomplicated (6) COPD (chronic obstructive pulmonary disease) Current Visit: Yes Status: Chronic Qualifiers: COPD type: emphysema (7) Hypertension Current Visit: Yes Status: Chronic Qualifiers: Hypertension type: essential hypertension Qualified Code(s): I10 - Essential (primary) hypertension (8) Seizure Current Visit: Yes Status: Chronic - AMA Did Patient Leave Against Medical Advice: No
[2018-12-27] MEDS: ALBUTEROL SO4 8 GM HFA INHALER IH PRN (21:25)
[2018-12-27] MEDS: THIAMINE HCL 100 MG TABLET (FP) PO SCH (22:13)
[2018-12-27] MEDS: MONTELUKAST NA 10 MG TABLET PO SCH (22:13)
[2018-12-27] MEDS: MELATONIN 5 MG TABLETS PO PRN (22:14)
[2018-12-28] MEDS: METHADONE HCL 40 MG DISPERSABLE TABLET PO SCH (05:36)
[2018-12-28] MEDS: ALBUTEROL SO4 8 GM HFA INHALER IH PRN ×2 (05:37→08:46)
[2018-12-28 06:38] VITALS: BP 119/79; PULSE 82; TEMP 97.1
[2018-12-28] MEDS: amLODIPine BESYLATE 5 MG TABLET (FP) PO SCH (09:36)
[2018-12-28] MEDS: BUDESONIDE/FORMETEROL FUMARATE 160/4.5 mcg INHALER IH SCH (09:36)
[2018-12-28] MEDS: PRENATAL VITAMINS W/ FOLIC ACID TABLET (FP) PO SCH (09:36)
[2018-12-28] MEDS: NICOTINE 21 MG/24 HOURS TOPICAL PATCH TD SCH (09:37)
--- NOTE | 2018-12-28 11:54 | DS ---
[facility] Detox Discharge Summary Admission Date: 12/23/18 Discharge Date: 12/28/18 - History Present History: Alcohol Dependence Additional Comments: discharge date has been change to 12/28/18 at 1800 on 12/27/18 Pertinent Past History: see 12/27/18 discharge summary - Physical Exam Results Vital Signs: Vital Signs Temperature 97.1 F L 12/28/18 06:38 Pulse Rate 82 12/28/18 06:38 Respiratory Rate 16 12/28/18 06:38 Blood Pressure 119/79 12/28/18 06:38 O2 Sat by Pulse Oximetry (%) Pertinent Admission Physical Exam Findings: Laboratory Last Values WBC 4.5 K/mm3 (4.0-10.0) 12/24/18 07:00 RBC 3.67 M/mm3 (4.00-5.60) L 12/24/18 07:00 Hgb 12.8 GM/dL (11.7-16.9) 12/24/18 07:00 Hct 38.7 % (35.4-49) 12/24/18 07:00 MCV 105.3 fl (80-96) H 12/24/18 07:00 MCH 34.8 pg (25.7-33.7) H 12/24/18 07:00 MCHC 33.1 g/dl (32.0-35.9) 12/24/18 07:00 RDW 14.8 % (11.9-15.9) 12/24/18 07:00 Plt Count 299 K/MM3 (134-434) D 12/24/18 07:00 MPV 7.7 fl (7.5-11.1) 12/24/18 07:00 Sodium 143 mmol/L (136-145) 12/24/18 07:00 Potassium 4.0 mmol/L (3.5-5.1) 12/24/18 07:00 Chloride 104 mmol/L (98-107) 12/24/18 07:00 Carbon Dioxide 31 mmol/L (21-32) 12/24/18 07:00 Anion Gap 8 MMOL/L (8-16) 12/24/18 07:00 BUN 6 mg/dL (7-18) L 12/24/18 07:00 Creatinine 0.8 mg/dL (0.55-1.3) 12/24/18 07:00 Creat Clearance w eGFR 100.36 (>60) 12/24/18 07:00 Random Glucose 75 mg/dL (74-106) 12/24/18 07:00 Calcium 8.9 mg/dL (8.5-10.1) 12/24/18 07:00 Total Bilirubin 0.4 mg/dL (0.2-1) 12/24/18 07:00 AST 23 U/L (15-37) 12/24/18 07:00 ALT 15 U/L (13-61) 12/24/18 07:00 Alkaline Phosphatase 84 U/L (45-117) 12/24/18 07:00 Total Protein 6.4 g/dl (6.4-8.2) 12/24/18 07:00 Albumin 3.2 g/dl (3.4-5.0) L 12/24/18 07:00 Urine Color Yellow 12/23/18 22:50 Urine Appearance Turbid 12/23/18 22:50 Urine pH 5.0 (5.0-8.0) 12/23/18 22:50 Ur Specific Burden 1.016 (1.010-1.035) 12/23/18 22:50 Urine Protein Negative (NEGATIVE) 12/23/18 22:50 Urine Glucose (UA) Negative (NEGATIVE) 12/23/18 22:50 Urine Ketones Negative (NEGATIVE) 12/23/18 22:50 Urine Blood Negative (NEGATIVE) 12/23/18 22:50 Urine Nitrite Negative (NEGATIVE) 12/23/18 22:50 Urine Bilirubin Negative (NEGATIVE) 12/23/18 22:50 Urine Urobilinogen 0.2 mg/dL (0.2-1.0) 12/23/18 22:50 Ur Leukocyte Esterase Negative (NEGATIVE) 12/23/18 22:50 RPR Titer Nonreactive (NONREACTIVE) 12/24/18 07:00 - Treatment Hospital Course: Detox Protocol Followed, Detoxed Safely, Responded well, Discharged Condition Good, Rehab Referral Accepted - Medication Discharge Medications: Ambulatory Orders Citalopram Hydrobromide [Celexa -] 20 mg PO DAILY #30 tablet 11/13/16 Quetiapine Fumarate [Seroquel -] 50 mg PO HS #30 tablet 11/13/16 Methadone [Dolophine -] 80 mg PO DAILY 11/02/18 Albuterol Sulfate Inhaler - [Ventolin HFA Inhaler -] 2 puff IH Q6H PRN #1 inhaler 12/27/18 Amlodipine Besylate [Norvasc -] 5 mg PO DAILY #30 tablet 12/27/18 Budesonide/Formeterol Fumarate [SYMBICORT 160/4.5mcg -] 2 puff IH BID #1 inhaler 12/27/18 Lactulose (Oral Use) [Cephulac -] 20 gm PO QID #1 udc 12/27/18 Montelukast Sodium [Singulair] 10 mg PO HS #30 tablet 12/27/18 Phenytoin Na Extended [Dilantin -] 100 mg PO BID 15 Days #30 capsule 12/27/18 - Diagnosis (1) Alcohol dependence with uncomplicated withdrawal Status: Acute (2) Hyperammonemia Status: Chronic (3) Nicotine dependence Status: Acute Qualifiers: Nicotine product type: cigarettes Substance use status: in withdrawal Qualified Code(s): F17.213 - Nicotine dependence, cigarettes, with withdrawal (4) Weight loss Status: Acute (5) Asthma Status: Chronic Qualifiers: Asthma severity: mild Asthma persistence: intermittent Asthma complication type: uncomplicated Qualified Code(s): J45.20 - Mild intermittent asthma, uncomplicated (6) COPD (chronic obstructive pulmonary disease) Status: Chronic Qualifiers: COPD type: emphysema (7) Hypertension Status: Chronic Qualifiers: Hypertension type: essential hypertension Qualified Code(s): I10 - Essential (primary) hypertension (8) Seizure Status: Chronic - AMA Did Patient Leave Against Medical Advice: No
== END 2018-12-28 09:42 | disposition home or self-care (01) | DRG 775 ==
LOC: YASAS 16:29 → Y3N 21:20
PROVIDERS: ADMIT Surgery; ATTEND Surgery
PROC: HZ2ZZZZ Detoxification Services for Substance Abuse Treatment (ICD-10-PCS; principal; 2018-12-23)
DX: F10.230 Alcohol dependence with withdrawal, uncomplicated (principal); F17.213 Nicotine dependence, cigarettes, with withdrawal; J45.20 Mild intermittent asthma, uncomplicated; J43.9 Emphysema, unspecified; E72.20 Disorder of urea cycle metabolism, unspecified; R03.0 Elevated blood-pressure reading, without diagnosis of hypertension; Z86.69 Personal history of other diseases of the nervous system and sense organs
CPT/HCPCS: 36415; 80053; 81003; 85027; 86593

== ENCOUNTER 2019-04-14 20:08 | Inpatient (IN) | payer OTHER | END 2019-04-19 09:30 | disposition home or self-care (01) | LOC: YASAS 20:08 → Y3N 23:40 ==

== ENCOUNTER 2019-06-22 12:36 | Inpatient (IN) | payer OTHER ==
[2019-06-22 14:17] VITALS: BMI 20.5
--- NOTE | 2019-06-22 15:15 | HP ---
CIWA Score Nausea/Vomitin-No Nausea/No Vomiting Muscle Tremors: 2 Anxiety: 0-No Anxiety, at Ease Agitation: 0-Normal Activity Paroxysmal Sweats: No Perspiration Orientation: 0-Oriented Tacttile Disturbances: 0-None Auditory Disturbances: 0-None Visual Disturbances: 0-None Headache: 0-None Present CIWA-Ar Total Score: 2 - Admission Criteria OASAS Guidelines: Admission for Medically Managed Detox: Requires at least one of the followin. CIWA greater than 12 2. Seizures within the past 24 hours 3. Delirium tremens within the past 24 hours 4. Hallucinations within the past 24 hours 5. Acute intervention needed for co occurring medical disorder 6. Acute intervention needed for co occurring psychiatric disorder 7. Severe withdrawal that cannot be handled at a lower level of care (continued vomiting, continued diarrhea, abnormal vital signs) requiring intravenous medication and/or fluids 8. Admitting History and Physical - Smoking History Smoking history: Current every day smoker Have you smoked in the past 12 months: Yes Aproximately how many cigarettes per day: 10 - Alcohol/Substance Use Hx Alcohol Use: Yes Admission ROS [facility] - [facility] Chief Complaint: "I want to get off the alcohol" Allergies/Adverse Reactions: Allergies Allergy/AdvReac Type Severity Reaction Status Date / Time No Known Allergies Allergy Verified 06/22/19 13:51 History of Present Illness: 53 year old male with a history of seizures, asthma, hypertension presents for detox from alcohol. Is in a methadone program for 10 years ago (80mg daily). Last time at detox 2-3 months at [facility]. Denies benzo use. Alcohol: 3 pints of "99 bananas" (100 proof) every day, last drink was this morning at home, started 8 years ago, longest period of no use in 2006 (1 year) ; does report alcohol withdrawal seizures (reports he gets them when he doesn't drink as much as he normally does); last seizure was 2-3 weeks ago, went to [facility]; never blacked out from drinking too much Cigarettes: 10 cigarettes per day (20 years) Methadone: 80mg daily [facility] Surgery: never had surgery Living: lives with niece, from , has 2 healthy kids (not really close to children) Work: used to work in [employer] - Ebola screening Have you traveled outside of the country in the last 21 days: No Have you had contact with anyone from an Ebola affected area: No Do you have a fever: No - Review of Systems Constitutional: Loss of Appetite EENT: reports: No Symptoms Reported Respiratory: reports: Productive cough (mucus) Cardiac: reports: No Symptoms Reported GI: reports: Diarrhea, Poor Appetite : reports: No Symptoms Reported Musculoskeletal: reports: Back Pain Integumentary: reports: No Symptoms Reported Neuro: reports: No Symptoms reported Endocrine: reports: No Symptoms Reported Hematology: reports: No Symptoms Reported Psychiatric: reports: Judgement Intact, Mood/Affect Appropiate, Orientated x3, Depressed Patient History - Patient Medical History Hx Anemia: No Hx Asthma: Yes (albuterol) Hx Chronic Obstructive Pulmonary Disease (COPD): Yes (h/o pneumonia 10/2018, ? spot in lung) Hx Cancer: No Hx Cardiac Disorders: No Hx Congestive Heart Failure: No Hx Hypertension: No Hx Hypercholesterolemia: No Hx Pacemaker: No HX Cerebrovascular Accident: No Hx Seizures: Yes (WITHDRAWAL SZ/ 4 MONTH AGO - parvin) Hx Dementia: No Hx Diabetes: No Hx Gastrointestinal Disorders: No Hx Liver Disease: No Hx Genitourinary Disorders: No Hx Sexually Transmitted Disorders: No Hx Renal Disease (ESRD): No Hx Thyroid Disease: No Hx Human Immunodeficiency Virus (HIV): No Hx Hepatitis C: No Hx Depression: Yes Hx Suicide Attempt: No Hx Bipolar Disorder: No Hx Schizophrenia: No - Patient Surgical History Past Surgical History: No Hx Neurologic Surgery: No Hx Cataract Extraction: No Hx Cardiac Surgery: No Hx Lung Surgery: No Hx Breast Surgery: No Hx Breast Biopsy: No Hx Abdominal Surgery: No Hx Appendectomy: No Hx Cholecystectomy: No Hx Genitourinary Surgery: No Hx Section: No Hx Orthopedic Surgery: No Anesthesia Reaction: No - PPD History Date: 01/03/18 Results: 0 mm - Smoking Cessation Smoking history: Current every day smoker Have you smoked in the past 12 months: Yes Aproximately how many cigarettes per day: 10 Cigars Per Day: 0 Hx Chewing Tobacco Use: No Initiated information on smoking cessation: Yes 'Breaking Loose' booklet given: 06/22/19 - Substances abused Alcohol Substance route: Oral Frequency: Daily Amount used: 3 pints Age of first use: 33 Date of last use: 06/22/19 Marijuana/Hashish Substance route: Smoking Frequency: 1-2 times per week Amount used: couple Age of first use: 11 Date of last use: 12/20/18 Admission Physical Exam [facility] - Vital Signs Vital Signs: Vital Signs - 24 hr 06/22/19 13:54 Temperature 98.0 F Pulse Rate 87 Respiratory 18 Rate Blood Pressure 129/88 - Physical General Appearance: Yes: No Apparent Distress, Nourished HEENTM: Yes: EOMI, Hearing grossly Normal, Normal ENT Inspection, Normocephalic , Normal Voice Respiratory: Yes: Chest Non-Tender, Lungs Clear, Normal Breath Sounds Neck: Yes: No masses,lesions,Nodules Breast: Yes: Within Normal Limits Cardiology: Yes: Regular Rhythm, Regular Rate Abdominal: Yes: Normal Bowel Sounds, Non Tender, Flat, Soft Genitourinary: Yes: Within Normal Limits Back: Yes: Normal Inspection Neurological: Yes: mixing machine tender II-XII NML intact, Fully Oriented, Alert, Motor Strength 5/5, Normal Mood/Affect Integumentary: Yes: Dry, Warm Cleared for Admission [facility] - Detox or Rehab [facility] Level of Care: Medically Managed Breathalyzer - Breathalyzer Breathalyzer: 0.090 Urine Drug Screen - Test Device Lot number: [id number] Expiration date: 02/19/21 - Control Is test valid?: Yes - Results Drug screen NEGATIVE: No Urine drug screen results: MTD-Methadone, BZO-Benzodiazepines Inpatient Rehab Admission - Rehab Decision to Admit Inpatient rehab admission?: No
[2019-06-22] MEDS ORDERED: chlordiazePOXIDE HCL 25 MG CAPSULE PO PRN (15:48)
[2019-06-22] MEDS ORDERED: MENTHOL/PHENOL 1 EACH UD MM PRN (15:48)
[2019-06-22] MEDS ORDERED: IBUPROFEN 400 MG TABLET (FP) PO PRN (15:48)
[2019-06-22] MEDS ORDERED: BISMUTH SUBSALICYLATE 524 MG/30 ML UD PO PRN (15:48)
[2019-06-22] MEDS ORDERED: METHOCARBAMOL 500 MG TABLET PO PRN (15:48)
[2019-06-22] MEDS ORDERED: hydrOXYzine PAMOATE 25 MG CAPSULE (FP) PO PRN (15:48)
[2019-06-22] MEDS ORDERED: MAGNESIUM HYDROX 2400MG/30ML ORAL SUSPENSION 30 ML CUP PO PRN (15:48)
[2019-06-22] MEDS ORDERED: ACETAMINOPHEN 325 MG TABLET (FP) PO PRN ×2 (15:48)
[2019-06-22] MEDS ORDERED: MAG HYDROX/AL HYDROX/SIMETH 30 ML UNIT-DOSE CUP PO PRN (15:48)
[2019-06-22] MEDS ORDERED: MAGNESIUM CITRATE 300 ML BOTTLE PO PRN (15:48)
[2019-06-22] MEDS ORDERED: ALBUTEROL SO4 8 GM HFA INHALER IH PRN (15:50)
[2019-06-22] MEDS ORDERED: chlordiazePOXIDE HCL 25 MG CAPSULE ONE ×2 (17:41→19:48)
[2019-06-22] MEDS: chlordiazePOXIDE HCL 25 MG CAPSULE PO SCH ×2 (17:43→22:10)
--- NOTE | 2019-06-22 17:57 | PN ---
Teaching Attending Note Name of Resident: Ralph Pena ATTENDING PHYSICIAN STATEMENT I saw and evaluated the patient. I reviewed the resident's note and discussed the case with the resident. I agree with the resident's findings and plan as documented. SUBJECTIVE: 53 year old male here requesting alcohol detox , on MMTP 80 mg x 1 years , most recent detox @ [facility] , reports 3 pints liquor /day x 8 years , w/d seizures x 2 years ago , admits top non- compliance w/ Dilaudid rx " I take it once in a while " .Latest use this morning , current HARJINDER 0.090 tobacco : 09/23 ppd PMHX : seizures, asthma, hypertension OBJECTIVE: wnwd Vital Signs - 24 hr 06/22/19 06/22/19 13:54 17:41 Temperature 98.0 F 97.9 F Pulse Rate 87 62 Respiratory 18 18 Rate Blood Pressure 129/88 179/99 H ASSESSMENT AND PLAN: Alcohol dependence w/ intoxication - Librium detox , check Dilantin level.
[2019-06-22] MEDS ORDERED: PHENYTOIN NA EXTENDED 100 MG CAPSULE (FP) ONE (19:48)
[2019-06-22] MEDS ORDERED: MONTELUKAST NA 10 MG TABLET ONE (19:48)
[2019-06-22] MEDS ORDERED: BUDESONIDE/FORMETEROL FUMARATE 160/4.5 mcg INHALER IH ONE (19:48)
[2019-06-22] MEDS: MONTELUKAST NA 10 MG TABLET PO SCH (22:10)
[2019-06-22] MEDS: PHENYTOIN NA EXTENDED 100 MG CAPSULE (FP) PO SCH (22:10)
[2019-06-22] MEDS: THIAMINE HCL 100 MG TABLET (FP) PO SCH (22:10)
[2019-06-22] MEDS: BUDESONIDE/FORMETEROL FUMARATE 160/4.5 mcg INHALER IH SCH (22:11)
[2019-06-23] MEDS: chlordiazePOXIDE HCL 25 MG CAPSULE PO SCH ×4 (05:18→22:17)
[2019-06-23] MEDS ORDERED: METHADONE HCL 40 MG DISPERSABLE TABLET PO ONE (09:40)
[2019-06-23] MEDS: PRENATAL VITAMINS W/ FOLIC ACID TABLET (FP) PO SCH (10:13)
[2019-06-23] MEDS: PHENYTOIN NA EXTENDED 100 MG CAPSULE (FP) PO SCH ×2 (10:13→22:18)
[2019-06-23] MEDS: amLODIPine BESYLATE 5 MG TABLET (FP) PO SCH (10:14)
[2019-06-23] MEDS: BUDESONIDE/FORMETEROL FUMARATE 160/4.5 mcg INHALER IH SCH ×2 (10:33→22:18)
--- NOTE | 2019-06-23 10:49 | PN ---
S CIWA - CIWA Score Nausea/Vomitin-No Nausea/No Vomiting Muscle Tremors: 2 Anxiety: 2 Agitation: 3 Paroxysmal Sweats: 1-Minimal Palms Moist Orientation: 0-Oriented Tacttile Disturbances: 0-None Auditory Disturbances: 0-None Visual Disturbances: 0-None Headache: 0-None Present CIWA-Ar Total Score: 8 BHS Progress Note (SOAP) Subjective: mild shakes sweats irritable interrupted sleep Objective: 06/23/19 10:48 Vital Signs Temperature 98.2 F 06/23/19 09:22 Pulse Rate 69 06/23/19 09:22 Respiratory Rate 18 06/23/19 09:22 Blood Pressure 133/94 06/23/19 09:22 O2 Sat by Pulse Oximetry (%) pending labs aaox3 lying in bed no acute distress Assessment: 06/23/19 10:48 withdrawals Plan: continue detox increase fluids
[2019-06-23 11:01] LABS: HEMATOCRIT 38.6 % (35.4-49); HEMOGLOBIN 13.1 GM/dL (11.7-16.9); MCH 36.8 pg (25.7-33.7); MEAN CELL VOLUME 108.3 fl (80-96); MEAN PLT VOLUME 8.1 fl (7.5-11.1); PLATELET COUNT 177 K/MM3 (134-434); RBC 3.57 M/mm3 (4.00-5.60); RDW 15.4 % (11.9-15.9)
[2019-06-23 11:02] LABS: BLOOD UREA NITROGEN 8.8 mg/dL (7-18); CALCIUM 8.8 mg/dL (8.5-10.1); CREATININE 0.7 mg/dL (0.55-1.3); POTASSIUM 3.4 mmol/L (3.5-5.1); TOT PROT 6.2 g/dl (6.4-8.2)
[2019-06-23] MEDS: MONTELUKAST NA 10 MG TABLET PO SCH (22:18)
[2019-06-23] MEDS: MELATONIN 5 MG TABLETS PO PRN (22:18)
[2019-06-23] MEDS: THIAMINE HCL 100 MG TABLET (FP) PO SCH (22:18)
[2019-06-24] MEDS: chlordiazePOXIDE HCL 25 MG CAPSULE PO SCH ×4 (06:05→22:10)
[2019-06-24] MEDS: METHADONE HCL 40 MG DISPERSABLE TABLET PO SCH (06:06)
[2019-06-24] MEDS ORDERED: POTASSIUM CHLORIDE TABS 20 MEQ TABLET.ER (FP) PO ONE (10:05)
[2019-06-24] MEDS: PRENATAL VITAMINS W/ FOLIC ACID TABLET (FP) PO SCH (10:21)
[2019-06-24] MEDS: PHENYTOIN NA EXTENDED 100 MG CAPSULE (FP) PO SCH ×2 (10:22→22:10)
[2019-06-24] MEDS: amLODIPine BESYLATE 5 MG TABLET (FP) PO SCH (10:22)
[2019-06-24] MEDS: BUDESONIDE/FORMETEROL FUMARATE 160/4.5 mcg INHALER IH SCH ×2 (10:22→22:10)
--- NOTE | 2019-06-24 12:08 | PN ---
[facility] CIWA - CIWA Score Nausea/Vomitin-No Nausea/No Vomiting Muscle Tremors: 3 Anxiety: 3 Agitation: 3 Paroxysmal Sweats: 3 Orientation: 0-Oriented Tacttile Disturbances: 0-None Auditory Disturbances: 0-None Visual Disturbances: 0-None Headache: 0-None Present CIWA-Ar Total Score: 12 BHS COWS - Scale Resting Pulse: 1= MA 81-100 Sweatin= Chills/Flushing Restless Observation: 1= Difficult to Sit Still Pupil Size: 0= Normal to Room Light Bone or Joint Aches: 1= Mild Discomfort Runny Nose/ Eye Tearin= Nasal Congestion GI Upset > 30mins: 0= None Tremor Observation of Outstretched Hands: 1= Tremor [place], Not Seen Yawning Observation: 1= 1-2x During Session Anxiety or Irritability: 1=Feels Anxious/Irritable Goose Flesh Skin: 3=Piloerection COWS Score: 11 S Progress Note (SOAP) Subjective: irritable sweats Objective: 06/24/19 12:04 Vital Signs Temperature 99.5 F 06/24/19 09:45 Pulse Rate 96 H 06/24/19 09:45 Respiratory Rate 16 06/24/19 09:45 Blood Pressure 118/94 06/24/19 09:45 O2 Sat by Pulse Oximetry (%) Laboratory Tests 06/23/19 06/23/19 06/23/19 08:00 08:00 08:00 WBC 5.0 RBC 3.57 L Hgb 13.1 Hct 38.6 MCV 108.3 H MCH 36.8 H MCHC 34.0 RDW 15.4 Plt Count 177 MPV 8.1 Sodium 139 Potassium 3.4 L Chloride 101 Carbon Dioxide 33 H Anion Gap 5 L BUN 8.8 Creatinine 0.7 Est GFR (CKD-EPI)AfAm 123.13 Est GFR (CKD-EPI)NonAf 106.24 Random Glucose 92 Calcium 8.8 Total Bilirubin 1.0 AST 37 ALT 20 Alkaline Phosphatase 119 H Total Protein 6.2 L Albumin 3.0 L Phenytoin 3.4 RPR Titer 06/23/19 08:00 WBC RBC Hgb Hct MCV MCH MCHC RDW Plt Count MPV Sodium Potassium Chloride Carbon Dioxide Anion Gap BUN Creatinine Est GFR (CKD-EPI)AfAm Est GFR (CKD-EPI)NonAf Random Glucose Calcium Total Bilirubin AST ALT Alkaline Phosphatase Total Protein Albumin Phenytoin RPR Titer Nonreactive labs noted aaox3 ambulating no acute distress Assessment: 06/24/19 12:08 withdrawals Plan: continue detox increase fluids
[2019-06-24] MEDS: THIAMINE HCL 100 MG TABLET (FP) PO SCH (22:10)
[2019-06-24] MEDS: MONTELUKAST NA 10 MG TABLET PO SCH (22:10)
[2019-06-24] MEDS: MELATONIN 5 MG TABLETS PO PRN (22:11)
[2019-06-25] MEDS ORDERED: chlordiazePOXIDE HCL 10 MG CAPSULE PO PRN
[2019-06-25] MEDS: chlordiazePOXIDE HCL 10 MG CAPSULE PO SCH ×2 (06:03→10:05)
[2019-06-25] MEDS: METHADONE HCL 40 MG DISPERSABLE TABLET PO SCH (06:03)
--- NOTE | 2019-06-25 09:03 | DS ---
[facility] Detox Discharge Summary Admission Date: 06/22/19 Discharge Date: 06/25/19 - History Present History: Alcohol Dependence, Opioid Dependence - Physical Exam Results Vital Signs: Vital Signs Temperature 97.7 F 06/25/19 07:38 Pulse Rate 70 06/25/19 07:38 Respiratory Rate 18 06/25/19 07:38 Blood Pressure 135/92 06/25/19 07:38 O2 Sat by Pulse Oximetry (%) Pertinent Admission Physical Exam Findings: pt arrived in withdrawal Laboratory Tests 06/23/19 06/23/19 06/23/19 08:00 08:00 08:00 WBC 5.0 RBC 3.57 L Hgb 13.1 Hct 38.6 MCV 108.3 H MCH 36.8 H MCHC 34.0 RDW 15.4 Plt Count 177 MPV 8.1 Sodium 139 Potassium 3.4 L Chloride 101 Carbon Dioxide 33 H Anion Gap 5 L BUN 8.8 Creatinine 0.7 Est GFR (CKD-EPI)AfAm 123.13 Est GFR (CKD-EPI)NonAf 106.24 Random Glucose 92 Calcium 8.8 Total Bilirubin 1.0 AST 37 ALT 20 Alkaline Phosphatase 119 H Total Protein 6.2 L Albumin 3.0 L Phenytoin 3.4 RPR Titer 06/23/19 08:00 WBC RBC Hgb Hct MCV MCH MCHC RDW Plt Count MPV Sodium Potassium Chloride Carbon Dioxide Anion Gap BUN Creatinine Est GFR (CKD-EPI)AfAm Est GFR (CKD-EPI)NonAf Random Glucose Calcium Total Bilirubin AST ALT Alkaline Phosphatase Total Protein Albumin Phenytoin RPR Titer Nonreactive pt is aaox3 ambulating no acute distress no s/s of withdrawals - Treatment Hospital Course: Detox Protocol Followed, Detoxed Safely, Responded well, Discharged Condition Good, Rehab Referral Accepted Patient has Accepted a Rehab Referral to: referred to MMTP - Medication Discharge Medications: Ambulatory Orders Albuterol Sulfate Inhaler - [Ventolin HFA Inhaler -] 2 puff IH Q6H PRN #1 inhaler 04/18/19 Amlodipine Besylate [Norvasc -] 5 mg PO DAILY #30 tablet 04/18/19 Budesonide/Formeterol Fumarate [SYMBICORT 160/4.5mcg -] 2 puff IH BID #1 inhaler 04/18/19 Montelukast Sodium [Singulair] 10 mg PO HS #30 tablet 04/18/19 Phenytoin Na Extended [Dilantin -] 100 mg PO BID 30 Days #60 capsule 04/18/19 - Diagnosis (1) Acute alcoholic intoxication Current Visit: No Status: Acute Qualifiers: Complication of substance-induced condition: uncomplicated Qualified Code(s ): F10.929 - Alcohol use, unspecified with intoxication, unspecified (2) Acute pyelonephritis Current Visit: No Status: Acute (3) At risk for dehydration due to poor fluid intake Current Visit: No Status: Acute (4) Elevated blood pressure reading in office with diagnosis of hypertension Current Visit: No Status: Acute (5) Hypokalemia Current Visit: No Status: Acute (6) Increased ammonia level Current Visit: No Status: Acute (7) Insomnia Current Visit: No Status: Acute (8) MDD (major depressive disorder), recurrent severe, without psychosis Current Visit: No Status: Acute (9) Nicotine dependence Current Visit: Yes Status: Acute Qualifiers: Nicotine product type: cigarettes Substance use status: uncomplicated Qualified Code(s): F17.210 - Nicotine dependence, cigarettes, uncomplicated (10) PCP dependence Current Visit: Yes Status: Chronic (11) Sedative hypnotic or anxiolytic dependence Current Visit: No Status: Acute (12) Substance induced mood disorder Current Visit: No Status: Acute (13) Substance-induced sleep disorder Current Visit: No Status: Acute (14) Thrombocytopenia Current Visit: No Status: Acute (15) Weight loss Current Visit: No Status: Acute (16) Anxiety and depression Current Visit: No Status: Chronic (17) Anxiety and depression Current Visit: No Status: Chronic (18) Asthma Current Visit: No Status: Chronic Qualifiers: Asthma severity: mild Asthma persistence: intermittent Asthma complication type: uncomplicated Qualified Code(s): J45.20 - Mild intermittent asthma, uncomplicated (19) COPD (chronic obstructive pulmonary disease) Current Visit: No Status: Chronic Qualifiers: COPD type: emphysema Emphysema type: unspecified Qualified Code(s): J43.9 - Emphysema, unspecified (20) Cannabis abuse Current Visit: No Status: Chronic (21) Cannabis dependence Current Visit: No Status: Chronic (22) Cocaine dependence Current Visit: No Status: Chronic Qualifiers: Substance use status: uncomplicated Qualified Code(s): F14.20 - Cocaine dependence, uncomplicated (23) Depression (emotion) Current Visit: No Status: Chronic Qualifiers: Depression Type: dysthymia Qualified Code(s): F34.1 - Dysthymic disorder (24) History of posttraumatic stress disorder (PTSD) Current Visit: No Status: Chronic (25) Hypertension Current Visit: No Status: Chronic Qualifiers: Hypertension type: essential hypertension Qualified Code(s): I10 - Essential (primary) hypertension (26) Insomnia Current Visit: No Status: Chronic Qualifiers: Insomnia type: unspecified Qualified Code(s): G47.00 - Insomnia, unspecified (27) Low back pain Current Visit: No Status: Chronic Qualifiers: Chronicity: unspecified Back pain laterality: unspecified Sciatica presence: unspecified whether sciatica present Qualified Code(s): M54.5 - Low back pain (28) MDD (major depressive disorder), recurrent episode Current Visit: No Status: Chronic Qualifiers: Major depression episode severity: moderate Qualified Code(s): F33.1 - Major depressive disorder, recurrent, moderate (29) Marijuana dependence Current Visit: No Status: Chronic (30) Marijuana dependence Current Visit: No Status: Chronic (31) Non-compliance Current Visit: No Status: Chronic (32) Opioid dependence on agonist therapy Current Visit: No Status: Chronic (33) Opioid dependence on agonist therapy Current Visit: No Status: Chronic (34) Otitis externa Current Visit: No Status: Chronic Qualifiers: Otitis externa type: other infective Chronicity: acute Laterality: bilateral Qualified Code(s): H60.393 - Other infective otitis externa, bilateral (35) PTSD (post-traumatic stress disorder) Current Visit: No Status: Chronic (36) Seizure Current Visit: No Status: Chronic (37) Depressive disorder Current Visit: No Status: Suspected (38) Substance induced mood disorder Current Visit: No Status: Suspected (39) Alcohol dependence with withdrawal, uncomplicated Current Visit: Yes Status: Chronic - AMA Did Patient Leave Against Medical Advice: No
[2019-06-25] MEDS: BUDESONIDE/FORMETEROL FUMARATE 160/4.5 mcg INHALER IH SCH (09:29)
[2019-06-25] MEDS: amLODIPine BESYLATE 5 MG TABLET (FP) PO SCH (09:30)
[2019-06-25] MEDS: PRENATAL VITAMINS W/ FOLIC ACID TABLET (FP) PO SCH (09:30)
[2019-06-25] MEDS: PHENYTOIN NA EXTENDED 100 MG CAPSULE (FP) PO SCH (09:30)
[2019-06-25 10:19] VITALS: BP 150/89; PULSE 72; TEMP 97.4
[2019-06-26] MEDS ORDERED: chlordiazePOXIDE HCL 10 MG CAPSULE PO SCH (05:00)
[2019-06-27] MEDS ORDERED: chlordiazePOXIDE HCL 10 MG CAPSULE PO ONE (05:00)
== END 2019-06-25 10:06 | disposition home or self-care (01) | DRG 773 ==
LOC: YASAS 12:36 → Y6N 17:14
PROVIDERS: ADMIT Surgery; ATTEND Surgery
PROC: HZ2ZZZZ Detoxification Services for Substance Abuse Treatment (ICD-10-PCS; principal; 2019-06-22)
DX: F10.230 Alcohol dependence with withdrawal, uncomplicated (principal); F11.23 Opioid dependence with withdrawal; F13.20 Sedative, hypnotic or anxiolytic dependence, uncomplicated; F14.20 Cocaine dependence, uncomplicated; F16.20 Hallucinogen dependence, uncomplicated; F12.20 Cannabis dependence, uncomplicated; F17.200 Nicotine dependence, unspecified, uncomplicated; F19.282 Other psychoactive substance dependence with psychoactive substance-induced sleep disorder; F19.24 Other psychoactive substance dependence with psychoactive substance-induced mood disorder; F33.1 Major depressive disorder, recurrent, moderate; F43.10 Post-traumatic stress disorder, unspecified; F34.1 Dysthymic disorder; F41.8 Other specified anxiety disorders; N10 Acute pyelonephritis; J43.9 Emphysema, unspecified; D69.6 Thrombocytopenia, unspecified; I10 Essential (primary) hypertension; J45.20 Mild intermittent asthma, uncomplicated; M54.5 Low back pain; E87.6 Hypokalemia; H60.393 Other infective otitis externa, bilateral; G40.909 Epilepsy, unspecified, not intractable, without status epilepticus; R63.4 Abnormal weight loss; Z68.20 Body mass index [BMI] 20.0-20.9, adult; G47.00 Insomnia, unspecified
CPT/HCPCS: 36415; 80053; 80185; 85027; 86593

== ENCOUNTER 2019-08-16 17:27 | Inpatient (IN) | payer OTHER ==
[2019-08-16 19:10] VITALS: BMI 21.4
--- NOTE | 2019-08-16 21:14 | HP ---
"CIWA Score Nausea/Vomitin-No Nausea/No Vomiting Muscle Tremors: 1-None Visible, but [place] Anxiety: 4-Mod. Anxious/Guarded Agitation: 4-Moderately Restless Paroxysmal Sweats: 1-Minimal Palms Moist Orientation: 3-Disoriented Date>2 days Tacttile Disturbances: 0-None Auditory Disturbances: 0-None Visual Disturbances: 0-None Headache: 0-None Present CIWA-Ar Total Score: 13 - Admission Criteria OASAS Guidelines: Admission for Medically Managed Detox: Requires at least one of the followin. CIWA greater than 12 2. Seizures within the past 24 hours 3. Delirium tremens within the past 24 hours 4. Hallucinations within the past 24 hours 5. Acute intervention needed for co occurring medical disorder 6. Acute intervention needed for co occurring psychiatric disorder 7. Severe withdrawal that cannot be handled at a lower level of care (continued vomiting, continued diarrhea, abnormal vital signs) requiring intravenous medication and/or fluids 8. Patient presents the following: CIWA greater than 12 Admission Criteria Met: Admission criteria met Admitting History and Physical - Smoking History Smoking history: Current every day smoker Have you smoked in the past 12 months: Yes Aproximately how many cigarettes per day: 10 - Alcohol/Substance Use Hx Alcohol Use: Yes Admission ROS S - HPI Chief Complaint: seeking detox for alcohol Allergies/Adverse Reactions: Allergies Allergy/AdvReac Type Severity Reaction Status Date / Time No Known Allergies Allergy Verified 08/16/19 18:49 History of Present Illness: here for alcohol detox. client is self referred. last here 06/2019. reports relapsing soon after. he drinks daily. last drink this morning. here now with c /o worsening withdrawal sx's. 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 client is also on mmtp. reports home program [facility]. ldm 80 mg today p/ verification. denies any significant period of clean time this past. lives with family, unemployed, denies legals. discrepancy with client home med list. client is unsure of his home meds. reports he is not compliant as he is always drinking. does state he is on keppra not dilantin. but does not take it as he is always drinking. denies hx/o htn Search Terms: aura bassett, 1965Search Date: 08/16/2019 11:22:13 PM The Drug Utilization Report below displays all of the controlled substance prescriptions, if any, that your patient has filled in the last twelve months. The information displayed on this report is compiled from pharmacy submissions to the Department, and accurately reflects the information as submitted by the pharmacies. This report was requested by: María Martin | Reference #: [id number] There are no results for the search terms that you entered. Exam Limitations: No Limitations - Ebola screening Have you traveled outside of the country in the last 21 days: No (N) Have you had contact with anyone from an Ebola affected area: No Have you been sick,other than usual withdrawal symptoms: No Do you have a fever: No - Review of Systems Constitutional: Chills, Night Sweats, Changes in sleep EENT: reports: Other (missing teeth) Respiratory: reports: No Symptoms reported Cardiac: reports: No Symptoms Reported GI: reports: Poor Appetite, Poor Fluid Intake : reports: No Symptoms Reported Musculoskeletal: reports: No Symptoms Reported Integumentary: reports: No Symptoms Reported Neuro: reports: Seizure (hx/o r/t withdrawal) Endocrine: reports: No Symptoms Reported Hematology: reports: No Symptoms Reported Psychiatric: reports: Orientated x3, Depressed (denies si) Other Systems: Reviewed and Negative Patient History - Patient Medical History Hx Anemia: No Hx Asthma: Yes (albuterol) Hx Chronic Obstructive Pulmonary Disease (COPD): Yes (h/o pneumonia 10/2018, ? spot in lung) Hx Cancer: No Hx Cardiac Disorders: No Hx Congestive Heart Failure: No Hx Hypertension: No Hx Hypercholesterolemia: No Hx Pacemaker: No HX Cerebrovascular Accident: No Hx Seizures: Yes (WITHDRAWAL SZ/ 4 MONTH AGO - parvin) Hx Dementia: No Hx Diabetes: No Hx Gastrointestinal Disorders: No Hx Liver Disease: No Hx Genitourinary Disorders: No Hx Sexually Transmitted Disorders: No Hx Renal Disease (ESRD): No Hx Thyroid Disease: No Hx Human Immunodeficiency Virus (HIV): No Hx Hepatitis C: No Hx Depression: Yes Hx Suicide Attempt: No Hx Bipolar Disorder: No Hx Schizophrenia: No Other Medical History: denies - Patient Surgical History Past Surgical History: No Hx Neurologic Surgery: No Hx Cataract Extraction: No Hx Cardiac Surgery: No Hx Lung Surgery: No Hx Breast Surgery: No Hx Breast Biopsy: No Hx Abdominal Surgery: No Hx Appendectomy: No Hx Cholecystectomy: No Hx Genitourinary Surgery: No Hx Section: No Hx Orthopedic Surgery: No Anesthesia Reaction: No - PPD History Previous Implant?: Yes Documented Results: Negative w/proof Implanted On Prior [facility] Admission?: Yes Date: 12/25/18 Results: 0 mm PPD to be Administered?: No - Smoking Cessation Smoking history: Current every day smoker Have you smoked in the past 12 months: Yes Aproximately how many cigarettes per day: 10 Cigars Per Day: 0 Hx Chewing Tobacco Use: No Initiated information on smoking cessation: Yes 'Breaking Loose' booklet given: 08/16/19 - Substance & Tx. History Hx Alcohol Use: Yes Hx Substance Use: Yes - Substances abused Alcohol Substance route: Oral Frequency: Daily Amount used: 3 pints Age of first use: 33 Date of last use: 06/22/19 Marijuana/Hashish Substance route: Smoking Frequency: 1-2 times per week Amount used: couple Age of first use: 11 Date of last use: 12/20/18 Admission Physical Exam S - Vital Signs Vital Signs: Vital Signs - 24 hr 08/16/19 18:57 Temperature 97.0 F L Pulse Rate 78 Respiratory 18 Rate Blood Pressure 113/72 - Physical General Appearance: Yes: Mild Distress, Tremorous (felt), Irritable, Anxious HEENTM: Yes: EOMI, Normocephalic, Normal Voice, ROBERTO, Pharynx Normal, Other ( top dentures) Respiratory: Yes: Chest Non-Tender, Lungs Clear, Normal Breath Sounds, No Respiratory Distress, No Accessory Muscle Use Neck: Yes: No masses,lesions,Nodules, Supple, Trachea in good position Breast: Yes: Breasts Symetrical Cardiology: Yes: Regular Rhythm, Regular Rate, S1, S2 Abdominal: Yes: Non Tender, Soft, Increased Bowel Sounds Genitourinary: Yes: Within Normal Limits Back: Yes: Normal Inspection Musculoskeletal: Yes: full range of Motion, Gait Steady Extremities: Yes: Normal Range of Motion, Non-Tender, Tremors Neurological: Yes: Fully Oriented, Alert, Depressed Affect (denies si) Integumentary: Yes: Dry, Warm Lymphatic: Yes: Within Normal Limits - Diagnostic (1) At risk for dehydration due to poor fluid intake Current Visit: Yes Status: Acute (2) Nicotine dependence Current Visit: Yes Status: Chronic Qualifiers: Nicotine product type: cigarettes Substance use status: uncomplicated Qualified Code(s): F17.210 - Nicotine dependence, cigarettes, uncomplicated (3) Alcohol dependence with withdrawal, uncomplicated Current Visit: Yes Status: Acute (4) Asthma Current Visit: Yes Status: Chronic Qualifiers: Asthma severity: mild Asthma persistence: intermittent Asthma complication type: uncomplicated Qualified Code(s): J45.20 - Mild intermittent asthma, uncomplicated (5) COPD (chronic obstructive pulmonary disease) Current Visit: Yes Status: Chronic Qualifiers: COPD type: emphysema Emphysema type: unspecified Qualified Code(s): J43.9 - Emphysema, unspecified (6) Non-compliance Current Visit: Yes Status: Suspected (7) Opioid dependence on agonist therapy Current Visit: Yes Status: Chronic (8) Seizure Current Visit: Yes Status: Chronic (9) Substance induced mood disorder Current Visit: Yes Status: Suspected (10) Poor historian Current Visit: Yes Status: Acute Cleared for Admission [facility] - Detox or Rehab S Level of Care: Medically Managed Detox Regimen/Protocol: Valium Claeared for Rehab Admission: No Breathalyzer - Breathalyzer Breathalyzer: 0.219 Urine Drug Screen - Test Device Lot number: [id number] Expiration date: 02/19/21 - Control Is test valid?: Yes - Results Drug screen NEGATIVE: No Urine drug screen results: MTD-Methadone, BZO-Benzodiazepines Inpatient Rehab Admission - Rehab Decision to Admit Inpatient rehab admission?: No"
[2019-08-16] MEDS ORDERED: ACETAMINOPHEN 325 MG TABLET (FP) PO PRN ×2 (21:22)
[2019-08-16] MEDS ORDERED: P-EPHED 60MG/TRIPROLIDI 2.5MG TABLET PO PRN (21:22)
[2019-08-16] MEDS ORDERED: MENTHOL/PHENOL 1 EACH UD MM PRN (21:22)
[2019-08-16] MEDS ORDERED: hydrOXYzine PAMOATE 25 MG CAPSULE (FP) PO PRN (21:22)
[2019-08-16] MEDS ORDERED: ONDANSETRON *ODT* 4 MG TABLET SL PRN (21:22)
[2019-08-16] MEDS ORDERED: guaiFENesin 200 MG/10 ML 10 ML UNIT-DOSE CUPS PO PRN (21:22)
[2019-08-16] MEDS ORDERED: IBUPROFEN 400 MG TABLET (FP) PO PRN (21:22)
[2019-08-16] MEDS ORDERED: METHOCARBAMOL 500 MG TABLET PO PRN (21:22)
[2019-08-16] MEDS ORDERED: NICOTINE POLACRILEX 2 MG GUM BUC PRN (21:22)
[2019-08-16] MEDS ORDERED: MAG HYDROX/AL HYDROX/SIMETH 30 ML UNIT-DOSE CUP PO PRN (21:22)
[2019-08-16] MEDS ORDERED: BISMUTH SUBSALICYLATE 524 MG/30 ML UD PO PRN (21:22)
[2019-08-16] MEDS ORDERED: diazePAM 5 MG TABLET PO PRN (21:22)
[2019-08-16] MEDS ORDERED: MELATONIN 5 MG TABLETS PO PRN (21:22)
[2019-08-16] MEDS ORDERED: DICYCLOMINE HCL 10 MG CAPSULE PO PRN (21:22)
[2019-08-16] MEDS ORDERED: MAGNESIUM CITRATE 300 ML BOTTLE PO PRN (21:22)
[2019-08-16] MEDS ORDERED: MAGNESIUM HYDROX 2400MG/30ML ORAL SUSPENSION 30 ML CUP PO PRN (21:22)
[2019-08-16] MEDS: diazePAM 5 MG TABLET PO SCH (22:28)
[2019-08-16] MEDS: THIAMINE HCL 100 MG TABLET (FP) PO SCH (22:28)
[2019-08-17] MEDS: diazePAM 5 MG TABLET PO SCH ×3 (05:26→22:16)
[2019-08-17] MEDS: PRENATAL VITAMINS W/ FOLIC ACID TABLET (FP) PO SCH (09:42)
[2019-08-17] MEDS: NICOTINE 14 MG/24 HOURS TOPICAL PATCH TD SCH (09:43)
[2019-08-17 10:11] LABS: HEMOGLOBIN 12.5 GM/dL (11.7-16.9); MCH 35.6 pg (25.7-33.7); MCHC 33.9 g/dl (32.0-35.9); MEAN CELL VOLUME 105.1 fl (80-96); MEAN PLT VOLUME 7.6 fl (7.5-11.1); PH,URINE 5.5 (5.0-8.0); PLATELET COUNT 226 K/MM3 (134-434); RBC 3.52 M/mm3 (4.00-5.60); RDW 14.5 % (11.9-15.9); URINE APPEARANCE CLEAR; URINE BILIRUBIN NEGATIVE (NEGATIVE); URINE COLOR YELLOW; URINE GLUCOSE (UA) NEGATIVE (NEGATIVE); URINE KETONE TRACE (NEGATIVE); URINE LEUK ESTERASE NEGATIVE (NEGATIVE); URINE NITRITE NEGATIVE (NEGATIVE); URINE PROTEIN TRACE (NEGATIVE); URINE UROBILINOGEN 0.2 mg/dL (0.2-1.0); WHITE BLOOD COUNT 3.7 K/mm3 (4.0-10.0)
[2019-08-17 10:22] LABS: ALBUMIN 3.2 g/dl (3.4-5.0); BILIRUBIN,TOTAL 0.5 mg/dL (0.2-1); BLOOD UREA NITROGEN 10.7 mg/dL (7-18); CALCIUM 8.5 mg/dL (8.5-10.1); POTASSIUM 4.1 mmol/L (3.5-5.1); TOT PROT 6.2 g/dl (6.4-8.2)
--- NOTE | 2019-08-17 10:24 | EKG ---
Test Reason : Blood Pressure : / mmHG Vent. Rate : 060 BPM Atrial Rate : 060 BPM P-R Int : 136 ms QRS Dur : 090 ms QT Int : 472 ms P-R-T Axes : 080 063 056 degrees QTc Int : 472 ms NORMAL SINUS RHYTHM NORMAL ECG WHEN COMPARED WITH ECG OF 14-MAY-2018 19:25, NO SIGNIFICANT CHANGE WAS FOUND Confirmed by MD Jackie, Reji ([id number]) on 08/17/2019 10:24:03 AM Referred By: Perfecto Rogers Confirmed By:Reji Mejia MD
[2019-08-17] MEDS ORDERED: METHADONE HCL 40 MG DISPERSABLE TABLET PO ONE (10:30)
[2019-08-17] MEDS ORDERED: ALBUTEROL SO4 8 GM HFA INHALER IH PRN ×2 (11:03→11:20)
--- NOTE | 2019-08-17 11:28 | PN ---
S CIWA - CIWA Score Nausea/Vomitin-Mild Nausea/No Vomiting Muscle Tremors: 3 Anxiety: 4-Mod. Anxious/Guarded Agitation: 1-Slight > Activity Paroxysmal Sweats: 2 Orientation: 0-Oriented Tacttile Disturbances: 1-Very Mild Itch/Numbness Auditory Disturbances: 0-None Visual Disturbances: 0-None Headache: 1-Very Mild CIWA-Ar Total Score: 13 BHS Progress Note (SOAP) Subjective: 53 years old male admitted on 08/16/19 for alcohol withdrawal sx management treated with valium detox regimen patient tolerated well patient has long history of seizure treated with dilantin and/or keppra due to the risks of seizure from alcohol withdrawal and none compliance with antiseizure medication begin keppra 500 mg po bid patient received methadone 80 mg po today Objective: 08/17/19 11:27 Vital Signs Temperature 97.1 F L 08/17/19 09:44 Pulse Rate 95 H 08/17/19 09:44 Respiratory Rate 18 08/17/19 09:44 Blood Pressure 143/95 08/17/19 09:44 O2 Sat by Pulse Oximetry (%) Laboratory Last Values WBC 3.7 K/mm3 (4.0-10.0) L 08/17/19 07:45 RBC 3.52 M/mm3 (4.00-5.60) L 08/17/19 07:45 Hgb 12.5 GM/dL (11.7-16.9) 08/17/19 07:45 Hct 37.0 % (35.4-49) 08/17/19 07:45 MCV 105.1 fl (80-96) H 08/17/19 07:45 MCH 35.6 pg (25.7-33.7) H 08/17/19 07:45 MCHC 33.9 g/dl (32.0-35.9) 08/17/19 07:45 RDW 14.5 % (11.9-15.9) 08/17/19 07:45 Plt Count 226 K/MM3 (134-434) D 08/17/19 07:45 MPV 7.6 fl (7.5-11.1) 08/17/19 07:45 Sodium 141 mmol/L (136-145) 08/17/19 07:45 Potassium 4.1 mmol/L (3.5-5.1) 08/17/19 07:45 Chloride 107 mmol/L (98-107) 08/17/19 07:45 Carbon Dioxide 31 mmol/L (21-32) 08/17/19 07:45 Anion Gap 4 MMOL/L (8-16) L 08/17/19 07:45 BUN 10.7 mg/dL (7-18) 08/17/19 07:45 Creatinine 1.0 mg/dL (0.55-1.3) 08/17/19 07:45 Est GFR (CKD-EPI)AfAm 97.77 08/17/19 07:45 Est GFR (CKD-EPI)NonAf 84.35 08/17/19 07:45 Random Glucose 83 mg/dL (74-106) 08/17/19 07:45 Calcium 8.5 mg/dL (8.5-10.1) 08/17/19 07:45 Total Bilirubin 0.5 mg/dL (0.2-1) 08/17/19 07:45 AST 24 U/L (15-37) 08/17/19 07:45 ALT 11 U/L (13-61) L 08/17/19 07:45 Alkaline Phosphatase 90 U/L (45-117) 08/17/19 07:45 Total Protein 6.2 g/dl (6.4-8.2) L 08/17/19 07:45 Albumin 3.2 g/dl (3.4-5.0) L 08/17/19 07:45 Urine Color Yellow 08/17/19 07:45 Urine Appearance Clear 08/17/19 07:45 Urine pH 5.5 (5.0-8.0) 08/17/19 07:45 Ur Specific [place] 1.027 (1.010-1.035) 08/17/19 07:45 Urine Protein Trace (NEGATIVE) 08/17/19 07:45 Urine Glucose (UA) Negative (NEGATIVE) 08/17/19 07:45 Urine Ketones Trace (NEGATIVE) H 08/17/19 07:45 Urine Blood Negative (NEGATIVE) 08/17/19 07:45 Urine Nitrite Negative (NEGATIVE) 08/17/19 07:45 Urine Bilirubin Negative (NEGATIVE) 08/17/19 07:45 Urine Urobilinogen 0.2 mg/dL (0.2-1.0) 08/17/19 07:45 Ur Leukocyte Esterase Negative (NEGATIVE) 08/17/19 07:45 RPR Titer Nonreactive (NONREACTIVE) 08/17/19 07:45 long history of hypertension treated with amlodipine 5 mg po daily begin amlodipin lab noted 08/17/19 11:28 Assessment: 08/17/19 11:29 alcohol withdrawal sx seizure Plan: continue valium detox regimen begin keppra 500 mg po bid
[2019-08-17] MEDS: amLODIPine BESYLATE 5 MG TABLET (FP) PO SCH (12:17)
[2019-08-17] MEDS: levETIRAcetam 500 MG TABLET (FP) PO SCH ×2 (12:17→22:15)
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
[2019-08-17] MEDS ORDERED: QUEtiapine FUMARATE 50 MG TABLET PO SCH (22:00)
[2019-08-17] MEDS ORDERED: MONTELUKAST NA 10 MG TABLET PO SCH (22:00)
[2019-08-17] MEDS: THIAMINE HCL 100 MG TABLET (FP) PO SCH (22:16)
[2019-08-18] MEDS ORDERED: diazePAM 5 MG TABLET PO SCH (06:00)
[2019-08-18] MEDS ORDERED: METHADONE HCL 40 MG DISPERSABLE TABLET PO SCH (06:00)
[2019-08-18 09:12] VITALS: BP 147/95; PULSE 62; TEMP 96.3
[2019-08-18] MEDS: amLODIPine BESYLATE 5 MG TABLET (FP) PO SCH (10:06)
[2019-08-18] MEDS: levETIRAcetam 500 MG TABLET (FP) PO SCH (10:07)
[2019-08-18] MEDS: PRENATAL VITAMINS W/ FOLIC ACID TABLET (FP) PO SCH (10:07)
[2019-08-18] MEDS: NICOTINE 14 MG/24 HOURS TOPICAL PATCH TD SCH (10:07)
[2019-08-18] MEDS ORDERED: PHENYTOIN NA EXTENDED 100 MG CAPSULE (FP) PO SCH (10:30)
--- NOTE | 2019-08-18 12:47 | DS ---
[facility] Detox Discharge Summary Admission Date: 08/16/19 Discharge Date: 08/18/19 - History Present History: Alcohol Dependence Additional Comments: 53 years old male admitted on 08/16/19 for alcohol withdrawal sx management treated with valium detox regimen patient reported feeling better prefers to returning to methadone program patient is alert oriented x 3 speech clearly coherently cardiac s1s2 regular rate rhythm respiratory clear lung bilaterally on auscultation extremities full range of motion - Physical Exam Results Vital Signs: Vital Signs Temperature 96.3 F L 08/18/19 09:11 Pulse Rate 62 08/18/19 09:11 Respiratory Rate 18 08/18/19 09:11 Blood Pressure 147/95 08/18/19 09:11 O2 Sat by Pulse Oximetry (%) Pertinent Admission Physical Exam Findings: alcohol withdrawal sx Laboratory Last Values WBC 3.7 K/mm3 (4.0-10.0) L 08/17/19 07:45 RBC 3.52 M/mm3 (4.00-5.60) L 08/17/19 07:45 Hgb 12.5 GM/dL (11.7-16.9) 08/17/19 07:45 Hct 37.0 % (35.4-49) 08/17/19 07:45 MCV 105.1 fl (80-96) H 08/17/19 07:45 MCH 35.6 pg (25.7-33.7) H 08/17/19 07:45 MCHC 33.9 g/dl (32.0-35.9) 08/17/19 07:45 RDW 14.5 % (11.9-15.9) 08/17/19 07:45 Plt Count 226 K/MM3 (134-434) D 08/17/19 07:45 MPV 7.6 fl (7.5-11.1) 08/17/19 07:45 Sodium 141 mmol/L (136-145) 08/17/19 07:45 Potassium 4.1 mmol/L (3.5-5.1) 08/17/19 07:45 Chloride 107 mmol/L (98-107) 08/17/19 07:45 Carbon Dioxide 31 mmol/L (21-32) 08/17/19 07:45 Anion Gap 4 MMOL/L (8-16) L 08/17/19 07:45 BUN 10.7 mg/dL (7-18) 08/17/19 07:45 Creatinine 1.0 mg/dL (0.55-1.3) 08/17/19 07:45 Est GFR (CKD-EPI)AfAm 97.77 08/17/19 07:45 Est GFR (CKD-EPI)NonAf 84.35 08/17/19 07:45 Random Glucose 83 mg/dL (74-106) 08/17/19 07:45 Calcium 8.5 mg/dL (8.5-10.1) 08/17/19 07:45 Total Bilirubin 0.5 mg/dL (0.2-1) 08/17/19 07:45 AST 24 U/L (15-37) 08/17/19 07:45 ALT 11 U/L (13-61) L 08/17/19 07:45 Alkaline Phosphatase 90 U/L (45-117) 08/17/19 07:45 Total Protein 6.2 g/dl (6.4-8.2) L 08/17/19 07:45 Albumin 3.2 g/dl (3.4-5.0) L 08/17/19 07:45 Urine Color Yellow 08/17/19 07:45 Urine Appearance Clear 08/17/19 07:45 Urine pH 5.5 (5.0-8.0) 08/17/19 07:45 Ur Specific [place] 1.027 (1.010-1.035) 08/17/19 07:45 Urine Protein Trace (NEGATIVE) 08/17/19 07:45 Urine Glucose (UA) Negative (NEGATIVE) 08/17/19 07:45 Urine Ketones Trace (NEGATIVE) H 08/17/19 07:45 Urine Blood Negative (NEGATIVE) 08/17/19 07:45 Urine Nitrite Negative (NEGATIVE) 08/17/19 07:45 Urine Bilirubin Negative (NEGATIVE) 08/17/19 07:45 Urine Urobilinogen 0.2 mg/dL (0.2-1.0) 08/17/19 07:45 Ur Leukocyte Esterase Negative (NEGATIVE) 08/17/19 07:45 Phenytoin 0.6 08/17/19 11:30 RPR Titer Nonreactive (NONREACTIVE) 08/17/19 07:45 lab noted - Treatment Hospital Course: Detox Protocol Followed, Detoxed Safely, Responded well, Discharged Condition Good, Rehab Referral Accepted Patient has Accepted a Rehab Referral to: methadone program - Medication Discharge Medications: Ambulatory Orders Albuterol Sulfate Inhaler - [Ventolin HFA Inhaler -] 2 puff IH Q6H PRN #1 inhaler 04/18/19 Amlodipine Besylate [Norvasc -] 5 mg PO DAILY #30 tablet 04/18/19 Budesonide/Formeterol Fumarate [SYMBICORT 160/4.5mcg -] 2 puff IH BID #1 inhaler 04/18/19 Montelukast Sodium [Singulair] 10 mg PO HS #30 tablet 04/18/19 Phenytoin Na Extended [Dilantin -] 100 mg PO BID 30 Days #60 capsule 04/18/19 levETIRAcetam [Keppra -] 500 mg PO BID 08/17/19 - Diagnosis (1) Alcohol dependence with withdrawal, uncomplicated Status: Acute (2) Substance induced mood disorder Status: Suspected (3) Weight loss Status: Acute (4) Asthma Status: Chronic Qualifiers: Asthma severity: mild Asthma persistence: intermittent Asthma complication type: uncomplicated Qualified Code(s): J45.20 - Mild intermittent asthma, uncomplicated (5) COPD (chronic obstructive pulmonary disease) Status: Chronic Qualifiers: COPD type: emphysema Emphysema type: unspecified Qualified Code(s): J43.9 - Emphysema, unspecified (6) Hypertension Status: Chronic Qualifiers: Hypertension type: essential hypertension Qualified Code(s): I10 - Essential (primary) hypertension (7) Nicotine dependence Status: Acute Qualifiers: Nicotine product type: cigarettes Substance use status: in withdrawal Qualified Code(s): F17.213 - Nicotine dependence, cigarettes, with withdrawal (8) Seizure Status: Chronic (9) Substance induced mood disorder Status: Suspected - AMA Did Patient Leave Against Medical Advice: No CIWA Score - CIWA Score Nausea/Vomitin-No Nausea/No Vomiting Muscle Tremors: 2 Anxiety: 1-Mildly Anxious Agitation: 1-Slight > Activity Paroxysmal Sweats: 1-Minimal Palms Moist Orientation: 0-Oriented Tacttile Disturbances: 0-None Auditory Disturbances: 0-None Visual Disturbances: 0-None Headache: 1-Very Mild CIWA-Ar Total Score: 6
[2019-08-19] MEDS ORDERED: diazePAM 5 MG TABLET PO ONE (06:00)
== END 2019-08-18 10:19 | disposition home or self-care (01) | DRG 773 ==
LOC: YASAS 17:27 → Y3N 21:23
PROVIDERS: ADMIT Allergy & Immunology; ATTEND Allergy & Immunology
PROC: HZ2ZZZZ Detoxification Services for Substance Abuse Treatment (ICD-10-PCS; principal; 2019-08-16)
DX: F10.230 Alcohol dependence with withdrawal, uncomplicated (principal); F11.20 Opioid dependence, uncomplicated; F17.210 Nicotine dependence, cigarettes, uncomplicated; F19.24 Other psychoactive substance dependence with psychoactive substance-induced mood disorder; F43.10 Post-traumatic stress disorder, unspecified; I10 Essential (primary) hypertension; J43.9 Emphysema, unspecified; J45.20 Mild intermittent asthma, uncomplicated; G40.509 Epileptic seizures related to external causes, not intractable, without status epilepticus; R63.4 Abnormal weight loss; Z68.21 Body mass index [BMI] 21.0-21.9, adult; Z91.89 Other specified personal risk factors, not elsewhere classified; Z87.01 Personal history of pneumonia (recurrent); Z78.9 Other specified health status; Z91.19 Patient's noncompliance with other medical treatment and regimen
CPT/HCPCS: 36415; 80053; 80177; 80185; 81003; 85027; 86593; 93005; 93010

== ENCOUNTER 2019-10-21 16:21 | Inpatient (IN) | payer OTHER ==
--- NOTE | 2019-10-21 20:09 | HP ---
CIWA Score Nausea/Vomitin Muscle Tremors: 1-None Visible, but [place] Anxiety: 1-Mildly Anxious Agitation: 1-Slight > Activity Paroxysmal Sweats: 3 Orientation: 2-Disoriented Date<2 days Tacttile Disturbances: 2-Mild Itch/Numbness/Burn Auditory Disturbances: 0-None Visual Disturbances: 0-None Headache: 3-Moderate CIWA-Ar Total Score: 16 - Admission Criteria OASAS Guidelines: Admission for Medically Managed Detox: Requires at least one of the followin. CIWA greater than 12 2. Seizures within the past 24 hours 3. Delirium tremens within the past 24 hours 4. Hallucinations within the past 24 hours 5. Acute intervention needed for co occurring medical disorder 6. Acute intervention needed for co occurring psychiatric disorder 7. Severe withdrawal that cannot be handled at a lower level of care (continued vomiting, continued diarrhea, abnormal vital signs) requiring intravenous medication and/or fluids 8. Patient presents the following: CIWA greater than 12 Admission Criteria Met: Admission criteria met Admitting History and Physical - Smoking History Smoking history: Current every day smoker Have you smoked in the past 12 months: Yes Aproximately how many cigarettes per day: 10 - Alcohol/Substance Use Hx Alcohol Use: Yes Admission ROS [facility] Chief Complaint: SEEKING ALCOHOL DETOX Allergies/Adverse Reactions: Allergies Allergy/AdvReac Type Severity Reaction Status Date / Time No Known Allergies Allergy Verified 10/21/19 17:43 History of Present Illness: HERE FOR ALCOHOL DETOX. CLIENT IS SELF REFERRED HE IS KNOWN TO PROGRAM. PRESENTS WITH ONSET OF WITHDRAWAL SX'S. DAILY ALCOHOL INTAKE. STATES DRINKS IN THE MORNING DUE TO WAKING UP SICK. HE IS CURRENTLY ON MMTP AT [facility] WITH REPORTED DOSE OF 80 MG DAILY. LDM TODAY PENDING VERIFICATION. + WITHDRAWAL SX, BLACK OUTS. DENIES IVDU, AVH. DENIES ANY SIGNIFICANT CLEAN TIME IN THE PAST YEAR. HOMELESS, UNEMPLOYED, DENIES LEGALS poor historian confused about home medications and frequency. will do Dilantin and keppra level to determine what patient is taking before restarting any therapy Exam Limitations: Intoxication (WITH ONSET OF WITHDRAWAL SX'S) - Ebola screening Have you traveled outside of the country in the last 21 days: No Have you had contact with anyone from an Ebola affected area: No Have you been sick,other than usual withdrawal symptoms: No Do you have a fever: No - Review of Systems Constitutional: Chills, Loss of Appetite, Night Sweats, Changes in sleep, Unintentional Wgt. Loss EENT: reports: Dental Problems (UPPER DENTURES), Throat Pain (DRY) Respiratory: reports: Shortness of Breath, Other (ASTHMA) Cardiac: reports: No Symptoms Reported GI: reports: Diarrhea, Nausea, Poor Appetite, Poor Fluid Intake, Vomiting : reports: No Symptoms Reported Musculoskeletal: reports: Back Pain (CHRONUIC) Integumentary: reports: No Symptoms Reported Neuro: reports: Headache, Numbness (HANDS AND FEET), Seizure (LAST 3 MONTHS AGO) , Tremors (NOT VISIBLE) Endocrine: reports: No Symptoms Reported Hematology: reports: No Symptoms Reported Psychiatric: reports: Anxious, Depressed (DENIES SI) Other Systems: Reviewed and Negative Patient History - Patient Medical History Hx Anemia: No Hx Asthma: Yes (albuterol) Hx Chronic Obstructive Pulmonary Disease (COPD): Yes (h/o pneumonia 10/2018, ? spot in lung) Hx Cancer: No Hx Cardiac Disorders: No Hx Congestive Heart Failure: No Hx Hypertension: No Hx Hypercholesterolemia: No Hx Pacemaker: No HX Cerebrovascular Accident: No Hx Seizures: Yes (ON KEPPRA) Hx Dementia: No Hx Diabetes: No Hx Gastrointestinal Disorders: No Hx Liver Disease: No Hx Genitourinary Disorders: No Hx Sexually Transmitted Disorders: No Hx Renal Disease (ESRD): No Hx Thyroid Disease: No Hx Human Immunodeficiency Virus (HIV): No Hx Hepatitis C: No Hx Depression: Yes Hx Suicide Attempt: No Hx Bipolar Disorder: No Hx Schizophrenia: No - Patient Surgical History Past Surgical History: No Hx Neurologic Surgery: No Hx Cataract Extraction: No Hx Cardiac Surgery: No Hx Lung Surgery: No Hx Breast Surgery: No Hx Breast Biopsy: No Hx Abdominal Surgery: No Hx Appendectomy: No Hx Cholecystectomy: No Hx Genitourinary Surgery: No Hx Section: No Hx Orthopedic Surgery: No Anesthesia Reaction: No - PPD History Previous Implant?: Yes Documented Results: Negative w/proof Implanted On Prior R Admission?: Yes Date: 12/25/18 Results: 0 mm PPD to be Administered?: No - Smoking Cessation Smoking history: Current every day smoker Have you smoked in the past 12 months: Yes Aproximately how many cigarettes per day: 10 Cigars Per Day: 0 Hx Chewing Tobacco Use: No Initiated information on smoking cessation: Yes 'Breaking Loose' booklet given: 10/21/19 - Substance & Tx. History Hx Alcohol Use: Yes Hx Substance Use: Yes Substance Use Type: Alcohol, Prescribed (MMTP) Hx Substance Use Treatment: Yes ([facility]) - Substances abused Marijuana/Hashish Substance route: Smoking Frequency: 1-2 times per week Amount used: not sure of the amount Age of first use: 12 Date of last use: 10/17/19 Alcohol Substance route: Oral Frequency: Daily Amount used: 2PINTS LIQUOR Age of first use: 33 Date of last use: 10/21/19 (1/2 PINT) Admission Physical Exam BHS - Vital Signs Vital Signs: Vital Signs - 24 hr 10/21/19 10/21/19 17:42 20:00 Temperature 97.7 F 97.7 F Pulse Rate 76 76 Respiratory 20 20 Rate Blood Pressure 124/78 124/78 - Physical General Appearance: Yes: Mild Distress, Intoxicated, Tremorous (FLET), Irritable HEENTM: Yes: EOMI, Normocephalic, Normal Voice, ROBERTO, Pharynx Normal, Other ( TOP DENTURES) Respiratory: Yes: Chest Non-Tender, Lungs Clear, Normal Breath Sounds, No Respiratory Distress, No Accessory Muscle Use Neck: Yes: No masses,lesions,Nodules, Supple, Trachea in good position Breast: Yes: Breasts Symetrical Cardiology: Yes: Regular Rhythm, Regular Rate, S1, S2 Abdominal: Yes: Normal Bowel Sounds, Non Tender, Soft Genitourinary: Yes: Within Normal Limits Back: Yes: Normal Inspection Musculoskeletal: Yes: full range of Motion, Gait Steady Extremities: Yes: Normal Capillary Refill, Normal Range of Motion, Non-Tender, Tremors (FELT) Neurological: Yes: Alert, Motor Strength 5/5, Depressed Affect Integumentary: Yes: Dry, Warm Lymphatic: Yes: Within Normal Limits - Diagnostic (1) Depressed affect Current Visit: Yes Status: Acute (2) Acute alcoholic intoxication Current Visit: Yes Status: Acute Qualifiers: Complication of substance-induced condition: uncomplicated Qualified Code(s ): F10.920 - Alcohol use, unspecified with intoxication, uncomplicated (3) Alcohol dependence with withdrawal, uncomplicated Current Visit: Yes Status: Acute (4) At risk for dehydration due to poor fluid intake Current Visit: Yes Status: Acute (5) Nicotine dependence Current Visit: Yes Status: Chronic Qualifiers: Nicotine product type: cigarettes Substance use status: in withdrawal Qualified Code(s): F17.213 - Nicotine dependence, cigarettes, with withdrawal (6) Substance-induced sleep disorder Current Visit: Yes Status: Suspected (7) Asthma Current Visit: Yes Status: Chronic Qualifiers: Asthma severity: mild Asthma persistence: intermittent Asthma complication type: uncomplicated Qualified Code(s): J45.20 - Mild intermittent asthma, uncomplicated (8) COPD (chronic obstructive pulmonary disease) Current Visit: Yes Status: Chronic Qualifiers: COPD type: emphysema Emphysema type: unspecified Qualified Code(s): J43.9 - Emphysema, unspecified (9) Low back pain Current Visit: Yes Status: Chronic Qualifiers: Chronicity: unspecified Back pain laterality: unspecified Sciatica presence: unspecified whether sciatica present Qualified Code(s): M54.5 - Low back pain (10) Opioid dependence on agonist therapy Current Visit: Yes Status: Chronic (11) Substance induced mood disorder Current Visit: Yes Status: Suspected (12) Poor historian Current Visit: Yes Status: Suspected (13) Non-compliance Current Visit: Yes Status: Suspected (14) Homeless Current Visit: Yes Status: Acute Cleared for Admission S - Detox or Rehab [facility] Level of Care: Medically Managed Detox Regimen/Protocol: Librium Claeared for Rehab Admission: No Breathalyzer - Breathalyzer Breathalyzer: 0.194 Urine Drug Screen - Test Device Lot number: [id number] Expiration date: 08/21/25 - Control Is test valid?: Yes - Results Drug screen NEGATIVE: No Urine drug screen results: MTD-Methadone Inpatient Rehab Admission - Rehab Decision to Admit Inpatient rehab admission?: No
[2019-10-21] MEDS ORDERED: MENTHOL/PHENOL 1 EACH UD MM PRN (20:16)
[2019-10-21] MEDS ORDERED: MAGNESIUM CITRATE 300 ML BOTTLE PO PRN (20:16)
[2019-10-21] MEDS ORDERED: NICOTINE POLACRILEX 2 MG GUM BUC PRN (20:16)
[2019-10-21] MEDS ORDERED: MAGNESIUM HYDROX 2400MG/30ML ORAL SUSPENSION 30 ML CUP PO PRN (20:16)
[2019-10-21] MEDS ORDERED: ONDANSETRON *ODT* 4 MG TABLET SL PRN (20:16)
[2019-10-21] MEDS ORDERED: MAG HYDROX/AL HYDROX/SIMETH 30 ML UNIT-DOSE CUP PO PRN (20:16)
[2019-10-21] MEDS ORDERED: ACETAMINOPHEN 325 MG TABLET (FP) PO PRN (20:16)
[2019-10-21] MEDS ORDERED: hydrOXYzine PAMOATE 25 MG CAPSULE (FP) PO PRN (20:16)
[2019-10-21] MEDS ORDERED: P-EPHED 60MG/TRIPROLIDI 2.5MG TABLET PO PRN (20:16)
[2019-10-21] MEDS ORDERED: IBUPROFEN 400 MG TABLET (FP) PO PRN (20:16)
[2019-10-21] MEDS ORDERED: BISMUTH SUBSALICYLATE 524 MG/30 ML UD PO PRN (20:16)
[2019-10-21] MEDS ORDERED: DICYCLOMINE HCL 10 MG CAPSULE PO PRN (20:16)
[2019-10-21] MEDS ORDERED: guaiFENesin 200 MG/10 ML 10 ML UNIT-DOSE CUPS PO PRN (20:16)
[2019-10-21] MEDS ORDERED: METHOCARBAMOL 500 MG TABLET PO PRN (20:16)
[2019-10-21] MEDS: THIAMINE HCL 100 MG TABLET (FP) PO SCH (21:56)
[2019-10-21] MEDS: chlordiazePOXIDE HCL 25 MG CAPSULE PO SCH (21:56)
[2019-10-21] MEDS: MONTELUKAST NA 10 MG TABLET PO SCH (21:56)
[2019-10-21] MEDS: BUDESONIDE/FORMETEROL FUMARATE 160/4.5 mcg INHALER IH SCH (21:58)
[2019-10-21] MEDS ORDERED: MELATONIN 5 MG TABLETS PO PRN (22:00)
[2019-10-21] MEDS ORDERED: levETIRAcetam 500 MG TABLET (FP) PO SCH (22:00)
[2019-10-22] MEDS: chlordiazePOXIDE HCL 25 MG CAPSULE PO SCH ×3 (05:36→21:06)
[2019-10-22] MEDS ORDERED: METHADONE HCL 40 MG DISPERSABLE TABLET PO ONE (09:16)
[2019-10-22] MEDS: ALBUTEROL SO4 8 GM HFA INHALER IH PRN (09:26)
--- NOTE | 2019-10-22 09:30 | CONSULT ---
[facility] Psychiatric Consult - Data Date of interview: 10/22/19 Admission source: Self-referred Identifying data: Mr López is a 53 years old male, father of 2 children, unemployed receiving food stamp, homeless seeking detox treatment for alcohol and cannabis Substance Abuse History: Reports history of alcohol and marijuana use. Refer to addiction counselor's summary for further information Medical History: Significant for bronchial asthma/COPD, hypertension, chronic lumbar pain and seizure disorder. Patient is on methadone 80 mg/day from [facility]. Smokes 10 cigarettes daily Psychiatric History: Patient is known to this facility for multiple admissions. Historical narrative remains consistent. He reports that his onset of psychiatric disturbances occured at age 9-10. Reportedly diagnosed with MDD and PTSD. Reports 2-3 previous psychiatric hospitalizations all at [facility]. Reports past treatment with Seroquel and antidepressant medications. Chronically non-adherent to OPD care. During his most recent admission to this facility, he told by Dr Garcia on 08/17/19 that he was off medications for several months. He was prescribed Seroquel 50 mg/hs. 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 Reports one suicide attempt via hanging while incarcerated in 1988. At present, reports feeling depressed and sleeping poorly. Requests to resume Seroquel Physical/Sexual Abuse/Trauma History: Denies history of abuse as a child. Reports that [facility] in [facility] Mental Status Exam - Mental Status Exam Alert and Oriented to: Time, Place, Person Cognitive Function: Fair Patient Appearance: Well Groomed Mood: Depressed Affect: Appropriate Patient Behavior: Cooperative Speech Pattern: Clear Voice Loudness: Normal Thought Process: Intact, Goal Oriented Thought Disorder: Not Present Hallucinations: Denies Suicidal Ideation: Denies Homicidal Ideation: Denies Insight/Judgement: Poor Sleep: Poorly Appetite: Poor Muscle strength/Tone: Normal Gait/Station: Normal Psychiatric Findings - Problem List ([place] 1, 2,3) (1) Depressive disorder Current Visit: Yes Status: Chronic (2) MDD (major depressive disorder) Current Visit: Yes Status: Ruled-out (3) Alcohol-induced mood disorder Current Visit: Yes Status: Acute (4) Alcohol-induced sleep disorder Current Visit: Yes Status: Acute (5) Alcohol dependence with withdrawal, uncomplicated Current Visit: Yes Status: Acute (6) Cannabis abuse Current Visit: Yes Status: Acute (7) Opioid dependence on agonist therapy Current Visit: Yes Status: Chronic (8) Nicotine dependence Current Visit: Yes Status: Chronic Qualifiers: Nicotine product type: cigarettes Substance use status: in withdrawal Qualified Code(s): F17.213 - Nicotine dependence, cigarettes, with withdrawal (9) Asthma Current Visit: Yes Status: Chronic Qualifiers: Asthma severity: mild Asthma persistence: intermittent Asthma complication type: uncomplicated Qualified Code(s): J45.20 - Mild intermittent asthma, uncomplicated (10) COPD (chronic obstructive pulmonary disease) Current Visit: Yes Status: Chronic Qualifiers: COPD type: emphysema Emphysema type: unspecified Qualified Code(s): J43.9 - Emphysema, unspecified (11) Low back pain Current Visit: Yes Status: Chronic Qualifiers: Chronicity: unspecified Back pain laterality: unspecified Sciatica presence: unspecified whether sciatica present Qualified Code(s): M54.5 - Low back pain (12) History of posttraumatic stress disorder (PTSD) Current Visit: No Status: Chronic (13) Hypertension Current Visit: No Status: Chronic Qualifiers: Hypertension type: essential hypertension Qualified Code(s): I10 - Essential (primary) hypertension (14) Seizure disorder Current Visit: Yes Status: Acute - Initial Treatment Plan Initial Treatment Plan: 1) Resume Seroquel 50 mg po HS. 2) Continue inpatient detoxification
[2019-10-22 10:18] LABS: HEMATOCRIT 35.4 % (35.4-49); HEMOGLOBIN 12.2 GM/dL (11.7-16.9); MCH 37.1 pg (25.7-33.7); MCHC 34.3 g/dl (32.0-35.9); MEAN CELL VOLUME 108.2 fl (80-96); PLATELET COUNT 106 K/MM3 (134-434); RBC 3.28 M/mm3 (4.00-5.60); RDW 15.5 % (11.9-15.9); WHITE BLOOD COUNT 3.5 K/mm3 (4.0-10.0)
[2019-10-22 10:20] LABS: ALBUMIN 3.1 g/dl (3.4-5.0); BILIRUBIN,TOTAL 0.2 mg/dL (0.2-1); BLOOD UREA NITROGEN 8.9 mg/dL (7-18); CALCIUM 8.3 mg/dL (8.5-10.1); CREATININE 0.7 mg/dL (0.55-1.3); POTASSIUM 3.6 mmol/L (3.5-5.1); TOT PROT 5.8 g/dl (6.4-8.2)
[2019-10-22] MEDS: NICOTINE 14 MG/24 HOURS TOPICAL PATCH TD SCH (10:22)
[2019-10-22] MEDS: PRENATAL VITAMINS W/ FOLIC ACID TABLET (FP) PO SCH (10:23)
[2019-10-22] MEDS: BUDESONIDE/FORMETEROL FUMARATE 160/4.5 mcg INHALER IH SCH ×2 (10:23→21:34)
[2019-10-22] MEDS: chlordiazePOXIDE HCL 10 MG CAPSULE PO PRN ×2 (10:27→17:21)
--- NOTE | 2019-10-22 12:16 | PN ---
S CIWA - CIWA Score Nausea/Vomitin-No Nausea/No Vomiting Muscle Tremors: 3 Anxiety: 3 Agitation: 3 Paroxysmal Sweats: 3 Orientation: 0-Oriented Tacttile Disturbances: 0-None Auditory Disturbances: 0-None Visual Disturbances: 0-None Headache: 0-None Present CIWA-Ar Total Score: 12 BHS Progress Note (SOAP) Subjective: restless sweats shakes interrupted sleep body aches anxiety Objective: 10/22/19 12:15 Vital Signs Temperature 98.1 F 10/22/19 09:56 Pulse Rate 93 H 10/22/19 09:56 Respiratory Rate 17 10/22/19 09:56 Blood Pressure 150/87 10/22/19 09:56 O2 Sat by Pulse Oximetry (%) Laboratory Tests 10/22/19 10/22/19 10/22/19 08:30 08:30 08:30 WBC 3.5 L RBC 3.28 L Hgb 12.2 Hct 35.4 MCV 108.2 H MCH 37.1 H MCHC 34.3 RDW 15.5 Plt Count 106 L D MPV 8.0 Sodium 141 Potassium 3.6 Chloride 105 Carbon Dioxide 31 Anion Gap 6 L BUN 8.9 Creatinine 0.7 Est GFR (CKD-EPI)AfAm 123.13 Est GFR (CKD-EPI)NonAf 106.24 Random Glucose 64 L Calcium 8.3 L Total Bilirubin 0.2 AST 40 H ALT 21 Alkaline Phosphatase 90 Total Protein 5.8 L Albumin 3.1 L Phenytoin 0.7 labs noted aaox3 ambulating no acute distress Assessment: 10/22/19 12:16 withdrawals Plan: continue detox increase fluids
--- NOTE | 2019-10-22 12:46 | EKG ---
Test Reason : Blood Pressure : / mmHG Vent. Rate : 068 BPM Atrial Rate : 068 BPM P-R Int : 132 ms QRS Dur : 090 ms QT Int : 462 ms P-R-T Axes : 070 052 052 degrees QTc Int : 491 ms NORMAL SINUS RHYTHM PROLONGED QT ABNORMAL ECG WHEN COMPARED WITH ECG OF 16-AUG-2019 22:39, NO SIGNIFICANT CHANGE WAS FOUND Confirmed by DOC ARAUJO MD ([id number]) on 10/22/2019 12:46:38 PM Referred By: Perfecto Rogers Confirmed By:DOC ARAUJO MD
[2019-10-22] MEDS: QUEtiapine FUMARATE 50 MG TABLET PO SCH (21:06)
[2019-10-22] MEDS: MONTELUKAST NA 10 MG TABLET PO SCH (21:06)
[2019-10-22] MEDS: THIAMINE HCL 100 MG TABLET (FP) PO SCH (21:06)
[2019-10-23] MEDS: chlordiazePOXIDE 5 MG CAPSULE PO SCH ×3 (05:43→21:15)
[2019-10-23] MEDS: METHADONE HCL 40 MG DISPERSABLE TABLET PO SCH (05:44)
[2019-10-23] MEDS: ACETAMINOPHEN 325 MG TABLET (FP) PO PRN ×2 (05:55→17:11)
[2019-10-23] MEDS: BUDESONIDE/FORMETEROL FUMARATE 160/4.5 mcg INHALER IH SCH ×2 (10:25→21:20)
[2019-10-23] MEDS: NICOTINE 14 MG/24 HOURS TOPICAL PATCH TD SCH (10:25)
[2019-10-23] MEDS: PRENATAL VITAMINS W/ FOLIC ACID TABLET (FP) PO SCH (10:25)
[2019-10-23] MEDS: chlordiazePOXIDE HCL 10 MG CAPSULE PO PRN ×2 (10:27→17:08)
[2019-10-23] MEDS: ALBUTEROL SO4 8 GM HFA INHALER IH PRN (13:02)
--- NOTE | 2019-10-23 16:39 | PN ---
S CIWA - CIWA Score Nausea/Vomitin-No Nausea/No Vomiting Muscle Tremors: 4-Moderate,w/Arms Extend Anxiety: 3 Agitation: 2 Paroxysmal Sweats: 3 Orientation: 0-Oriented Tacttile Disturbances: 0-None Auditory Disturbances: 0-None Visual Disturbances: 0-None Headache: 0-None Present CIWA-Ar Total Score: 12 BHS Progress Note (SOAP) Subjective: C/o tremors, sweats, decreased sleep last night. Objective: 10/23/19 16:36 Vital Signs - 24 hr 10/22/19 10/22/19 10/23/19 17:45 21:44 00:30 Temperature 97.9 F 97.5 F L Pulse Rate 69 67 Respiratory 18 18 18 Rate Blood Pressure 148/98 151/91 10/23/19 10/23/19 10/23/19 03:30 07:12 10:00 Temperature 98.2 F 98.1 F Pulse Rate 72 81 Respiratory 18 18 18 Rate Blood Pressure 147/88 140/90 Laboratory Tests 10/22/19 10/22/19 10/22/19 08:30 08:30 08:30 WBC 3.5 L RBC 3.28 L Hgb 12.2 Hct 35.4 MCV 108.2 H MCH 37.1 H MCHC 34.3 RDW 15.5 Plt Count 106 L D MPV 8.0 Sodium 141 Potassium 3.6 Chloride 105 Carbon Dioxide 31 Anion Gap 6 L BUN 8.9 Creatinine 0.7 Est GFR (CKD-EPI)AfAm 123.13 Est GFR (CKD-EPI)NonAf 106.24 Random Glucose 64 L Calcium 8.3 L Total Bilirubin 0.2 AST 40 H ALT 21 Alkaline Phosphatase 90 Total Protein 5.8 L Albumin 3.1 L Phenytoin 0.7 Keppra level pending Dilantin level as above. Called pt's pharmacy--[facility] pharmacist who reports pt is noncompliant with meds and different doctors ordered Dilantin and Keppra. Reports pt's hx of Last Dilantin was 07/12/19. Reports pt's current on Keppra 500 mg po BID dated 07/11. Note: Please follow up with Keppra level and reorder as necessary. 10/23/19 17:05 Assessment: 10/23/19 16:36 SAQIB w/s Plan: cont detox maintain safety increase po fluids as tolerated Informed pt's Nurse Leann to let other nurses know to provider on duty when keppra result becomes available.
[2019-10-23] MEDS: THIAMINE HCL 100 MG TABLET (FP) PO SCH (21:16)
[2019-10-23] MEDS: levETIRAcetam 500 MG TABLET (FP) PO SCH (21:16)
[2019-10-23] MEDS: MONTELUKAST NA 10 MG TABLET PO SCH (21:16)
[2019-10-23] MEDS: QUEtiapine FUMARATE 50 MG TABLET PO SCH (21:16)
[2019-10-24] MEDS ORDERED: chlordiazePOXIDE HCL 10 MG CAPSULE PO PRN
[2019-10-24] MEDS: chlordiazePOXIDE HCL 10 MG CAPSULE PO SCH ×3 (06:35→22:26)
[2019-10-24] MEDS: METHADONE HCL 40 MG DISPERSABLE TABLET PO SCH (06:35)
[2019-10-24] MEDS: levETIRAcetam 500 MG TABLET (FP) PO SCH ×2 (10:03→22:26)
[2019-10-24] MEDS: BUDESONIDE/FORMETEROL FUMARATE 160/4.5 mcg INHALER IH SCH ×2 (10:03→22:52)
[2019-10-24] MEDS: PRENATAL VITAMINS W/ FOLIC ACID TABLET (FP) PO SCH (10:03)
[2019-10-24] MEDS: NICOTINE 14 MG/24 HOURS TOPICAL PATCH TD SCH (10:05)
[2019-10-24] MEDS: ALBUTEROL SO4 8 GM HFA INHALER IH PRN (10:05)
--- NOTE | 2019-10-24 20:53 | PN ---
BHS CIWA - CIWA Score Nausea/Vomitin-Mild Nausea/No Vomiting Muscle Tremors: None Anxiety: 2 Agitation: 3 Paroxysmal Sweats: No Perspiration Orientation: 0-Oriented Tacttile Disturbances: 0-None Auditory Disturbances: 0-None Visual Disturbances: 0-None Headache: 0-None Present CIWA-Ar Total Score: 6 BHS Progress Note (SOAP) Subjective: ETOH W/D SYMPTOMS ANXIOUS, MILD NAUSEA, MILDLY RESTLESS Objective: 10/24/19 20:51 Laboratory Tests 10/22/19 10/22/19 10/22/19 08:30 08:30 08:30 WBC 3.5 L RBC 3.28 L Hgb 12.2 Hct 35.4 MCV 108.2 H MCH 37.1 H MCHC 34.3 RDW 15.5 Plt Count 106 L D MPV 8.0 Sodium 141 Potassium 3.6 Chloride 105 Carbon Dioxide 31 Anion Gap 6 L BUN 8.9 Creatinine 0.7 Est GFR (CKD-EPI)AfAm 123.13 Est GFR (CKD-EPI)NonAf 106.24 Random Glucose 64 L Calcium 8.3 L Total Bilirubin 0.2 AST 40 H ALT 21 Alkaline Phosphatase 90 Total Protein 5.8 L Albumin 3.1 L Phenytoin 0.7 Vital Signs Temperature 97.9 F 10/24/19 18:23 Pulse Rate 86 10/24/19 18:23 Respiratory Rate 18 10/24/19 18:23 Blood Pressure 118/90 10/24/19 18:23 O2 Sat by Pulse Oximetry (%) PE ALERT AND ORIENTED X 3 THIN SKIN WARM AND DRY CAR S1S2 RESP CTA BL EXT FULL ROM, AMB AD STEVEN NO TREMORS Assessment: 10/24/19 20:52 ETOH W/D SYMPTOMS Plan: CONTINUE DETOX D/C IN AM
[2019-10-24] MEDS: THIAMINE HCL 100 MG TABLET (FP) PO SCH (22:26)
[2019-10-24] MEDS: QUEtiapine FUMARATE 50 MG TABLET PO SCH (22:26)
[2019-10-24] MEDS: MONTELUKAST NA 10 MG TABLET PO SCH (22:26)
[2019-10-25] MEDS ORDERED: chlordiazePOXIDE HCL 10 MG CAPSULE PO ONE (05:00)
[2019-10-25] MEDS: METHADONE HCL 40 MG DISPERSABLE TABLET PO SCH (05:37)
[2019-10-25 06:51] VITALS: BP 143/87; PULSE 75; TEMP 97.5
--- NOTE | 2019-10-25 08:58 | DS ---
[facility] Detox Discharge Summary Admission Date: 10/21/19 Discharge Date: 10/25/19 - History Present History: Alcohol Dependence, Cannabis Dependence, Pcp Dependence, MMTP - Physical Exam Results Vital Signs: Vital Signs Temperature 97.5 F L 10/25/19 06:50 Pulse Rate 75 10/25/19 06:50 Respiratory Rate 18 10/25/19 06:50 Blood Pressure 143/87 10/25/19 06:50 O2 Sat by Pulse Oximetry (%) Pertinent Admission Physical Exam Findings: Vital Signs Temperature 97.5 F L 10/25/19 06:50 Pulse Rate 75 10/25/19 06:50 Respiratory Rate 18 10/25/19 06:50 Blood Pressure 143/87 10/25/19 06:50 O2 Sat by Pulse Oximetry (%) Laboratory Tests 10/22/19 10/22/19 10/22/19 08:30 08:30 08:30 WBC 3.5 L RBC 3.28 L Hgb 12.2 Hct 35.4 MCV 108.2 H MCH 37.1 H MCHC 34.3 RDW 15.5 Plt Count 106 L D MPV 8.0 Sodium 141 Potassium 3.6 Chloride 105 Carbon Dioxide 31 Anion Gap 6 L BUN 8.9 Creatinine 0.7 Est GFR (CKD-EPI)AfAm 123.13 Est GFR (CKD-EPI)NonAf 106.24 Random Glucose 64 L Calcium 8.3 L Total Bilirubin 0.2 AST 40 H ALT 21 Alkaline Phosphatase 90 Total Protein 5.8 L Albumin 3.1 L Phenytoin 0.7 aaox3 ambulating no acute distress - Treatment Hospital Course: Detox Protocol Followed, Detoxed Safely, Responded well, Discharged Condition Good, Rehab Referral Accepted Patient has Accepted a Rehab Referral to: [facility] mmtp - Medication Discharge Medications: Ambulatory Orders Albuterol Sulfate Inhaler - [Ventolin HFA Inhaler -] 2 puff IH Q6H PRN #1 inhaler 04/18/19 Budesonide/Formeterol Fumarate [SYMBICORT 160/4.5mcg -] 2 puff IH BID #1 inhaler 04/18/19 Montelukast Sodium [Singulair] 10 mg PO HS #30 tablet 04/18/19 Phenytoin Na Extended [Dilantin -] 100 mg PO BID 30 Days #60 capsule 04/18/19 levETIRAcetam [Keppra -] 500 mg PO BID 08/17/19 - Diagnosis (1) Alcohol dependence with withdrawal, uncomplicated Current Visit: Yes Status: Chronic (2) Alcohol-induced mood disorder Current Visit: Yes Status: Acute (3) Alcohol-induced sleep disorder Current Visit: Yes Status: Acute (4) Cannabis abuse Current Visit: Yes Status: Chronic (5) Depressed affect Current Visit: Yes Status: Acute (6) Seizure disorder Current Visit: Yes Status: Suspected (7) Asthma Current Visit: Yes Status: Chronic Qualifiers: Asthma severity: mild Asthma persistence: intermittent Asthma complication type: uncomplicated Qualified Code(s): J45.20 - Mild intermittent asthma, uncomplicated (8) COPD (chronic obstructive pulmonary disease) Current Visit: Yes Status: Chronic Qualifiers: COPD type: emphysema Emphysema type: unspecified Qualified Code(s): J43.9 - Emphysema, unspecified (9) Depressive disorder Current Visit: Yes Status: Chronic (10) Low back pain Current Visit: Yes Status: Chronic Qualifiers: Chronicity: unspecified Back pain laterality: unspecified Sciatica presence: unspecified whether sciatica present Qualified Code(s): M54.5 - Low back pain (11) Nicotine dependence Current Visit: Yes Status: Chronic Qualifiers: Nicotine product type: cigarettes Substance use status: uncomplicated Qualified Code(s): F17.210 - Nicotine dependence, cigarettes, uncomplicated (12) Opioid dependence on agonist therapy Current Visit: Yes Status: Chronic (13) Non-compliance Current Visit: Yes Status: Suspected (14) Substance induced mood disorder Current Visit: Yes Status: Suspected (15) Substance-induced sleep disorder Current Visit: Yes Status: Suspected (16) MDD (major depressive disorder) Current Visit: Yes Status: Ruled-out (17) Insomnia Current Visit: No Status: Acute (18) MDD (major depressive disorder), recurrent severe, without psychosis Current Visit: No Status: Acute (19) Sedative hypnotic or anxiolytic dependence Current Visit: No Status: Acute (20) Weight loss Current Visit: Yes Status: Acute (21) Anxiety and depression Current Visit: No Status: Chronic (22) Cannabis dependence Current Visit: Yes Status: Chronic (23) Cocaine dependence Current Visit: Yes Status: Chronic Qualifiers: Substance use status: uncomplicated Qualified Code(s): F14.20 - Cocaine dependence, uncomplicated (24) Depression (emotion) Current Visit: No Status: Chronic Qualifiers: Depression Type: dysthymia Qualified Code(s): F34.1 - Dysthymic disorder (25) History of posttraumatic stress disorder (PTSD) Current Visit: No Status: Chronic (26) Hypertension Current Visit: Yes Status: Chronic Qualifiers: Hypertension type: essential hypertension Qualified Code(s): I10 - Essential (primary) hypertension (27) Insomnia Current Visit: No Status: Chronic (28) MDD (major depressive disorder), recurrent episode Current Visit: No Status: Chronic Qualifiers: Major depression episode severity: moderate Qualified Code(s): F33.1 - Major depressive disorder, recurrent, moderate (29) PCP dependence Current Visit: Yes Status: Chronic (30) Depressive disorder Current Visit: No Status: Suspected (31) Substance induced mood disorder Current Visit: No Status: Suspected - AMA Did Patient Leave Against Medical Advice: No
[2019-10-25] MEDS: BUDESONIDE/FORMETEROL FUMARATE 160/4.5 mcg INHALER IH SCH (09:04)
[2019-10-25] MEDS: ALBUTEROL SO4 8 GM HFA INHALER IH PRN (09:05)
[2019-10-25] MEDS: PRENATAL VITAMINS W/ FOLIC ACID TABLET (FP) PO SCH (09:07)
[2019-10-25] MEDS: levETIRAcetam 500 MG TABLET (FP) PO SCH (09:07)
[2019-10-25] MEDS: NICOTINE 14 MG/24 HOURS TOPICAL PATCH TD SCH (09:08)
[2019-10-25 10:08] LABS: HEMATOCRIT 37.2 % (35.4-49); HEMOGLOBIN 12.6 GM/dL (11.7-16.9); MCH 37.2 pg (25.7-33.7); MCHC 33.8 g/dl (32.0-35.9); MEAN PLT VOLUME 9.1 fl (7.5-11.1); PLATELET COUNT 115 K/MM3 (134-434); RBC 3.38 M/mm3 (4.00-5.60); RDW 15.2 % (11.9-15.9); WHITE BLOOD COUNT 4.8 K/mm3 (4.0-10.0)
[2019-10-25 10:23] LABS: ALBUMIN 2.9 g/dl (3.4-5.0); BILIRUBIN,TOTAL 0.2 mg/dL (0.2-1); BLOOD UREA NITROGEN 13.7 mg/dL (7-18); CREATININE 0.9 mg/dL (0.55-1.3); POTASSIUM 4.2 mmol/L (3.5-5.1); TOT PROT 6.1 g/dl (6.4-8.2)
[2019-10-25 12:01] LABS: INR 0.87 (0.83-1.09); PROTHROMBIN TIME (PATIENT) 10.3 SEC (9.7-13.0)
== END 2019-10-25 10:03 | disposition home or self-care (01) | DRG 773 ==
LOC: YASAS 16:21 → Y6N 20:29
PROVIDERS: ADMIT Allergy & Immunology; ATTEND Allergy & Immunology
PROC: HZ2ZZZZ Detoxification Services for Substance Abuse Treatment (ICD-10-PCS; principal; 2019-10-21)
DX: F10.230 Alcohol dependence with withdrawal, uncomplicated (principal); F11.23 Opioid dependence with withdrawal; F14.20 Cocaine dependence, uncomplicated; F16.20 Hallucinogen dependence, uncomplicated; F17.210 Nicotine dependence, cigarettes, uncomplicated; F10.24 Alcohol dependence with alcohol-induced mood disorder; F10.282 Alcohol dependence with alcohol-induced sleep disorder; F19.24 Other psychoactive substance dependence with psychoactive substance-induced mood disorder; F19.282 Other psychoactive substance dependence with psychoactive substance-induced sleep disorder; F33.1 Major depressive disorder, recurrent, moderate; F34.1 Dysthymic disorder; F43.10 Post-traumatic stress disorder, unspecified; I10 Essential (primary) hypertension; J43.9 Emphysema, unspecified; J45.20 Mild intermittent asthma, uncomplicated; G40.909 Epilepsy, unspecified, not intractable, without status epilepticus; M54.5 Low back pain; R45.89 Other symptoms and signs involving emotional state; R63.4 Abnormal weight loss; Z68.34 Body mass index [BMI] 34.0-34.9, adult; Z91.89 Other specified personal risk factors, not elsewhere classified; Z91.410 Personal history of adult physical and sexual abuse; Z91.19 Patient's noncompliance with other medical treatment and regimen; Z87.01 Personal history of pneumonia (recurrent); Z59.0 Homelessness
CPT/HCPCS: 36415; 80053; 80177; 80185; 85027; 85610; 93005; 93010